=== PATIENT | male | born 1960 | race Two or more races ===

== ENCOUNTER 2022-08-29 15:26 | Emergency (ER) | payer MEDICAID, OTHER ==
[~2022-08-29] VITALS: Ht 167.6 cm; Wt 59.1 kg
[2022-08-29 18:49] VITALS: BP 157/91
[2022-08-29] MEDS ORDERED: HYDROcodone-ACET 10/325MG TAB PO ONE (19:30)
== END 2022-08-29 19:30 | disposition home or self-care (01) ==
LOC: ER 15:26
DX: S09.8XXA Other specified injuries of head, initial encounter (principal); R42 Dizziness and giddiness; E11.9 Type 2 diabetes mellitus without complications; I10 Essential (primary) hypertension; V43.52XA Car driver injured in collision with other type car in traffic accident, initial encounter; Y93.89 Activity, other specified; Y92.89 Other specified places as the place of occurrence of the external cause; Y99.8 Other external cause status
CPT/HCPCS: 70450

== ENCOUNTER 2022-11-25 13:19 | Emergency (ER) | payer MEDICAID ==
[~2022-11-25] VITALS: Ht 162.6 cm; Wt 57.0 kg
[2022-11-25 13:43] VITALS: TEMP 97.8; O2SAT 97
[2022-11-25] MEDS ORDERED: ONDANSETRON HCL 4 MG/2 ML VIAL IV ONE (13:45)
[2022-11-25] MEDS ORDERED: SODIUM CHLORIDE 0.9% 500 ML IVB ONE (13:45)
[2022-11-25] MEDS ORDERED: MORPHINE SULFATE 4 MG/ML SYR/VIAL IV ONE (13:45)
[2022-11-25 13:49] LABS: Basophils # (auto) 0 10 ^3/uL (0-0.2); Basophils % (auto) 0.5 % (0.0-2.0); Eosinophils # (auto) 0.1 10 ^3/uL (0-0.8); Hematocrit 38.9 % (41.0-53.0); Hemoglobin 13.2 g/dL (13.5-17.5); Lymphocytes # (auto) 2.3 10 ^3/uL (0.4-5.4); Lymphocytes % (auto) 34.3 % (10.0-50.0); Mean Corpuscular Hemoglobin 31.2 pg (28.0-32.0); Mean Corpuscular Hgb Conc. 33.9 g/dL (32.0-36.0); Monocytes # (auto) 0.3 10 ^3/uL (0-1.3); Neutrophils # (auto) 3.9 10 ^3/uL (1.6-8.6); Neutrophils % (auto) 59.2 % (37.0-80.0); Red Blood Cells 4.22 10^6/uL (4.5-5.90); Red Cell Distribution Width 13.9 % (11.8-14.3); White Blood Cell 6.6 10^3/uL (4.4-10.8)
[2022-11-25 13:57] LABS: Urine Bacteria NONE SEEN /hpf (None Seen); Urine Blood Negative /uL (Negative); Urine Clarity Clear (Clear); Urine Color Yellow (Yellow); Urine Hyaline Cast FEW /lpf (0 - 2); Urine Protein, UAD TRACE (Negative); Urine Specific Gravity 1.019 (1.001-1.035); Urine Urobilinogen Normal (Negative); Urine WBC <1 /hpf (0 - 3); Urine pH 5.5 (5.0-8.0)
[2022-11-25 14:08] LABS: Alanine Aminotransferase 12 U/L (7-40); Albumin 4.8 g/dL (3.2-4.8); Alkaline Phosphatase 89 U/L (46-116); Anion Gap 3 (5-15); Aspartate Aminotransferase 17 U/L (13-40); BUN/Creatinine Ratio 9.6 (10.0-20.0); Blood Urea Nitrogen 8 mg/dL (9-23); Calcium 9.6 mg/dL (8.7-10.4); Carbon Dioxide 30 mmol/L (20-30); Chloride 100 mmol/L (98-107); Glucose 157 mg/dL (74-106); Lipase 33 U/L (12-53); Potassium 4.2 mmol/L (3.5-5.1); Sodium 133 mmol/L (136-145)
[2022-11-25 14:09] LABS: Bilirubin, Total 0.3 mg/dL (0.2-1.0); Total Protein 7.2 g/dL (5.7-8.2)
[2022-11-25 14:20] VITALS: BP 102/60; PULSE 61; RESP 15
[2022-11-25] MEDS ORDERED: ZOFR4T PO (14:56)
== END 2022-11-25 14:57 | disposition home or self-care (01) ==
LOC: ER 13:19
DX: R10.84 Generalized abdominal pain (principal); E11.9 Type 2 diabetes mellitus without complications; I10 Essential (primary) hypertension; Z79.899 Other long term (current) drug therapy
CPT/HCPCS: 36415; 74176; 80053; 81001; 83690; 83735; 85025; 93005; 96361; 96374; 96375; 99285; J2270; J2405; J7040

== ENCOUNTER 2024-04-12 15:29 | Inpatient (IN) | payer MEDICAID ==
[~2024-04-12] VITALS: Ht 157.5 cm; Wt 67.2 kg
[~2024-04-12 15:29] MED LIST: ZOFR4T PO
--- NOTE | 2024-04-12 16:05 | ED.PDOC ---
GI ASSESSMENT HPI Comments HPI: Poor Historian. 63 y.o male presents to the ED for a chief complaint of epigastric pain associated with diarrhea that started 5 days ago. Patient reports pain is constant with 3 episodes of diarrhea per day, brown in coloration. Patient denies any nausea, vomiting, bleeding, fever or chills. Vitals BP: 154/80 HR: 114 Temp: 98.3 f SPO2: 90 L RR: 24 Past medical history: DM and HTN Past surgical history: Denies No allergies reported REVIEW OF SYSTEMS: CONSTITUTIONAL: Denies acute: fever, diaphoresis, chills, HEAD: Denies acute: headache, photophobia Eyes: Denies acute: Double vision, vision loss, eye pain, eye discharge. EARS: Denies acute: tinnitus, hearing loss, ear discharge, ear pain, THROAT: Denies acute: sore throat, swelling, difficulty swallowing , pain with swallowing, change in voice. NECK: Denies acute: neck pain, neck swelling, stiff neck. HEART: Denies acute : chest pain, palpitations, LUNGS: Denies acute: SOB, wheezing, cough, hemoptysis ABDOMEN: Denies acute: Nausea, Vomiting, melena , hematemesis, hematochezia SKIN: Denies acute: rash, redness, lesions, itchiness. EXTREMITIES: Denies acute: calf pain, numbness, tingling, weakness, denies pain in extremity. Denies acute: Low back pain. Neuro: Denies acute: focal neurological deficit, motor or sensory focal neurological deficit, tremors, seizure like activity, confusion, dizziness, change in mental status, loss of bowel or bladder function, cauda equina like symptoms. : Denies acute: dysuria, hematuria, flank pain, increase in urinary frequency. PSYCH: Denies acute: hallucination, suicidal ideation, homicidal ideation. PHYSICAL EXAM: General: no acute distress, awake and alert. Patient appears to have very poor hygiene. Denies being homeless. Smells like poop with noted diarrhea content in his pants and abdominal wall. Head: normocephalic, atraumatic. Neck: supple, trachea is midline, no swelling. Throat: Normal phonation. Eyes:, no erythema, no purulent discharge, no proptosis, no icterus. Heart: regular tachycardic home, no significant murmur appreciated. Lungs: no apparent respiratory distress, Able to speak in full sentences. No wheezing, no rhonchi, no crackles. No stridors Clear to auscultation bilaterally. Abdomen: Epigastric/periumbilical tender to palpation, non distended, soft, no guarding, no rebound, + bowel sounds. Neuro: Awake, Alert, oriented to name, self, situation, follows commands GCS=15. Speech is normal. Skin: no petechia, no purpura, no cyanosis, non-pale, not jaundice. Lower extremities: --no - Pitting edema no deformity, no focal swelling, no calf TTP. Makes eye contact. moves all four extremities. Face: no apparent facial droop. Ambulating in the ED independently. ED COURSE: Chief Complaint: Abdominal Pain Time Seen by MD: 15:52 Primary Care Provider: LARRY Reviewed Notes: Nurses Notes, Allergies Allergies: Coded Allergies: NO KNOWN ALLERGIES (Unverified , 08/29/22) Home Meds Active Scripts Ondansetron Odt 4MG Tab (ZOFRAN PO) 4 Mg Tb, 4 MG PO Q8HP PRN for 5 Days, #15 TAB ODT TAB-DISSOLVE IN MOUTH, THEN SWALLOW Prov:MARYCARMEN LEDBETTER MD 11/25/22 Information Source: Patient Mode of Arrival: Ambulatory Timing: Days Past Medical History PAST MEDICAL HISTORY: DM, HTN Surgical History: Denies all surgeries Family History Family History: Reviewed,noncontributory to illness Social History Smoker: Non-Smoker Alcohol: Denies ETOH Use Drugs: Denies Drug Use Lives In: Home Was a procedure done? Was a procedure done?: No GI differential Dx Differential Diagnosis: Diverticular disease, Gastroenteritis, Dehydration, Electrolyte Imbalance, Viral, Other (DDX include but not limited to diverticulitis, colitis, gastroenteritis, acute abdomen, SBO, enteritis, constipation, volvulus, appendicitis, Gallbladder disease, choledocolithiasis, ascending cholangitis, pancreatitis, intraAbdominal mass/neoplasm, hepatitis, UTI, pylonephritis, kidney stone, aneurysm, dissection, Inflammatory bowel disease, gastroparesis, ischemic bowel.) X-Ray, Labs, Meds, VS Vital Signs Date Time Temp Pulse Resp B/P (MAP) Pulse Ox O2 Delivery O2 Flow Rate FiO2 04/12/24 18:10 112 04/12/24 18:01 115 31 89 Nasal Cannula* 5 40 04/12/24 17:33 111 18 94 Room Air 04/12/24 17:33 99.1 111 18 119/74 (89) 94 99.1 04/12/24 16:03 106 04/12/24 16:00 98.3 114 24 154/80 (104) 90 Lab Test 04/12/24 18:34 04/12/24 16:11 04/12/24 15:55 04/12/24 15:54 Range/Units Lactic Acid Level Pending 4.4 *H 0.4-2.0 mmol/L Troponin I High Sensitivity Pending 8 </=54 ng/L White Blood Count 10.2 4.4-10.8 10^3/uL Red Blood Count 3.60 L 4.5-5.90 10^6/uL Hemoglobin 10.9 L 13.5-17.5 g/dL Hematocrit 32.5 L 41.0-53.0 % Mean Corpuscular Volume 90.1 80.0-100.0 fL Mean Corpuscular Hemoglobin 30.3 28.0-32.0 pg Mean Corpuscular Hemoglobin Concent 33.6 32.0-36.0 g/dL Red Cell Distribution Width 15.1 H 11.8-14.3 % Platelet Count 161 140-450 10^3/uL Mean Platelet Volume 7.8 6.9-10.8 fL Neutrophils (%) (Auto) 37.0-80.0 % Lymphocytes (%) (Auto) 10.0-50.0 % Monocytes (%) (Auto) 0.0-12.0 % Basophils (%) (Auto) 0.0-2.0 % Neutrophils # (Auto) 1.6-8.6 10 ^3/uL Lymphocytes # (Auto) 0.4-5.4 10 ^3/uL Monocytes # (Auto) 0-1.3 10 ^3/uL Differential Total Cells Counted 100.0 100 Neutrophils % (Manual) 88 H 37.0-80.0 Band Neutrophils % (Manual) 5 Lymphocytes % (Manual) 4 L 10.0-50.0 Monocytes % (Manual) 3 0-12 Eosinophils % (Manual) 0 0-7 Basophils % (Manual) 0 0.0-2.0 Metamyelocytes % (manual) 0 Myelocytes % (Manual) 0 Promyelocytes % (Manual) 0 Blast Cells % (Manual) 0 Reactive Lymphocytes 0 Platelet Estimate Adequate Sodium Level 128 L 136-145 mmol/L Potassium Level 3.0 L 3.5-5.1 mmol/L Chloride Level 94 L 98-107 mmol/L Carbon Dioxide Level 25 20-31 mmol/L Anion Gap 9 5-15 Blood Urea Nitrogen 25 H 9-23 mg/dL Creatinine 1.01 0.700-1.30 mg/dL Glomerular Filtration Rate Calc 83 >90 mL/min BUN/Creatinine Ratio 24.8 H 10.0-20.0 Serum Glucose 518 *H 74-106 mg/dL Calcium Level 9.8 8.7-10.4 mg/dL Total Bilirubin 1.0 0.2-1.0 mg/dL Aspartate Amino Transferase (AST) 33 13-40 U/L Alanine Aminotransferase (ALT) 22 7-40 U/L Alkaline Phosphatase 104 46-116 U/L Total Protein 6.4 5.7-8.2 g/dL Albumin 4.0 3.2-4.8 g/dL Lipase 23 12-53 U/L POC Glucose 487 *H 523 *H 70-106 mg/dl Current Medications Medications (Trade) Dose Ordered Sig/Darryl Route Start Time Stop Time Status Last Admin Sodium Chloride 1,000 ml @ 1,000 mls/hr Q1H ONCE IV 04/12/24 17:15 04/12/24 18:14 DC 04/12/24 17:31 Metronidazole 100 ml @ 100 mls/hr ONCE ONCE IV 04/12/24 17:15 04/12/24 18:14 DC 04/12/24 17:45 Insulin Human Regular (InsuLIN R) 5 units ONCE ONCE IV 04/12/24 17:15 04/12/24 17:22 DC 04/12/24 18:30 Potassium Chloride (Klor-Con Tablet) 40 meq ONCE ONCE PO 04/12/24 17:15 04/12/24 17:22 DC 04/12/24 17:15 Ondansetron HCl (Zofran) 8 mg ONCE ONCE IV 04/12/24 17:15 04/12/24 17:22 DC 04/12/24 17:45 [facility] [address] [facility] [address] Ph: [phone] DIAGNOSTIC IMAGING Diagnostic Imaging Report : [id number] Signed PATIENT: JAN PROCTOR ACCT: [id number] UNIT: [id number] : 1960 LOC: ER ROOM / BED: / AGE / SEX: 63 / M ADM STATUS: REG ER SERVICE [id number] ORDERING PHYSICIAN: ELIAS PONCE DO PROCEDURE(s): ABPL - CT AB PEL WO CON-NO ORAL OR IV REASON: abd pain ORDER NUMBER(s): [id number], ACCESSION NUMBER(s): [id number] EXAM: CT Abdomen and Pelvis Without Intravenous Contrast CLINICAL INDICATION: abd pain TECHNIQUE: Axial computed tomography images of the abdomen and pelvis without intravenous contrast. This CT exam was performed using one or more of the f ollowing dose reduction techniques: automated exposure control, adjustment of the mA and/or kV according to patient size, and/or use of iterative reconstruction technique. CONTRAST: COMPARISON: CT CT AB PEL WO CON-NO ORAL OR IV on DOS: 11/25/22 FINDINGS: ARTIFACTS: Motion artifact. LUNG BASES: Partially visualized partial consolidation of the lung bases, greater on the right likely multifocal pneumonia. ABDOMEN: LIVER: Hepatomegaly with fatty infiltration. GALLBLADDER AND BILE DUCTS: Unremarkable. No calcified stones. No ductal dilation. PANCREAS: Unremarkable. No ductal dilation. SPLEEN: Unremarkable. No splenomegaly. ADRENALS: Unremarkable. No mass. KIDNEYS AND URETERS: Unremarkable. No obstructing stones. No hydronephrosis. STOMACH AND BOWEL: Multiple fluid-filled small bowel with air-fluid level measuring up to 2.5 cm could represent enteritis. Clinical correlation is recommended. Distended stomach. Decompression may be beneficial. PELVIS: APPENDIX: No findings to suggest acute appendicitis. BLADDER: Unremarkable. No stones. REPRODUCTIVE: Unremarkable as visualized. ABDOMEN and PELVIS: INTRAPERITONEAL SPACE: Unremarkable. No free air. No significant fluid collection. BONES/JOINTS: No acute fracture. No dislocation. SOFT TISSUES: Unremarkable. VASCULATURE: Scattered calcified atherosclerotic disease of aorta. No abdominal aortic aneurysm. LYMPH NODES: Unremarkable. No enlarged lymph nodes. OTHER FINDINGS: . None. .. IMPRESSION: 1. Partially visualized partial consolidation of the lung bases, greater on the right likely multifocal pneumonia. 2. Multiple fluid-filled small bowel with air-fluid level measuring up to 2.5 cm could represent enteritis. Clinical correlation is recommended. 3. Hepatomegaly with fatty infiltration. 4. Distended stomach. Decompression may be beneficial. ATED BY: SIVAN CARPIO MD DICTATED DATE/TIME: 04/12/241840 SIGNED BY: SIVAN CARPIO MD SIGNED DATE/TIME: 04/12/241840 CC: Time of 1ST Reevaluation: 16:02 Reevaluation 1ST: Unchanged Patient Education/Counseling: Diagnosis, Treatment Family Education/Counseling: No Family Present Comments Patient presented with the above HPI.--gastrointestinal complaints----workup was initiated. patient was found with the above mentioned diagnosis. the following medications were ordered: please refer to order lists of meds and tests obtained by myself Dr. Ponce. Patient ED course and VS have been stabilized. Patient has been reassessed in the ED and remained in a stable condition. Pertinent incidental findings were discussed with the patient and/or family. Patient/family voices understanding and is agreeable with plan. Patient has been observed in the ED adequate length of time to insure improvement/stability. Escalation of care considered: Consideration of escalation to observation or admission Patient was ADMITTED to the medicine team for further evaluation and treatment of their presentation. All the reports of any imaging studies that were ordered by myself were reviewed by myself. Departure 1 Departure Time of Disposition: 17:16 Impression: Primary Impression: Abdominal pain of unknown etiology Additional Impressions: Nausea vomiting and diarrhea Elevated lactic acid level Hyperglycemia Hypokalemia Multifocal pneumonia Disposition: ADMITTED INPATIENT Admit to: Tele Condition: Guarded Critical Care Note Critical Care Time?: Yes (45 min-critical care time only) I personally scribed for ELIAS PONCE DO ([email or web address]) on 04/12/24 at 16:05. Electronically submitted by Nika Valle ([facility]). I personally scribed for ELIAS PONCE DO ([email or web address]) on 04/12/24 at 18:32. Electronically submitted by Nika Valle ([facility]). I personally scribed for ELIAS PONCE DO ([email or web address]) on 04/12/24 at 18:52. Electronically submitted by Nika Valle ([facility]). ELIAS PONCE DO Apr 12, 2024 16:05
--- NOTE | 2024-04-12 16:05 | ECG ---
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
[2024-04-12 16:56] LABS: Hematocrit 32.5 % (41.0-53.0); Hemoglobin 10.9 g/dL (13.5-17.5); Mean Corpuscular Hemoglobin 30.3 pg (28.0-32.0); Mean Corpuscular Hgb Conc. 33.6 g/dL (32.0-36.0); Mean Corpuscular Volume 90.1 fL (80.0-100.0); Platelet Count (auto) 161 10^3/uL (140-450); Red Cell Distribution Width 15.1 % (11.8-14.3); White Blood Cell 10.2 10^3/uL (4.4-10.8)
[2024-04-12 16:59] LABS: Basophils % (manual) 0 (0.0-2.0); Blast Cells 0; Eosinophils % (manual) 0 (0-7); Metamyelocytes % 0; Myelocytes % 0; Promyelocytes % 0; Reactive Lymphocytes 0
[2024-04-12 17:09] LABS: Alanine Aminotransferase 22 U/L (7-40); Alkaline Phosphatase 104 U/L (46-116); Anion Gap 9 (5-15); Aspartate Aminotransferase 33 U/L (13-40); BUN/Creatinine Ratio 24.8 (10.0-20.0); Calcium 9.8 mg/dL (8.7-10.4); Carbon Dioxide 25 mmol/L (20-31); Lipase 23 U/L (12-53)
[2024-04-12 17:10] LABS: Total Protein 6.4 g/dL (5.7-8.2)
[2024-04-12 17:11] LABS: Lactic Acid w/Reflex 4.4 mmol/L (0.4-2.0)
[2024-04-12 17:12] LABS: Blood Urea Nitrogen 25 mg/dL (9-23); Chloride 94 mmol/L (98-107); Sodium 128 mmol/L (136-145)
[2024-04-12 17:13] LABS: Glucose 518 mg/dL (74-106)
[2024-04-12] MEDS: POTASSIUM CHL 20 Meq TABLET PO ONE (17:15)
[2024-04-12] MEDS: SODIUM CHLORIDE 0.9% 1,000 ML IV ONE (17:31)
[2024-04-12] MEDS: ONDANSETRON HCL 4 MG/2 ML VIAL IV ONE (17:45)
[2024-04-12] MEDS: metroNIDAZOLE 500MG/100ML 100 ML IV ONE (17:45)
[2024-04-12 18:00] LABS: Band Neutrophils % (manual) 5; Lymphocytes % (manual) 4 (10.0-50.0); Monocytes % (manual) 3 (0-12); Platelet Estimate Adequate
[2024-04-12 18:01] VITALS: PULSE 115; RESP 31; O2SAT 89
[2024-04-12] MEDS: InsuLIN REG 1unit/0.01ml Soln (100units/ml) IV ONE (18:30)
--- NOTE | 2024-04-12 18:44 | DVH ---
EXAM: CT Abdomen and Pelvis Without Intravenous Contrast CLINICAL INDICATION: abd pain TECHNIQUE: Axial computed tomography images of the abdomen and pelvis without intravenous contrast. This CT exam was performed using one or more of the following dose reduction techniques: automated exposure control, adjustment of the mA and/or kV according to patient size, and/or use of iterative r econstruction technique. CONTRAST: COMPARISON: CT CT AB PEL WO CON-NO ORAL OR IV on DOS: 11/25/22 FINDINGS: ARTIFACTS: Motion artifact. LUNG BASES: Partially visualized partial consolidation of the lung bases, greater on the right like ly multifocal pneumonia. ABDOMEN: LIVER: Hepatomegaly with fatty infiltration. GALLBLADDER AND BILE DUCTS: Unremarkable. No calcified stones. No ductal dilation. PANCREAS: Unremarkable. No ductal dilation. SPLEEN: Unremarkable. No splenomegaly. ADRENALS: Unremarkable. No mass. KIDNEYS AND URETERS: Unremarkable. No obstructing stones. No hydronephrosis. STOMACH AND BOWEL: Multiple fluid-filled small bowel with air-fluid level measuring up to 2.5 cm co uld represent enteritis. Clinical correlation is recommended. Distended stomach. Decompression may be beneficial. PELVIS: APPENDIX: No findings to suggest acute appendicitis. BLADDER: Unremarkable. No stones. REPRODUCTIVE: Unremarkable as visualized. ABDOMEN and PELVIS: INTRAPERITONEAL SPACE: Unremarkable. No free air. No significant fluid collection. BONES/JOINTS: No acute fracture. No dislocation. SOFT TISSUES: Unremarkable. VASCULATURE: Scattered calcified atherosclerotic disease of aorta. No abdominal aortic aneurysm. LYMPH NODES: Unremarkable. No enlarged lymph nodes. OTHER FINDINGS: . None. .. IMPRESSION: 1. Partially visualized partial consolidation of the lung bases, greater on the right likely multifo rosina pneumonia. 2. Multiple fluid-filled small bowel with air-fluid level measuring up to 2.5 cm could represent ent eritis. Clinical correlation is recommended. 3. Hepatomegaly with fatty infiltration. 4. Distended stomach. Decompression may be beneficial.
[2024-04-12] MEDS ORDERED: ACETAMINOPHEN 325 MG TAB PO PRN (18:45)
[2024-04-12] MEDS ORDERED: DOCUSATE SOD 100 MG CAP PO PRN (18:45)
[2024-04-12] MEDS ORDERED: DEXTROSE (50%) 50ML SYRG IV PRN (18:45)
[2024-04-12] MEDS ORDERED: MORPHINE SULFATE INJ 2 MG/ml SYRG IV PRN (18:45)
[2024-04-12] MEDS ORDERED: NITROGLYCERIN 0.4 MG SL TAB SL PRN (18:45)
--- NOTE | 2024-04-12 19:01 | DVHHP2 ---
History of Present Illness Reason for Visit: Diabetes mellitus with hyperglycemia History of Present Illness The patient is a 63-year-old male with past medical history of DM and hypertension who presented to [facility] ED with complaint of acute abdominal pain for the past 5 days duration. Patient reports he has been experiencing constant episode of diarrhea, associated nausea, vomiting, rating pain 5/10 numeric scale, getting worse today that prompted this visit. Patient was seen and evaluated in the ED, laboratory data shows WBC 10.2, hemoglobin 10.9, hematocrit 32.5, platelets 161, sodium 128, potassium 3.0, BUN 25, creatinine 1.01, GFR 83, glucose 518, anion gap 9, lactic acid 4.4, troponin 8, lipase 23, blood pressure 119/74, heart rate 112, temperature 99.1 F, O2 saturation 94% on oxygen. Abdomen/pelvis CT revealing partially visualized partial consolidation of the lung base, greater on the right likely multifocal pneumonia, multiple fluid-filled small bowel with filled level measuring up to 2.5 cm could represent enteritis, hepatomegaly with fatty infiltration. Patient was started on IV antibiotic regimen Flagyl, IV doxycycline, please see medication orders section in the computer. On my assessment, patient denied chest pain, no headache, no dizziness, no diaphoresis, no blurry vision, no abdominal pain, diarrhea, nausea or vomiting at this moment, no fever, no chills. Patient was admitted for further evaluation and medical management. Past Medical History DM, HTN Past Surgical History Denies all surgeries Family History Reviewed, noncontributory to the management of this case. Past Social History The patient lives at home, denies smoking, alcohol or illicit drugs abuse. Review of Systems Constitutional: No: Fever, Chills, Sweats, Weakness, Malaise, Other Eyes: No: Pain, Vision change, Conjunctivae inflammation, Eyelid inflammation, Other, Redness ENT: No: Ear pain, Ear discharge, Nose pain, Nose discharge, Nose congestion, Mouth pain, Mouth swelling, Throat pain, Throat swelling, Other Respiratory: No: Cough, Dry, Shortness of breath, SOB with excertion, Wheezing, Hemoptysis, Pleuritic Pain, Sputum, Wheezing, Other Cardiovascular: No: Chest Pain, Palpitations, Orthopnea, Paroxysmal Noc. Dyspnea, Edema, Lt Headedness, Other Gastrointestinal: Nausea, Vomiting, Abdominal Pain, Diarrhea; No: Constipation, Melena, Hematochezia, Other Genitourinary: No Dysuria, No Frequency, No Incontinence, No Hematuria, No Retention, No Other Musculoskeletal: No: other, neck pain, shoulder pain, arm pain, back pain, hand pain, leg pain, foot pain Skin: No: Rash, Lesions, Jaundice, Bruising, Other Neurological: No: Weakness, Numbness, Incoordination, Change in speech, Confusion, Seizures, Other Allergies: Coded Allergies: NO KNOWN ALLERGIES (Unverified , 08/29/22) Medications Current Medications Medications Dose Ordered Sig/Darryl Route Start Time Stop Time Status Last Admin Dose Admin Diagnostic Test (Pha) 1 strip IQ4HR 04/12/24 20:00 Insulin Human Regular IQ4HR SC 04/12/24 20:00 Dextrose 50 ml UD PRN IV 04/12/24 18:45 Sodium Chloride 1,000 ml @ 120 mls/hr Q8H20M IV 04/12/24 18:45 Acetaminophen/ Hydrocodone Bitart 1 tab Q4HP PRN PO 04/12/24 18:45 Ondansetron HCl 4 mg Q4HP PRN IV 04/12/24 18:45 Docusate Sodium 100 mg BIDPRN PRN PO 04/12/24 18:45 Acetaminophen 650 mg Q6HP PRN PO 04/12/24 18:45 Nitroglycerin 0.4 mg Q5MINP PRN SL 04/12/24 18:45 Morphine Sulfate 2 mg Q30M PRN IV 04/12/24 18:45 Exam Vital Signs Vital Signs Date Time Temp Pulse Resp B/P (MAP) Pulse Ox O2 Delivery O2 Flow Rate FiO2 04/12/24 18:10 112 04/12/24 18:01 31 89 Nasal Cannula* 5 40 04/12/24 17:33 99.1 119/74 (89) 99.1 General Appearance: Alert, Oriented X3, Cooperative, No acute distress HEENT: Atraumatic, PERRLA, EOMI, Mucous membr. moist/pink Respiratory: Normal air movement, Other (Diminished breath sounds) Cardiovascular: Regular rate, Normal S1, Normal S2, No murmurs Abdominal: Normal bowel sounds, Soft, No hepatospenomegaly, No masses, Other (Reports tenderness) Extremities: No clubbing, No cyanosis, No edema, Normal pulses, No tender ness/swelling Skin: No rashes, No breakdown, No significant lesion Neuro: Normal gait, Normal speech, Strength at 5/5 X4 ext, Normal tone, Sensation intact, Cranial nerves 3-12 NL, Reflexes 2+ Psych/Mental Status: Mental status NL, Mood NL Labs/Xrays Labs Test 04/12/24 18:34 04/12/24 16:11 04/12/24 15:55 Range/Units White Blood Count 10.2 4.4-10.8 10^3/uL Red Blood Count 3.60 L 4.5-5.90 10^6/uL Hemoglobin 10.9 L 13.5-17.5 g/dL Hematocrit 32.5 L 41.0-53.0 % Mean Corpuscular Volume 90.1 80.0-100.0 fL Mean Corpuscular Hemoglobin 30.3 28.0-32.0 pg Mean Corpuscular Hemoglobin Concent 33.6 32.0-36.0 g/dL Red Cell Distribution Width 15.1 H 11.8-14.3 % Platelet Count 161 140-450 10^3/uL Mean Platelet Volume 7.8 6.9-10.8 fL Neutrophils (%) (Auto) 37.0-80.0 % Lymphocytes (%) (Auto) 10.0-50.0 % Monocytes (%) (Auto) 0.0-12.0 % Basophils (%) (Auto) 0.0-2.0 % Neutrophils # (Auto) 1.6-8.6 10 ^3/uL Lymphocytes # (Auto) 0.4-5.4 10 ^3/uL Monocytes # (Auto) 0-1.3 10 ^3/uL Differential Total Cells Counted 100.0 100 Neutrophils % (Manual) 88 H 37.0-80.0 Band Neutrophils % (Manual) 5 Lymphocytes % (Manual) 4 L 10.0-50.0 Monocytes % (Manual) 3 0-12 Eosinophils % (Manual) 0 0-7 Basophils % (Manual) 0 0.0-2.0 Metamyelocytes % (manual) 0 Myelocytes % (Manual) 0 Promyelocytes % (Manual) 0 Blast Cells % (Manual) 0 Reactive Lymphocytes 0 Platelet Estimate Adequate Sodium Level 128 L 136-145 mmol/L Potassium Level 3.0 L 3.5-5.1 mmol/L Chloride Level 94 L 98-107 mmol/L Carbon Dioxide Level 25 20-31 mmol/L Anion Gap 9 5-15 Blood Urea Nitrogen 25 H 9-23 mg/dL Creatinine 1.01 0.700-1.30 mg/dL Glomerular Filtration Rate Calc 83 >90 mL/min BUN/Creatinine Ratio 24.8 H 10.0-20.0 Serum Glucose 518 *H 74-106 mg/dL Calcium Level 9.8 8.7-10.4 mg/dL Total Bilirubin 1.0 0.2-1.0 mg/dL Aspartate Amino Transferase (AST) 33 13-40 U/L Alanine Aminotransferase (ALT) 22 7-40 U/L Alkaline Phosphatase 104 46-116 U/L Total Protein 6.4 5.7-8.2 g/dL Albumin 4.0 3.2-4.8 g/dL Lipase 23 12-53 U/L POC Glucose 487 *H 70-106 mg/dl PATIENT: JAN PROCTOR ACCT: [id number] UNIT: [id number] : 1960 LOC: ER ROOM / BED: / AGE / SEX: 63 / M ADM STATUS: REG ER SERVICE 1634 ORDERING PHYSICIAN: ELIAS PONCE DO PROCEDURE(s): ABPL - CT AB PEL WO CON-NO ORAL OR IV REASON: abd pain ORDER NUMBER(s): [id number], ACCESSION NUMBER(s): [id number] EXAM: CT Abdomen and Pelvis Without Intravenous Contrast CLINICAL INDICATION: abd pain TECHNIQUE: Axial computed tomography images of the abdomen and pelvis without intravenous contrast. This CT exam was performed using one or more of the following dose reduction techniques: automated exposure control, adjustment of the mA and/or kV according to patient size, and/or use of iterative reconstruction technique. CONTRAST: COMPARISON: CT CT AB PEL WO CON-NO ORAL OR IV on DOS: 11/25/22 FINDINGS: ARTIFACTS: Motion artifact. LUNG BASES: Partially visualized partial consolidation of the lung bases, greater on the right likely multifocal pneumonia. ABDOMEN: LIVER: Hepatomegaly with fatty infiltration. GALLBLADDER AND BILE DUCTS: Unremarkable. No calcified stones. No ductal dilation. PANCREAS: Unremarkable. No ductal dilation. SPLEEN: Unremarkable. No splenomegaly. ADRENALS: Unremarkable. No mass. KIDNEYS AND URETERS: Unremarkable. No obstructing stones. No hydronephrosis. STOMACH AND BOWEL: Multiple fluid-filled small bowel with air-fluid level measuring up to 2.5 cm could represent enteritis. Clinical correlation is recommended. Distended stomach. Decompression may be beneficial. PELVIS: APPENDIX: No findings to suggest acute appendicitis. BLADDER: Unremarkable. No stones. REPRODUCTIVE: Unremarkable as visualized. ABDOMEN and PELVIS: INTRAPERITONEAL SPACE: Unremarkable. No free air. No significant fluid collection. BONES/JOINTS: No acute fracture. No dislocation. SOFT TISSUES: Unremarkable. VASCULATURE: Scattered calcified atherosclerotic disease of aorta. No abdominal aortic aneurysm. LYMPH NODES: Unremarkable. No enlarged lymph nodes. OTHER FINDINGS: None. IMPRESSION: 1. Partially visualized partial consolidation of the lung bases, greater on the right likely multifocal pneumonia. 2. Multiple fluid-filled small bowel with air-fluid level measuring up to 2.5 cm could represent enteritis. Clinical correlation is recommended. 3. Hepatomegaly with fatty infiltration. 4. Distended stomach. Decompression may be beneficial. Assessment/Plan Assessment/Plan Abdominal pain of unknown etiology Electrolyte imbalance Enteritis Multifocal pneumonia Nausea vomiting and diarrhea Elevated lactic acid level Diabetes mellitus with hyperglycemia Plan 1. Admit to telemetry unit 2. Breathing treatment 3. Pain control management 4. IV antibiotic management 5. Management of fluids and electrolytes 6. Consultation for hospitalist 7. Diagnostic test abdomen/pelvis CT 8. DVT prophylaxis-on SCDs 9. Repeat labs CBC, CMP in a.m. 10. Home medication reviewed and reconciled 11. Continue with current medical management 12. Treatment plan discussed with patient and RN. Patient verbalized understanding. Plan discussed with: Patient, Other (RN) My Orders Orders - SEBASTIEN MITCHELL DNP Procedure Category Date Status Time Glucose Blood PHA 04/12/24 In Process (Accu-Chek Comfort 20:00 Insulin R (Human) PHA 04/12/24 In Process (Insulin R) 20:00 Dextrose 50% Syringe PHA 04/12/24 In Process 18:45 Admit ADMIT 04/12/24 Transmitted 18:42 Allergies TREY 04/12/24 In Process 18:42 Code Status CODE 04/12/24 Transmitted 18:42 Sodium Chloride 0.9% PHA 04/12/24 In Process 18:45 Oxygen Per Hour RT 04/12/24 Transmitted 18:42 Hydrocodone-Acet PHA 04/12/24 In Process 5/325mg Tab ([place] 18:45 Ondansetron Hcl PHA 04/12/24 In Process (Zofran) 18:45 Docusate Sodium PHA 04/12/24 In Process Capsule (Colace 18:45 Complete Blood Count LAB 04/13/24 Verified 04:00 Comprehensive LAB 04/13/24 Verified Metabolic Panel 04:00 Condition: Serious TREY 04/12/24 In Process 18:42 Acetaminophen Tablet PHA 04/12/24 In Process (Tylenol Tablet) 18:45 Bedrest With Bathroom TREY 04/12/24 In Process Privileg 18:42 Sequential TREY 04/12/24 In Process Compression Device Nitroglycerin PHA 04/12/24 In Process Sublingual (Ntrostat 18:45 Morphine Sulfate PHA 04/12/24 In Process Injection 18:45 Notify Of Changes TREY 04/12/24 In Process From Base 18:42 Radiologist Diagnostic For [facility] 04/12/24 In Process 24 Hours 18:42 Emergency Dysrhythmia [facility] 04/12/24 In Process Protocol 18:42 Rhythm Strips Once [facility] 04/12/24 In Process Every Shift 18:42 Oxygen By Nasal RT 04/12/24 Transmitted Cannula 18:42 Clear Liq Diet DIET 04/13/24 Transmitted Breakfast Hemoglobin A1c LAB 04/12/24 Verified 18:57 Lactic Acid W/ Reflex LAB 04/12/24 Verified Order 20:30 Problem List: (1) Abdominal pain of unknown etiology (2) Nausea vomiting and diarrhea (3) Elevated lactic acid level (4) Multifocal pneumonia (5) Enteritis (6) Electrolyte imbalance (7) Diabetes mellitus with hyperglycemia Date of Service: Apr 12, 2024 Billing Provider: SEBASTIEN MITCHELL DNP Common Visit Codes: [id number] INP/OBS CARE (HIGH) SEBASTIEN MITCHELL DNP Apr 12, 2024 19:01
[2024-04-12] MEDS: SODIUM CHLORIDE 0.9% 1,000 ML IV SCH (19:07)
[2024-04-12 19:50] VITALS: PULSE 102; RESP 16; O2SAT 100
[2024-04-12 20:00] LABS: Lactic Acid w/Reflex 3.9 mmol/L (0.4-2.0)
[2024-04-12] MEDS: ACCU-CHEK COMFORT CURVE STRIP VI SCH (20:05)
[2024-04-12] MEDS: InsuLIN REG 1unit/0.01ml Soln (100units/ml) SC SCH (20:11)
[2024-04-12] MEDS: PIPERACILLIN-TAZOB 3.375GM 100 ML IV ONE (20:14)
[2024-04-12] MEDS: DOXYCYCLINE 100MG/100ML 100 ML IV SCH (21:15)
[2024-04-12] MEDS: metroNIDAZOLE 500MG/100ML 100 ML IV SCH (22:42)
[2024-04-13 06:46] LABS: Hematocrit 31.4 % (41.0-53.0); Hemoglobin 10.5 g/dL (13.5-17.5); Mean Corpuscular Hemoglobin 29.8 pg (28.0-32.0); Mean Corpuscular Hgb Conc. 33.5 g/dL (32.0-36.0); Mean Corpuscular Volume 88.9 fL (80.0-100.0); Platelet Count (auto) 154 10^3/uL (140-450); Red Blood Cells 3.53 10^6/uL (4.5-5.90); Red Cell Distribution Width 15.3 % (11.8-14.3)
[2024-04-13 07:00] LABS: Band Neutrophils % (manual) 0; Basophils % (manual) 0 (0.0-2.0); Blast Cells 0; Eosinophils % (manual) 0 (0-7); Metamyelocytes % 0; Myelocytes % 0; Promyelocytes % 0; Reactive Lymphocytes 0
[2024-04-13] MEDS: ONDANSETRON HCL 4 MG/2 ML VIAL IV PRN (07:10)
[2024-04-13 07:14] LABS: Alanine Aminotransferase 20 U/L (7-40); Albumin 3.7 g/dL (3.2-4.8); Alkaline Phosphatase 88 U/L (46-116); Anion Gap 10 (5-15); Aspartate Aminotransferase 39 U/L (13-40); BUN/Creatinine Ratio 30.3 (10.0-20.0); Blood Urea Nitrogen 23 mg/dL (9-23); Calcium 9.9 mg/dL (8.7-10.4); Carbon Dioxide 25 mmol/L (20-31); Chloride 101 mmol/L (98-107)
[2024-04-13 07:15] LABS: Bilirubin, Total 0.6 mg/dL (0.2-1.0); Glucose 136 mg/dL (74-106); Potassium 2.9 mmol/L (3.5-5.1); Sodium 136 mmol/L (136-145); Total Protein 5.9 g/dL (5.7-8.2)
[2024-04-13 07:59] LABS: Lymphocytes % (manual) 8 (10.0-50.0); Monocytes % (manual) 5 (0-12); Platelet Estimate Adequate
[2024-04-13 08:00] VITALS: PULSE 86; RESP 20; O2SAT 94
[2024-04-13 10:04] LABS: Urine Bacteria FEW /hpf (None Seen); Urine Blood 1+ /uL (Negative); Urine Clarity Clear (Clear); Urine Color Yellow (Yellow); Urine Protein, UAD 2+ (Negative); Urine Specific Gravity 1.023 (1.001-1.035); Urine Squamous Epithelial Cell FEW /hpf (<5); Urine Urobilinogen Normal (Negative); Urine WBC 2 /HPF (0-3)
--- NOTE | 2024-04-13 13:05 | DVHPN2 ---
Subjective 63-year-old male with a history of type 2 diabetes and hypertension comes with a chief complaint of 1 week of nausea and vomiting and diarrhea and abdominal pain CT scan of the abdomen showed possible underlying pneumonia bilaterally at the bases Potassium is 2.9 He is still having diarrhea Changes from previous H/P or p: Changes Eyes: No Pain, No Vision change, No Conjunctivae inflammation, No Eyelid inflammation, No Other, No Redness ENT: No Ear pain, No Ear discharge, No Nose pain, No Nose discharge, No Nose congestion, No Mouth pain, No Mouth swelling, No Throat pain, No Throat swelling, No Other Cardiovascular: No Chest Pain, No Palpitations, No Orthopnea, No Paroxysmal Noc. Dyspnea, No Edema, No Lt Headedness, No Other Respiratory: No Cough, No Dry, No Shortness of breath, No SOB with excertion, No Wheezing, No Hemoptysis, No Pleuritic Pain, No Sputum, No Other Gastrointestinal: Nausea, Vomiting, Abdominal Pain, Diarrhea; No Constipation, No Melena, No Hematochezia, No Other Genitourinary: No Dysuria, No Frequency, No Incontinence, No Hematuria, No Retention, No Other Musculoskeletal: No other, No neck pain, No shoulder pain, No arm pain, No back pain, No hand pain, No leg pain, No foot pain Skin: No Rash, No Lesions, No Jaundice, No Bruising, No Other Objective Vitals Vital Signs Date Time Temp Pulse Resp B/P (MAP) Pulse Ox O2 Delivery O2 Flow Rate FiO2 04/13/24 12:00 89 20 121/77 (92) 92 04/13/24 10:11 98.4 98.4 04/13/24 08:00 Nasal Cannula* 2 28 Intake/Output Intake and Output 04/13/24 07:00 Intake Total 2450 ml Balance 2450 ml Intake Oral 0 ml IV Total 2450 ml # Voids 4 # Bowel Movements 4 General Appearance: Alert, Oriented X3, Cooperative Lungs: Clear to auscultation, Normal air movement Cardiovascular: Regular rate, Normal S1 Extremities: No edema Medications Current Medications Medications Dose Ordered Sig/Darryl Route Start Time Stop Time Status Last Admin Dose Admin Diagnostic Test (Pha) 1 strip IQ4HR 04/12/24 20:00 04/13/24 09:38 1 STRIP Insulin Human Regular IQ4HR SC 04/12/24 20:00 04/13/24 09:46 4 UNITS Dextrose 50 ml UD PRN IV 04/12/24 18:45 Sodium Chloride 1,000 ml @ 120 mls/hr Q8H20M IV 04/12/24 18:45 04/13/24 06:09 120 MLS/HR Acetaminophen/ Hydrocodone Bitart 1 tab Q4HP PRN PO 04/12/24 18:45 Ondansetron HCl 4 mg Q4HP PRN IV 04/12/24 18:45 04/13/24 11:02 4 MG Docusate Sodium 100 mg BIDPRN PRN PO 04/12/24 18:45 Acetaminophen 650 mg Q6HP PRN PO 04/12/24 18:45 Nitroglycerin 0.4 mg Q5MINP PRN SL 04/12/24 18:45 Morphine Sulfate 2 mg Q30M PRN IV 04/12/24 18:45 Metronidazole 100 ml @ 100 mls/hr Q8HR IV 04/12/24 22:00 04/13/24 06:08 100 MLS/HR Doxycycline Hyclate 100 ml @ 50 mls/hr Q12H IV 04/12/24 21:15 04/13/24 09:53 50 MLS/HR Potassium Chloride 100 ml @ 50 mls/hr Q2HR IV 04/13/24 14:00 04/13/24 17:59 UNV Laboratory Results Laboratory Tests 04/13/24 06:27 Chemistry Test 04/12/24 16:11 04/13/24 06:27 Albumin 4.0 g/dL (3.2-4.8) 3.7 g/dL (3.2-4.8) Calcium Level 9.8 mg/dL (8.7-10.4) 9.9 mg/dL (8.7-10.4) Total Protein 6.4 g/dL (5.7-8.2) 5.9 g/dL (5.7-8.2) Lipid panel Test 04/12/24 16:11 Lipase 23 U/L (12-53) LFT Test 04/12/24 16:11 04/13/24 06:27 Alanine Aminotransferase (ALT) 22 U/L (7-40) 20 U/L (7-40) Alkaline Phosphatase 104 U/L (46-116) 88 U/L (46-116) Aspartate Amino Transferase (AST) 33 U/L (13-40) 39 U/L (13-40) Total Bilirubin 1.0 mg/dL (0.2-1.0) 0.6 mg/dL (0.2-1.0) HgA1c, TSH Test 04/12/24 19:00 Hemoglobin A1c 9.3 % A1C (<5.7) H Urinalysis Test 04/13/24 09:53 Urine Color Yellow (Yellow) Urine Clarity Clear (Clear) Urine pH 6.0 (5.0-9.0) Urine Specific Bailey 1.023 (1.001-1.035) Urine Protein 2+ (Negative) H Urine Ketones 1+ (Negative) H Urine Blood 1+ /uL (Negative) H Urine Nitrite Negative (Negative) Urine Bilirubin Negative (Negative) Urine Urobilinogen Normal mg/dL (Negative) Urine Leukocyte Esterase Negative /uL (Negative) Urine RBC 1 /hpf (0 - 3) Urine Microscopic WBC 2 /HPF (0-3) Urine Squamous Epithelial Cells Few /hpf (<5) Urine Bacteria Few /hpf (None Seen) H Urine Glucose 4+ mg/dL (Normal) H Microbiology Microbiology Date/Time Source Procedure Growth Status 04/13/24 10:30 Stool Stool Culture - Preliminary Resulted 04/13/24 10:30 Stool Shiga Toxin I & II - Final Resulted 04/13/24 10:30 Stool Clostridium difficile Toxin Assay Pending Resulted Assessment/Plan Assessment/Plan Intractable nausea and vomiting and diarrhea Possible gastroenteritis Hypokalemia Acute kidney injury hemodynamically mediated Dehydration Type 2 diabetes Hypertension Plan Clear liquid diet IV fluids Broad-spectrum antibiotics for possible underlying pneumonia Oxygen as needed Telemetry Replace potassium IV Check the magnesium Full code Advance directives discussed for 19 minute Campylobacter in stools: Add PO Zithromax Plan discussed with: Patient My Orders Orders - SANDEEP LOPEZ MD Procedure Category Date Status Time Potassium Chl PHA 04/13/24 Logged 20meq/100ml 14:00 Date of Service: Apr 13, 2024 Billing Provider: SANDEEP LOPEZ MD Common Visit Codes: [id number] INP/OBS CARE(HIGH) Secondary Visit Codes: [id number] CARE PLAN 30 MINUTES SANDEEP LOPEZ MD Apr 13, 2024 13:05
[2024-04-13] MEDS ORDERED: DEXTROSE (50%) 50ML SYRG IV PRN (13:15)
[2024-04-13] MEDS: POTASSIUM CHL 20MEQ/100ML 100 ML IV SCH (13:34)
[2024-04-13] MEDS: ACCU-CHEK COMFORT CURVE STRIP VI SCH (17:26)
[2024-04-13] MEDS: AZITHROMYCIN 250 MG TAB PO ONE (17:26)
[2024-04-13] MEDS: InsuLIN REG 1unit/0.01ml Soln (100units/ml) SC SCH (19:13)
[2024-04-13 19:55] VITALS: PULSE 92; RESP 20; O2SAT 94
[2024-04-13] MEDS: FAMOTIDINE (10MG/ML) 2ML VL IV SCH (22:00)
[2024-04-13 23:52] VITALS: BP 130/63; PULSE 88; RESP 18; TEMP 97.5; O2SAT 92
[2024-04-13 23:54] VITALS: BP 130/63; PULSE 88; RESP 18; TEMP 97.5; O2SAT 92
[2024-04-14] VITALS (8 sets, daily range): BP systolic 120–163; BP diastolic 58–97; PULSE 75–99; RESP 18–20; TEMP 97.4–98.7; O2SAT 94–98
[2024-04-14] MEDS ORDERED: METF-372 (00:16)
[2024-04-14] MEDS ORDERED: SIMV40TA18 (00:16)
[2024-04-14] MEDS ORDERED: SUCR1TAB (00:16)
[2024-04-14] MEDS ORDERED: LORA-483 (00:16)
[2024-04-14 06:32] LABS: Basophils # (auto) 0 10 ^3/uL (0-0.2); Basophils % (auto) 0.1 % (0.0-2.0); Eosinophils # (auto) 0 10 ^3/uL (0-0.8); Hemoglobin 10.3 g/dL (13.5-17.5); Lymphocytes # (auto) 0.6 10 ^3/uL (0.4-5.4); Lymphocytes % (auto) 6.7 % (10.0-50.0); Mean Corpuscular Hemoglobin 30.1 pg (28.0-32.0); Mean Corpuscular Volume 91.2 fL (80.0-100.0); Monocytes # (auto) 0.2 10 ^3/uL (0-1.3); Monocytes % (auto) 2.7 % (0.0-12.0); Neutrophils # (auto) 7.8 10 ^3/uL (1.6-8.6); Neutrophils % (auto) 90.5 % (37.0-80.0); Nucleated Red Blood Cells % 0.1 %; Platelet Count (auto) 155 10^3/uL (140-450); Red Cell Distribution Width 15.5 % (11.8-14.3); White Blood Cell 8.6 10^3/uL (4.4-10.8)
[2024-04-14 06:47] LABS: Alanine Aminotransferase 18 U/L (7-40); Albumin 3.5 g/dL (3.2-4.8); Alkaline Phosphatase 87 U/L (46-116); Anion Gap 15 (5-15); Aspartate Aminotransferase 31 U/L (13-40); Calcium 9.7 mg/dL (8.7-10.4); Magnesium 1.9 mg/dL (1.6-2.6); Sodium 139 mmol/L (136-145)
[2024-04-14 06:48] LABS: Bilirubin, Total 0.5 mg/dL (0.2-1.0); Total Protein 5.8 g/dL (5.7-8.2)
[2024-04-14 06:51] LABS: Blood Urea Nitrogen 27 mg/dL (9-23); Carbon Dioxide 17 mmol/L (20-31); Chloride 107 mmol/L (98-107); Glucose 277 mg/dL (74-106); Potassium 2.7 mmol/L (3.5-5.1)
[2024-04-14] MEDS: AZITHROMYCIN 250 MG TAB PO SCH (09:11)
[2024-04-14] MEDS: POTASSIUM EFFERVESENT TAB 25 MEQ PO ONE (09:15)
[2024-04-14] MEDS: POTASSIUM CHL 20MEQ/100ML 100 ML IV SCH (10:00)
--- NOTE | 2024-04-14 10:34 | DVHINCON2 ---
Date of service: Apr 14, 2024 Referring Physician Hospitalist Reason for Consultation Unable to place Teresa catheter History of Present Illness Patient admitted for abdominal pain. CT Scan did not show distended bladder. He has not voided since last evening. creatinine normal. Bladder scan showed 550 ml. Two attempts to place Teresa met with resistence and hematuria. 63-year-old male with past medical history of DM and hypertension who presented to [facility] ED with complaint of acute abdominal pain for the past 5 days duration. Patient reports he has been experiencing constant episode of diarrhea, associated nausea, vomiting, rating pain 5/10 numeric scale, getting worse today that prompted this visit. Patient was seen and evaluated in the ED, laboratory data shows WBC 10.2, hemoglobin 10.9, hematocrit 32.5, platelets 161, sodium 128, potassium 3.0, BUN 25, creatinine 1.01, GFR 83, glucose 518, anion gap 9, lactic acid 4.4, troponin 8, lipase 23, blood pressure 119/74, heart rate 112, temperature 99.1 F, O2 saturation 94% on oxygen. Abdomen/pelvis CT revealing partially visualized partial consolidation of the lung base, greater on the right likely multifocal pneumonia, multiple fluid-filled small bowel with filled level measuring up to 2.5 cm could represent enteritis, hepatomegaly with fatty infiltration. Patient was started on IV antibiotic regimen Flagyl, IV doxycycline, please see medication orders section in the computer. On my assessment, patient denied chest pain, no headache, no dizziness, no diaphoresis, no blurry vision, no abdominal pain, diarrhea, nausea or vomiting at this moment, no fever, no chills. Patient was admitted for further evaluation and medical management. Past Medical History Past Medical History DM, HTN Family History: Patient reports no known family medical history. Allergies: Coded Allergies: NO KNOWN ALLERGIES (Unverified , 08/29/22) Home Meds Active Scripts Ondansetron Odt 4MG Tab (ZOFRAN PO) 4 Mg Tb, 4 MG PO Q8HP PRN for 5 Days, #15 TAB ODT TAB-DISSOLVE IN MOUTH, THEN SWALLOW Prov:MARYCARMEN LEDBETTER MD 11/25/22 Reported Medications Simvastatin (Simvastatin) 40 Mg Tab, 1 04/14/24 Loratadine (CLARITIN TABLET) 10 Mg Tb, 1 DAILY 04/14/24 Sucralfate (Sucralfate) 1 Gm Tab, 1 DAILY 04/14/24 Metformin Hydrochloride (Metformin Hcl) 1,000 Mg Tab, 1 04/14/24 Current Medications Current Medications Medications (Trade) Dose Ordered Sig/Darryl Route PRN Reason Start Time Stop Time Status Last Admin Potassium Chloride 100 ml @ 50 mls/hr Q2HR IV 04/13/24 14:00 04/13/24 17:59 DC 04/13/24 15:35 Diagnostic Test (Pha) (Accu-Chek Comfort Curve T) 1 strip ACHS 04/13/24 17:00 04/14/24 06:41 Insulin Human Regular (InsuLIN R) ACHS SC 04/13/24 17:00 04/14/24 06:45 Dextrose 50 ml UD PRN IV Blood Sugar LESS THAN 60 04/13/24 13:15 Famotidine (Pepcid Injection) 20 mg Q12HR IV 04/13/24 22:00 04/14/24 09:12 Azithromycin (Zithromax Tablet) 500 mg DAILY PO 04/14/24 10:00 04/14/24 09:11 Potassium Chloride 100 ml @ 50 mls/hr Q2HR IV 04/14/24 10:00 04/14/24 13:59 Review of Systems Constitutional: No: Fever, Chills, Sweats, Weakness, Malaise, Other Eyes: No: Pain, Vision change, Conjunctivae inflammation, Eyelid inflammation, Other, Redness ENT: No: Ear pain, Ear discharge, Nose pain, Nose discharge, Nose congestion, Mouth pain, Mouth swelling, Throat pain, Throat swelling, Other Respiratory: No: Cough, Dry, Shortness of breath, SOB with excertion, Wheezing, Hemoptysis, Pleuritic Pain, Sputum, Wheezing, Other Cardiovascular: No: Chest Pain, Palpitations, Orthopnea, Paroxysmal Noc. Dyspnea, Edema, Lt Headedness, Other Gastrointestinal: Nausea, Vomiting, Abdominal Pain, Diarrhea; No: Constipation, Melena, Hematochezia, Other Genitourinary: No Dysuria, No Frequency, No Incontinence, No Hematuria, No Retention, No Other Musculoskeletal: No: other, neck pain, shoulder pain, arm pain, back pain, hand pain, leg pain, foot pain Skin: No: Rash, Lesions, Jaundice, Bruising, Other Neurological: No: Weakness, Numbness, Incoordination, Change in speech, Confusion, Seizures, Other Allergies: Coded Allergies: NO KNOWN ALLERGIES (Unverified , 08/29/22) Medications Current Medications Medications Dose Ordered Sig/Darryl Route Start Time Stop Time Status Last Admin Dose Admin Diagnostic Test (Pha) 1 strip IQ4HR 04/12/24 20:00 Insulin Human Regular IQ4HR SC 04/12/24 20:00 Dextrose 50 ml UD PRN IV 04/12/24 18:45 Sodium Chloride 1,000 ml @ 120 mls/hr Q8H20M IV 04/12/24 18:45 Acetaminophen/ Hydrocodone Bitart 1 tab Q4HP PRN PO 04/12/24 18:45 Ondansetron HCl 4 mg Q4HP PRN IV 04/12/24 18:45 Docusate Sodium 100 mg BIDPRN PRN PO 04/12/24 18:45 Acetaminophen 650 mg Q6HP PRN PO 04/12/24 18:45 Nitroglycerin 0.4 mg Q5MINP PRN SL 04/12/24 18:45 Morphine Sulfate 2 mg Q30M PRN IV 04/12/24 18:45 Vital Signs Vital Signs Date Time Temp Pulse Resp B/P (MAP) Pulse Ox O2 Delivery O2 Flow Rate FiO2 04/14/24 05:00 98.7 85 18 123/58 (79) 97 98.7 04/13/24 23:54 Room Air* 0 21 Physical Exam Exam Exam Vital Signs Vital Signs Date Time Temp Pulse Resp B/P (MAP) Pulse Ox O2 Delivery O2 Flow Rate FiO2 04/12/24 18:10 112 04/12/24 18:01 31 89 Nasal Cannula* 5 40 04/12/24 17:33 99.1 119/74 (89) 99.1 General Appearance: Alert, Oriented X3, Cooperative, No acute distress HEENT: Atraumatic, PERRLA, EOMI, Mucous membr. moist/pink Respiratory: Normal air movement, Other (Diminished breath sounds) Cardiovascular: Regular rate, Normal S1, Normal S2, No murmurs Abdominal: Normal bowel sounds, Soft, No hepatospenomegaly, No masses, Other (Reports tenderness) Extremities: No clubbing, No cyanosis, No edema, Normal pulses, No tenderness/swelling Skin: No rashes, No breakdown, No significant lesion Neuro: Normal gait, Normal speech, Strength at 5/5 X4 ext, Normal tone, Sensation intact, Cranial nerves 3-12 NL, Reflexes 2+ Psych/Mental Status: Mental status NL, Mood NL Labs/Diagnostic Data Labs Test 04/14/24 05:57 04/13/24 22:08 04/13/24 10:30 04/13/24 09:53 Range/Units White Blood Count 8.6 4.4-10.8 10^3/uL Red Blood Count 3.40 L 4.5-5.90 10^6/uL Hemoglobin 10.3 L 13.5-17.5 g/dL Hematocrit 31.0 L 41.0-53.0 % Mean Corpuscular Volume 91.2 80.0-100.0 fL Mean Corpuscular Hemoglobin 30.1 28.0-32.0 pg Mean Corpuscular Hemoglobin Concent 33.0 32.0-36.0 g/dL Red Cell Distribution Width 15.5 H 11.8-14.3 % Platelet Count 155 140-450 10^3/uL Mean Platelet Volume 7.6 6.9-10.8 fL Neutrophils (%) (Auto) 90.5 H 37.0-80.0 % Lymphocytes (%) (Auto) 6.7 L 10.0-50.0 % Monocytes (%) (Auto) 2.7 0.0-12.0 % Eosinophils (%) (Auto) 0.0 0.0-7.0 % Basophils (%) (Auto) 0.1 0.0-2.0 % Neutrophils # (Auto) 7.8 1.6-8.6 10 ^3/uL Lymphocytes # (Auto) 0.6 0.4-5.4 10 ^3/uL Monocytes # (Auto) 0.2 0-1.3 10 ^3/uL Eosinophils # (Auto) 0 0-0.8 10 ^3/uL Basophils # (Auto) 0 0-0.2 10 ^3/uL Nucleated Red Blood Cells 0.1 % Sodium Level 139 136-145 mmol/L Potassium Level 2.7 L 3.5-5.1 mmol/L Chloride Level 107 98-107 mmol/L Carbon Dioxide Level 17 L 20-31 mmol/L Anion Gap 15 5-15 Blood Urea Nitrogen 27 H 9-23 mg/dL Creatinine 0.75 0.700-1.30 mg/dL Glomerular Filtration Rate Calc 101 >90 mL/min BUN/Creatinine Ratio 36.0 H 10.0-20.0 Serum Glucose 277 #H 74-106 mg/dL Calcium Level 9.7 8.7-10.4 mg/dL Magnesium Level 1.9 1.6-2.6 mg/dL Total Bilirubin 0.5 0.2-1.0 mg/dL Aspartate Amino Transferase (AST) 31 13-40 U/L Alanine Aminotransferase (ALT) 18 7-40 U/L Alkaline Phosphatase 87 46-116 U/L Total Protein 5.8 5.7-8.2 g/dL Albumin 3.5 3.2-4.8 g/dL POC Glucose 150 H 70-106 mg/dl Stool for White Cells None seen Urine Color Yellow Yellow Urine Clarity Clear Clear Urine pH 6.0 5.0-9.0 Urine Specific [place] 1.023 1.001-1.035 Urine Protein 2+ H Negative Urine Ketones 1+ H Negative Urine Blood 1+ H Negative /uL Urine Nitrite Negative Negative Urine Bilirubin Negative Negative Urine Urobilinogen Normal Negative mg/dL Urine Leukocyte Esterase Negative Negative /uL Urine RBC 1 0 - 3 /hpf Urine Microscopic WBC 2 0-3 /HPF Urine Squamous Epithelial Cells Few <5 /hpf Urine Bacteria Few H None Seen /hpf Urine Glucose 4+ H Normal mg/dL Test 04/13/24 06:27 04/12/24 21:05 04/12/24 19:00 04/12/24 16:11 Range/Units Differential Total Cells Counted 100.0 100 Neutrophils % (Manual) 87 H 37.0-80.0 Band Neutrophils % (Manual) 0 Lymphocytes % (Manual) 8 L 10.0-50.0 Monocytes % (Manual) 5 0-12 Eosinophils % (Manual) 0 0-7 Basophils % (Manual) 0 0.0-2.0 Metamyelocytes % (manual) 0 Myelocytes % (Manual) 0 Promyelocytes % (Manual) 0 Blast Cells % (Manual) 0 Reactive Lymphocytes 0 Platelet Estimate Adequate Lactic Acid Level 6.4 *H 0.4-2.0 mmol/L Hemoglobin A1c 9.3 H <5.7 % A1C Troponin I High Sensitivity 7 </=54 ng/L Lipase 23 12-53 U/L Microbiology Date/Time Source Procedure Growth Status 04/13/24 10:30 Stool Stool Culture - Preliminary Resulted 04/13/24 10:30 Stool Shiga Toxin I & II - Final Resulted 04/13/24 10:30 Stool Clostridium difficile Toxin Assay Pending Resulted Assessment Urethral trauma/false passage Gross hematuria Urinary retention Plan/Recommendation Cystoscopy with Teresa placement, possible SPT placement if unable to access with 18F [place] tip and Lidocain jel application Plan discussed with: Patient, Other GAUDENCIO MORRISON MD Apr 14, 2024 10:34
--- NOTE | 2024-04-14 11:54 | DVHPN2 ---
Subjective He has urinary retention more than 500 mL on the ultrasound Potassium is 2.7 Changes from previous H/P or p: Changes Eyes: No Pain, No Vision change, No Conjunctivae inflammation, No Eyelid inflammation, No Other, No Redness ENT: No Ear pain, No Ear discharge, No Nose pain, No Nose discharge, No Nose congestion, No Mouth pain, No Mouth swelling, No Throat pain, No Throat swelling, No Other Cardiovascular: No Chest Pain, No Palpitations, No Orthopnea, No Paroxysmal Noc. Dyspnea, No Edema, No Lt Headedness, No Other Respiratory: No Cough, No Dry, No Shortness of breath, No SOB with excertion, No Wheezing, No Hemoptysis, No Pleuritic Pain, No Sputum, No Other Gastrointestinal: Nausea, Vomiting, Abdominal Pain, Diarrhea; No Constipation, No Melena, No Hematochezia, No Other Genitourinary: No Dysuria, No Frequency, No Incontinence, No Hematuria, No Retention, No Other Musculoskeletal: No other, No neck pain, No shoulder pain, No arm pain, No back pain, No hand pain, No leg pain, No foot pain Skin: No Rash, No Lesions, No Jaundice, No Bruising, No Other Objective Vitals Vital Signs Date Time Temp Pulse Resp B/P (MAP) Pulse Ox O2 Delivery O2 Flow Rate FiO2 04/14/24 05:00 98.7 85 18 123/58 (79) 97 98.7 04/13/24 23:54 Room Air* 0 21 Intake/Output Intake and Output 04/14/24 07:00 Intake Total 2050 ml Balance 2050 ml Intake Oral 850 ml IV Total 1200 ml # Bowel Movements 1 General Appearance: Alert, Oriented X3, Cooperative Lungs: Clear to auscultation, Normal air movement Cardiovascular: Regular rate, Normal S1 Extremities: No edema Medications Current Medications Medications Dose Ordered Sig/Darryl Route Start Time Stop Time Status Last Admin Dose Admin Sodium Chloride 1,000 ml @ 120 mls/hr Q8H20M IV 04/12/24 18:45 04/13/24 19:45 120 MLS/HR Acetaminophen/ Hydrocodone Bitart 1 tab Q4HP PRN PO 04/12/24 18:45 Ondansetron HCl 4 mg Q4HP PRN IV 04/12/24 18:45 04/13/24 11:02 4 MG Docusate Sodium 100 mg BIDPRN PRN PO 04/12/24 18:45 Acetaminophen 650 mg Q6HP PRN PO 04/12/24 18:45 Nitroglycerin 0.4 mg Q5MINP PRN SL 04/12/24 18:45 Morphine Sulfate 2 mg Q30M PRN IV 04/12/24 18:45 Metronidazole 100 ml @ 100 mls/hr Q8HR IV 04/12/24 22:00 04/14/24 06:06 100 MLS/HR Doxycycline Hyclate 100 ml @ 50 mls/hr Q12H IV 04/12/24 21:15 04/14/24 09:12 50 MLS/HR Diagnostic Test (Pha) 1 strip ACHS 04/13/24 17:00 04/14/24 06:41 1 STRIP Insulin Human Regular ACHS SC 04/13/24 17:00 04/14/24 06:45 6 UNITS Dextrose 50 ml UD PRN IV 04/13/24 13:15 Famotidine 20 mg Q12HR IV 04/13/24 22:00 04/14/24 09:12 20 MG Azithromycin 500 mg DAILY PO 04/14/24 10:00 04/14/24 09:11 500 MG Potassium Chloride 100 ml @ 50 mls/hr Q2HR IV 04/14/24 10:00 04/14/24 13:59 Laboratory Results Laboratory Tests 04/14/24 05:57 Chemistry Test 04/14/24 05:57 Albumin 3.5 g/dL (3.2-4.8) Calcium Level 9.7 mg/dL (8.7-10.4) Magnesium Level 1.9 mg/dL (1.6-2.6) Total Protein 5.8 g/dL (5.7-8.2) LFT Test 04/14/24 05:57 Alanine Aminotransferase (ALT) 18 U/L (7-40) Alkaline Phosphatase 87 U/L (46-116) Aspartate Amino Transferase (AST) 31 U/L (13-40) Total Bilirubin 0.5 mg/dL (0.2-1.0) Urinalysis Test 04/13/24 09:53 Urine Color Yellow (Yellow) Urine Clarity Clear (Clear) Urine pH 6.0 (5.0-9.0) Urine Specific [place] 1.023 (1.001-1.035) Urine Protein 2+ (Negative) H Urine Ketones 1+ (Negative) H Urine Blood 1+ /uL (Negative) H Urine Nitrite Negative (Negative) Urine Bilirubin Negative (Negative) Urine Urobilinogen Normal mg/dL (Negative) Urine Leukocyte Esterase Negative /uL (Negative) Urine RBC 1 /hpf (0 - 3) Urine Microscopic WBC 2 /HPF (0-3) Urine Squamous Epithelial Cells Few /hpf (<5) Urine Bacteria Few /hpf (None Seen) H Urine Glucose 4+ mg/dL (Normal) H Microbiology Microbiology Date/Time Source Procedure Growth Status 04/13/24 10:30 Stool Stool Culture - Preliminary Resulted 04/13/24 10:30 Stool Shiga Toxin I & II - Final Resulted 04/13/24 10:30 Stool Clostridium difficile Toxin Assay Pending Resulted Assessment/Plan Assessment/Plan Intractable nausea and vomiting and diarrhea Possible gastroenteritis Hypokalemia Acute kidney injury hemodynamically mediated Dehydration Type 2 diabetes Hypertension Plan Clear liquid diet IV fluids Broad-spectrum antibiotics for possible underlying pneumonia Oxygen as needed Telemetry Replace potassium IV Check the magnesium Full code Advance directives discussed for 19 minute Campylobacter in stools: Add PO Zithromax 04/14/2024: Acute gastroenteritis with Campylobacter Urinary retention Hypokalemia Intractable nausea and vomiting Acute kidney injury Type 2 diabetes Hypertension Plan: Urology consult for Teresa catheter, continue p.o. Zithromax Continue IV fluids Continue doxycycline and Flagyl Monitor closely and the rest of the management will depend on the hospital course Plan discussed with: Patient My Orders Orders - SANDEEP LOPEZ MD Procedure Category Date Status Time Glucose Blood PHA 04/13/24 In Process (Accu-Chek Comfort 17:00 Insulin R (Human) PHA 04/13/24 In Process (Insulin R) 17:00 Dextrose 50% Syringe PHA 04/13/24 In Process 13:15 Famotidine Injection PHA 04/13/24 In Process (Pepcid Injection) 22:00 Azithromycin Tablet PHA 04/14/24 In Process (Zithromax Tablet) 10:00 Potassium Chl PHA 04/14/24 In Process 20meq/100ml 10:00 Date of Service: Apr 14, 2024 Billing Provider: SANDEEP LOPEZ MD Common Visit Codes: [id number] INP/OBS CARE(HIGH) SANDEEP LOPEZ MD Apr 14, 2024 11:54
[2024-04-14] MEDS: HYDROcodone-ACET 5/325MG TAB PO PRN (11:57)
[2024-04-14] MEDS: LIDOCAINE 2% JELLY 11ml (GLYDO) UR ONE (12:22)
[2024-04-14 16:23] LABS: Sodium 141 mmol/L (136-145)
[2024-04-14 16:24] LABS: Anion Gap 13 (5-15)
[2024-04-14 16:25] LABS: Calcium 9.3 mg/dL (8.7-10.4)
[2024-04-14 16:29] LABS: BUN/Creatinine Ratio 37.1 (10.0-20.0)
[2024-04-14 16:34] LABS: INR 1.13 (0.9-1.15); Partial Thromboplastin Time 33.8 SEC (24.5-34.5); Prothrombin Time 11.8 sec (9.3-11.8)
[2024-04-14 16:47] LABS: Blood Urea Nitrogen 26 mg/dL (9-23); Carbon Dioxide 18 mmol/L (20-31); Chloride 110 mmol/L (98-107); Glucose 241 mg/dL (74-106); Potassium 2.8 mmol/L (3.5-5.1)
[2024-04-14] MEDS ORDERED: MEPERIDINE HCL (25 MG/ML) 1ML VIAL ONE (17:20)
[2024-04-14] MEDS ORDERED: MIDAZOLAM HCL 2MG/2ML 2ml VIAL (1mg/ml) ONE (17:20)
[2024-04-14] MEDS ORDERED: ONDANSETRON HCL 4 MG/2 ML VIAL ONE (17:20)
[2024-04-14] MEDS ORDERED: fentaNYL CITRATE 100 MCG/2 ML VL ONE (17:20)
[2024-04-14] MEDS ORDERED: KETAMINE 50mg/ML 1ml syringe ONE (17:20)
[2024-04-14] MEDS ORDERED: PROPOFOL 10 MG/ML 20 ML IV ONE (17:20)
[2024-04-14] MEDS ORDERED: SODIUM CHLORIDE LOCK 10 ML ONE (17:20)
[2024-04-14] MEDS ORDERED: LIDOCAINE W/ EPINEPHRINE 2% INJ 20ML VIAL ONE (17:46)
[2024-04-14] MEDS ORDERED: LIDOCAINE 2% JELLY 11ml (GLYDO) ONE (17:46)
[2024-04-14] MEDS ORDERED: MORPHINE SULFATE 4 MG/ML SYR/VIAL IV PRN (18:00)
[2024-04-14] MEDS ORDERED: METOCLOPRAMIDE HCL 5MG/ml INJ 2ml VIAL IV ONE (18:00)
[2024-04-14] MEDS ORDERED: MORPHINE SULFATE INJ 2 MG/ml SYRG IV PRN (18:00)
[2024-04-14] MEDS: ACCU-CHEK COMFORT CURVE STRIP VI ONE (18:00)
[2024-04-14] MEDS ORDERED: HYDROmorphone HCL 2 MG/ML VL/or syr IV PRN ×2 (18:00)
--- NOTE | 2024-04-14 18:44 | DVHOP2 ---
Operative Report - 2 Report Details Date: 04/14/24 Preop Diagnosis: Urethral false passage Unable to pass Teresa catheter Urinary retention Postop Diagnosis: Same Surgeon: Gaudencio Arthur Anesthesiologist: Virgil Anesthesia: Mac Consent: The patient was informed of the risks and benefits of the procedure. These include but are not limited to complications of anesthesia, postoperative infection, incomplete relief of symptoms, recurrence of symptoms, damage to blood vessels, nerves and tendons, deep venous thrombosis, pulmonary embolism and possible need for repeat surgery in the future. Indications for Surgery: Patient admitted for abdominal pain and attempted Teresa catheter resulted false passage of the urethra with resultant gross hematuria. Name of Procedure Performed Cystoscopy with Teresa catheter placement Procedure Details Procedure Details: Patient was taken to the operating room and underwent IV sedation. He was placed in dorsal lithotomy position with the area of the genitalia prepped and draped in usual sterile manner. A 21 [place] rigid cystoscope was used to inspect the urethra. Proximal membranes urethral false passage was identified along with multiple blood clots. The cystoscope was accessed into the bladder using a guidewire for assistance. Once the bladder was accessed few blood clots were identified and evacuated. Cystoscope was removed maintain of the guidewire in position. Twenty [place] tip Teresa catheter was placed over the guidewire and properly positioned. Guidewire was then removed. Patient was awakened and taken to recovery room in stable condition. Disposition: The catheter will remain in place minimum of three weeks for proper urethral healing Specimen: None Condition Fair Disposition GAUDENCIO ARTHUR MD Apr 14, 2024 18:44
[2024-04-14] MEDS: hydrALAZINE HCL 20 MG/ML VL IV ONE (21:49)
[2024-04-15] VITALS (7 sets, daily range): BP systolic 119–156; BP diastolic 55–85; PULSE 80–85; RESP 18–20; TEMP 97.6–98.8; O2SAT 93–98
[2024-04-15] MEDS: SOD CHL 0.9%/ KCL 20MEQ 1,000 ML IV SCH (03:00)
[2024-04-15 11:09] LABS: Alanine Aminotransferase 12 U/L (7-40); Alkaline Phosphatase 98 U/L (46-116); Anion Gap 14 (5-15); Magnesium 1.7 mg/dL (1.6-2.6); Sodium 142 mmol/L (136-145)
[2024-04-15 11:10] LABS: Aspartate Aminotransferase 20 U/L (13-40); BUN/Creatinine Ratio 27.6 (10.0-20.0); Blood Urea Nitrogen 16 mg/dL (9-23)
[2024-04-15 11:11] LABS: Bilirubin, Total 0.4 mg/dL (0.2-1.0)
[2024-04-15 11:15] LABS: Calcium 8.4 mg/dL (8.7-10.4); Carbon Dioxide 18 mmol/L (20-31); Chloride 110 mmol/L (98-107); Glucose 187 mg/dL (74-106); Potassium 2.6 mmol/L (3.5-5.1); Total Protein 5.1 g/dL (5.7-8.2)
--- NOTE | 2024-04-15 12:11 | DVHPN2 ---
Subjective Doing well He reports no diarrhea He is status post Teresa placement yesterday Changes from previous H/P or p: Changes Eyes: No Pain, No Vision change, No Conjunctivae inflammation, No Eyelid inflammation, No Other, No Redness ENT: No Ear pain, No Ear discharge, No Nose pain, No Nose discharge, No Nose congestion, No Mouth pain, No Mouth swelling, No Throat pain, No Throat swelling, No Other Cardiovascular: No Chest Pain, No Palpitations, No Orthopnea, No Paroxysmal Noc. Dyspnea, No Edema, No Lt Headedness, No Other Respiratory: No Cough, No Dry, No Shortness of breath, No SOB with excertion, No Wheezing, No Hemoptysis, No Pleuritic Pain, No Sputum, No Other Gastrointestinal: Nausea, Vomiting, Abdominal Pain, Diarrhea; No Constipation, No Melena, No Hematochezia, No Other Genitourinary: No Dysuria, No Frequency, No Incontinence, No Hematuria, No Retention, No Other Musculoskeletal: No other, No neck pain, No shoulder pain, No arm pain, No back pain, No hand pain, No leg pain, No foot pain Skin: No Rash, No Lesions, No Jaundice, No Bruising, No Other Objective Vitals Vital Signs Date Time Temp Pulse Resp B/P (MAP) Pulse Ox O2 Delivery O2 Flow Rate FiO2 04/15/24 08:00 81 04/15/24 08:00 Nasal Cannula* 2 28 04/15/24 05:00 98.1 18 156/71 (99) 96 98.1 Intake/Output Intake and Output 04/15/24 07:00 Intake Total 2140 ml Output Total 700 ml Balance 1440 ml Intake Oral 1940 ml IV Total 200 ml Output Urine Total 700 ml # Voids 1 General Appearance: Alert, Oriented X3, Cooperative Lungs: Clear to auscultation, Normal air movement Cardiovascular: Regular rate, Normal S1 Extremities: No edema Medications Current Medications Medications Dose Ordered Sig/Darryl Route Start Time Stop Time Status Last Admin Dose Admin Sodium Chloride 1,000 ml @ 120 mls/hr Q8H20M IV 04/12/24 18:45 04/13/24 19:45 120 MLS/HR Acetaminophen/ Hydrocodone Bitart 1 tab Q4HP PRN PO 04/12/24 18:45 04/14/24 21:37 1 TAB Ondansetron HCl 4 mg Q4HP PRN IV 04/12/24 18:45 04/13/24 11:02 4 MG Docusate Sodium 100 mg BIDPRN PRN PO 04/12/24 18:45 Acetaminophen 650 mg Q6HP PRN PO 04/12/24 18:45 Nitroglycerin 0.4 mg Q5MINP PRN SL 04/12/24 18:45 Morphine Sulfate 2 mg Q30M PRN IV 04/12/24 18:45 Metronidazole 100 ml @ 100 mls/hr Q8HR IV 04/12/24 22:00 04/15/24 05:53 100 MLS/HR Doxycycline Hyclate 100 ml @ 50 mls/hr Q12H IV 04/12/24 21:15 04/15/24 09:55 50 MLS/HR Diagnostic Test (Pha) 1 strip ACHS 04/13/24 17:00 04/15/24 06:42 1 STRIP Insulin Human Regular ACHS SC 04/13/24 17:00 04/15/24 06:45 3 UNITS Dextrose 50 ml UD PRN IV 04/13/24 13:15 Famotidine 20 mg Q12HR IV 04/13/24 22:00 04/15/24 09:56 20 MG Azithromycin 500 mg DAILY PO 04/14/24 10:00 04/15/24 09:56 500 MG Potassium Chloride/Sodium Chloride 1,000 ml @ 100 mls/hr Q10H IV 04/14/24 17:00 04/15/24 03:00 100 MLS/HR Laboratory Results Laboratory Tests 04/14/24 05:57 04/15/24 09:31 Chemistry Test 04/14/24 15:55 04/15/24 09:31 Calcium Level 9.3 mg/dL (8.7-10.4) 8.4 mg/dL (8.7-10.4) L Albumin 3.0 g/dL (3.2-4.8) L Magnesium Level 1.7 mg/dL (1.6-2.6) Total Protein 5.1 g/dL (5.7-8.2) L Coagulation Test 04/14/24 15:55 Prothrombin Time 11.8 sec (9.3-11.8) Prothrombin Time INR 1.13 (0.9-1.15) Activated Partial Thromboplast Time 33.8 SEC (24.5-34.5) LFT Test 04/15/24 09:31 Alanine Aminotransferase (ALT) 12 U/L (7-40) Alkaline Phosphatase 98 U/L (46-116) Aspartate Amino Transferase (AST) 20 U/L (13-40) Total Bilirubin 0.4 mg/dL (0.2-1.0) Urinalysis Test 04/13/24 09:53 Urine Color Yellow (Yellow) Urine Clarity Clear (Clear) Urine pH 6.0 (5.0-9.0) Urine Specific [place] 1.023 (1.001-1.035) Urine Protein 2+ (Negative) H Urine Ketones 1+ (Negative) H Urine Blood 1+ /uL (Negative) H Urine Nitrite Negative (Negative) Urine Bilirubin Negative (Negative) Urine Urobilinogen Normal mg/dL (Negative) Urine Leukocyte Esterase Negative /uL (Negative) Urine RBC 1 /hpf (0 - 3) Urine Microscopic WBC 2 /HPF (0-3) Urine Squamous Epithelial Cells Few /hpf (<5) Urine Bacteria Few /hpf (None Seen) H Urine Glucose 4+ mg/dL (Normal) H Microbiology Microbiology Date/Time Source Procedure Growth Status 04/13/24 10:30 Stool Stool Culture - Final Complete 04/13/24 10:30 Stool Shiga Toxin I & II - Final Complete 04/13/24 10:30 Stool Clostridium difficile Toxin Assay - Final Complete Assessment/Plan Assessment/Plan Intractable nausea and vomiting and diarrhea Possible gastroenteritis Hypokalemia Acute kidney injury hemodynamically mediated Dehydration Type 2 diabetes Hypertension Plan Clear liquid diet IV fluids Broad-spectrum antibiotics for possible underlying pneumonia Oxygen as needed Telemetry Replace potassium IV Check the magnesium Full code Advance directives discussed for 19 minute Campylobacter in stools: Add PO Zithromax 04/14/2024: Acute gastroenteritis with Campylobacter Urinary retention Hypokalemia Intractable nausea and vomiting Acute kidney injury Type 2 diabetes Hypertension Plan: Urology consult for Teresa catheter, continue p.o. Zithromax Continue IV fluids Continue doxycycline and Flagyl Monitor closely and the rest of the management will depend on the hospital course 04/15/2024: Hypokalemia: Replace p.o. and check again in the afternoon and replace as needed Add magnesium Teresa catheter to stay in place and go home with a it Continue IV antibiotics and p.o. Zithromax Continue IV fluids with potassium Monitor closely and check the electrolytes again tomorrow Discharge planning for tomorrow with Teresa Plan discussed with: Patient My Orders Orders - SANDEEP LOPEZ MD Procedure Category Date Status Time Potassium Er Tablet PHA 04/15/24 Verified (Klor-Con Tablet) 12:15 Date of Service: Apr 15, 2024 Billing Provider: SANDEEP LOPEZ MD Common Visit Codes: [id number] INP/OBS CARE(HIGH) SANDEEP LOPEZ MD Apr 15, 2024 12:11
[2024-04-15] MEDS: MAGNESIUM OXIDE 400 MG TAB PO ONE (13:44)
[2024-04-15] MEDS: POTASSIUM CHL 20 Meq TABLET PO ONE (13:45)
[2024-04-15 19:24] LABS: Sodium 140 mmol/L (136-145)
[2024-04-15 19:25] LABS: Anion Gap 13 (5-15)
[2024-04-15 19:30] LABS: Blood Urea Nitrogen 16 mg/dL (9-23)
[2024-04-15 19:31] LABS: Calcium 8.1 mg/dL (8.7-10.4); Carbon Dioxide 16 mmol/L (20-31); Chloride 111 mmol/L (98-107); Glucose 251 mg/dL (74-106); Potassium 2.9 mmol/L (3.5-5.1)
[2024-04-15] MEDS: MAGNESIUM OXIDE 400 MG TAB PO SCH (21:17)
[2024-04-16] VITALS (8 sets, daily range): BP systolic 142–163; BP diastolic 63–90; PULSE 84–100; RESP 19–20; TEMP 97.5–98.9; O2SAT 93–98
[2024-04-16 06:47] LABS: Alanine Aminotransferase 10 U/L (7-40); Alkaline Phosphatase 85 U/L (46-116); Anion Gap 17 (5-15); Aspartate Aminotransferase 15 U/L (13-40); BUN/Creatinine Ratio 21.4 (10.0-20.0); Blood Urea Nitrogen 12 mg/dL (9-23); Magnesium 1.6 mg/dL (1.6-2.6); Sodium 140 mmol/L (136-145)
[2024-04-16 06:48] LABS: Bilirubin, Total 0.5 mg/dL (0.2-1.0)
[2024-04-16 06:50] LABS: Albumin 2.9 g/dL (3.2-4.8); Calcium 8.2 mg/dL (8.7-10.4); Carbon Dioxide 14 mmol/L (20-31); Chloride 109 mmol/L (98-107); Glucose 243 mg/dL (74-106); Potassium 2.9 mmol/L (3.5-5.1)
[2024-04-16] MEDS: MAGNESIUM SULFATE 1GM/100ML 100 ML IV SCH (13:11)
[2024-04-16] MEDS: metFORMIN HYDROCHLORIDE 500 MG TAB PO ONE (13:16)
[2024-04-16] MEDS: LISINOPRIL 20 MG TAB PO ONE (13:17)
[2024-04-16] MEDS: POTASSIUM CHL 20MEQ/100ML 100 ML IV ONE (16:44)
[2024-04-16] MEDS: metFORMIN HYDROCHLORIDE 500 MG TAB PO SCH (17:47)
--- NOTE | 2024-04-16 20:47 | DVHPN2 ---
Subjective Doing well Urine is clear Low K+ Changes from previous H/P or p: Changes Eyes: No Pain, No Vision change, No Conjunctivae inflammation, No Eyelid inflammation, No Other, No Redness ENT: No Ear pain, No Ear discharge, No Nose pain, No Nose discharge, No Nose congestion, No Mouth pain, No Mouth swelling, No Throat pain, No Throat swelling, No Other Cardiovascular: No Chest Pain, No Palpitations, No Orthopnea, No Paroxysmal Noc. Dyspnea, No Edema, No Lt Headedness, No Other Respiratory: No Cough, No Dry, No Shortness of breath, No SOB with excertion, No Wheezing, No Hemoptysis, No Pleuritic Pain, No Sputum, No Other Gastrointestinal: Nausea, Vomiting, Abdominal Pain, Diarrhea; No Constipation, No Melena, No Hematochezia, No Other Genitourinary: No Dysuria, No Frequency, No Incontinence, No Hematuria, No Retention, No Other Musculoskeletal: No other, No neck pain, No shoulder pain, No arm pain, No back pain, No hand pain, No leg pain, No foot pain Skin: No Rash, No Lesions, No Jaundice, No Bruising, No Other Objective Vitals Vital Signs Date Time Temp Pulse Resp B/P (MAP) Pulse Ox O2 Delivery O2 Flow Rate FiO2 04/16/24 17:00 98.1 86 20 156/71 (99) 93 98.1 04/16/24 08:00 Room Air* 0 21 Intake/Output Intake and Output 04/16/24 07:00 Intake Total 4455 ml Output Total 1825 ml Balance 2630 ml Intake Oral 2735 ml IV Total 1720 ml Output Urine Total 1825 ml General Appearance: Alert, Oriented X3, Cooperative Lungs: Clear to auscultation, Normal air movement Cardiovascular: Regular rate, Normal S1 Extremities: No edema Medications Current Medications Medications Dose Ordered Sig/Darryl Route Start Time Stop Time Status Last Admin Dose Admin Acetaminophen/ Hydrocodone Bitart 1 tab Q4HP PRN PO 04/12/24 18:45 04/16/24 17:47 1 TAB Ondansetron HCl 4 mg Q4HP PRN IV 04/12/24 18:45 04/13/24 11:02 4 MG Docusate Sodium 100 mg BIDPRN PRN PO 04/12/24 18:45 Acetaminophen 650 mg Q6HP PRN PO 04/12/24 18:45 Nitroglycerin 0.4 mg Q5MINP PRN SL 04/12/24 18:45 Morphine Sulfate 2 mg Q30M PRN IV 04/12/24 18:45 Metronidazole 100 ml @ 100 mls/hr Q8HR IV 04/12/24 22:00 04/16/24 14:56 100 MLS/HR Doxycycline Hyclate 100 ml @ 50 mls/hr Q12H IV 04/12/24 21:15 04/16/24 10:21 50 MLS/HR Diagnostic Test (Pha) 1 strip ACHS 04/13/24 17:00 04/16/24 17:00 1 STRIP Insulin Human Regular ACHS SC 04/13/24 17:00 04/16/24 17:46 6 UNITS Dextrose 50 ml UD PRN IV 04/13/24 13:15 Famotidine 20 mg Q12HR IV 04/13/24 22:00 04/16/24 10:21 20 MG Azithromycin 500 mg DAILY PO 04/14/24 10:00 04/16/24 10:21 500 MG Potassium Chloride/Sodium Chloride 1,000 ml @ 100 mls/hr Q10H IV 04/14/24 17:00 04/16/24 10:22 100 MLS/HR Magnesium Oxide 400 mg BID PO 04/15/24 22:00 04/16/24 10:21 400 MG Hydralazine HCl 10 mg Q6HP PRN IV 04/16/24 12:45 Metformin HCl 500 mg BIDWM PO 04/16/24 18:00 04/16/24 17:47 500 MG Lisinopril 20 mg DAILY PO 04/17/24 10:00 Laboratory Results Laboratory Tests 04/14/24 05:57 04/16/24 05:45 Chemistry Test 04/16/24 05:45 Albumin 2.9 g/dL (3.2-4.8) L Calcium Level 8.2 mg/dL (8.7-10.4) L Magnesium Level 1.6 mg/dL (1.6-2.6) Total Protein 5.0 g/dL (5.7-8.2) L LFT Test 04/16/24 05:45 Alanine Aminotransferase (ALT) 10 U/L (7-40) Alkaline Phosphatase 85 U/L (46-116) Aspartate Amino Transferase (AST) 15 U/L (13-40) Total Bilirubin 0.5 mg/dL (0.2-1.0) Urinalysis Test 04/13/24 09:53 Urine Color Yellow (Yellow) Urine Clarity Clear (Clear) Urine pH 6.0 (5.0-9.0) Urine Specific [place] 1.023 (1.001-1.035) Urine Protein 2+ (Negative) H Urine Ketones 1+ (Negative) H Urine Blood 1+ /uL (Negative) H Urine Nitrite Negative (Negative) Urine Bilirubin Negative (Negative) Urine Urobilinogen Normal mg/dL (Negative) Urine Leukocyte Esterase Negative /uL (Negative) Urine RBC 1 /hpf (0 - 3) Urine Microscopic WBC 2 /HPF (0-3) Urine Squamous Epithelial Cells Few /hpf (<5) Urine Bacteria Few /hpf (None Seen) H Urine Glucose 4+ mg/dL (Normal) H Microbiology Microbiology Date/Time Source Procedure Growth Status 04/13/24 10:30 Stool Stool Culture - Final Complete 04/13/24 10:30 Stool Shiga Toxin I & II - Final Complete 04/13/24 10:30 Stool Clostridium difficile Toxin Assay - Final Complete Assessment/Plan Assessment/Plan Intractable nausea and vomiting and diarrhea Possible gastroenteritis Hypokalemia Acute kidney injury hemodynamically mediated Dehydration Type 2 diabetes Hypertension Plan Clear liquid diet IV fluids Broad-spectrum antibiotics for possible underlying pneumonia Oxygen as needed Telemetry Replace potassium IV Check the magnesium Full code Advance directives discussed for 19 minute Campylobacter in stools: Add PO Zithromax 04/14/2024: Acute gastroenteritis with Campylobacter Urinary retention Hypokalemia Intractable nausea and vomiting Acute kidney injury Type 2 diabetes Hypertension Plan: Urology consult for Teresa catheter, continue p.o. Zithromax Continue IV fluids Continue doxycycline and Flagyl Monitor closely and the rest of the management will depend on the hospital course 04/15/2024: Hypokalemia: Replace p.o. and check again in the afternoon and replace as needed Add magnesium Teresa catheter to stay in place and go home with a it Continue IV antibiotics and p.o. Zithromax Continue IV fluids with potassium Monitor closely and check the electrolytes again tomorrow Discharge planning for tomorrow with Teresa 04/16/24: Replace K+ Plan to go home with Teresa Plan discussed with: Patient My Orders Orders - SANDEEP LOPEZ MD Procedure Category Date Status Time Hydralazine Injection PHA 04/16/24 In Process (Apresoline Inject 12:45 Metformin PHA 04/16/24 In Process Hydrochloride 18:00 Lisinopril Tablet PHA 04/17/24 In Process (Zestril Tablet) 10:00 Date of Service: Apr 16, 2024 Billing Provider: SANDEEP LOPEZ MD Common Visit Codes: [id number] INP/OBS CARE(HIGH) SANDEEP LOPEZ MD Apr 16, 2024 20:47
[2024-04-17] VITALS (8 sets, daily range): BP systolic 140–181; BP diastolic 78–94; PULSE 82–94; RESP 14–20; TEMP 97.8–98.9; O2SAT 90–98
[2024-04-17 07:18] LABS: Sodium 141 mmol/L (136-145)
[2024-04-17 07:19] LABS: Anion Gap 12 (5-15)
[2024-04-17 07:24] LABS: Calcium 7.9 mg/dL (8.7-10.4); Carbon Dioxide 19 mmol/L (20-31); Chloride 110 mmol/L (98-107); Potassium 3.1 mmol/L (3.5-5.1)
[2024-04-17 07:25] LABS: BUN/Creatinine Ratio 21.2 (10.0-20.0); Blood Urea Nitrogen 11 mg/dL (9-23)
[2024-04-17 07:45] LABS: Glucose 264 mg/dL (74-106)
[2024-04-17] MEDS: LISINOPRIL 20 MG TAB PO SCH (09:09)
[2024-04-17] MEDS: hydrALAZINE HCL 20 MG/ML VL IV PRN (14:13)
[2024-04-17] MEDS: POTASSIUM CHLORIDE 8 MEQ TAB PO ONE (17:07)
--- NOTE | 2024-04-17 19:47 | DVHPN2 ---
Subjective sitting in chair/wants to go home/stone is draining Changes from previous H/P or p: No Changes Eyes: No Pain, No Vision change, No Conjunctivae inflammation, No Eyelid inflammation, No Other, No Redness ENT: No Ear pain, No Ear discharge, No Nose pain, No Nose discharge, No Nose congestion, No Mouth pain, No Mouth swelling, No Throat pain, No Throat swelling, No Other Cardiovascular: No Chest Pain, No Palpitations, No Orthopnea, No Paroxysmal Noc. Dyspnea, No Edema, No Lt Headedness, No Other Respiratory: No Cough, No Dry, No Shortness of breath, No SOB with excertion, No Wheezing, No Hemoptysis, No Pleuritic Pain, No Sputum, No Other Gastrointestinal: Nausea, Vomiting, Abdominal Pain, Diarrhea; No Constipation, No Melena, No Hematochezia, No Other Genitourinary: No Dysuria, No Frequency, No Incontinence, No Hematuria, No Retention, No Other Musculoskeletal: No other, No neck pain, No shoulder pain, No arm pain, No back pain, No hand pain, No leg pain, No foot pain Skin: No Rash, No Lesions, No Jaundice, No Bruising, No Other Objective Vitals Vital Signs Date Time Temp Pulse Resp B/P (MAP) Pulse Ox O2 Delivery O2 Flow Rate FiO2 04/17/24 16:49 98.5 87 16 140/78 (98) 98 98.5 04/17/24 08:10 Room Air* 0 21 Intake/Output Intake and Output 04/17/24 07:00 Intake Total 2820 ml Output Total 2200 ml Balance 620 ml Intake Oral 1695 ml IV Total 1125 ml Output Urine Total 2200 ml # Bowel Movements 2 General Appearance: Alert, Oriented X3, Cooperative Lungs: Clear to auscultation, Normal air movement Cardiovascular: Regular rate, Normal S1 Extremities: No edema Medications Current Medications Medications Dose Ordered Sig/Darryl Route Start Time Stop Time Status Last Admin Dose Admin Acetaminophen/ Hydrocodone Bitart 1 tab Q4HP PRN PO 04/12/24 18:45 04/17/24 09:37 1 TAB Ondansetron HCl 4 mg Q4HP PRN IV 04/12/24 18:45 04/17/24 12:01 4 MG Docusate Sodium 100 mg BIDPRN PRN PO 04/12/24 18:45 Acetaminophen 650 mg Q6HP PRN PO 04/12/24 18:45 Nitroglycerin 0.4 mg Q5MINP PRN SL 04/12/24 18:45 Morphine Sulfate 2 mg Q30M PRN IV 04/12/24 18:45 Metronidazole 100 ml @ 100 mls/hr Q8HR IV 04/12/24 22:00 04/17/24 14:13 100 MLS/HR Doxycycline Hyclate 100 ml @ 50 mls/hr Q12H IV 04/12/24 21:15 04/17/24 08:59 50 MLS/HR Diagnostic Test (Pha) 1 strip ACHS 04/13/24 17:00 04/17/24 17:38 1 STRIP Insulin Human Regular ACHS SC 04/13/24 17:00 04/17/24 17:42 3 UNITS Dextrose 50 ml UD PRN IV 04/13/24 13:15 Famotidine 20 mg Q12HR IV 04/13/24 22:00 04/17/24 09:08 20 MG Azithromycin 500 mg DAILY PO 04/14/24 10:00 04/17/24 09:08 500 MG Potassium Chloride/Sodium Chloride 1,000 ml @ 100 mls/hr Q10H IV 04/14/24 17:00 04/17/24 15:47 100 MLS/HR Magnesium Oxide 400 mg BID PO 04/15/24 22:00 04/17/24 09:08 400 MG Hydralazine HCl 10 mg Q6HP PRN IV 04/16/24 12:45 04/17/24 14:13 10 MG Metformin HCl 500 mg BIDWM PO 04/16/24 18:00 04/17/24 17:38 500 MG Lisinopril 20 mg DAILY PO 04/17/24 10:00 04/17/24 09:09 20 MG Potassium Chloride 8 meq DAILY PO 04/18/24 10:00 Laboratory Results Laboratory Tests 04/14/24 05:57 04/17/24 06:47 Chemistry Test 04/17/24 06:47 Calcium Level 7.9 mg/dL (8.7-10.4) L Urinalysis Test 04/13/24 09:53 Urine Color Yellow (Yellow) Urine Clarity Clear (Clear) Urine pH 6.0 (5.0-9.0) Urine Specific [place] 1.023 (1.001-1.035) Urine Protein 2+ (Negative) H Urine Ketones 1+ (Negative) H Urine Blood 1+ /uL (Negative) H Urine Nitrite Negative (Negative) Urine Bilirubin Negative (Negative) Urine Urobilinogen Normal mg/dL (Negative) Urine Leukocyte Esterase Negative /uL (Negative) Urine RBC 1 /hpf (0 - 3) Urine Microscopic WBC 2 /HPF (0-3) Urine Squamous Epithelial Cells Few /hpf (<5) Urine Bacteria Few /hpf (None Seen) H Urine Glucose 4+ mg/dL (Normal) H Microbiology Microbiology Date/Time Source Procedure Growth Status 04/13/24 10:30 Stool Stool Culture - Final Complete 04/13/24 10:30 Stool Shiga Toxin I & II - Final Complete 04/13/24 10:30 Stool Clostridium difficile Toxin Assay - Final Complete Labs and/or images reviewed: Labs reviewed by me, Image(s) reviewed by me Assessment/Plan Assessment/Plan enteritis?diarrhea-- resolved rt lower lobe pneumonia- better hematuria//false urethral passage- seen by uro and now has stone-leg bag teaching done nurse called mom- she hung up on phone/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
[2024-04-18] MEDS ORDERED: POTASSIUM CHLORIDE 8 MEQ TAB PO SCH (10:00)
== END 2024-04-17 19:45 | disposition left against medical advice (07) | DRG 249 ==
LOC: ER 15:29 → OVERFLOW 18:42 → TELE-WESTW 04-13 23:27
PROVIDERS: ADMIT Internal Medicine Geriatric Medicine; ATTEND Internal Medicine Geriatric Medicine
PROC: 0T9B80Z Drainage of Bladder with Drainage Device, Via Natural or Artificial Opening Endoscopic (ICD-10-PCS; principal; 2024-04-14 18:00)
DX: A08.4 Viral intestinal infection, unspecified (principal); J96.00 Acute respiratory failure, unspecified whether with hypoxia or hypercapnia; N17.9 Acute kidney failure, unspecified; J15.69 Pneumonia due to other Gram-negative bacteria; J15.9 Unspecified bacterial pneumonia; N36.5 Urethral false passage; E86.0 Dehydration; S37.30XA Unspecified injury of urethra, initial encounter; E11.65 Type 2 diabetes mellitus with hyperglycemia; I10 Essential (primary) hypertension; E87.6 Hypokalemia; R31.0 Gross hematuria; N32.89 Other specified disorders of bladder; X58.XXXA Exposure to other specified factors, initial encounter; Y93.89 Activity, other specified; Y92.89 Other specified places as the place of occurrence of the external cause; Y99.8 Other external cause status
CPT/HCPCS: 36415; 74176; 80048; 80053; 81001; 82962; 83036; 83605; 83690; 83735; 84484; 85007; 85025; 85027; 85048; 85610; 85730; 87045; 87177; 87427; 87493; 93005; 99291; G0378; J1815; J2250; J2405; J2543; J2704; J3480; J3490

== ENCOUNTER 2024-04-20 17:01 | Inpatient (IN) | payer MEDICAID ==
[~2024-04-20] VITALS: Ht 162.6 cm; Wt 70.2 kg
[~2024-04-20 17:01] MED LIST changes: +LORA-483; +METF-372; +SIMV40TA18; +SUCR1TAB
[2024-04-20] MEDS: IPRATROPIUM BROM 0.5 MG/2.5ML INH SOL ONE (17:47)
[2024-04-20] MEDS: ALBUTEROL SULF 2.5 MG/0.5ML(0.5%) NEB SOLN ONE (17:47)
--- NOTE | 2024-04-20 17:55 | DVH ---
CHEST RADIOGRAPH Indication: SOB Technique: Single frontal view of the chest was obtained Comparison: None FINDINGS: Lines and Tubes: None Lungs: Bilateral perihilar infiltrates. Patchy airspace consolidations in the right chest. Pleura: No effusion. No pneumothorax. Cardiomediastinal contours: Unremarkable Bones: No acute osseous abnormality. IMPRESSION: 1. Patchy airspace consolidation areas throughout the right chest. HS:Y
--- NOTE | 2024-04-20 18:07 | ECG ---
[facility] Test Date: 2024-04-20 Test Time: 17:25:50 Pat Name: JAN PROCTOR Department: ER Room: [address] [place] [address] Gender: M Chief Of Planning: KAITLYNN : 1960 Requested By: JOHAN BANKS Order Number: [id number] Reading MD: Daniel Otoole Measurements Intervals [place] Rate: 109 P: 21 NH: 118 QRS: 78 QRSD: 90 T: -14 QT: 363 QTc: 489 Interpretive Statements Sinus tachycardia Borderline repolarization abnormality Borderline prolonged QT interval Electronically Signed On 04-24-2024 17:33:20 PST by Daniel Otoole Please click the below link to view image of tracing.
[2024-04-20 18:15] VITALS: PULSE 105; RESP 18; O2SAT 100
--- NOTE | 2024-04-20 18:38 | DVH ---
Procedure: CT CHEST WITHOUT CONTRAST Reason for study/Clinical History: SOB Comparison Study: None available at time of dictation. Exam Date: 04/20/2024 05:57 PM TECHNIQUE: Multidetector CT of the chest was performed from the lung apices to the upper abdomen with out the use of intravenous contract. Axial, coronal and sagittal multiplanar reformats were performed . Radiation Dose Information: CT Dose: CTDI volume is 6.69 mGy. Dose-length product is 233.76 mGy*cm The dose indicators for CT are the volume Computed Tomography (CT) Dose Index (CTDIvol) and the Dose Length Product (DLP), and are measured in units of mGy and mGy-cm, respectively. These indicators are not patient dose, but values generated from the CT scanner acquisition factors. The report includes radiation exposure data for exposures received during this examination. FINDINGS: Lower neck: Normal thyroid. Lungs: Severe reticular nodular infiltrate right lung with moderate focal areas of the consolidation at the level of the right mainstem bronchus. Multiple air bronchograms seen throughout the right lung . No obvious adenopathy. Ground-glass infiltrate left upper lobe peripherally. Left lower lobe patchy infiltrate. Heart/Vascular Structures: Normal heart size. No pericardial effusion. Artery calcification. Moderate vascular calcification of the thoracic aorta without aneurysm formation. Lymph Nodes: No adenopathy Pleura: Bilateral small pleural effusions. Musculoskeletal: No acute osseous abnormality. Soft tissues: Normal. Upper abdomen: Limited portions of the upper abdomen are unremarkable. IMPRESSION: 1. Moderately severe diffuse infiltrates throughout the right lung as discussed above. Patchy infiltr ates seen in the left lung without consolidation in the left lung. No malignant adenopathy. Small bilateral pleural effusions. Radiation optimization: All CT scans at this facility use at least one of these dose optimization hellen hniques: automated exposure control mA and/or kV adjustment per patient size (includes targeted exam s where dose is matched to clinical indication) or iterative reconstruction.
[2024-04-20] MEDS: ALBUTEROL SULF 2.5 MG/0.5ML(0.5%) NEB SOLN NEB ONE (18:54)
[2024-04-20] MEDS: IPRATROPIUM BROM 0.5 MG/2.5ML INH SOL NEB ONE (18:54)
[2024-04-20] MEDS: methylPREDNISolone SOD SUCC 125 MG/2 ML VL IM ONE (19:06)
--- NOTE | 2024-04-20 19:18 | ED.PDOC ---
SOB-HPI HPI Comments 63-YEAR-OLD MALE COMPLAINING OF SHORTNESS A BREATH LASTING 10 DAYS. STATES HE WAS RECENTLY ADMITTED AT THIS HOSPITAL FOR DIARRHEA AND RIGHT LOWER LOBE PNEUMONIA. STATES HE WAS FELT NO SIGNIFICANT IMPROVEMENT IN THE SHORTNESS OF BREATH. HE WAS AT AT [facility] TODAY WHEN HE WAS ADVISED TO COME INTO THE ER, HE DID NOT WANT TO COME IN SO HIS [id number] AND BROUGHT HIM IN TODAY. PATIENT IS FEELS VERY SHORT OF BREATH HAVING HARD TIME BREATHING. Chief Complaint: Shortness of Breath Time Seen by MD: 17:27 Primary Care Provider: none Reviewed notes: Nurses Notes Information Source: Patient Mode of Arrival: Wheelchair Severity: Mild Past Medical History PAST MEDICAL HISTORY: DM, HTN Surgical History: Denies all surgeries Family History Family History: Reviewed,noncontributory to illness Social History Smoker: Non-Smoker Alcohol: Denies ETOH Use Drugs: Denies Drug Use Lives In: Home Constitutional: reports: fatigue; denies: chills, diaphoresis, fever, malaise, sweats, weakness, others EENTM: denies: blurred vision, double vision, ear bleeding, ear discharge, ear drainage, ear pain, ear ringing, eye pain, eye redness, hearing loss, mouth pain, mouth swelling, nasal discharge, nose bleeding, nose congestion, nose pain, photophobia, tearing, throat pain, throat swelling, voice changes, others Respiratory: reports: cough, SOB at rest, SOB with excertion Cardiovascular: denies: chest pain, dizzy spells, diaphoresis, Dyspnea on exertion, edema, irregular heart beat, left arm pain, lightheadedness, palpitations, PND, syncope, others Gastrointestinal: denies: abdomen distended, abdominal pain, blood streaked bowels, constipated, diarrhea, dysphagia, difficulty swallowing, hematemesis, melena, nausea, poor appetite, poor fluid intake, rectal bleeding, rectal pain, vomiting, others Genitourinary: denies: burning, dysuria, flank pain, frequency, hematuria, incontinence, penile discharge, penile sore, pain, testicle pain, testicle swel ling, urgency, others Neurological: denies: dizziness, fainting, headache, left sided numbness, left sided weakness, numbness, paresthesia, pre-existing deficit, right sided numbness, right sided weakness, seizure, speech problems, tingling, tremors, weakness, others Musculoskeletal: denies: back pain, gout, joint pain, joint swelling, muscle pain, muscle stiffness, neck pain, others Integumetry: denies: bruises, change in color, change in hair/nails, dryness, laceration, lesions, lumps, rash, wounds, others Physical Exam General Appearance: No Apparent Distress, Normal HEENT: Normal ENT Inspection, Pharynx Normal, TMs Normal Neck: Full Range of Motion, Non-Tender, Normal, Normal Inspection Respiratory: Chest Non-Tender, Decreased Breath Sounds (DIMINISHED BREATH SOUNDS ON THE RIGHT SIDE), No Accessory Muscle Use Cardiovascular: No Edema, No JVD, No Murmur, No Gallop, Normal Peripheral Pulses, Regular Rate/Rhythm Breast Exam: Deferred Gastrointestinal: No Organomegaly, Non Tender, No Pulsatile Mass, Normal Bowel Sounds, Soft Genitalia: Deferred Pelvic: Deferred Rectal: Deferred Extremities: No calf tenderness, Normal capillary refill, Normal inspection, Normal range of motion, Non-tender, No pedal edema Musculoskeletal : Apperance: Normal Neurologic: Alert, basic sciences dean II-XII nml as Tested, No Motor Deficits, Normal Affect, Normal Mood, No Sensory Deficits Cerebellar Function: Normal Reflexes: Normal Skin: Dry, Normal Color, Warm Lymphatic: No Adenopathy Was a procedure done? Was a procedure done?: No Differential Dx Differential Diagnosis: Anxiety, Asthma, Bronchitis, Pneumonia, Pneumothorax, Pulmonary Embolism, Respiratory Distress X-Ray, Labs, Meds, VS Vital Signs Date Time Temp Pulse Resp B/P (MAP) Pulse Ox O2 Delivery O2 Flow Rate FiO2 04/20/24 18:15 105 18 100 Non-Rebreather 15 N/A 04/20/24 18:14 98.5 102 18 116/64 (81) 100 98.5 04/20/24 17:45 18 94 Non-Rebreather 15 N/A 04/20/24 17:30 100.7 117 22 115/58 (77) 92 04/20/24 17:25 109 04/20/24 17:16 22 92 Simple Mask* 10 99 Lab Test 04/20/24 17:55 04/20/24 17:21 Range/Units D-Dimer, Quantitative Pending Sodium Level Pending Potassium Level Pending Chloride Level Pending Carbon Dioxide Level Pending Anion Gap Pending Blood Urea Nitrogen Pending Creatinine Pending Glomerular Filtration Rate Calc Pending BUN/Creatinine Ratio Pending Serum Glucose Pending Calcium Level Pending Total Bilirubin Pending Aspartate Amino Transferase (AST) Pending Alanine Aminotransferase (ALT) Pending Alkaline Phosphatase Pending Total Protein Pending Albumin Pending POC Glucose 255 H 70-106 mg/dl Current Medications Medications (Trade) Dose Ordered Sig/Darryl Route Start Time Stop Time Status Last Admin Albuterol (Ventolin Medneb) 2.5 mg ONCE ONCE NEB 04/20/24 17:45 04/20/24 18:45 DC 04/20/24 18:54 Ipratropium [place] (Atrovent Medneb) 0.5 mg ONCE ONCE NEB 04/20/24 17:45 04/20/24 18:45 DC 04/20/24 18:54 X-Ray, Labs, Meds, VS Comment PATIENT WILL BE ADMITTED FOR RIGHT LOBE PNEUMONIA AND HYPOXIA PATIENT WAS STARTED ON AZITHROMYCIN CONSULT PLACED FOR DR. MONTE PULMONOLOGY Time of 1ST Reevaluation: 19:17 Reevaluation 1ST: Unchanged Patient Education/Counseling: Diagnosis, Treatment, Need For Follow Up (PATIENT ADVISED TO FOLLOW-UP IN THE EMERGENCY ROOM IN THE NEXT 24 TO 48 HOURS IF SYMPTOMS DO NOT IMPROVE. ADVISED FOLLOW-UP WITH PCP IN THE NEXT 3 TO 5 DAYS. PATIENT VERBALIZED UNDERSTANDING. ) Family Education/Counseling: Diagnosis Departure 1 Departure Time of Disposition: 19:17 Impression: Primary Impression: Multifocal pneumonia Additional Impressions: Hypoxia Respiratory distress Disposition: ADMITTED INPATIENT Condition: Guarded Discharged With: Self Critical Care Note Critical Care Time?: No Stability Stability form required: No Heart Score Heart Score: Heart Score Response (Comments) Value History N/A 0 EKG N/A 0 Age N/A 0 Risk Factors N/A 0 Troponin N/A 0 Total 0 JOHAN BANKSP Apr 20, 2024 19:18
[2024-04-20] MEDS ORDERED: ACETAMINOPHEN 325 MG TAB PO PRN (19:30)
[2024-04-20] MEDS ORDERED: DEXTROSE (50%) 50ML SYRG IV PRN (19:30)
[2024-04-20] MEDS ORDERED: ONDANSETRON HCL 4 MG/2 ML VIAL IV PRN (19:30)
[2024-04-20] MEDS ORDERED: MORPHINE SULFATE INJ 2 MG/ml SYRG IV PRN (19:30)
[2024-04-20] MEDS ORDERED: TEMAZEPAM 15 MG CAP PO PRN (19:30)
[2024-04-20] MEDS ORDERED: NITROGLYCERIN 0.4 MG SL TAB SL PRN (19:30)
[2024-04-20] MEDS ORDERED: ALBUTEROL SULF 2.5 MG/0.5ML(0.5%) NEB SOLN NEB PRN (19:30)
[2024-04-20] MEDS: cefTRIAXone 1GM/50ML D5W 50 ML IV SCH (19:37)
[2024-04-20 19:46] VITALS: O2SAT 99
[2024-04-20 19:46] LABS: Alanine Aminotransferase 12 U/L (7-40); Albumin 3.3 g/dL (3.2-4.8); Alkaline Phosphatase 108 U/L (46-116); Anion Gap 12 (5-15); Aspartate Aminotransferase 24 U/L (13-40); BUN/Creatinine Ratio 7.7 (10.0-20.0); Carbon Dioxide 21 mmol/L (20-31); Chloride 101 mmol/L (98-107); Potassium 3.8 mmol/L (3.5-5.1); Total Protein 5.8 g/dL (5.7-8.2)
[2024-04-20 19:48] LABS: Bilirubin, Total 0.2 mg/dL (0.2-1.0); Blood Urea Nitrogen 6 mg/dL (9-23); Calcium 8.5 mg/dL (8.7-10.4); Glucose 288 mg/dL (74-106); Sodium 134 mmol/L (136-145)
[2024-04-20 20:29] VITALS: PULSE 100; RESP 19; O2SAT 100
[2024-04-20 20:29] LABS: Basophils # (auto) 0 10 ^3/uL (0-0.2); Basophils % (auto) 0.2 % (0.0-2.0); Eosinophils # (auto) 0 10 ^3/uL (0-0.8); Eosinophils % (auto) 0.1 % (0.0-7.0); Hematocrit 25.3 % (41.0-53.0); Hemoglobin 8.5 g/dL (13.5-17.5); Lymphocytes # (auto) 0.8 10 ^3/uL (0.4-5.4); Mean Corpuscular Hemoglobin 29.9 pg (28.0-32.0); Mean Corpuscular Hgb Conc. 33.5 g/dL (32.0-36.0); Mean Corpuscular Volume 89.3 fL (80.0-100.0); Monocytes # (auto) 0.7 10 ^3/uL (0-1.3); Monocytes % (auto) 3.2 % (0.0-12.0); Neutrophils # (auto) 19.1 10 ^3/uL (1.6-8.6); Neutrophils % (auto) 92.5 % (37.0-80.0); Platelet Count (auto) 493 10^3/uL (140-450); Red Blood Cells 2.83 10^6/uL (4.5-5.90); Red Cell Distribution Width 16.8 % (11.8-14.3); White Blood Cell 20.7 10^3/uL (4.4-10.8)
[2024-04-20] MEDS: AZITHROMYCIN 500MG/ 250ML 250 ML IV SCH (20:30)
[2024-04-20 20:42] VITALS: BP 116/64; PULSE 105; RESP 18; TEMP 98.5; O2SAT 99
--- NOTE | 2024-04-20 21:46 | DVHINCON2 ---
Date of service: Apr 20, 2024 Referring Physician Salbador Reese NP Reason for Consultation Acute hypoxic respiratory failure and pneumonia History of Present Illness 63-year-old man with past medical history of diabetes mellitus and hypertension who presents to ED today with c/o shortness of breath x 10 days. Pt reports he was recently admitted to this hospital for diarrhea and RLL pneumonia. Patient states he had no significant improvement in shortness of breath. He was seen by PCP earlier today, who advised pt to be seen in the ER. Patient admits to being very short of breath and having a hard time breathing. He was thus admitted for further care and pulmonary consultation is requested for evaluation and management due to the above findings. Review of Systems: 14-point review of systems negative unless otherwise noted above. Past Medical History: Diabetes mellitus and hypertension. Past Surgical History: None Medications: Reviewed. Allergies: No known drug allergies. Family History: No family history of premature CAD. No family history of lung disorders. Social History: Nonsmoker. No alcohol or illicit drug use. Family History: Patient reports no known family medical history. Allergies: Coded Allergies: NO KNOWN ALLERGIES (Unverified , 08/29/22) Home Meds Active Scripts Ondansetron Odt 4MG Tab (ZOFRAN PO) 4 Mg Tb, 4 MG PO Q8HP PRN for 5 Days, #15 TAB ODT TAB-DISSOLVE IN MOUTH, THEN SWALLOW Prov:MARYCARMEN LEDBETTER MD 11/25/22 Reported Medications Simvastatin (Simvastatin) 40 Mg Tab, 1 04/14/24 Loratadine (CLARITIN TABLET) 10 Mg Tb, 1 DAILY 04/14/24 Sucralfate (Sucralfate) 1 Gm Tab, 1 DAILY 04/14/24 Metformin Hydrochloride (Metformin Hcl) 1,000 Mg Tab, 1 04/14/24 Current Medications Current Medications Medications (Trade) Dose Ordered Sig/Darryl Route PRN Reason Start Time Stop Time Status Last Admin Albuterol (Ventolin Medneb) 2.5 mg Q6HPRN PRN NEB SHORTNESS OF BREATH 04/20/24 19:30 Ceftriaxone Sodium 50 ml @ 100 mls/hr DAILY@09 IV 04/20/24 19:37 04/20/24 19:37 Azithromycin 250 ml @ 125 mls/hr DAILY IV 04/20/24 20:30 04/20/24 20:30 Atorvastatin Calcium (Lipitor) 40 mg HS PO 04/20/24 22:00 Lisinopril (Zestril Tablet) 20 mg DAILY PO 04/21/24 10:00 Methylprednisolone Sodium Succinate (Solu Medrol) 40 mg BID IV 04/20/24 22:00 Diagnostic Test (Pha) (Accu-Chek Comfort Curve T) 1 strip Q6HR 04/21/24 00:00 Insulin Human Regular (InsuLIN R) Q6HR SC 04/21/24 00:00 Dextrose 50 ml UD PRN IV Blood Sugar LESS THAN 60 04/20/24 19:30 Temazepam (Restoril) 15 mg QHSP PRN PO FOR INSOMNIA 04/20/24 19:30 Ondansetron HCl (Zofran) 4 mg Q4HP PRN IV NAUSEA / VOMITING 04/20/24 19:30 Enoxaparin Sodium (Lovenox) 40 mg DAILY SC 04/21/24 10:00 Acetaminophen (Tylenol Tablet) 650 mg Q6HP PRN PO PAIN SCALE 1-3 OR TEMP>100.4 04/20/24 19:30 Nitroglycerin (Ntrostat Sublingual) 0.4 mg Q5MINP PRN SL FOR CHEST PAIN 04/20/24 19:30 Morphine Sulfate 2 mg Q30M PRN IV FOR CHEST PAIN 04/20/24 19:30 Vital Signs Vital Signs Date Time Temp Pulse Resp B/P (MAP) Pulse Ox O2 Delivery O2 Flow Rate FiO2 04/20/24 20:42 98.5 105 18 116/64 99 15.0 100 98.5 04/20/24 20:29 Non-Rebreather Physical Exam Gen.: Patient lying in bed in no apparent distress. On supplemental oxygen. Head: Normocephalic, atraumatic. Eyes: EOMI/PERRLA. Ears: Normal hearing. Normal anatomy. Neck/trachea: Trachea midline, supple. Nose: Normal external anatomy. Mouth: Moist mucous membranes. Chest: Decreased air entry bilaterally. No wheezing or rhonchi. Cardiovascular: Positive S1, positive S2. Regular rate and rhythm. Abdomen: Positive bowel sounds in all 4 quadrants. Soft, non-tender, non- distended. : Deferred. Rectal: Deferred. Skin: Warm, dry. Intact. Extremities: 2+ radial pulses bilaterally. No lower extremity edema. Neuro: Awake, alert, oriented x3. No gross motor or sensory deficits. Cranial nerves II through XII intact. Gait not assessed. Labs/Diagnostic Data Labs Test 04/20/24 19:39 04/20/24 17:55 04/20/24 17:21 Range/Units White Blood Count 20.7 #H 4.4-10.8 10^3/uL Red Blood Count 2.83 L 4.5-5.90 10^6/uL Hemoglobin 8.5 #L 13.5-17.5 g/dL Hematocrit 25.3 #L 41.0-53.0 % Mean Corpuscular Volume 89.3 80.0-100.0 fL Mean Corpuscular Hemoglobin 29.9 28.0-32.0 pg Mean Corpuscular Hemoglobin Concent 33.5 32.0-36.0 g/dL Red Cell Distribution Width 16.8 H 11.8-14.3 % Platelet Count 493 #H 140-450 10^3/uL Mean Platelet Volume 7.4 6.9-10.8 fL Neutrophils (%) (Auto) 92.5 H 37.0-80.0 % Lymphocytes (%) (Auto) 4.0 L 10.0-50.0 % Monocytes (%) (Auto) 3.2 0.0-12.0 % Eosinophils (%) (Auto) 0.1 0.0-7.0 % Basophils (%) (Auto) 0.2 0.0-2.0 % Neutrophils # (Auto) 19.1 H 1.6-8.6 10 ^3/uL Lymphocytes # (Auto) 0.8 0.4-5.4 10 ^3/uL Monocytes # (Auto) 0.7 0-1.3 10 ^3/uL Eosinophils # (Auto) 0 0-0.8 10 ^3/uL Basophils # (Auto) 0 0-0.2 10 ^3/uL Nucleated Red Blood Cells 0.0 % D-Dimer, Quantitative 4.91 H 0.0-0.49 mg/L FEU Sodium Level 134 #L 136-145 mmol/L Potassium Level 3.8 3.5-5.1 mmol/L Chloride Level 101 98-107 mmol/L Carbon Dioxide Level 21 20-31 mmol/L Anion Gap 12 5-15 Blood Urea Nitrogen 6 L 9-23 mg/dL Creatinine 0.78 0.700-1.30 mg/dL Glomerular Filtration Rate Calc 100 >90 mL/min BUN/Creatinine Ratio 7.7 L 10.0-20.0 Serum Glucose 288 H 74-106 mg/dL Calcium Level 8.5 L 8.7-10.4 mg/dL Total Bilirubin 0.2 0.2-1.0 mg/dL Aspartate Amino Transferase (AST) 24 13-40 U/L Alanine Aminotransferase (ALT) 12 7-40 U/L Alkaline Phosphatase 108 46-116 U/L Total Protein 5.8 5.7-8.2 g/dL Albumin 3.3 3.2-4.8 g/dL POC Glucose 255 H 70-106 mg/dl Assessment Impression: Acute hypoxic respiratory failure Dependence on supplemental oxygen Community-acquired pneumonia, likely Gram-negative Diabetes mellitus Emphysema Pleural effusion Atelectasis Plan: Supplemental oxygen Titrate to keep O2 sats above 92%. CT chest reviewed, demonstrates moderately severe diffuse infiltrates throughout the right lung. Patchy infiltrates seen in the left lung without consolidation. No malignant adenopathy. Small bilateral pleural effusions Continue bronchodilators. Continue antibiotics IV steroids Incentive spirometry Monitor renal function. Monitor electrolytes. Supplement as necessary. Monitor ins and outs. DVT prophylaxis. Prognosis: Poor given patient's multiple co-morbidities. Rest of plan per hospitalist and other consultants. Thank you, DEANNA Reese, for allowing me to participate in this patient's care. Further recommendations will depend on the patient's clinical course. Please do not hesitate to contact me if you have any questions or concerns. This medical document was created using an electronic medical record system with [employer] dictation system. Although these documentations are being carefully reviewed, there may still be some phonetic and typographical changes. The errors are purely typographical, due to imperfection on the software program, and do not reflect any compromise in the patient's medical care. Plan discussed with: Patient, Other (RN/DEANNA Reese/) TANYA MONTE MD Apr 20, 2024 21:46
[2024-04-20] MEDS: ATORVASTATIN 20 MG TAB PO SCH (22:11)
[2024-04-20] MEDS: methylPREDNISolone SOD SUCC 40 MG/ML VL IV SCH (22:11)
--- NOTE | 2024-04-20 23:16 | DVHHP2 ---
History of Present Illness Reason for Visit: Shortness for breath History of Present Illness 63-year-old male presents for evaluation of shortness for breath. Patient reports a one-week history of worsening shortness for breath. He reports recently being discharged with similar complaints and being diagnosed with pneumonia. He reports occasional chills. States fatigue and generalized weakness. Denies chest pain or palpitations. No other acute complaints reported. Past Medical History Hypertension and diabetes mellitus Past Surgical History Denies Family History Noncontributory Smoke: No ALCOHOL: none Drugs: None Lives: with Family Review of Systems Review of Systems Review of systems are currently negative otherwise addressed in HPI. Allergies: Coded Allergies: NO KNOWN ALLERGIES (Unverified , 08/29/22) Medications Current Medications Medications Dose Ordered Sig/Darryl Route Start Time Stop Time Status Last Admin Dose Admin Albuterol 2.5 mg Q6HPRN PRN NEB 04/20/24 19:30 Ceftriaxone Sodium 50 ml @ 100 mls/hr DAILY@09 IV 04/20/24 19:37 04/20/24 19:37 100 MLS/HR Azithromycin 250 ml @ 125 mls/hr DAILY IV 04/20/24 20:30 04/20/24 20:30 125 MLS/HR Atorvastatin Calcium 40 mg HS PO 04/20/24 22:00 04/20/24 22:11 40 MG Lisinopril 20 mg DAILY PO 04/21/24 10:00 Methylprednisolone Sodium Succinate 40 mg BID IV 04/20/24 22:00 04/20/24 22:11 40 MG Diagnostic Test (Pha) 1 strip Q6HR 04/21/24 00:00 Insulin Human Regular Q6HR SC 04/21/24 00:00 Dextrose 50 ml UD PRN IV 04/20/24 19:30 Temazepam 15 mg QHSP PRN PO 04/20/24 19:30 Ondansetron HCl 4 mg Q4HP PRN IV 04/20/24 19:30 Enoxaparin Sodium 40 mg DAILY SC 04/21/24 10:00 Acetaminophen 650 mg Q6HP PRN PO 04/20/24 19:30 Nitroglycerin 0.4 mg Q5MINP PRN SL 04/20/24 19:30 Morphine Sulfate 2 mg Q30M PRN IV 04/20/24 19:30 Exam Vital Signs Vital Signs Date Time Temp Pulse Resp B/P (MAP) Pulse Ox O2 Delivery O2 Flow Rate FiO2 04/20/24 22:00 98.6 101 14 112/64 (80) 100 98.6 04/20/24 20:42 15.0 100 04/20/24 20:29 Non-Rebreather Exam Gen: 63-year-old male in mild distress Skin: Warm, dry, normal color and texture, no rash. HEENT: Normocephalic atraumatic, mucous membranes moist and pink. Neck: Cervical and supraclavicular nodes normal without enlargement, trachea is midline, thyroid gland is normal without masses. Pulmonary: Bilateral rhonchi Cardiac: Regular rate and rhythm. No murmur Abdomen: Soft, nontender, nondistended, bowel sounds present all 4 quadrants, no guarding, no rigidity, no organomegaly. Extremities: No cyanosis, clubbing, no edema Neuro: Cranial nerves II through XII grossly intact, normal affect and speech, no focal motor deficits. Labs/Xrays ORDERING PHYSICIAN: JOHAN BANKS PROCEDURE(s): CXR1 - CHEST XRAY 1 VIEW REASON: SOB ORDER NUMBER(s): [id number], ACCESSION NUMBER(s): [id number] CHEST RADIOGRAPH Indication: SOB Technique: Single frontal view of the chest was obtained Comparison: None FINDINGS: Lines and Tubes: None Lungs: Bilateral perihilar infiltrates. Patchy airspace consolidations in the right chest. Pleura: No effusion. No pneumothorax. Cardiomediastinal contours: Unremarkable Bones: No acute osseous abnormality. IMPRESSION: 1. Patchy airspace consolidation areas throughout the right chest. HS:Y ATED BY: CHANDLER PARSONS Jr., DO ORDERING PHYSICIAN: JOHAN BANKS [employer] SALES CONSULTANT PROCEDURE(s): CX2CT - CHEST WITHOUT CONTRAST REASON: SOB ORDER NUMBER(s): [id number], ACCESSION NUMBER(s): [id number] Procedure: CT CHEST WITHOUT CONTRAST Reason for study/Clinical History: SOB Comparison Study: None available at time of dictation. Exam Date: 04/20/2024 05:57 PM TECHNIQUE: Multidetector CT of the chest was performed from the lung apices to the upper abdomen without the use of intravenous contract. Axial, coronal and sagittal multiplanar reformats were performed. Radiation Dose Information: CT Dose: CTDI volume is 6.69 mGy. Dose-length product is 233.76 mGy*cm The dose indicators for CT are the volume Computed Tomography (CT) Dose Index (CTDIvol) and the Dose Length Product (DLP), and are measured in units of mGy and mGy-cm, respectively. These indicators are not patient dose, but values generated from the CT scanner acquisition factors. The report includes radiation exposure data for exposures received during this examination. FINDINGS: Lower neck: Normal thyroid. Lungs: Severe reticular nodular infiltrate right lung with moderate focal areas of the consolidation at the level of the right mainstem bronchus. Multiple air bronchograms seen throughout the right lung. No obvious adenopathy. Ground-glass infiltrate left upper lobe peripherally. Left lower lobe patchy infiltrate. Heart/Vascular Structures: Normal heart size. No pericardial effusion. Artery calcification. Moderate vascular calcification of the thoracic aorta without aneurysm formation. Lymph Nodes: No adenopathy Pleura: Bilateral small pleural effusions. Musculoskeletal: No acute osseous abnormality. Soft tissues: Normal. Upper abdomen: Limited portions of the upper abdomen are unremarkable. IMPRESSION: 1. Moderately severe diffuse infiltrates throughout the right lung as discussed above. Patchy infiltrates seen in the left lung without consolidation in the left lung. No malignant adenopathy. Small bilateral pleural effusions. Radiation optimization: All CT scans at this facility use at least one of these dose optimization techniques: automated exposure control mA and/or kV adj ustment per patient size (includes targeted exams where dose is matched to clinical indication) or iterative reconstruction. Labs Test 04/20/24 19:39 04/20/24 17:55 04/20/24 17:21 Range/Units White Blood Count 20.7 #H 4.4-10.8 10^3/uL Red Blood Count 2.83 L 4.5-5.90 10^6/uL Hemoglobin 8.5 #L 13.5-17.5 g/dL Hematocrit 25.3 #L 41.0-53.0 % Mean Corpuscular Volume 89.3 80.0-100.0 fL Mean Corpuscular Hemoglobin 29.9 28.0-32.0 pg Mean Corpuscular Hemoglobin Concent 33.5 32.0-36.0 g/dL Red Cell Distribution Width 16.8 H 11.8-14.3 % Platelet Count 493 #H 140-450 10^3/uL Mean Platelet Volume 7.4 6.9-10.8 fL Neutrophils (%) (Auto) 92.5 H 37.0-80.0 % Lymphocytes (%) (Auto) 4.0 L 10.0-50.0 % Monocytes (%) (Auto) 3.2 0.0-12.0 % Eosinophils (%) (Auto) 0.1 0.0-7.0 % Basophils (%) (Auto) 0.2 0.0-2.0 % Neutrophils # (Auto) 19.1 H 1.6-8.6 10 ^3/uL Lymphocytes # (Auto) 0.8 0.4-5.4 10 ^3/uL Monocytes # (Auto) 0.7 0-1.3 10 ^3/uL Eosinophils # (Auto) 0 0-0.8 10 ^3/uL Basophils # (Auto) 0 0-0.2 10 ^3/uL Nucleated Red Blood Cells 0.0 % D-Dimer, Quantitative 4.91 H 0.0-0.49 mg/L FEU Sodium Level 134 #L 136-145 mmol/L Potassium Level 3.8 3.5-5.1 mmol/L Chloride Level 101 98-107 mmol/L Carbon Dioxide Level 21 20-31 mmol/L Anion Gap 12 5-15 Blood Urea Nitrogen 6 L 9-23 mg/dL Creatinine 0.78 0.700-1.30 mg/dL Glomerular Filtration Rate Calc 100 >90 mL/min BUN/Creatinine Ratio 7.7 L 10.0-20.0 Serum Glucose 288 H 74-106 mg/dL Calcium Level 8.5 L 8.7-10.4 mg/dL Total Bilirubin 0.2 0.2-1.0 mg/dL Aspartate Amino Transferase (AST) 24 13-40 U/L Alanine Aminotransferase (ALT) 12 7-40 U/L Alkaline Phosphatase 108 46-116 U/L Total Protein 5.8 5.7-8.2 g/dL Albumin 3.3 3.2-4.8 g/dL POC Glucose 255 H 70-106 mg/dl Assessment/Plan Assessment/Plan Assessment Acute hypoxic respiratory distress Community-acquired pneumonia Diabetes mellitus Hypertension Plan Admit the patient to Med surge to the hospitalist Rocephin/azithromycin Resume home medications Med nebs Continue treatment per orders. Plan discussed with: Patient My Orders Orders - JENNIFFER WOODRUFF Procedure Category Date Status Time Albuterol Medneb PHA 04/20/24 In Process (Ventolin Medneb) 19:30 Atorvastatin (Lipitor) PHA 04/20/24 In Process 22:00 Lisinopril Tablet PHA 04/21/24 In Process (Zestril Tablet) 10:00 Basic Metabolic Panel LAB 04/21/24 Verified 04:00 Methylprednisolone PHA 04/20/24 In Process Sod Succ (Solu Medrol 22:00 Consistent DIET 04/21/24 Transmitted Carb(Ccho)Diabetes Breakfast Glucose Blood PHA 04/21/24 In Process (Accu-Chek Comfort 00:00 Insulin R (Human) PHA 04/21/24 In Process (Insulin R) 00:00 Dextrose 50% Syringe PHA 04/20/24 In Process 19:30 Admit ADMIT 04/20/24 Transmitted 19:28 Temazepam (Restoril) PHA 04/20/24 In Process 19:30 Ondansetron Hcl PHA 04/20/24 In Process (Zofran) 19:30 Enoxaparin Sodium PHA 04/21/24 In Process (Lovenox) 10:00 Condition: Fair TREY 04/20/24 In Process 19:28 Acetaminophen Tablet PHA 04/20/24 In Process (Tylenol Tablet) 19:30 Bedrest With Bathroom TREY 04/20/24 In Process Privileg 19:28 Nitroglycerin PHA 04/20/24 In Process Sublingual (Ntrostat 19:30 Morphine Sulfate PHA 04/20/24 In Process Injection 19:30 Stat Ekg For Chest TREY 04/20/24 In Process Pain 19:28 Notify Of Changes TREY 04/20/24 In Process From Base 19:28 Plating Technician For TREY 04/20/24 In Process 24 Hours 19:28 Emergency Dysrhythmia TREY 04/20/24 In Process Protocol 19:28 Rhythm Strips Once TREY 04/20/24 In Process Every Shift 19:28 Oxygen By Nasal RT 04/20/24 Transmitted Cannula 19:28 Ceftriaxone 1gm/50ml PHA 04/20/24 In Process D5w (Rocephin) 19:37 Azithromycin 500mg/ PHA 04/20/24 In Process 250ml (Zithromax 50 20:[address] 04/20/24 Logged Contrast 22:30 Date of Service: Apr 20, 2024 Billing Provider: JENNIFFER WOODRUFF Common Visit Codes: [id number] INP/OBS CARE (HIGH) JENNIFFER WOODRUFF Apr 20, 2024 23:16
[2024-04-21 03:11] LABS: Urine Bacteria None Seen /hpf (None Seen)
[2024-04-21 03:50] LABS: Urine Blood Negative /uL (Negative); Urine Clarity Clear (Clear); Urine Color Yellow (Yellow); Urine Hyaline Cast FEW /lpf (0 - 2); Urine Mucus FEW (None Seen); Urine Protein, UAD 1+ (Negative); Urine Specific Gravity 1.016 (1.001-1.035); Urine Squamous Epithelial Cell None Seen /hpf (<5); Urine Urobilinogen Normal (Negative); Urine WBC 4 /HPF (0-3)
[2024-04-21] MEDS: IOHEXOL 350 MG/ML 100ML IJ ONE (06:30)
--- NOTE | 2024-04-21 06:36 | DVH ---
EXAM: CT Angiography Chest With Intravenous Contrast CLINICAL INDICATION: r/o pe TECHNIQUE: Axial computed tomographic angiography images of the chest with intravenous contrast. Th is CT exam was performed using one or more of the following dose reduction techniques: automated exp osure control, adjustment of the mA and/or kV according to patient size, and/or use of iterative dorinda nstruction technique. MIP reconstructed images were created and reviewed. CONTRAST: COMPARISON: 04/20/2024 FINDINGS: LIMITATIONS: Suboptimal opacification of the pulmonary arteries. PULMONARY ARTERIES: No pulmonary embolism is identified. Some of the distal pulmonary arteries can not be evaluated due to suboptimal opacification. AORTA: No acute findings. No thoracic aortic aneurysm. LUNGS AND PLEURAL SPACES: Lung emphysema/ COPD with bilateral pleural effusions and scattered areas of partial consolidation and ground-glass attenuation, likely multifocal pneumonia. HEART: Unremarkable. No cardiomegaly. No significant pericardial effusion. No evidence of RV dys function. MEDIASTINUM: Scattered mediastinal lymph nodes some of which are upper limits of normal in size and are most likely reactive lymph nodes. BONES/JOINTS: No acute fracture. No dislocation. SOFT TISSUES: Unremarkable. LYMPH NODES: See above. OTHER FINDINGS: . IMPRESSION: 1. No pulmonary embolism is identified. Some of the distal pulmonary arteries cannot be evaluated d ue to suboptimal opacification. 2. Lung emphysema/ COPD with bilateral pleural effusions and scattered areas of partial consolidatio n and ground-glass attenuation, likely multifocal pneumonia. 3. Scattered mediastinal lymph nodes some of which are upper limits of normal in size and are most l ikely reactive lymph nodes.
[2024-04-21 07:13] LABS: Anion Gap 11 (5-15); Carbon Dioxide 25 mmol/L (20-31); Chloride 100 mmol/L (98-107)
[2024-04-21 07:19] LABS: BUN/Creatinine Ratio 9.7 (10.0-20.0)
[2024-04-21 07:26] LABS: Blood Urea Nitrogen 7 mg/dL (9-23); Calcium 8.3 mg/dL (8.7-10.4); Glucose 342 mg/dL (74-106); Sodium 136 mmol/L (136-145)
[2024-04-21] MEDS: LISINOPRIL 20 MG TAB PO SCH (10:01)
[2024-04-21] MEDS: ENOXAPARIN SOD 40 MG/0.4 ML SYRINGE SC SCH (11:05)
[2024-04-21 11:36] LABS: COVID19 ANTIGEN SOFIA FIA NEGATIVE (NEGATIVE); Rapid Influenza A Negative (Negative); Rapid Influenza B Negative (Negative)
--- NOTE | 2024-04-21 14:36 | DVHPN2 ---
Subjective 63-year-old male with a history of hypertension diabetes came with a chief complaint of shortness of breaths and cough He says he has been sick for 12 days He is on 15 L face mask now The chest x-ray shows right lung pneumonia CT scan of the chest also showed the same findings CTA of the chest showed no PE Changes from previous H/P or p: Changes Objective Vitals Vital Signs Date Time Temp Pulse Resp B/P (MAP) Pulse Ox O2 Delivery O2 Flow Rate FiO2 04/21/24 12:01 99 15 139/76 (97) 91 04/21/24 08:24 97.8 97.8 04/21/24 08:18 Nasal Cannula* 15 N/A Non-Rebreather Intake/Output Intake and Output 04/21/24 07:00 Intake Total 300 ml Balance 300 ml Intake IV Total 300 ml General Appearance: Alert, Oriented X3, moderate distress Lungs: Other (Bilateral rhonchi and crackles at the bases) Cardiovascular: Regular rate, Normal S1, Normal S2 Abdomen: Normal bowel sounds, Soft, No tenderness Extremities: Other (+edema bilaterally in the lower extremity) Medications Current Medications Medications Dose Ordered Sig/Darryl Route Start Time Stop Time Status Last Admin Dose Admin Albuterol 2.5 mg Q6HPRN PRN NEB 04/20/24 19:30 Ceftriaxone Sodium 50 ml @ 100 mls/hr DAILY@09 IV 04/20/24 19:37 04/21/24 09:39 100 MLS/HR Azithromycin 250 ml @ 125 mls/hr DAILY IV 04/20/24 20:30 04/21/24 11:05 125 MLS/HR Atorvastatin Calcium 40 mg HS PO 04/20/24 22:00 04/20/24 22:11 40 MG Lisinopril 20 mg DAILY PO 04/21/24 10:00 Methylprednisolone Sodium Succinate 40 mg BID IV 04/20/24 22:00 04/21/24 11:05 40 MG Diagnostic Test (Pha) 1 strip Q6HR 04/21/24 00:00 04/21/24 13:34 1 STRIP Insulin Human Regular Q6HR SC 04/21/24 00:00 04/21/24 13:34 8 UNITS Dextrose 50 ml UD PRN IV 04/20/24 19:30 Temazepam 15 mg QHSP PRN PO 04/20/24 19:30 Ondansetron HCl 4 mg Q4HP PRN IV 04/20/24 19:30 Enoxaparin Sodium 40 mg DAILY SC 04/21/24 10:00 04/21/24 11:05 40 MG Acetaminophen 650 mg Q6HP PRN PO 04/20/24 19:30 Nitroglycerin 0.4 mg Q5MINP PRN SL 04/20/24 19:30 Morphine Sulfate 2 mg Q30M PRN IV 04/20/24 19:30 Laboratory Results Laboratory Tests 04/20/24 19:39 04/21/24 05:09 Chemistry Test 04/20/24 17:55 04/21/24 05:09 Albumin 3.3 g/dL (3.2-4.8) Calcium Level 8.5 mg/dL (8.7-10.4) L 8.3 mg/dL (8.7-10.4) L Total Protein 5.8 g/dL (5.7-8.2) Coagulation Test 04/20/24 17:55 D-Dimer, Quantitative 4.91 mg/L FEU (0.0-0.49) H LFT Test 04/20/24 17:55 Alanine Aminotransferase (ALT) 12 U/L (7-40) Alkaline Phosphatase 108 U/L (46-116) Aspartate Amino Transferase (AST) 24 U/L (13-40) Total Bilirubin 0.2 mg/dL (0.2-1.0) Urinalysis Test 04/21/24 02:40 Urine Color Yellow (Yellow) Urine Clarity Clear (Clear) Urine pH 6.0 (5.0-9.0) Urine Specific [place] 1.016 (1.001-1.035) Urine Protein 1+ (Negative) H Urine Ketones 1+ (Negative) H Urine Blood Negative /uL (Negative) Urine Nitrite Negative (Negative) Urine Bilirubin Negative (Negative) Urine Urobilinogen Normal mg/dL (Negative) Urine Leukocyte Esterase Negative /uL (Negative) Urine RBC 4 /hpf (0 - 3) Urine Microscopic WBC 4 /HPF (0-3) H Urine Squamous Epithelial Cells None seen /hpf (<5) Urine Bacteria None seen /hpf (None Seen) Urine Hyaline Casts Few /lpf (0 - 2) Urine Mucus Few (None Seen) Urine Glucose 4+ mg/dL (Normal) H Assessment/Plan Assessment/Plan Acute hypoxic respiratory failure due to pneumonia Right lung pneumonia Hypoxemia Hypertension Type 2 diabetes Possible underlying COPD Sepsis due to pneumonia leukocytosis due to sepsis Anemia Plan Oxygen as needed Start broad-spectrum antibiotics with Unasyn and vancomycin and Zithromax IV steroids Med neb treatments as needed Telemetry Full code Advance directives discussed for 20 minute Plan discussed with: Patient Date of Service: Apr 21, 2024 Billing Provider: SANDEEP LOPEZ MD Common Visit Codes: [id number] INP/OBS CARE(HIGH) Secondary Visit Codes: [id number] CARE PLAN 30 MINUTES SANDEEP LOPEZ MD Apr 21, 2024 14:36
[2024-04-21] MEDS ORDERED: VANCOMYCIN PER PHARMACY 0 MG IV SCH (14:45)
[2024-04-21 14:48] VITALS: O2SAT 94
[2024-04-21] MEDS: VANCOMYCIN 1GM/250ML KIT 250 ML IV ONE (16:58)
[2024-04-21] MEDS: InsuLIN REG 1unit/0.01ml Soln (100units/ml) SC SCH ×2 (17:20)
[2024-04-21] MEDS: ACCU-CHEK COMFORT CURVE STRIP VI SCH ×2 (17:26)
[2024-04-21] MEDS: AMPICILLIN & SULBACTAM SODIUM 3 GM in SODIUM CHL 0.9% 100 ML IV SCH (18:10)
[2024-04-21 20:15] VITALS: TEMP 98.2
[2024-04-21] MEDS ORDERED: methylPREDNISolone SOD SUCC 125 MG/2 ML VL IV SCH (22:00)
[2024-04-21 22:32] VITALS: BP 159/86; PULSE 109; RESP 28; O2SAT 98
--- NOTE | 2024-04-21 22:44 | DVHPN2 ---
Progress Note - Dictate Date Seen: Apr 21, 2024 Medical Necessity Reason Pt with a Central, PICC or Fol: No Subjective Patient seen and examined at bedside. Remains on supplemental oxygen Overnight events reviewed. vital signs Vital Sign Date Time Temp Pulse Resp B/P (MAP) Pulse Ox O2 Delivery O2 Flow Rate FiO2 04/21/24 18:00 77 20 105/41 (62) 90 04/21/24 14:48 Oxymizer 10.0 04/21/24 14:48 100 100 04/21/24 08:24 97.8 97.8 Total Intake and Output 04/20/24 04/20/24 04/21/24 15:00 23:00 07:00 Intake Total 300 ml Balance 300 ml objective Gen.: Patient lying in bed in no apparent distress. On supplemental oxygen. Head: Normocephalic, atraumatic. Eyes: EOMI/PERRLA. Ears: Normal hearing. Normal anatomy. Neck/trachea: Trachea midline, supple. Nose: Normal external anatomy. Mouth: Moist mucous membranes. Chest: Decreased air entry bilaterally. No wheezing or rhonchi. Cardiovascular: Positive S1, positive S2. Regular rate and rhythm. Abdomen: Positive bowel sounds in all 4 quadrants. Soft, non-tender, non- distended. : Deferred. Rectal: Deferred. Skin: Warm, dry. Intact. Extremities: 2+ radial pulses bilaterally. No lower extremity edema. Neuro: Awake, alert, oriented x3. No gross motor or sensory deficits. Cranial nerves II through XII intact. Gait not assessed. laboratory and microbiology Laboratory Tests 04/21/24 05:09 04/20/24 19:39 Test 04/21/24 05:09 Range/Units Serum Glucose 342 H 74-106 mg/dL Assessment/Plan Impression: Acute hypoxic respiratory failure Dependence on supplemental oxygen Community-acquired pneumonia, likely Gram-negative Diabetes mellitus Emphysema Pleural effusion Atelectasis Events: Remains on supplemental oxygen, 13 LPM Oxymizer Taper O2 as tolerated Head of bed elevation Aspiration precautions Start stress dose steroids Solu-Medrol 125 mg q.8 hours for 3 days Continue antibiotics Incentive spirometry Accu-Cheks, ISS Labs and imaging reviewed. Rest of plan as noted below. Plan: Supplemental oxygen Titrate to keep O2 sats above 92%. CT chest reviewed, demonstrates moderately severe diffuse infiltrates throughout the right lung. Patchy infiltrates seen in the left lung without consolidation. No malignant adenopathy. Small bilateral pleural effusions Continue bronchodilators. Continue antibiotics IV steroids Incentive spirometry Monitor renal function. Monitor electrolytes. Supplement as necessary. Monitor ins and outs. DVT prophylaxis. Prognosis: Poor given patient's multiple co-morbidities. Condition: Critical Rest of plan per hospitalist and other consultants. A total of 35 minutes of critical care time was spent reviewing the patient record, examining the patient, making a diagnostic and therapeutic plan, discussing this plan with the medical personnel, following up on diagnostic studies and following the patient for clinical stability excluding any and all procedures. At least 50% of this time was spent in direct, [id number] contact. Thank you, DEANNA Reese, for allowing me to participate in this patient's care. Further recommendations will depend on the patient's clinical course. Please do not hesitate to contact me if you have any questions or concerns. This medical document was created using an electronic medical record system with [employer] computerized dictation system. Although these documentations are being carefully reviewed, there may still be some phonetic and typographical changes. The errors are purely typographical, due to imperfection on the software program, and do not reflect any compromise in the patient's medical care. Plan discussed with: Patient, Other (RN) Critical Care Time(min): 35 TANYA MONTE MD Apr 21, 2024 22:44
[2024-04-21] MEDS ORDERED: PROPOFOL 100 ML IV ONE (22:46)
[2024-04-21] MEDS ORDERED: MIDAZOLAM DRIP 50 mg/50mL 50 ML IV ONE (23:06)
[2024-04-22] MEDS ORDERED: VANCOMYCIN 750MG KIT 100 ML IV SCH (02:00)
== END 2024-04-21 21:20 | disposition left against medical advice (07) | DRG 720 ==
LOC: ER 17:01 → OVERFLOW 19:28
PROVIDERS: ADMIT Internal Medicine Geriatric Medicine; ATTEND Internal Medicine Geriatric Medicine
DX: A41.59 Other Gram-negative sepsis (principal); J96.01 Acute respiratory failure with hypoxia; J15.69 Pneumonia due to other Gram-negative bacteria; J90 Pleural effusion, not elsewhere classified; Z99.81 Dependence on supplemental oxygen; J15.9 Unspecified bacterial pneumonia; E11.9 Type 2 diabetes mellitus without complications; D64.9 Anemia, unspecified; Z53.29 Procedure and treatment not carried out because of patient's decision for other reasons; I10 Essential (primary) hypertension; J43.9 Emphysema, unspecified; Z79.899 Other long term (current) drug therapy; Z79.4 Long term (current) use of insulin
CPT/HCPCS: 36415; 71045; 71250; 71275; 80048; 80053; 81001; 82962; 85025; 85379; 87426; 87804; 93005; 94640; 96372; G0378; J1815; J2704

== ENCOUNTER 2024-04-21 22:20 | Inpatient (IN) | payer MEDICAID ==
[~2024-04-21] VITALS: Ht 162.6 cm; Wt 59.0 kg
[2024-04-21 22:20] VITALS: PULSE 110; RESP 16; O2SAT 92
[2024-04-21] MEDS: SODIUM CHLORIDE 0.9% 1,000 ML IVB ONE (22:30)
--- NOTE | 2024-04-21 22:40 | ED.PDOC ---
History of Present Illness HPI Comments 63 year old male presents to the ED with a chief complaint of cardiac arrest. Patient was seen in this ED 04/20/24, with a chief complaint of shortness of breath for about 12 days, was diagnosed with pneumonia. Patient was admitted, decided to leave AMA about 30 minutes prior to fall. Per witnesses, patient fell on the ground, was brought into ED, immediately placed on a bed, no pulse was found, code blue was called, CPR began. ROSC 22:14. PMHx HTN, DM. Chief Complaint: CPR Time Seen by MD: 22:09 Primary Care Provider: none Allergies: Coded Allergies: NO KNOWN ALLERGIES (Unverified , 08/29/22) Home Meds Active Scripts Ondansetron Odt 4MG Tab (ZOFRAN PO) 4 Mg Tb, 4 MG PO Q8HP PRN for 5 Days, #15 TAB ODT TAB-DISSOLVE IN MOUTH, THEN SWALLOW Prov:MARYCARMEN LEDBETTER MD 11/25/22 Reported Medications Simvastatin (Simvastatin) 40 Mg Tab, 1 04/14/24 Loratadine (CLARITIN TABLET) 10 Mg Tb, 1 DAILY 04/14/24 Sucralfate (Sucralfate) 1 Gm Tab, 1 DAILY 04/14/24 Metformin Hydrochloride (Metformin Hcl) 1,000 Mg Tab, 1 04/14/24 Timing: Hours Duration: Since onset Past Medical History PAST MEDICAL HISTORY: DM, HTN Surgical History: Denies all surgeries Family History Family History: Reviewed,noncontributory to illness Social History Smoker: Non-Smoker Alcohol: Denies ETOH Use Drugs: Denies Drug Use Lives In: Home Unable to Obtain due to: Intubated Physical Exam Exam Comments pale, appears ill, CPR in progress General Appearance: Moderate Distress HEENT: Pale [place] (L) Neck: Full Range of Motion, Non-Tender, Normal, Normal Inspection Respiratory: Decreased Breath Sounds, Other Cardiovascular: No Edema, No JVD, No Murmur, No Gallop, Normal Peripheral Pulses, Regular Rate/Rhythm Breast Exam: Deferred Gastrointestinal: No Organomegaly, Non Tender, No Pulsatile Mass, Normal Bowel Sounds, Soft Genitalia: Deferred Pelvic: Deferred Rectal: Deferred Extremities: No calf tenderness, Normal capillary refill, Normal inspection, Normal range of motion, Non-tender, No pedal edema Musculoskeletal : Apperance: Normal Neurologic: Other (unresponsive prior to intubation, purposeful movement after intubation) Cerebellar Function: Normal Reflexes: Normal Skin: Dry, Normal Color, Warm Lymphatic: No Adenopathy Was a procedure done? Was a procedure done?: Yes Sedation Sedation?: No Intubation Indication: Respiratory Insufficiency Prep: Preoxygenation Intubation Approach: Orotracheal Intubation size: cm (24) Informed consent obtained: No Differential Dx Considerations may include: Differential diagnosis includes but is not limited to: coronary ischemia, dehydration, sepsis, electrolyte abnormality, symptomatic anemia, hypovolemia and others X-Ray, Labs, Meds, VS Vital Signs Date Time Temp Pulse Resp B/P (MAP) Pulse Ox O2 Delivery O2 Flow Rate FiO2 04/21/24 23:53 100 34 152/75 (100) 100 04/21/24 22:29 96.7 0 0 0/0 (0) 0 04/21/24 22:20 94 Lab Test 04/22/24 00:39 04/21/24 22:58 04/21/24 22:40 04/21/24 22:25 Range/Units Lactic Acid Level Pending 13.6 *H 0.4-2.0 mmol/L Troponin I High Sensitivity Pending 5 </=54 ng/L Blood Gas Specimen Type Arterial Blood Gas Sample Site Left radial Blood Gas Patient Temperature 37.0 Arterial Blood Date Drawn [id number] Arterial Blood pH 7.304 L 7.350-7.450 Arterial Blood Partial Pressure CO2 40.9 35.0-48.0 mmHg Arterial Blood Partial Pressure O2 75.9 L 83.0-108.0 mmHg Arterial Blood HCO3 19.9 L 21.0-28.0 mmol/L Arterial Blood Oxygen Saturation 92.3 L 94.0-98.0 % Arterial Blood Base Excess -6.1 L -2.0-3.0 mmol/L Arterial Blood Oxyhemoglobin 91.8 L 94.0-98.0 % Arterial Blood Carboxyhemoglobin 0.0 L 0.5-1.5 % Arterial Blood Methemoglobin 0.5 0.0-1.5 % Ganesh Test Modified Blood Gas Total Hemoglobin 9.50 L 13.5-17.5 g/dL Blood Gas Set Respiration Rate 18.0 Blood Gas Modality Vent - ac FiO2 % 100.0 Blood Gas Tidal Volume 500.0 Blood Gas PEEP or CPAP 5.0 Urine Color Light-yellow Yellow Urine Clarity Clear Clear Urine pH 6.0 5.0-9.0 Urine Specific [place] 1.024 1.001-1.035 Urine Protein 1+ H Negative Urine Ketones Negative Negative Urine Blood 1+ H Negative /uL Urine Nitrite Negative Negative Urine Bilirubin Negative Negative Urine Urobilinogen Normal Negative mg/dL Urine Leukocyte Esterase Negative Negative /uL Urine RBC 18 0 - 3 /hpf Urine Microscopic WBC 2 0-3 /HPF Urine Squamous Epithelial Cells Few <5 /hpf Urine Bacteria None seen None Seen /hpf Urine Hyaline Casts Few 0 - 2 /lpf Urine Glucose 1+ H Normal mg/dL Urine Opiates Screen Pos NEGATIVE Urine Fentanyl Screen Neg NEGATIVE Urine Barbiturates Screen Neg NEGATIVE Urine Phencyclidine Screen Neg NEGATIVE Urine Amphetamines Screen Neg NEGATIVE Urine Benzodiazepines Screen Neg NEGATIVE Urine Cocaine Screen Neg NEGATIVE Urine Cannabinoids Screen Neg NEGATIVE White Blood Count 27.9 #H 4.4-10.8 10^3/uL Red Blood Count 2.83 L 4.5-5.90 10^6/uL Hemoglobin 8.4 L 13.5-17.5 g/dL Hematocrit 26.6 L 41.0-53.0 % Mean Corpuscular Volume 94.0 # 80.0-100.0 fL Mean Corpuscular Hemoglobin 29.8 28.0-32.0 pg Mean Corpuscular Hemoglobin Concent 31.7 L 32.0-36.0 g/dL Red Cell Distribution Width 16.6 H 11.8-14.3 % Platelet Count 540 H 140-450 10^3/uL Mean Platelet Volume 7.8 6.9-10.8 fL Neutrophils (%) (Auto) 85.7 H 37.0-80.0 % Lymphocytes (%) (Auto) 11.0 10.0-50.0 % Monocytes (%) (Auto) 2.6 0.0-12.0 % Eosinophils (%) (Auto) 0.1 0.0-7.0 % Basophils (%) (Auto) 0.6 0.0-2.0 % Neutrophils # (Auto) 23.9 H 1.6-8.6 10 ^3/uL Lymphocytes # (Auto) 3.1 0.4-5.4 10 ^3/uL Monocytes # (Auto) 0.7 0-1.3 10 ^3/uL Eosinophils # (Auto) 0 0-0.8 10 ^3/uL Basophils # (Auto) 0.2 0-0.2 10 ^3/uL Nucleated Red Blood Cells 0.0 % Prothrombin Time 13.9 H 9.3-11.8 sec Prothrombin Time INR 1.35 H 0.9-1.15 Activated Partial Thromboplast Time 32.1 24.5-34.5 SEC Sodium Level 139 136-145 mmol/L Potassium Level 3.7 3.5-5.1 mmol/L Chloride Level 100 98-107 mmol/L Carbon Dioxide Level 19 L 20-31 mmol/L Anion Gap 20 H 5-15 Blood Urea Nitrogen 15 9-23 mg/dL Creatinine 0.89 0.700-1.30 mg/dL Glomerular Filtration Rate Calc 96 >90 mL/min BUN/Creatinine Ratio 16.9 10.0-20.0 Serum Glucose 283 H 74-106 mg/dL Calcium Level 10.1 8.7-10.4 mg/dL Total Bilirubin 0.2 0.2-1.0 mg/dL Aspartate Amino Transferase (AST) 77 H 13-40 U/L Alanine Aminotransferase (ALT) 29 7-40 U/L Alkaline Phosphatase 102 46-116 U/L Total Protein 4.8 L 5.7-8.2 g/dL Albumin 2.7 L 3.2-4.8 g/dL Lipase 15 12-53 U/L Salicylates Level < 3.0 -30 mg/dL Acetaminophen Level < 2.0 L 10.0-20.0 UG/ML Plasma/Serum Blood Alcohol < 3.0 <10 mg/dL [place] [id number] Ph: [phone] DIAGNOSTIC IMAGING Diagnostic Imaging Report : [id number] Signed PATIENT: JAN PROCTOR ACCT: [id number] UNIT: [id number] : 1960 LOC: ER ROOM / BED: / AGE / SEX: 63 / M ADM STATUS: REG ER SERVICE ORDERING PHYSICIAN: DEVENDRA CHEEMA MD PROCEDURE(s): HWOCT - HEAD WITHOUT CONTRAST REASON: ALOC ORDER NUMBER(s): [id number], ACCESSION NUMBER(s): [id number] EXAM: CT HEAD WITHOUT CONTRAST INDICATION: ALOC TECHNIQUE: CT of the head without intravenous contrast. Radiation Dose : 1. Head: CT Dose: CTDI volume is 58.5 mGy. Dose-length product is 1152 mGy*cm The dose indicators for CT are the volume Computed Tomography (CT) Dose Index (CTDIvol) and the Dose Length Product (DLP), and are measured in units of mGy and mGy-cm, respectively. These indicators are not patient dose, but values generated from the CT scanner acquisition factors. The report includes radiation exposure data for exposures received during this examination. COMPARISON: CT HEAD WITHOUT CONTRAST on DOS: 08/29/22 FINDINGS: There is no evidence of acute intracranial hemorrhage, extra-axial collection, mass effect, midline shift, herniation or hydrocephalus. The ventricles, sulci and cisterns are age appropriate. The tena-white differentiation is intact. Patchy periventricular and subcortical white matter hypoattenuation is nonspecific but may be related to small vessel ischemic disease. The visualized paranasal sinuses and mastoid air cells are clear. The surrounding soft tissues and osseous structures are unremarkable. IMPRESSION: 1. No acute intracranial abnormality. Radiation optimization: All CT scans at this facility use at least one of these dose optimization techniques: automated exposure control mA and/or kV adjustment per patient size (includes targeted exams where dose is matched to clinical indication) or iterative reconstruction. ATED BY: ZURI BESS MD DICTATED DATE/TIME: 04/21/242339 SIGNED BY: ZURI BESS MD SIGNED DATE/TIME: 04/21/242339 CC: [place] [id number] Ph: [phone] DIAGNOSTIC IMAGING Diagnostic Imaging Report : [id number] Signed PATIENT: JAN PROCTOR ACCT: [id number] UNIT: [id number] : 1960 LOC: ER ROOM / BED: / AGE / SEX: 63 / M ADM STATUS: REG ER SERVICE 38 ORDERING PHYSICIAN: DEVENDRA CHEEMA MD PROCEDURE(s): CXRP - CHEST PORTABLE REASON: SOB, intubated ORDER NUMBER(s): [id number], ACCESSION NUMBER(s): [id number] CHEST RADIOGRAPH Indication: SOB, intubated Technique: Single frontal view of the chest was obtained COMPARISON: XY CHEST XRAY 1 VIEW on DOS: 04/20/24 FINDINGS: Lines and Tubes: Interval insertion of ETT in satisfactory position approximately 2.5 cm above the anny. Lungs: There are extensive infiltrates in both lungs with considerable disease progression in the left lung compared to the prior chest x-ray from a day earlier. Pleura: No effusion. No pneumothorax. Cardiomediastinal contours: Unremarkable IMPRESSION: ETT in satisfactory position. Extensive infiltrates in both lungs with considerable disease progression in the left lung compared to the prior chest x- ray from a day earlier. ATED BY: YOUSIF LATHAM MD DICTATED DATE/TIME: 04/21/242301 SIGNED BY: YOUSIF LATHAM MD SIGNED DATE/TIME: 04/21/242301 CC: Time of 1ST Reevaluation: 22:39 Reevaluation 1ST: Unchanged Patient Education/Counseling: Pt Unresponsive Family Education/Counseling: No Family Present Additional Information The following tests were ordered, and results were reviewed by me: EKG -x3, ABG W/ CO-OX, RESPIRATORY CULTURE W/ GS, TROP -x3, CBC, CMP, LIPASE, UA, PTPTT, BLOOD CULTURE, XY CHEST, LA W/ REFLEX, DRUG SCREEN, ACETAMINOPHEN, SALICYLATE, CT HEAD WO CONTRAST Additional Information was gathered from interviewing the following independent historians: witness I reviewed and agreed with the following test results read by other providers: CT HEAD WO CONTRAST, xy chest I discussed treatment and results with medical personnel and: patient Sepsis Sepsis Reasesment Focused Exam Sepsis focused exam: focus exam completed, time: (2344) Departure 1 Departure Time of Disposition: 00:56 Impression: Primary Impression: Multifocal pneumonia Additional Impressions: Respiratory failure Cardiopulmonary arrest Disposition: ADMITTED INPATIENT Condition: Critical Discharged With: Self Comments Cardiopulmonary Arrest with Pneumonia Chief Complaint: Cardiopulmonary arrest History of Present Illness: 63-year-old male who initially presented to [facility] ED earlier today with complaints of shortness of breath and was going to be admitted for pneumonia. Patient left against medical advice but subsequently returned as a code blue in cardiopulmonary arrest. Patient was successfully resuscitated following intubation and ACLS protocol including Narcan administration, after which he regained spontaneous circulation. Physical Exam: Patient is intubated and post-resuscitation Right internal jugular central line in place Lab Results: WBC: 28, 000 (Elevated) Hemoglobin: 8.4 Hematocrit: 26.6 Platelet count: 540, 000 Lactic acid: 13.6 (Critically elevated) Glucose: 283 (Elevated, improved from previous) Urine toxicology: Positive for opiates Imaging and Other Relevant Results: Imaging results pending Medical Decision Making: Summary Statement: 63-year-old male with multifocal pneumonia who left AMA earlier today, returned in cardiopulmonary arrest requiring intubation and succ essful resuscitation. Problem List: 1. Cardiopulmonary arrest, 2. Respiratory failure requiring intubation, 3. Multifocal pneumonia, 4. Severe sepsis with lactic acidosis, 5. Possible opiate overdose, 6. Anemia Differential Diagnosis: Septic shock from pneumonia, Opiate overdose with respiratory failure, Acute coronary syndrome, Pulmonary embolism ED Course: Patient arrived in cardiopulmonary arrest, underwent successful resuscitation with ACLS protocol including Narcan. Required intubation for respiratory failure. Right IJ central line placed. Started on broad-spectrum antibiotics (Zosyn) and IV fluids. Labs revealed severe sepsis with elevated lactate, leukocytosis, and anemia. Assessment and Plan: 1. Cardiopulmonary Arrest: - Successfully resuscitated - Continuous cardiac monitoring - ICU admission 2. Respiratory Failure: - Currently intubated and mechanically ventilated - Ventilator management per ICU team 3. Multifocal Pneumonia/Sepsis: - Started on IV Zosyn - IV fluid resuscitation - Central line placed for access and monitoring - Serial lactate monitoring 4. Possible Opiate Overdose: - Received Narcan during resuscitation - Monitor for withdrawal 5. Disposition: - Admit to ICU Billing Information: ICD-10: I46.9 - Cardiac arrest, cause unspecified ICD-10: J18.9 - Pneumonia, unspecified organism ICD-10: J96.00 - Acute respiratory failure ICD-10: A41.9 - Sepsis, unspecified organism ICD-10: T40.2X1A - Poisoning by other opioids, accidental, initial encounter Critical Care Note Critical Care Time?: Yes (45 min-critical care time only) Critical care comment: Total critical care time: Approximately 36 minutes Due to a high probability of clinically significant, life threatening deterioration, the patient required my highest level of preparedness to intervene emergently and I personally spent this critical care time directly and personally managing the patient. This critical care time included obtaining a history; examining the patient; pulse oximetry; ordering and review of studies; arranging urgent treatment with development of a management plan; evaluation of patient's response to treatment; frequent reassessment; and, discussions with other providers. This critical care time was performed to assess and manage the high probability of imminent, life-threatening deterioration that could result in multi-organ failure. It was exclusive of separately billable procedures and treating other patients. Stability Stability form required: No Heart Score Heart Score: Heart Score Response (Comments) Value History Slightly Suspicious 0 EKG Repolarization Disturb 1 Age 45-64 1 Risk Factors 1 or 2 risk factors 1 Troponin Normal limit 0 Total 3 I personally scribed for DEVENDRA CHEEMA MD ([email or web address]) on 04/21/24 at 22:40. Electronically submitted by Marii Stephens ([email or web address]). I personally scribed for DEVENDRA CHEEMA MD ([email or web address]) on 04/22/24 at 00:10. Electronically submitted by Marii Stephens ([email or web address]). DEVENDRA CHEEMA MD Apr 21, 2024 22:40
[2024-04-21] MEDS: PROPOFOL 100 ML IV SCH (22:45)
[2024-04-21 22:48] LABS: Basophils # (auto) 0.2 10 ^3/uL (0-0.2); Eosinophils # (auto) 0 10 ^3/uL (0-0.8); Eosinophils % (auto) 0.1 % (0.0-7.0); Hemoglobin 8.4 g/dL (13.5-17.5); Monocytes # (auto) 0.7 10 ^3/uL (0-1.3); Neutrophils # (auto) 23.9 10 ^3/uL (1.6-8.6)
[2024-04-21 22:50] LABS: Basophils % (auto) 0.6 % (0.0-2.0); Hematocrit 26.6 % (41.0-53.0); Lymphocytes # (auto) 3.1 10 ^3/uL (0.4-5.4); Mean Corpuscular Hemoglobin 29.8 pg (28.0-32.0); Mean Corpuscular Hgb Conc. 31.7 g/dL (32.0-36.0); Monocytes % (auto) 2.6 % (0.0-12.0); Neutrophils % (auto) 85.7 % (37.0-80.0); Platelet Count (auto) 540 10^3/uL (140-450); Red Blood Cells 2.83 10^6/uL (4.5-5.90); Red Cell Distribution Width 16.6 % (11.8-14.3); White Blood Cell 27.9 10^3/uL (4.4-10.8)
[2024-04-21 22:56] LABS: Urine Bacteria None Seen /hpf (None Seen)
[2024-04-21 23:03] LABS: INR 1.35 (0.9-1.15); Partial Thromboplastin Time 32.1 SEC (24.5-34.5); Prothrombin Time 13.9 sec (9.3-11.8)
[2024-04-21 23:05] LABS: Base Excess -6.1 mmol/L (-2.0-3.0)
--- NOTE | 2024-04-21 23:05 | DVH ---
CHEST RADIOGRAPH Indication: SOB, intubated Technique: Single frontal view of the chest was obtained COMPARISON: XY CHEST XRAY 1 VIEW on DOS: 04/20/24 FINDINGS: Lines and Tubes: Interval insertion of ETT in satisfactory position approximately 2.5 cm above the ca justin. Lungs: There are extensive infiltrates in both lungs with considerable disease progression in the lef t lung compared to the prior chest x-ray from a day earlier. Pleura: No effusion. No pneumothorax. Cardiomediastinal contours: Unremarkable IMPRESSION: ETT in satisfactory position. Extensive infiltrates in both lungs with considerable disease progressi on in the left lung compared to the prior chest x-ray from a day earlier.
[2024-04-21 23:07] LABS: Alanine Aminotransferase 29 U/L (7-40); Alkaline Phosphatase 102 U/L (46-116); Anion Gap 20 (5-15); BUN/Creatinine Ratio 16.9 (10.0-20.0); Blood Urea Nitrogen 15 mg/dL (9-23); Calcium 10.1 mg/dL (8.7-10.4); Chloride 100 mmol/L (98-107); Lipase 15 U/L (12-53); Potassium 3.7 mmol/L (3.5-5.1); Sodium 139 mmol/L (136-145)
[2024-04-21 23:13] LABS: Acetaminophen < 2.0 UG/ML (10.0-20.0); Albumin 2.7 g/dL (3.2-4.8); Aspartate Aminotransferase 77 U/L (13-40); Bilirubin, Total 0.2 mg/dL (0.2-1.0); Carbon Dioxide 19 mmol/L (20-31); Glucose 283 mg/dL (74-106); Salicylate < 3.0 mg/dL (-30); Total Protein 4.8 g/dL (5.7-8.2)
[2024-04-21] MEDS: MIDAZOLAM DRIP 50 mg/50mL 50 ML IV SCH (23:15)
[2024-04-21 23:24] LABS: Lactic Acid w/Reflex 13.6 mmol/L (0.4-2.0)
[2024-04-21 23:43] LABS: Urine Blood 1+ /uL (Negative); Urine Clarity Clear (Clear); Urine Color Light-Yellow (Yellow); Urine Hyaline Cast FEW /lpf (0 - 2); Urine Protein, UAD 1+ (Negative); Urine Specific Gravity 1.024 (1.001-1.035); Urine Squamous Epithelial Cell FEW /hpf (<5); Urine Urobilinogen Normal (Negative); Urine WBC 2 /HPF (0-3)
--- NOTE | 2024-04-21 23:43 | DVH ---
EXAM: CT HEAD WITHOUT CONTRAST INDICATION: ALOC TECHNIQUE: CT of the head without intravenous contrast. Radiation Dose : 1. Head: CT Dose: CTDI volume is 58.5 mGy. Dose-length product is 1152 mGy*cm The dose indicators for CT are the volume Computed Tomography (CT) Dose Index (CTDIvol) and the Dose Length Product (DLP), and are measured in units of mGy and mGy-cm, respectively. These indicators are not patient dose, but values generated from the CT scanner acquisition factors. The report includes radiation exposure data for exposures received during this examination. COMPARISON: CT HEAD WITHOUT CONTRAST on DOS: 08/29/22 FINDINGS: There is no evidence of acute intracranial hemorrhage, extra-axial collection, mass effect, midline s hift, herniation or hydrocephalus. The ventricles, sulci and cisterns are age appropriate. The tena-white differentiation is intact. Patchy periventricular and subcortical white matter hypoattenuation is nonspecific but may be related to small vessel ischemic disease. The visualized paranasal sinuses and mastoid air cells are clear. The surrounding soft tissues and osseous structures are unremarkable. IMPRESSION: 1. No acute intracranial abnormality. Radiation optimization: All CT scans at this facility use at least one of these dose optimization hellen hniques: automated exposure control mA and/or kV adjustment per patient size (includes targeted exam s where dose is matched to clinical indication) or iterative reconstruction.
--- NOTE | 2024-04-21 23:45 | DVH ---
EXAM: CT CERVICAL WITHOUT CONTRAST HISTORY: s/p cpr/ syncope COMPARISON: None CTDIvol mGy, DLP mGy*cm. TECHNIQUE: Multiple axial CT images of the spine were obtained using bone algorithm. Axial and coron al reformatting was done. Bone and soft tissue windows were reviewed. FINDINGS: Study is mildly degraded by motion artifact. Mild straightening of the normal cervical lordosis; the alignment is otherwise unremarkable with no l isthesis. No definite evidence of fracture or dislocation in the cervical spine. No significant spina l canal stenosis. IMPRESSION: No evidence of cervical spine fracture or dislocation.
[2024-04-21 23:53] VITALS: BP 152/75; PULSE 100; RESP 34
--- NOTE | 2024-04-21 23:55 | DVH ---
Exam: CT CHST AB PEL WO CON-NO IV/ORAL History: sp cpr Comparison Study: CT CT AB PEL WO CON-NO ORAL OR IV on DOS: 04/12/24, CT CT AB PEL WO CON-NO ORAL OR IV on DOS: 11/25/22 Technique: Multidetector spiral CT of the chest, abdomen was performed from lung bases to pubic symph ysis. Imaging was performed without IV contrast. Axial, coronal and sagittal multiplanar reformats were obtained from the axial data set by the technologist. Radiation Dose : 1. Abdomen/Pelvis: CTDIvol 12.7 mGy, DLP 927 mGy*cm. Findings: Evaluation of solid organs is limited due to lack of intravenous contrast use. Lungs : Severe multifocal pneumonia throughout both lungs, most prominent in the right upper lobe. CO PD. Trace bilateral pleural effusions. No pneumothorax Mild cardiomegaly. Mediastinal lymphadenopathy, likely reactive. Endotracheal tube terminates above the anny. Enteric tube terminates in the gastric lumen. Liver: The liver is normal in size. No focal lesions. Gallbladder and Biliary Tree: Unremarkable Spleen: Unremarkable Pancreas: The pancreas is grossly normal in appearance. Adrenal Glands: Unremarkable Kidneys: Kidneys are grossly normal without calculi or hydronephrosis. Bladder: Collapsed around a Teresa catheter. Bowel: The stomach is grossly normal in appearance. Concentric wall thickening throughout the colon s uspicious for infectious/inflammatory colitis. The appendix is not visualized; however, no secondary findings of acute appendicitis identified. Ascites: Absent Lymphadenopathy: No mesenteric, retroperitoneal or periportal lymphadenopathy. Abdominal Wall and Mesentery: Unremarkable. Vasculature: The visualized abdominal aorta is normal in size and caliber. Evaluation of abdominal a nd pelvic vessels is limited due to lack of intravenous contrast. Pelvic Organs: Unremarkable Musculoskeletal: No aggressive focal bony lesions, acute fractures or dislocation. IMPRESSION: 1. Severe multifocal pneumonia 2. Mediastinal lymphadenopathy, likely reactive. 3. Trace bilateral pleural effusions 4. Concentric wall thickening throughout the colon suspicious for infectious/inflammatory colitis. Radiation optimization: All CT scans at this facility use at least one of these dose optimization hellen hniques: automated exposure control mA and/or kV adjustment per patient size (includes targeted exam s where dose is matched to clinical indication) or iterative reconstruction.
[2024-04-22] VITALS (97 sets, daily range): BP systolic 78–163; BP diastolic 45–87; PULSE 58–100; RESP 9–35; TEMP 94.5–99.1; O2SAT 86–100
[2024-04-22 00:05] LABS: Amphetamine Screen, Urine Neg (NEGATIVE); Barbiturate Scree,Urine Neg (NEGATIVE); Benzodiazephine Screen, Urine Neg (NEGATIVE); Cannabinoid Screen, Urine Neg (NEGATIVE); Cocaine Screen, Urine Neg (NEGATIVE); Opiate Scree,Urine Pos (NEGATIVE); Phencyclidine Screen, Urine Neg (NEGATIVE)
[2024-04-22 00:09] LABS: Blood Alcohol < 3.0 mg/dL (<10)
--- NOTE | 2024-04-22 00:49 | DVHNC2 ---
Central Line Recorder of insertion practice: Clothing Worker Occupation of editorial assistant: Attending Physician (Dr Cheema) Indication: Volume resuscitation Room prepared for procedure: Yes Clothing Worker performed hand hygien: Yes Maximal sterile barrier precau: Mask/Eye shield, Sterile gown, Cap, Sterlie gloves Skin Preparation: Chlorhexidine gluconate Skin preparation completely dr: Yes Insertion site: Right, Internal jugular Central line catheter type: [id number] dialysis Central line exchanged over a: Yes Antiseptic ointment applied to: Yes Post Assessment: Chest X-Ray Informed consent obtained: No Risks/benefits/alt described: No Date of Service: Apr 22, 2024 Billing Provider: DEVENDRA CHEEMA MD Common Visit Codes: PROCEDURE ONLY Procedure Codes: [id number] NON-TUNNEL CV CATH BETH COBIAN RESIDENT Apr 22, 2024 00:49
[2024-04-22] MEDS ORDERED: PIPERACILLIN-TAZO 4.5GM 100 ML IV ONE (01:00)
[2024-04-22] MEDS ORDERED: VANCOMYCIN PER PHARMACY 0 MG IV SCH (01:00)
[2024-04-22] MEDS: SODIUM CHLORIDE 0.9% 1,000 ML IV ONE (01:15)
[2024-04-22] MEDS: VANCOMYCIN 1.5GM/300ML 300 ML IV ONE (01:21)
[2024-04-22] MEDS ORDERED: DEXTROSE (50%) 50ML SYRG IV PRN ×2 (01:30→12:00)
--- NOTE | 2024-04-22 01:45 | DVH ---
CHEST RADIOGRAPH Indication: CENTRAL LINE INSERTION Technique: Single frontal view of the chest was obtained COMPARISON: XY CHEST PORTABLE on DOS: 04/21/24, XY CHEST XRAY 1 VIEW on DOS: 04/20/24 FINDINGS / IMPRESSION: Lines and Tubes: Interval insertion of right IJ central venous catheter with its tip projecting over cavoatrial junction and enteric tube which extends below the diaphragm with his tip likely in the ga stric fundus. ETT remains in place in satisfactory position. Lungs: Again noted are extensive infiltrates in both lungs, greater on the right side, not significan tly changed compared to the most recent chest x-ray from approximately 3 hours earlier Pleura : No effusion. No pneumothorax. Cardiomediastinal contours: Unremarkable. Considerable gaseous distention of the stomach noted.
--- NOTE | 2024-04-22 02:03 | DVHHPRES ---
History of Present Illness Resident Creating Document: OSVALDO BULL RESIDENT History of Present Illness This is a 63-year-old male with past medical history of hypertension, type 2 diabetes mellitus. The patient presented one week ago toward facility for multifocal pneumonia which was treated and was discharged. The patient came back two days ago with similar symptoms complaining of shortness of breath, fatigue and generalized weakness. The patient denied at that time any chest pain, palpitations or any associated symptoms. At that time WBC was 20.7 and D- dimer was 4.[address] angio of the chest was performed me showing no evidence of pulmonary embolism but there were bilateral pleural effusions and scattered areas of partial consolidations and ground-glass opacities likely consistent with multifocal pneumonia. The patient felt better at that time and went AMA. The patient presented to our ED, today after a possible syncopal episode in which he ended up in the ground and found without pulse. Per witness, the patient was found in the ground and was brought immediately to the ED, CPR was started at seen and total time between found on ground and ROSC was 22:14 (ROSC was got aprox 7 min after been on ED bed. This visit initial labs showed a WBC of 27.9, hemoglobin of 8.4, BNP was grossly unremarkable and lactic acid was 13.6. The patient was started on IV meropenem and vancomycin, the patient received 2 L of fluids bolus and was placed on maintainance fluids at 125cc/hr. Central line was placed at bedside without complications, patient was started on propofol drip and midazolam. Patient is currently on mechanical ventilation on the following parameters: VT 500, RR 18, FiO2 100%, PEEP 8, sat 93%. Patient is ICU status and we will be admitted for further assessment and management. Cardiovascular: HTN Endocrine: Diabetes Past Surgical History: None Family History: None Smoke: No ALCOHOL: occassional Drugs: None Lives: with Family Domestic Violence: Neg Review of Systems Review of Systems Unable to obtain due to current patient's status, intubated and sedated. Allergies: Coded Allergies: NO KNOWN ALLERGIES (Unverified , 08/29/22) Medications Current Medications Medications Dose Ordered Sig/Darryl Route Start Time Stop Time Status Last Admin Dose Admin Propofol 100 ml @ 2.106 mls/ hr Q24H IV 04/21/24 22:45 Midazolam HCl 50 ml @ 1 mls/hr Q24H IV 04/21/24 23:15 Vancomycin HCl 0 ml @ 0 mls/hr UD IV 04/22/24 01:00 UNV Meropenem 50 ml @ 17 mls/hr Q8HR IV 04/22/24 06:00 Enoxaparin Sodium 40 mg DAILY SC 04/22/24 10:00 Exam Vital Signs Vital Signs Date Time Temp Pulse Resp B/P (MAP) Pulse Ox O2 Delivery O2 Flow Rate FiO2 04/21/24 23:53 100 34 152/75 (100) 100 04/21/24 22:29 96.7 0 General Appearance: Other (Patient is currently sedated, intubated on mechanical ventilator, RASS -3) HEENT: Other (PATIENT HAS EYEBROW LACERATION IN THE RIGHT SIDE AND RIGHT FRONTAL LOBE) Respiratory: Other (THERE ARE CRACKLES ON BILATERAL LUNG WAGNER) Cardiovascular: Regular rate, Normal S1, Normal S2, No murmurs, Other (PATIENT WAS INITIALLY ON ATRIAL FIBRILLATION) Abdominal: Normal bowel sounds, Soft, No tenderness, No hepatospenomegaly, No masses Extremities: No clubbing, No cyanosis, No edema, Normal pulses, No tenderness/swelling Skin: No rashes, No breakdown, No significant lesion Neuro: Other (CURRENTLY SEDATED ON PROPOFOL AND MIDAZOLAM RASS-3) Labs/Xrays Labs Test 04/22/24 00:39 04/21/24 22:58 04/21/24 22:40 04/21/24 22:25 Range/Units Lactic Acid Level 4.4 *H 0.4-2.0 mmol/L Troponin I High Sensitivity 36 </=54 ng/L Blood Gas Specimen Type Arterial Blood Gas Sample Site Left radial Blood Gas Patient Temperature 37.0 Arterial Blood Date Drawn [id number] Arterial Blood pH 7.304 L 7.350-7.450 Arterial Blood Partial Pressure CO2 40.9 35.0-48.0 mmHg Arterial Blood Partial Pressure O2 75.9 L 83.0-108.0 mmHg Arterial Blood HCO3 19.9 L 21.0-28.0 mmol/L Arterial Blood Oxygen Saturation 92.3 L 94.0-98.0 % Arterial Blood Base Excess -6.1 L -2.0-3.0 mmol/L Arterial Blood Oxyhemoglobin 91.8 L 94.0-98.0 % Arterial Blood Carboxyhemoglobin 0.0 L 0.5-1.5 % Arterial Blood Methemoglobin 0.5 0.0-1.5 % Ganesh Test Modified Blood Gas Total Hemoglobin 9.50 L 13.5-17.5 g/dL Blood Gas Set Respiration Rate 18.0 Blood Gas Modality Vent - ac FiO2 % 100.0 Blood Gas Tidal Volume 500.0 Blood Gas PEEP or CPAP 5.0 Urine Color Light-yellow Yellow Urine Clarity Clear Clear Urine pH 6.0 5.0-9.0 Urine Specific [place] 1.024 1.001-1.035 Urine Protein 1+ H Negative Urine Ketones Negative Negative Urine Blood 1+ H Negative /uL Urine Nitrite Negative Negative Urine Bilirubin Negative Negative Urine Urobilinogen Normal Negative mg/dL Urine Leukocyte Esterase Negative Negative /uL Urine RBC 18 0 - 3 /hpf Urine Microscopic WBC 2 0-3 /HPF Urine Squamous Epithelial Cells Few <5 /hpf Urine Bacteria None seen None Seen /hpf Urine Hyaline Casts Few 0 - 2 /lpf Urine Glucose 1+ H Normal mg/dL Urine Opiates Screen Pos NEGATIVE Urine Fentanyl Screen Neg NEGATIVE Urine Barbiturates Screen Neg NEGATIVE Urine Phencyclidine Screen Neg NEGATIVE Urine Amphetamines Screen Neg NEGATIVE Urine Benzodiazepines Screen Neg NEGATIVE Urine Cocaine Screen Neg NEGATIVE Urine Cannabinoids Screen Neg NEGATIVE White Blood Count 27.9 #H 4.4-10.8 10^3/uL Red Blood Count 2.83 L 4.5-5.90 10^6/uL Hemoglobin 8.4 L 13.5-17.5 g/dL Hematocrit 26.6 L 41.0-53.0 % Mean Corpuscular Volume 94.0 # 80.0-100.0 fL Mean Corpuscular Hemoglobin 29.8 28.0-32.0 pg Mean Corpuscular Hemoglobin Concent 31.7 L 32.0-36.0 g/dL Red Cell Distribution Width 16.6 H 11.8-14.3 % Platelet Count 540 H 140-450 10^3/uL Mean Platelet Volume 7.8 6.9-10.8 fL Neutrophils (%) (Auto) 85.7 H 37.0-80.0 % Lymphocytes (%) (Auto) 11.0 10.0-50.0 % Monocytes (%) (Auto) 2.6 0.0-12.0 % Eosinophils (%) (Auto) 0.1 0.0-7.0 % Basophils (%) (Auto) 0.6 0.0-2.0 % Neutrophils # (Auto) 23.9 H 1.6-8.6 10 ^3/uL Lymphocytes # (Auto) 3.1 0.4-5.4 10 ^3/uL Monocytes # (Auto) 0.7 0-1.3 10 ^3/uL Eosinophils # (Auto) 0 0-0.8 10 ^3/uL Basophils # (Auto) 0.2 0-0.2 10 ^3/uL Nucleated Red Blood Cells 0.0 % Prothrombin Time 13.9 H 9.3-11.8 sec Prothrombin Time INR 1.35 H 0.9-1.15 Activated Partial Thromboplast Time 32.1 24.5-34.5 SEC Sodium Level 139 136-145 mmol/L Potassium Level 3.7 3.5-5.1 mmol/L Chloride Level 100 98-107 mmol/L Carbon Dioxide Level 19 L 20-31 mmol/L Anion Gap 20 H 5-15 Blood Urea Nitrogen 15 9-23 mg/dL Creatinine 0.89 0.700-1.30 mg/dL Glomerular Filtration Rate Calc 96 >90 mL/min BUN/Creatinine Ratio 16.9 10.0-20.0 Serum Glucose 283 H 74-106 mg/dL Calcium Level 10.1 8.7-10.4 mg/dL Total Bilirubin 0.2 0.2-1.0 mg/dL Aspartate Amino Transferase (AST) 77 H 13-40 U/L Alanine Aminotransferase (ALT) 29 7-40 U/L Alkaline Phosphatase 102 46-116 U/L Total Protein 4.8 L 5.7-8.2 g/dL Albumin 2.7 L 3.2-4.8 g/dL Lipase 15 12-53 U/L Salicylates Level < 3.0 -30 mg/dL Acetaminophen Level < 2.0 L 10.0-20.0 UG/ML Plasma/Serum Blood Alcohol < 3.0 <10 mg/dL Assessment/Plan Assessment/Plan Assessment/plan Acute metabolic/toxic encephalopathy like due to sepsis -Order ammonia -Currently sedated and intubated, on IV antibiotics Acute hypoxic respiratory failure likely due to multifocal pneumonia possible gram +/- bacterial pneumonia Septic shock likely due to above -currently on mechanical ventilator on the following parameters: VT 500, RR 18, FiO2 100%, PEEP 8, sat 93% -Initial ABG showed pH of 7.30, pCO2 of 40.9, HC03 of 19.9, pao2:75.9, consistent with metabolic acidosis with respiratory compensation -IV fluids bolus 2L in total -Maintenance fluids at 125cc/hr -Start IV vancomycin -start IV meropenem -Stop IV zosyn -Will consider start levophed if BP remains in the lower side to maintain a MAP of >65mmhg -ordered pancultures (blood culture, sputum culture and urine cultures) -ordered COVID 19 test and influenza a and B. Ruled out pulmonary embolism -D-dimer was elevated 2 days ago (4.0) before AMA -[address] angio of the chest was performed showing no evidence of pulmonary embolism at that time Status post CPR, S/P ROSC 22min in total since found on ground -currently intubated, under sedation, on mechanical ventilation -Will consider Levophed if BP persist in the lower side to maintain a MAP of >65 Lactic acidosis in the setting of septic shock -continue IV fluids and IV antibiotic Type 2 diabetes mellitus -hemoglobin A1c is 9.3% -start mild sliding scale insulin GI prophylaxis -pantoprazole IV 40 mg daily DVT prophylaxis -enoxaparin 40 mg sc daily Central line placed in right internal jugular vein on 04/22/[address] Moeller Plan discussed with: Other My Orders Orders - OSVALDO BULL RESIDENT Procedure Category Date Status Time Chest Portable XY 04/22/24 Logged 00:30 Vancomycin Per PHA 04/22/24 Pending Pharmacy 01:00 Meropenem 1gm Ivpb PHA 04/22/24 In Process (Merrem 1gm/ Ns) 06:00 Admit ADMIT 04/22/24 Transmitted 00:48 Code Status CODE 04/22/24 Transmitted 00:48 Vital Signs TREY 04/22/24 In Process 00:48 Review Orders With TREY 04/22/24 In Process Adm. 00:48 Pulse Ox Cont Per Day RT 04/22/24 Logged 00:48 Notify Of Changes TREY 04/22/24 In Process From Base 00:48 Advance Directive TREY 04/22/24 In Process 00:48 Urinalysis LAB 04/22/24 Logged 00:48 Lipid Panel LAB 04/22/24 In Process 00:48 Blood Culture SORAIDA 04/22/24 Logged 00:48 Urine Bacterial SORAIDA 04/22/24 Logged Culture 00:48 Patient Condition ORDERS 04/22/24 Transmitted 00:48 Allergies TREY 04/22/24 In Process 00:48 Drug Screen LAB 04/22/24 Logged 00:48 Enoxaparin Sodium PHA 04/22/24 In Process (Lovenox) 10:00 Vancomycin 1.5gm/300ml PHA 04/22/24 In Process 01:00 B-Type Natriuretic LAB 04/22/24 In Process Peptide 01:04 Echo 2d Mode Cardiac US 04/22/24 Logged DOP 01:04 Sodium Chloride 0.9% PHA 04/22/24 In Process 01:15 Sodium Chloride 0.9% PHA 04/22/24 In Process 03:00 Covid19 Antigen Neelam LAB 04/22/24 Logged Rapid Influenza A&B LAB 04/22/24 Logged 01:10 Magnesium LAB 04/22/24 In Process 00:39 Date of Service: Apr 22, 2024 Billing Provider: ADAN MOELLER MD Common Visit Codes: [id number] INP/OBS CARE (HIGH) Secondary Visit Codes: [id number] CARE PLAN 30 MINUTES OSVALDO BULL RESIDENT Apr 22, 2024 02:03 ADAN MOELLER MD Apr 23, 2024 08:45
[2024-04-22 02:07] LABS: Urine Bacteria None Seen /hpf (None Seen)
[2024-04-22 02:10] LABS: Magnesium 1.9 mg/dL (1.6-2.6)
[2024-04-22 02:21] LABS: Urine Blood 1+ /uL (Negative); Urine Clarity Clear (Clear); Urine Color Light-Yellow (Yellow); Urine Protein, UAD 1+ (Negative); Urine Specific Gravity 1.027 (1.001-1.035); Urine Squamous Epithelial Cell FEW /hpf (<5); Urine Urobilinogen Normal (Negative); Urine WBC 4 /HPF (0-3); Urine pH 5.5 (5.0-9.0)
[2024-04-22 02:26] LABS: Amphetamine Screen, Urine Neg (NEGATIVE); Barbiturate Scree,Urine Neg (NEGATIVE); Benzodiazephine Screen, Urine Pos (NEGATIVE); Cannabinoid Screen, Urine Neg (NEGATIVE); Cocaine Screen, Urine Neg (NEGATIVE); Opiate Scree,Urine Pos (NEGATIVE); Phencyclidine Screen, Urine Neg (NEGATIVE)
[2024-04-22] MEDS: SODIUM CHLORIDE 0.9% 1,000 ML IV SCH (02:45)
[2024-04-22 03:20] LABS: COVID19 ANTIGEN SOFIA FIA NEGATIVE (NEGATIVE)
[2024-04-22 03:21] LABS: Rapid Influenza A Negative (Negative); Rapid Influenza B Negative (Negative)
--- NOTE | 2024-04-22 04:35 | RESUS ---
CODE BLUE ASSESSSMENT History of Events History of Events: 63 year old male presents to the ED with a chief complaint of cardiac arrest. Patient was seen in this ED 04/20/24, with a chief complaint of shortness of breath for about 12 days, was diagnosed with pneumonia. Patient was admitted, decided to leave AMA about 30 minutes prior to fall. Per witnesses, patient fell on the ground, was brought into ED, immediately placed on a bed, no pulse was found, code blue was called, CPR began. ROSC 22:14. PMHx HTN, DM. Initial Information Date: Apr 21, 2024 Time: 22:08 Location of Arrest: ER Arrest Witnessed: Yes CPR started initial time: 22:08 CPR started by whom: Hospital Staff Pre-Hospital Care: ACLS Type of arrest: Cardiac, Respiratory, Adult, Witnessed Spontaneous Respirations: No Pulse Present: No Monitoring: ECG, Pulse Oximetry, Apnea, Telemetry Crash Cart Opened and Supplies: Yes Airway Ventilation Breathing at Onset: Apneic O2 Sat by Pulse Oximetry: 0 Oxygen Delivery Method: Ambu-Bag Oxygen 100% Time of first Assisted Ventila: 22:09 Artificial Ventilation: Bag/Endo tube Intubation Size: 8.0 cuffed Intubated by: DR CHEEMA Intubation Attempts: 1 Intubated orally: Yes Intubated Nasaly: Yes Tube secured at: 24 Cricoid pressure done: No CO2 indicator used: Yes Confirmation: Auscultation, Exhaled CO2, Chest X-ray Suctioning (Oral/Tracheal): No Circulation Circulation : Time: 22:08 Pulse Rate (adult): 0 Blood Pressure Systolic: 0 Blood Pressure Diastolic: 0 Temperature (Fahrenheit): 96.7 Procedure - IV Procedure - IV : IV start time: 22:13 IV Side: Right IV Location: Forearm Anterior IV Catheter Type: Saline Lock IV Gauge: 20 IV Line Care: Saline Flush Procedure - Intraosseous Time of intraosseous: 22:12 Site of Intraosseous: Tibia car-medial Intraosseous inserted by: CHIDI FAN Number of attempts for Intraos: 1 Medications & Response Medications and Responses : Medication Time: 22:12 ADULT Medications Given ADULT: Epinephrine 1 mg, Sodium Bacarbinate 50 meq, Calcium Chloride 10 mL Route of Administration: IO Heart Rate: 0 EKG Rhythm: PEA Blood Pressure Systolic: 0 Blood Pressure Diastolic: 0 Respiratory Rate: 0 O2 Sat by Pulse Oximetry: 0 Defib. Joules: 0 IV Line Rate: 1000 Comment 2010 NO PULSE, 2013 ROSC VS BP 187/134 HR 110 FIO2 92 % Pacing Pacer Pads Applied and Pacing: Yes Pulse Present with Pacing: No Nurses Notes Clarissa Coma Scale Eye Opening: None (1) [place] Coma Scale Verbal: None (1) Clarissa Coma Scale Motor: None (1) Pupil Reaction: Non Reactive EKG Rhythm: Sinus Tachycardia Time Code Ended Time Code Ended: 22:14 Post Arrest Status: Ventilated Outcome of code: Successful Family notified: No Attending called: No Post Resuscitation Neurologica Pupil Size: 4 Comment: FIXED ROSC Pt Meets Criteria for Therapeu: No Therapeutic Hyperthermia Start: No COLTON WOOD Apr 22, 2024 04:35
[2024-04-22] MEDS: MEROPENEM 1GM IVPB 50 ML IV SCH (06:18)
[2024-04-22] MEDS: ACCU-CHEK COMFORT CURVE STRIP VI SCH ×2 (06:31→12:00)
[2024-04-22] MEDS: InsuLIN REG 1unit/0.01ml Soln (100units/ml) SC SCH ×2 (06:31→12:00)
--- NOTE | 2024-04-22 06:59 | ECG ---
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
[2024-04-22 07:02] LABS: Base Excess 4.2 mmol/L (-2.0-3.0)
[2024-04-22 08:15] LABS: Eosinophils # (auto) 0 10 ^3/uL (0-0.8); Lymphocytes # (auto) 0.6 10 ^3/uL (0.4-5.4); Lymphocytes % (auto) 3.6 % (10.0-50.0); Monocytes # (auto) 0.5 10 ^3/uL (0-1.3); Nucleated Red Blood Cells % 0.1 %
[2024-04-22 08:20] LABS: Basophils # (auto) 0 10 ^3/uL (0-0.2); Basophils % (auto) 0.1 % (0.0-2.0); Hematocrit 20.8 % (41.0-53.0); Mean Corpuscular Hemoglobin 28.7 pg (28.0-32.0); Mean Corpuscular Hgb Conc. 31.9 g/dL (32.0-36.0); Mean Corpuscular Volume 90.1 fL (80.0-100.0); Monocytes % (auto) 2.7 % (0.0-12.0); Neutrophils # (auto) 15.9 10 ^3/uL (1.6-8.6); Neutrophils % (auto) 93.6 % (37.0-80.0); Platelet Count (auto) 465 10^3/uL (140-450); Red Blood Cells 2.31 10^6/uL (4.5-5.90)
[2024-04-22 08:33] LABS: Hemoglobin 6.6 g/dL (13.5-17.5)
--- NOTE | 2024-04-22 08:39 | ECG ---
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
[2024-04-22 08:42] LABS: Alanine Aminotransferase 26 U/L (7-40); Alkaline Phosphatase 94 U/L (46-116); Anion Gap 7 (5-15); BUN/Creatinine Ratio 19.7 (10.0-20.0); Blood Urea Nitrogen 12 mg/dL (9-23); Carbon Dioxide 28 mmol/L (20-31); Chloride 105 mmol/L (98-107); Sodium 140 mmol/L (136-145)
[2024-04-22 08:54] LABS: Albumin 2.3 g/dL (3.2-4.8); Aspartate Aminotransferase 60 U/L (13-40); Bilirubin, Total 0.2 mg/dL (0.2-1.0); Calcium 7.8 mg/dL (8.7-10.4); Glucose 294 mg/dL (74-106); Potassium 3.4 mmol/L (3.5-5.1); Total Protein 4.2 g/dL (5.7-8.2)
[2024-04-22] MEDS: POTASSIUM CHL 20MEQ/100ML 100 ML IV ONE (09:00)
[2024-04-22] MEDS: PANTOPRAZOLE 40 MG/10 ML VIAL INJ IV SCH (09:36)
[2024-04-22] MEDS: ENOXAPARIN SOD 40 MG/0.4 ML SYRINGE SC SCH (09:37)
[2024-04-22] MEDS: fentaNYL Drip 2500mCg/250mlNS 250 ML IV SCH (09:43)
[2024-04-22] MEDS: VANCOMYCIN 1GM/250ML KIT 250 ML IV SCH (10:00)
[2024-04-22] MEDS: NOREPINEPHRINE 8 MG/250ML KIT 250 ML IV SCH ×2 (10:39→19:40)
--- NOTE | 2024-04-22 10:41 | ECG ---
[facility] Test Date: 2024-04-22 Test Time: 02:58:37 Pat Name: JAN PROCTOR Department: er Room: 0265 A Gender: M Bi Specialist: : 1960 Requested By: DEVENDRA CHEEMA Order Number: [id number] Reading MD: Daniel Otoole Measurements Intervals [place] Rate: 64 P: 23 OR: 146 QRS: 64 QRSD: 112 T: 15 QT: 453 QTc: 468 Interpretive Statements Sinus rhythm Borderline intraventricular conduction delay Electronically Signed On 04-24-2024 17:45:03 PST by Daniel Otoole Please click the below link to view image of tracing.
[2024-04-22 10:43] LABS: Hematocrit 21.2 % (41.0-53.0)
[2024-04-22 10:53] LABS: Hemoglobin 6.9 g/dL (13.5-17.5)
[2024-04-22 11:20] LABS: Platelet Estimate Increased
--- NOTE | 2024-04-22 15:44 | DVHINCON2 ---
Date of service: Apr 22, 2024 Referring Physician Lucio History of Present Illness Patient is a 63-year-old male with a history of hypertension and diabetes who was recently admitted and discharged with pneumonia, returned for symptoms of pneumonia and left AMA, was found down pulseless CPR was initiated and patient w as successfully resuscitated. Patient admitted intubated with multifocal pneumonia. Patient found to have anemia suspect GI bleed and GI consultation was obtained. Patient noted to have 300 cc of coffee-ground emesis in NG tube canister. Patient not noted her prior GI bleed history. The patient is on Protonix daily, as well as Lovenox. Patient noted to have melena or hematoch ezia. CT scan findings show possible inflammatory colitis Past Medical History As above Past Surgical History Denied on previous admission Family History: Patient reports no known family medical history. Family History Not able to be obtained Social History No known tobacco alcohol or recreational drug use Allergies: Coded Allergies: NO KNOWN ALLERGIES (Unverified , 08/29/22) Home Meds Active Scripts Ondansetron Odt 4MG Tab (ZOFRAN PO) 4 Mg Tb, 4 MG PO Q8HP PRN for 5 Days, #15 TAB ODT TAB-DISSOLVE IN MOUTH, THEN SWALLOW Prov:MARYCARMEN LEDBETTER MD 11/25/22 Reported Medications Simvastatin (Simvastatin) 40 Mg Tab, 1 04/14/24 Loratadine (CLARITIN TABLET) 10 Mg Tb, 1 DAILY 04/14/24 Sucralfate (Sucralfate) 1 Gm Tab, 1 DAILY 04/14/24 Metformin Hydrochloride (Metformin Hcl) 1,000 Mg Tab, 1 04/14/24 Current Medications Current Medications Medications (Trade) Dose Ordered Sig/Darryl Route PRN Reason Start Time Stop Time Status Last Admin Propofol 100 ml @ 2.106 mls/ hr Q24H IV 04/21/24 22:45 04/22/24 11:59 Midazolam HCl 50 ml @ 1 mls/hr Q24H IV 04/21/24 23:15 04/22/24 02:07 Vancomycin HCl 0 ml @ 0 mls/hr UD IV 04/22/24 01:00 Meropenem 50 ml @ 17 mls/hr Q8HR IV 04/22/24 06:00 04/22/24 14:27 Enoxaparin Sodium (Lovenox) 40 mg DAILY SC 04/22/24 10:00 04/22/24 11:33 DC 04/22/24 09:37 Sodium Chloride 1,000 ml @ 125 mls/hr Q8H IV 04/22/24 03:00 04/22/24 12:02 DC 04/22/24 02:45 Diagnostic Test (Pha) (Accu-Chek Comfort Curve T) 1 strip ACHS 04/22/24 07:00 04/22/24 12:02 DC 04/22/24 11:56 Insulin Human Regular (InsuLIN R) ACHS SC 04/22/24 07:00 04/22/24 12:02 DC 04/22/24 11:02 Dextrose 50 ml UD PRN IV Blood Sugar LESS THAN 60 04/22/24 01:30 Pantoprazole Sodium (Protonix) 40 mg DAILY IV 04/22/24 10:00 04/22/24 11:33 DC 04/22/24 09:36 Norepinephrine Bitartrate 250 ml @ 3.75 mls/hr Q24H IV 04/22/24 02:00 04/22/24 10:39 Fentanyl Citrate 250 ml @ 2.5 mls/hr Q24H IV 04/22/24 07:00 04/22/24 09:43 Vancomycin HCl 250 ml @ 250 mls/hr Q12H IV 04/22/24 10:00 04/22/24 10:00 Pantoprazole Sodium (Protonix) 40 mg BID IV 04/22/24 22:00 Diagnostic Test (Pha) (Accu-Chek Comfort Curve T) 1 strip Q6HR 04/22/24 12:00 Insulin Human Regular (InsuLIN R) Q6HR SC 04/22/24 12:00 Dextrose 50 ml UD PRN IV Blood Sugar LESS THAN 60 04/22/24 12:00 Review of Systems Unable to be obtained Vital Signs Vital Signs Date Time Temp Pulse Resp B/P (MAP) Pulse Ox O2 Delivery O2 Flow Rate FiO2 04/22/24 14:00 99.1 68 17 121/70 99.1 04/22/24 12:00 86 Mechanical Ventilator+ 100 100 Physical Exam General: HEENT: Heart: Lungs: Abdomen: Skin: Extremity: Neuro: Labs/Diagnostic Data CT scan findings 1. Severe multifocal pneumonia 2. Mediastinal lymphadenopathy, likely reactive. 3. Trace bilateral pleural effusions 4. Concentric wall thickening throughout the colon suspicious for infectious/inflammatory colitis. Radiation optimization: All CT scans at this facility use at least one of these dose optimization techniques: automated exposure control mA and/or kV adjustment per patient size (includes targeted exams where dose is matched to clinical indication) or iterative reconstruction. Labs Test 04/22/24 14:35 04/22/24 10:58 04/22/24 10:20 04/22/24 08:00 Range/Units Lactic Acid Level 1.6 0.4-2.0 mmol/L POC Glucose 219 H 70-106 mg/dl Hemoglobin 6.9 *L 13.5-17.5 g/dL Hematocrit 21.2 L 41.0-53.0 % Ammonia 38 H 11-32 umol/L White Blood Count 17.0 #H 4.4-10.8 10^3/uL Red Blood Count 2.31 L 4.5-5.90 10^6/uL Mean Corpuscular Volume 90.1 # 80.0-100.0 fL Mean Corpuscular Hemoglobin 28.7 28.0-32.0 pg Mean Corpuscular Hemoglobin Concent 31.9 L 32.0-36.0 g/dL Red Cell Distribution Width 17.0 H 11.8-14.3 % Platelet Count 465 H 140-450 10^3/uL Mean Platelet Volume 7.3 6.9-10.8 fL Neutrophils (%) (Auto) 93.6 H 37.0-80.0 % Lymphocytes (%) (Auto) 3.6 L 10.0-50.0 % Monocytes (%) (Auto) 2.7 0.0-12.0 % Eosinophils (%) (Auto) 0.0 0.0-7.0 % Basophils (%) (Auto) 0.1 0.0-2.0 % Neutrophils # (Auto) 15.9 H 1.6-8.6 10 ^3/uL Lymphocytes # (Auto) 0.6 0.4-5.4 10 ^3/uL Monocytes # (Auto) 0.5 0-1.3 10 ^3/uL Eosinophils # (Auto) 0 0-0.8 10 ^3/uL Basophils # (Auto) 0 0-0.2 10 ^3/uL Nucleated Red Blood Cells 0.1 % Platelet Estimate Increased Sodium Level 140 136-145 mmol/L Potassium Level 3.4 L 3.5-5.1 mmol/L Chloride Level 105 98-107 mmol/L Carbon Dioxide Level 28 20-31 mmol/L Anion Gap 7 5-15 Blood Urea Nitrogen 12 9-23 mg/dL Creatinine 0.61 L 0.700-1.30 mg/dL Glomerular Filtration Rate Calc 107 >90 mL/min BUN/Creatinine Ratio 19.7 10.0-20.0 Serum Glucose 294 H 74-106 mg/dL Calcium Level 7.8 L 8.7-10.4 mg/dL Total Bilirubin 0.2 0.2-1.0 mg/dL Aspartate Amino Transferase (AST) 60 H 13-40 U/L Alanine Aminotransferase (ALT) 26 7-40 U/L Alkaline Phosphatase 94 46-116 U/L Troponin I High Sensitivity 84 *H </=54 ng/L Total Protein 4.2 L 5.7-8.2 g/dL Albumin 2.3 L 3.2-4.8 g/dL Thyroid Stimulating Hormone (TSH) 0.69 0.55-4.78 uIU/mL Test 04/22/24 06:51 04/22/24 01:40 04/22/24 00:39 04/21/24 22:40 Range/Units Blood Gas Specimen Type Arterial Blood Gas Sample Site Left radial Blood Gas Patient Temperature 37.0 Arterial Blood Date Drawn [id number] Arterial Blood pH 7.475 H 7.350-7.450 Arterial Blood Partial Pressure CO2 39.0 35.0-48.0 mmHg Arterial Blood Partial Pressure O2 70.4 L 83.0-108.0 mmHg Arterial Blood HCO3 28.1 H 21.0-28.0 mmol/L Arterial Blood Oxygen Saturation 93.5 L 94.0-98.0 % Arterial Blood Base Excess 4.2 H -2.0-3.0 mmol/L Arterial Blood Oxyhemoglobin 92.7 L 94.0-98.0 % Arterial Blood Carboxyhemoglobin 0.4 L 0.5-1.5 % Arterial Blood Methemoglobin 0.5 0.0-1.5 % Ganesh Test Modified Blood Gas Total Hemoglobin 7.50 L 13.5-17.5 g/dL Blood Gas Set Respiration Rate 18.0 Blood Gas Modality Vent - ac FiO2 % 100.0 Blood Gas Tidal Volume 500.0 Blood Gas PEEP or CPAP 5.0 Urine Color Light-yellow Yellow Urine Clarity Clear Clear Urine pH 5.5 5.0-9.0 Urine Specific Hedrick 1.027 1.001-1.035 Urine Protein 1+ H Negative Urine Ketones Trace Negative Urine Blood 1+ H Negative /uL Urine Nitrite Negative Negative Urine Bilirubin Negative Negative Urine Urobilinogen Normal Negative mg/dL Urine Leukocyte Esterase Negative Negative /uL Urine RBC 12 0 - 3 /hpf Urine Microscopic WBC 4 H 0-3 /HPF Urine Squamous Epithelial Cells Few <5 /hpf Urine Bacteria None seen None Seen /hpf Urine Glucose 2+ H Normal mg/dL Urine Opiates Screen Pos NEGATIVE Urine Fentanyl Screen Neg NEGATIVE Urine Barbiturates Screen Neg NEGATIVE Urine Phencyclidine Screen Neg NEGATIVE Urine Amphetamines Screen Neg NEGATIVE Urine Benzodiazepines Screen Pos NEGATIVE Urine Cocaine Screen Neg NEGATIVE Urine Cannabinoids Screen Neg NEGATIVE Influenza Type A Antigen Negative Negative Influenza Type B Antigen Negative Negative SARS-CoV-2 Antigen (Rapid) Negative NEGATIVE Magnesium Level 1.9 1.6-2.6 mg/dL Triglycerides Level 109 < 150 mg/dL Cholesterol Level 88 < 200 mg/dL LDL Cholesterol 48 < 100 mg/dL HDL Cholesterol 24 L 40-59 mg/dL Urine Hyaline Casts Few 0 - 2 /lpf Test 04/21/24 22:25 Range/Units Prothrombin Time 13.9 H 9.3-11.8 sec Prothrombin Time INR 1.35 H 0.9-1.15 Activated Partial Thromboplast Time 32.1 24.5-34.5 SEC B-Type Natriuretic Peptide 359.89 0-100 pg/mL Lipase 15 12-53 U/L Salicylates Level < 3.0 -30 mg/dL Acetaminophen Level < 2.0 L 10.0-20.0 UG/ML Plasma/Serum Blood Alcohol < 3.0 <10 mg/dL Microbiology Date/Time Source Procedure Growth Status 04/22/24 03:32 Nose MRSA Screen - Final Complete Assessment 1. Cardiac arrest status post resuscitation 2. Multifocal anemia 3. Respiratory failure 4. Anemia suspect GI bleed 5. Reoperative lymphadenopathy in the abdomen 6. Abnormal imaging of: Suggestive possible colitis Problems(with codes): (1) Multifocal pneumonia (2) Cardiopulmonary arrest (3) Hypoxia (4) Respiratory failure (5) Respiratory distress (6) Electrolyte imbalance Plan/Recommendation 1. Follow H&H and transfuse as needed 2. Caution with anticoagulation 3. Switch Protonix daily or b.i.d. to Protonix drip 4. Dr. Brandon will follow 5. Consider EGD if the patient has significant hematemesis melena or when the patient becomes more stable 6. Hold off on colonoscopy this time as well as the patient has no gross bleeding 7. Consider stool cultures or C difficile studies Plan discussed with: SAMANTHA Beyer MD Apr 22, 2024 15:44
--- NOTE | 2024-04-22 17:55 | DVHPNRES ---
Progress Note Date Seen: Apr 22, 2024 Resident Creating Document: SAUL BARRON RESIDENT Has the PT tested + for MRSA If YES, has PT been informed?: No Medical Necessity Reason Pt with a Central, PICC or Fol: Yes The following are medically ne: Central Line, Stone Catheter Reason for stone catheter: Bladder Retention/Obstruc, Strict I&O, Total Immobilization Subjective Review of Systems 63-year-old male , with past medical history of hypertension, type 2 diabetes mellitus, drug abuse (per son , unknown which drugs). The patient presented one week ago toward facility for multifocal pneumonia which was treated and discharged. The patient came back two days ago with similar symptoms complaining of shortness of breath, fatigue and generalized weakness. The patient denied at that time any chest pain, palpitations or any associated symptoms. On previous admission bilateral pleural effusions and scattered areas of partial consolidations and ground-glass opacities likely consistent with multifocal pneumonia were found on CT chest. on 04/20 at night he left AMA. The patient was brought to our ED today after a possible syncopal episode in which he ended up in the ground and found without pulse. Per witness, the patient was found in the ground and was brought immediately to the ED, CPR was started at at 22:08 and ROSC at 22:14. Patient was intubated and started on antibiotics ( Meropenem and vancomycin), normal saline, sedation ( fentanyl, propofol and versed) RASS -3, levophed titrated down until 1mcg , with 2 mcg bp raise until 140's. lines and cath: CVC both 04/21 Stone 04/21 Peripheral 04/21 Drips: Fent propofol versed levophed Prophylaxis: SCD , ( ng showed black secretion) Protonix drip Abdominal distention: Orogastric tube connected to low intermittent succion EKG: QT prolongation, sinus rythm CPR until ROSC : 6 minutes I&O: +664 ml consults: Dietary: skin risk score =/<12 Neurology: to evaluate hypoxic brain injury GI: upper Gi bleeding ---> s/p transfusion after hb:6.6 On 04/22 patient Patient examined at bedside , he was examined at bedside , currently his vitals are within normal limits , he is RASS -3, VENT: AC, FIO2: TV: PEEP: Patient lactate level now is within normal limits, patient was transfused with 1 rbc package, and other lab values are improving, is still pending neuro eval and possible EGD by GI team. Changes from previous H/P or p: Changes Objective vital signs Vital Sign Date Time Temp Pulse Resp B/P (MAP) Pulse Ox O2 Delivery O2 Flow Rate FiO2 04/22/24 16:30 98.8 66 17 88/54 (65) 93 209.8 04/22/24 16:15 90 04/22/24 16:00 Mechanical Ventilator+ Total Intake and Output 04/21/24 04/21/24 04/22/24 15:00 23:00 07:00 Intake Total 6.318 ml 808.572 ml Output Total 400 ml Balance 6.318 ml 408.572 ml medications Current Medications Medications Dose Ordered Sig/Darryl Route Start Time Stop Time Status Last Admin Dose Admin Propofol 100 ml @ 2.106 mls/ hr Q24H IV 04/21/24 22:45 04/22/24 11:59 12.636 MLS/HR Midazolam HCl 50 ml @ 1 mls/hr Q24H IV 04/21/24 23:15 04/22/24 02:07 6 MLS/HR Vancomycin HCl 0 ml @ 0 mls/hr UD IV 04/22/24 01:00 Meropenem 50 ml @ 17 mls/hr Q8HR IV 04/22/24 06:00 04/22/24 14:27 17 MLS/HR Dextrose 50 ml UD PRN IV 04/22/24 01:30 Norepinephrine Bitartrate 250 ml @ 3.75 mls/hr Q24H IV 04/22/24 02:00 04/22/24 10:39 3.75 MLS/HR Fentanyl Citrate 250 ml @ 2.5 mls/hr Q24H IV 04/22/24 07:00 04/22/24 09:43 2.5 MLS/HR Vancomycin HCl 250 ml @ 250 mls/hr Q12H IV 04/22/24 10:00 04/22/24 10:00 250 MLS/HR Pantoprazole Sodium 40 mg BID IV 04/22/24 22:00 Diagnostic Test (Pha) 1 strip Q6HR 04/22/24 12:00 Insulin Human Regular Q6HR SC 04/22/24 12:00 Dextrose 50 ml UD PRN IV 04/22/24 12:00 Examination General Appearance: sedated, intubated on mechanical ventilator, RASS -3) HEENT: Other (PATIENT HAS EYEBROW LACERATION IN THE RIGHT SIDE AND RIGHT FRONTAL LOBE), pupils sluggish,reactive Respiratory: coarse crackles bilaterally Cardiovascular: Regular rate, Normal S1, Normal S2, No murmurs Abdominal: Normal bowel sounds, Soft, No tenderness, No hepatospenomegaly, No masses Extremities: No clubbing, No cyanosis, No edema, Normal pulses, No tenderness/swelling Neuro: Other (CURRENTLY SEDATED ON FENT, PROPOFOL AND MIDAZOLAM RASS-3) laboratory and microbiology Laboratory Tests 04/22/24 10:20 04/22/24 08:00 Test 04/22/24 08:00 Range/Units Serum Glucose 294 H 74-106 mg/dL Microbiology Date/Time Source Procedure Growth Status 04/22/24 03:32 Nose MRSA Screen - Final Complete Problem List/Assessment/Plan Problem List/Assessment/Plan Neurology: #Acute metabolic/toxic encephalopathy like due to septick shock due to gram+/gram- Multifocal pneumonia #Acute hypoxic encefalopathy likely due to hypoxic brain injury due to cardiad arrest ,PEA #ROSC after 6 minutes #sedated under mechanical ventilation -ICU status -Continue antibiotic -sedation ( fent,versed,propofol) - levophed -Neuro consult, pending - head CT negative Cardiovascular: #On mechanical ventilation s/p cardiac arrest #Septic shock likely due to gram+/gram- Multifocal pneumonia # PEA #Hypertension # Drug abuse #NSTEMI type 2 likely due to ischemic demand due to septic shock?,cardiac arrest? - Same as above Respiratory: #Acute hypoxic respiratory failure likely due to multifocal pneumonia gram +/ - /anaerobes bacterial pneumonia #Septic shock likely due to above #Mediastinal lymphadenopathy, likely reactive. #Trace bilateral pleural effusions -On mechanical ventilation -IV vancomycin -IV meropenem -ordered pancultures (blood culture, sputum culture, urine cultures and stool culture) Renal: #Hypoalbuminemia #Hyperammonemia #Glucosuria - treat undelyin condition Infecious disease: #Septic shock likely due to g+/=/anaerobes multifocal pneumonia #Lactic acidosis in the setting of septic shock - IV antibiotics - Levophed - pancultures Endocrine: Uncontrolled type 2 diabetes a1c>9 - Insulin protocol Skin: - skin risk score<12 Hematology: #Severe anemia due to upper GI hemorrhage s/p transfusion #gi consult #protonix drip #h&h DVT prophylaxis -SCD case discussed with Critical care, time spent , not including procedures:81 minutes code status: full code Plan discussed with: Other (brother) My Orders My Orders Orders - SAUL BARRON Procedure Category Date Status Time Communication Order ORDERS 04/22/24 Transmitted 10:07 Stool Occult Blood LAB 04/22/24 Logged 10:11 * [facility] [employer] [facility] CONS 04/22/24 Transmitted 11:03 Pantoprazole PHA 04/22/24 In Process (Protonix) 22:00 Sequential TREY 04/22/24 In Process Compression Device 11:29 * Neurology Consult CONS 04/22/24 Transmitted 12:08 Date of Service: Apr 22, 2024 Billing Provider: JENNIFFER BARAHONA MD Common Visit Codes: 41275-[id number] CARE 30-74 MIN, [id number] CARE-EACH +30MIN SAUL BARRON RESIDENT Apr 22, 2024 17:55 JENNIFFER BARAHONA MD Apr 25, 2024 16:47
[2024-04-22] MEDS: PANTOPRAZOLE 40mg/50ML NS AE 50 ML IV SCH (18:49)
[2024-04-22 19:52] LABS: Hemoglobin 8.5 g/dL (13.5-17.5)
[2024-04-22 19:54] LABS: Hematocrit 25.6 % (41.0-53.0)
[2024-04-22] MEDS: MAGNESIUM SULFATE 1GM/100ML 100 ML IV ONE (20:04)
--- NOTE | 2024-04-22 20:25 | DVHSR ---
APPROVED REPORT EXAM: Two-dimensional and M-mode echocardiogram with Doppler and color Doppler. Blood Pressure: 96/57 mmHg INDICATION s/p CPR RISK FACTORS Height: 5'4", Weight: 161 DIMENSIONS LVDd5.4 (3.8-5.7cm)LA (2D)4.2 (1.9-4.0cm)Aortic Root3.7 (2.0-3.7cm) LVDs3.4 (2.5-4.0cm)LA (MM) (1.9-4.0cm)Aortic Cusp Exc2.1 (1.5-2.0cm) EF (%) 65.0 (55-70%)Rt. Atrium3.8 (1.9-4.0cm)Asc. Aorta3.4 cm IVSd1.0 (0.7-1.1cm)RV (D) (1.8-2.4cm) PWd0.8 (0.7-1.1cm) Mitral Valve MitralMitral Stenosis E wave0.62m/sMV Mean GR.mmHg A wave0.58m/sMV Peak GR.mmHg E/A ratio1.12D MVAcm2 DECEL [id number] 1/2 Timems Aortic Valve Aortic ValveAortic Stenosis V10.94m/Lovely Mean GR.2mmHg V20.97m/Lovely Peak GR.4mmHg LVOT Diameter2.2 (1.8-2.4cm)Doppler AVA3.68cm2 Pulmonic Valve V20.84m/s Tricuspid Valve TR Velocity2.82m/s [id number] Conclusion Technically good study. Sinus rhythm. Concentric LVH with left atrial enlargement and mild aortic root enlargement. Valves appear to be structurally normal. EF of 60% with normal RV function. Doppler is unremarkable. Mild TR. No pericardial effusion masses or vegetations.
[2024-04-22] MEDS: FUROSEMIDE 20 MG/2 ML VIAL IV ONE (21:11)
--- NOTE | 2024-04-22 21:19 | DVHINCON2 ---
Date of service: Apr 22, 2024 Referring Physician Reason for Consultation Hypoxic brain injury History of Present Illness Mr. Kwon is a 63 years old gentleman with a history of hypertension, diabetes, the patient was seen in the emergency room on 04/20/2024 with a chief complaint of shortness breath, soon after the patient was decided to leave the hospital AMA, he collapsed to the ground and was immediately brought back to the emergency room, patient was found to be pulseless. He was resuscitated in 6 minutes (Code blue called out 04/21/24: 2209, ROSC: 2214) At tist time, the patient was sedated, on pressor drip UDS, 04/21/2024: Opiates Urinalysis, 04/21/2024: WBC: 2, urine leukocyte esterase: Negative ABG, 04/21/2024: Metabolic acidosis WBC/HB/PLT/MCV, 04/21/2024: 27.9/8.4/548/8.4. : 17/6.6/465/90.1 CMP, 04/22/2024: Unremarkable NH3, 04/22/2024: 38 PT/INR/PTT, 04/21/2024: 13.9/1.35/22.1 Troponin one high sensitivity, 04/22/2024: 84 TG/HDL/LDL/HDL, 04/22/2024: 109/88/48/24 CT head, 04/21/2024: No acute intracranial abnormality. Past Medical History Hypertension, diabetes Past Surgical History Denies all surgeries Family History: Patient reports no known family medical history. Family History Reviewed,noncontributory to illness Social History Smoker: Non-Smoker Alcohol: Denies ETOH Use Drugs: Denies Drug Use Lives In: Home Allergies: Coded Allergies: NO KNOWN ALLERGIES (Unverified , 08/29/22) Home Meds Active Scripts Ondansetron Odt 4MG Tab (ZOFRAN PO) 4 Mg Tb, 4 MG PO Q8HP PRN for 5 Days, #15 TAB ODT TAB-DISSOLVE IN MOUTH, THEN SWALLOW Prov:MARYCARMEN LEDBETTER MD 11/25/22 Reported Medications Simvastatin (Simvastatin) 40 Mg Tab, 1 04/14/24 Loratadine (CLARITIN TABLET) 10 Mg Tb, 1 DAILY 04/14/24 Sucralfate (Sucralfate) 1 Gm Tab, 1 DAILY 04/14/24 Metformin Hydrochloride (Metformin Hcl) 1,000 Mg Tab, 1 04/14/24 Current Medications Current Medications Medications (Trade) Dose Ordered Sig/Darryl Route PRN Reason Start Time Stop Time Status Last Admin Propofol 100 ml @ 2.106 mls/ hr Q24H IV 04/21/24 22:45 04/22/24 11:59 Midazolam HCl 50 ml @ 1 mls/hr Q24H IV 04/21/24 23:15 04/22/24 02:07 Vancomycin HCl 0 ml @ 0 mls/hr UD IV 04/22/24 01:00 Meropenem 50 ml @ 17 mls/hr Q8HR IV 04/22/24 06:00 04/22/24 14:27 Enoxaparin Sodium (Lovenox) 40 mg DAILY SC 04/22/24 10:00 04/22/24 11:33 DC 04/22/24 09:37 Sodium Chloride 1,000 ml @ 125 mls/hr Q8H IV 04/22/24 03:00 04/22/24 12:02 DC 04/22/24 02:45 Diagnostic Test (Pha) (Accu-Chek Comfort Curve T) 1 strip ACHS 04/22/24 07:00 04/22/24 12:02 DC 04/22/24 11:56 Insulin Human Regular (InsuLIN R) ACHS SC 04/22/24 07:00 04/22/24 12:02 DC 04/22/24 11:02 Dextrose 50 ml UD PRN IV Blood Sugar LESS THAN 60 04/22/24 01:30 04/22/24 19:51 DC Pantoprazole Sodium (Protonix) 40 mg DAILY IV 04/22/24 10:00 04/22/24 11:33 DC 04/22/24 09:36 Norepinephrine Bitartrate 250 ml @ 3.75 mls/hr Q24H IV 04/22/24 02:00 04/22/24 19:20 DC 04/22/24 10:39 Fentanyl Citrate 250 ml @ 2.5 mls/hr Q24H IV 04/22/24 07:00 04/22/24 19:40 Vancomycin HCl 250 ml @ 250 mls/hr Q12H IV 04/22/24 10:00 04/22/24 10:00 Pantoprazole Sodium (Protonix) 40 mg BID IV 04/22/24 22:00 04/22/24 17:54 DC Diagnostic Test (Pha) (Accu-Chek Comfort Curve T) 1 strip Q6HR 04/22/24 12:00 04/22/24 18:00 Insulin Human Regular (InsuLIN R) Q6HR SC 04/22/24 12:00 Dextrose 50 ml UD PRN IV Blood Sugar LESS THAN 60 04/22/24 12:00 Pantoprazole Sodium 50 ml @ 10 mls/hr Q5H IV 04/22/24 18:00 04/22/24 18:49 Norepinephrine Bitartrate 250 ml @ 3.75 mls/hr Q24H IV 04/22/24 19:30 04/22/24 19:40 Enoxaparin Sodium (Lovenox) 40 mg DAILY SC 04/23/24 10:00 UNV Review of Systems Unobtainable Vital Signs Vital Signs Date Time Temp Pulse Resp B/P (MAP) Pulse Ox O2 Delivery O2 Flow Rate FiO2 04/22/24 20:00 68 04/22/24 20:00 100 04/22/24 20:00 18 96 Mechanical Ventilator+ 04/22/24 19:40 87/53 04/22/24 18:30 98.2 208.8 Physical Exam The patient is well-nourished and well-developed with no distress. The patient is intubated HEENT: Normocephalic, neck supple, no carotid bruits Lungs: Clear to auscultation Cardiovascular: Regular rate and region, S1, S2, no murmurs Abdomen: Soft, nontender, normal bowel sounds MENTAL STATUS: Responsive to stroke painful stimuli CRANIAL NERVES: Pupils are equal, round and nonreactive, 1-2mm. There are weak corneal reflexes and doll's eyes phenomenon. No signs of facial weakness. There are no gagging or coughing reflexes SENSATION: Responses to strong pain stimuli. MOTOR: Normal tone in the upper and lower extremity. Normal muscle bulk. No fasciculations. No spontaneous movement. REFLEXES: Deep tendon reflexes are symmetrical. No pathological reflexes. CEREBELLAR/COORDINATION: Deferred GAIT/STATION: deferred Labs/Diagnostic Data Labs Test 04/22/24 19:18 04/22/24 18:42 04/22/24 14:35 04/22/24 10:20 Range/Units Hemoglobin 8.5 #L 13.5-17.5 g/dL Hematocrit 25.6 #L 41.0-53.0 % POC Glucose 136 H 70-106 mg/dl Lactic Acid Level 1.6 0.4-2.0 mmol/L Ammonia 38 H 11-32 umol/L Test 04/22/24 08:00 04/22/24 06:51 04/22/24 01:40 04/22/24 00:39 Range/Units White Blood Count 17.0 #H 4.4-10.8 10^3/uL Red Blood Count 2.31 L 4.5-5.90 10^6/uL Mean Corpuscular Volume 90.1 # 80.0-100.0 fL Mean Corpuscular Hemoglobin 28.7 28.0-32.0 pg Mean Corpuscular Hemoglobin Concent 31.9 L 32.0-36.0 g/dL Red Cell Distribution Width 17.0 H 11.8-14.3 % Platelet Count 465 H 140-450 10^3/uL Mean Platelet Volume 7.3 6.9-10.8 fL Neutrophils (%) (Auto) 93.6 H 37.0-80.0 % Lymphocytes (%) (Auto) 3.6 L 10.0-50.0 % Monocytes (%) (Auto) 2.7 0.0-12.0 % Eosinophils (%) (Auto) 0.0 0.0-7.0 % Basophils (%) (Auto) 0.1 0.0-2.0 % Neutrophils # (Auto) 15.9 H 1.6-8.6 10 ^3/uL Lymphocytes # (Auto) 0.6 0.4-5.4 10 ^3/uL Monocytes # (Auto) 0.5 0-1.3 10 ^3/uL Eosinophils # (Auto) 0 0-0.8 10 ^3/uL Basophils # (Auto) 0 0-0.2 10 ^3/uL Nucleated Red Blood Cells 0.1 % Platelet Estimate Increased Sodium Level 140 136-145 mmol/L Potassium Level 3.4 L 3.5-5.1 mmol/L Chloride Level 105 98-107 mmol/L Carbon Dioxide Level 28 20-31 mmol/L Anion Gap 7 5-15 Blood Urea Nitrogen 12 9-23 mg/dL Creatinine 0.61 L 0.700-1.30 mg/dL Glomerular Filtration Rate Calc 107 >90 mL/min BUN/Creatinine Ratio 19.7 10.0-20.0 Serum Glucose 294 H 74-106 mg/dL Calcium Level 7.8 L 8.7-10.4 mg/dL Total Bilirubin 0.2 0.2-1.0 mg/dL Aspartate Amino Transferase (AST) 60 H 13-40 U/L Alanine Aminotransferase (ALT) 26 7-40 U/L Alkaline Phosphatase 94 46-116 U/L Troponin I High Sensitivity 84 *H </=54 ng/L Total Protein 4.2 L 5.7-8.2 g/dL Albumin 2.3 L 3.2-4.8 g/dL Thyroid Stimulating Hormone (TSH) 0.69 0.55-4.78 uIU/mL Blood Gas Specimen Type Arterial Blood Gas Sample Site Left radial Blood Gas Patient Temperature 37.0 Arterial Blood Date Drawn [id number] Arterial Blood pH 7.475 H 7.350-7.450 Arterial Blood Partial Pressure CO2 39.0 35.0-48.0 mmHg Arterial Blood Partial Pressure O2 70.4 L 83.0-108.0 mmHg Arterial Blood HCO3 28.1 H 21.0-28.0 mmol/L Arterial Blood Oxygen Saturation 93.5 L 94.0-98.0 % Arterial Blood Base Excess 4.2 H -2.0-3.0 mmol/L Arterial Blood Oxyhemoglobin 92.7 L 94.0-98.0 % Arterial Blood Carboxyhemoglobin 0.4 L 0.5-1.5 % Arterial Blood Methemoglobin 0.5 0.0-1.5 % Ganesh Test Modified Blood Gas Total Hemoglobin 7.50 L 13.5-17.5 g/dL Blood Gas Set Respiration Rate 18.0 Blood Gas Modality Vent - ac FiO2 % 100.0 Blood Gas Tidal Volume 500.0 Blood Gas PEEP or CPAP 5.0 Urine Color Light-yellow Yellow Urine Clarity Clear Clear Urine pH 5.5 5.0-9.0 Urine Specific [place] 1.027 1.001-1.035 Urine Protein 1+ H Negative Urine Ketones Trace Negative Urine Blood 1+ H Negative /uL Urine Nitrite Negative Negative Urine Bilirubin Negative Negative Urine Urobilinogen Normal Negative mg/dL Urine Leukocyte Esterase Negative Negative /uL Urine RBC 12 0 - 3 /hpf Urine Microscopic WBC 4 H 0-3 /HPF Urine Squamous Epithelial Cells Few <5 /hpf Urine Bacteria None seen None Seen /hpf Urine Glucose 2+ H Normal mg/dL Urine Opiates Screen Pos NEGATIVE Urine Fentanyl Screen Neg NEGATIVE Urine Barbiturates Screen Neg NEGATIVE Urine Phencyclidine Screen Neg NEGATIVE Urine Amphetamines Screen Neg NEGATIVE Urine Benzodiazepines Screen Pos NEGATIVE Urine Cocaine Screen Neg NEGATIVE Urine Cannabinoids Screen Neg NEGATIVE Influenza Type A Antigen Negative Negative Influenza Type B Antigen Negative Negative SARS-CoV-2 Antigen (Rapid) Negative NEGATIVE Magnesium Level 1.9 1.6-2.6 mg/dL Triglycerides Level 109 < 150 mg/dL Cholesterol Level 88 < 200 mg/dL LDL Cholesterol 48 < 100 mg/dL HDL Cholesterol 24 L 40-59 mg/dL Test 04/21/24 22:40 04/21/24 22:25 Range/Units Urine Hyaline Casts Few 0 - 2 /lpf Prothrombin Time 13.9 H 9.3-11.8 sec Prothrombin Time INR 1.35 H 0.9-1.15 Activated Partial Thromboplast Time 32.1 24.5-34.5 SEC B-Type Natriuretic Peptide 359.89 0-100 pg/mL Lipase 15 12-53 U/L Salicylates Level < 3.0 -30 mg/dL Acetaminophen Level < 2.0 L 10.0-20.0 UG/ML Plasma/Serum Blood Alcohol < 3.0 <10 mg/dL Microbiology Date/Time Source Procedure Growth Status 04/22/24 03:32 Nose MRSA Screen - Final Complete Assessment Coma Hypoxic encephalopathy Metabolic encephalopathy Toxic encephalopathy Cardiopulmonary arrest Respiratory failure Plan/Recommendation Monitoring Supportive treatment EEG Follow-up [facility] ICU care Respiratory support/vent management Stabilize vitals/pressor drip Oxygen GI prophylaxis/pantoprazole More recommendation per clinical course Prognosis: Guarded Critical care time spent is 45 minutes This medical document was created using an electronic medical record system with [employer] dictation system. Although this document has been carefully reviewed, there may still be some phonetic and typographical errors. These areas are purely typographical due to imperfections of the software programs, and do not reflect any compromise in the patient's medical care. Plan discussed with: Other KELY FARMER MD Apr 22, 2024 21:19
[2024-04-22] MEDS ORDERED: PANTOPRAZOLE 40 MG/10 ML VIAL INJ IV SCH (22:00)
[2024-04-23] VITALS (103 sets, daily range): BP systolic 86–187; BP diastolic 48–81; PULSE 58–98; RESP 15–20; TEMP 96.6–100.6; O2SAT 79–100
[2024-04-23 05:17] LABS: Eosinophils # (auto) 0.1 10 ^3/uL (0-0.8); Mean Corpuscular Volume 90.7 fL (80.0-100.0); Monocytes # (auto) 0.5 10 ^3/uL (0-1.3); Neutrophils # (auto) 10.4 10 ^3/uL (1.6-8.6); White Blood Cell 12.2 10^3/uL (4.4-10.8)
[2024-04-23 05:19] LABS: Basophils # (auto) 0.1 10 ^3/uL (0-0.2); Basophils % (auto) 0.7 % (0.0-2.0); Eosinophils % (auto) 0.6 % (0.0-7.0); Hematocrit 27.5 % (41.0-53.0); Hemoglobin 8.9 g/dL (13.5-17.5); Lymphocytes # (auto) 1.1 10 ^3/uL (0.4-5.4); Lymphocytes % (auto) 9.4 % (10.0-50.0); Mean Corpuscular Hemoglobin 29.4 pg (28.0-32.0); Mean Corpuscular Hgb Conc. 32.4 g/dL (32.0-36.0); Monocytes % (auto) 4.1 % (0.0-12.0); Neutrophils % (auto) 85.2 % (37.0-80.0); Platelet Count (auto) 531 10^3/uL (140-450); Red Blood Cells 3.04 10^6/uL (4.5-5.90); Red Cell Distribution Width 16.5 % (11.8-14.3)
[2024-04-23 05:28] LABS: Alanine Aminotransferase 23 U/L (7-40); Alkaline Phosphatase 100 U/L (46-116); Anion Gap 9 (5-15); Aspartate Aminotransferase 27 U/L (13-40); BUN/Creatinine Ratio 16.4 (10.0-20.0); Blood Urea Nitrogen 10 mg/dL (9-23); Carbon Dioxide 28 mmol/L (20-31); Chloride 106 mmol/L (98-107); Sodium 143 mmol/L (136-145)
[2024-04-23 05:42] LABS: Albumin 2.7 g/dL (3.2-4.8); Bilirubin, Total 0.2 mg/dL (0.2-1.0); Calcium 8.4 mg/dL (8.7-10.4); Glucose 131 mg/dL (74-106); Potassium 3.4 mmol/L (3.5-5.1); Total Protein 4.8 g/dL (5.7-8.2)
--- NOTE | 2024-04-23 05:48 | DVH ---
EXAM: XR Chest, 1 View CLINICAL INDICATION: intubated TECHNIQUE: Frontal view of the chest. COMPARISON: XY CHEST PORTABLE on DOS: 04/22/24, XY CHEST PORTABLE on DOS: 04/21/24, XY CHEST XRAY 1 V IEW on DOS: 04/20/24 FINDINGS: LUNGS AND PLEURAL SPACES: Pulmonary congestion and edema, greater on the right. Pneumonia can not b e excluded. No pneumothorax. HEART: Unremarkable. No cardiomegaly. MEDIASTINUM: Unremarkable. Normal mediastinal contour. BONES/JOINTS: Unremarkable. No acute fracture. TUBES, LINES AND DEVICES: Right internal jugular central venous catheter tip in the superior vena c may. The endotracheal tube (ETT) is in satisfactory position. Enteric tube tip in the stomach. OTHER FINDINGS: . IMPRESSION: Pulmonary congestion and edema, greater on the right. Pneumonia can not be excluded.
[2024-04-23 07:13] LABS: Base Excess 2.4 mmol/L (-2.0-3.0)
[2024-04-23] MEDS ORDERED: ENOXAPARIN SOD 40 MG/0.4 ML SYRINGE SC SCH (10:00)
[2024-04-23] MEDS: POTASSIUM CHL 20MEQ/100ML 100 ML IV ONE (11:04)
[2024-04-23] MEDS: FUROSEMIDE 20 MG/2 ML VIAL IV SCH (11:04)
--- NOTE | 2024-04-23 12:32 | DVH ---
EXAM: CT HEAD WITHOUT CONTRAST HISTORY: ALOC COMPARISON: CT HEAD WITHOUT CONTRAST on DOS: 04/21/24, CT HEAD WITHOUT CONTRAST on DOS: 08/29/22 TECHNIQUE: Axial images of the head were obtained and reformatted in coronal and sagittal planes. All CT scans at this medical facility are performed using dose modulation techniques as appropriate t o a performed exam including the following: Automated exposure control was utilized; adjustment of th e MA and/or KV according to patient size; and use of iterative reconstruction technique. CT Dose: CTDI volume is 57.04 mGy. Dose-length product is 1010.0 mGy*cm FINDINGS: There is no evidence of acute intracranial hemorrhage, mass, mass effect midline shift. There is no h ydrocephalus or extra-axial fluid collection. Zuniga-white matter differentiation is maintained. There is opacification of the bilateral mastoid air cells. Paranasal sinuses are clear. The calvari um is intact. IMPRESSION: 1. No acute intracranial process. HS:Y
--- NOTE | 2024-04-23 14:00 | DVHPN2 ---
Progress Note Date Seen: Apr 23, 2024 Resident Creating Document: REY SMITH RESIDENT Has the PT tested + for MRSA If YES, has PT been informed?: No Medical Necessity Reason Pt with a Central, PICC or Fol: Yes The following are medically ne: Central Line, Stone Catheter Reason for stone catheter: Bladder Retention/Obstruc, Strict I&O, Total Immobilization Subjective Review of Systems Patient seen and examined at bedside. Intubated and sedated With continuous intermittent suction Presence of coffee-ground suction via NG tube No bowel movement in last 2 days Lower GI bleed On pressor Family present at bedside. No any other new night events. Objective vital signs Vital Sign Date Time Temp Pulse Resp B/P (MAP) Pulse Ox O2 Delivery O2 Flow Rate FiO2 04/23/24 12:52 124/68 04/23/24 12:18 80 18 95 100 04/23/24 08:00 Mechanical Ventilator+ 04/23/24 06:15 99.0 210.2 Total Intake and Output 04/22/24 04/22/24 04/23/24 15:00 23:00 07:00 Intake Total 786.414 ml 1191.166 ml 434.444 ml Output Total 550 ml 700 ml Balance 786.414 ml 641.166 ml -265.556 ml medications Current Medications Medications Dose Ordered Sig/Darryl Route Start Time Stop Time Status Last Admin Dose Admin Propofol 100 ml @ 2.106 mls/ hr Q24H IV 04/21/24 22:45 04/23/24 09:54 14.742 MLS/HR Midazolam HCl 50 ml @ 1 mls/hr Q24H IV 04/21/24 23:15 04/23/24 07:47 5 MLS/HR Vancomycin HCl 0 ml @ 0 mls/hr UD IV 04/22/24 01:00 Meropenem 50 ml @ 17 mls/hr Q8HR IV 04/22/24 06:00 04/23/24 06:11 17 MLS/HR Fentanyl Citrate 250 ml @ 2.5 mls/hr Q24H IV 04/22/24 07:00 04/23/24 12:52 27.5 MLS/HR Vancomycin HCl 250 ml @ 250 mls/hr Q12H IV 04/22/24 10:00 04/23/24 10:00 250 MLS/HR Diagnostic Test (Pha) 1 strip Q6HR 04/22/24 12:00 04/23/24 12:53 1 STRIP Insulin Human Regular Q6HR SC 04/22/24 12:00 04/23/24 12:00 6 UNITS Dextrose 50 ml UD PRN IV 04/22/24 12:00 Pantoprazole Sodium 50 ml @ 10 mls/hr Q5H IV 04/22/24 18:00 04/23/24 07:48 10 MLS/HR Norepinephrine Bitartrate 250 ml @ 3.75 mls/hr Q24H IV 04/22/24 19:30 04/22/24 19:40 1.875 MLS/HR Enoxaparin Sodium 40 mg DAILY SC 04/23/24 10:00 UNV Furosemide 20 mg DAILY IV 04/23/24 10:00 04/23/24 11:04 20 MG Examination General Appearance: Intubated and sedated Head Exam: Normal inspection Neck Exam: Normal inspection. Non-tender. Normal alignment Pulmonary/Respiratory: Chest non-tender. Crackles right lung zones. No wheezing. Cardiovascular/Chest: Regular rate and rhythm. No murmurs. No JVD. Peripheral Pulses: 2+ Radial (R). 2+ Radial (L). 2+ Pedal (R). 2+ Pedal (L) Abdominal Exam: Normal bowel sounds. Soft. normal abdomen, no visible veins, Nontender. No hepatospenomegaly. No masses Ankle Exam: Negative ankle edema Lower extremities: Negative lower extremity edema Neuro/Mental Status: Intubated and sedated laboratory and microbiology Laboratory Tests 04/23/24 04:37 Test 04/23/24 04:37 Range/Units Serum Glucose 131 #H 74-106 mg/dL Microbiology Date/Time Source Procedure Growth Status 04/22/24 03:32 Nose MRSA Screen - Final Complete 04/22/24 01:40 Voided Urine Urine Culture - Preliminary Resulted 04/21/24 22:25 Blood Blood Culture - Preliminary NO GROWTH AFTER 24 HOURS OF INCUBATION. Resulted Problem List/Assessment/Plan Problem List/Assessment/Plan GI bleed ? Upper GI Multifocal pneumonia Cardiac arrest status post ROSC Questionable colitis Severe hypochromic anemia requiring blood transfusion Hyperammonemia: Improved Metabolic encephalopathy Acute respiratory failure Plan/recommendation Dr Brandon -continue Protonix drip, continue intermittent suction via NG tube -continue follow H&H and transfuse as needed, target hemoglobin greater than 8 mg/dL -we will consider EGD if patient has significant hematemesis or melena. When patient is hemodynamically stable. -caution with anticoagulation -hold off on colonoscopy at this time as patient has no gross lower GI bleed -pending stool culture including C diff. -liver enzymes normalized -ammonia level trending down. -we will continue following this patient. Plan discussed with: Patient, Other (RN) Dietary Evaluation Review Comments: 1. TF Vital High Protein@45ml/hr providing 94 gPro, 1080 kcal in 24 hrs, adj goal rate as tolerated. If on Porpofol, add additional 110 fat kcal in 24 hrs. this two combined feeding will offer pt's needs for pro at 110%, and kcal at 83.8 %. May switch to Glucern@ 45ml/hr after pt is off vent without pressors, 2. TPN per pharmacy if pt has no GI access or no EN feeding option.. 3. If off vent, advance to Diet: 2 gNa CCHO-60, Cardiac, texture as tolerate after passing a speech eval. Expected Outcomes/Goals: improved nutrition status after Drug rehab. REY SMITH RESIDENT Apr 23, 2024 14:00
--- NOTE | 2024-04-23 14:10 | DVHNC2 ---
Procedure - bronchoscopy and bronchial washings indication: pneumonia procedure in detail consent obtained time out per protocol pt placed on Fi02 100% mech ventilation Flexible scope passed through ETT, tracheo=bronchial tree examined. There were no endo-bronchial lesions but mucosa appeared inflamed and edematous. Copious semi-purulent secretions visualized in proximal airways. 20 cc ns used to loosen up these secretions and they were suctioned from the right lung. In the middle of the procedure, however, the Bronch tower Unit ran out of power and visual screen image was lost. procedure was therefore not completed and was terminated. Scope was removed there were no complications, pt maintained sats above 95% through out. sample obtained for gram stain and cx ASHLEY CHILDRESS MD Apr 23, 2024 14:10
[2024-04-23 17:19] LABS: Body Fluid Polymorphonuclear 95 % (0-25); Body Fluid Red Blood Cells 0 CUMM (0-2000); Body Fluid White Blood Cells 460 CUMM (0-200)
--- NOTE | 2024-04-23 19:52 | DVHPN2 ---
Progress Note - Dictate Date Seen: Apr 23, 2024 Has the PT tested + for MRSA If YES, has PT been informed?: No Medical Necessity Reason Pt with a Central, PICC or Fol: Yes The following are medically ne: Central Line, Stone Catheter Reason for stone catheter: Bladder Retention/Obstruc, Strict I&O, Total Immobilization Subjective Mr. Kwon is a 63 years old gentleman with a history of hypertension, diabetes, the patient was seen in the emergency room on 04/20/2024 with a chief complaint of shortness breath, soon after the patient was decided to leave the hospital AMA, he collapsed to the ground and was immediately brought back to the emergency room, patient was found to be pulseless. He was resuscitated in 6 minutes (Code blue called out 04/21/24: 2208, ROSC: 2214) I have seen and examined the patient, discussed with his nurse, he was sedated, on pressor drip, nonresponsive to strong painful stimuli Fentanyl 275 mcg/hour, propofol 35 mcg/minute, Versed 5 mg/hour, levo 1 mcg/minute UDS, 04/21/2024: Opiates Urinalysis, 04/21/2024: WBC: 2, urine leukocyte esterase: Negative ABG, 04/21/2024: Metabolic acidosis ABG, 04/23/2024: Respiratory acidosis WBC/HB/PLT/MCV, 04/21/2024: 27.9/8.4/548/8.4. : 17/6.6/465/90.1 04/23/2024: 12.2/8.9/531/90.7 CMP, 04/22/2024: Unremarkable NH3, 04/22/2024: 38 PT/INR/PTT, 04/21/2024: 13.9/1.35/22.1 Troponin one high sensitivity, 04/22/2024: 84 TG/HDL/LDL/HDL, 04/22/2024: 109/88/48/24 CT head, 04/21/2024: No acute intracranial abnormality CT head, : No acute intracranial process. vital signs Vital Sign Date Time Temp Pulse Resp B/P (MAP) Pulse Ox O2 Delivery O2 Flow Rate FiO2 04/23/24 19:15 99.3 67 18 129/72 (35) 96 210.7 04/23/24 18:18 60 04/23/24 18:00 Mechanical Ventilator+ Total Intake and Output 04/22/24 04/22/24 04/23/24 15:00 23:00 07:00 Intake Total 786.414 ml 1191.166 ml 482.569 ml Output Total 550 ml 700 ml Balance 786.414 ml 641.166 ml -217.431 ml medications Current Medications Medications Dose Ordered Sig/Darryl Route Start Time Stop Time Status Last Admin Dose Admin Propofol 100 ml @ 2.106 mls/ hr Q24H IV 04/21/24 22:45 04/23/24 16:11 14.742 MLS/HR Midazolam HCl 50 ml @ 1 mls/hr Q24H IV 04/21/24 23:15 04/23/24 18:22 5 MLS/HR Vancomycin HCl 0 ml @ 0 mls/hr UD IV 04/22/24 01:00 Meropenem 50 ml @ 17 mls/hr Q8HR IV 04/22/24 06:00 04/23/24 14:48 17 MLS/HR Fentanyl Citrate 250 ml @ 2.5 mls/hr Q24H IV 04/22/24 07:00 04/23/24 12:52 27.5 MLS/HR Vancomycin HCl 250 ml @ 250 mls/hr Q12H IV 04/22/24 10:00 04/23/24 10:00 250 MLS/HR Diagnostic Test (Pha) 1 strip Q6HR 04/22/24 12:00 04/23/24 18:10 1 STRIP Insulin Human Regular Q6HR SC 04/22/24 12:00 04/23/24 18:11 2 UNITS Dextrose 50 ml UD PRN IV 04/22/24 12:00 Pantoprazole Sodium 50 ml @ 10 mls/hr Q5H IV 04/22/24 18:00 04/23/24 14:48 10 MLS/HR Norepinephrine Bitartrate 250 ml @ 3.75 mls/hr Q24H IV 04/22/24 19:30 04/22/24 19:40 1.875 MLS/HR Enoxaparin Sodium 40 mg DAILY SC 04/23/24 10:00 UNV Furosemide 20 mg DAILY IV 04/23/24 10:00 04/23/24 11:04 20 MG objective The patient is well-nourished and well-developed with no distress. The patient is intubated MENTAL STATUS: Subjective CRANIAL NERVES: Pupils are equal, round and nonreactive, 1-2mm. There are weak corneal reflexes and doll's eyes phenomenon. No signs of facial weakness. There are no gagging or coughing reflexes SENSATION: Nonresponsive to strong pain stimuli. MOTOR: Normal tone in the upper and lower extremity. Normal muscle bulk. No fasciculations. No spontaneous movement. REFLEXES: Deep tendon reflexes are symmetrical. No pathological reflexes. CEREBELLAR/COORDINATION: Deferred GAIT/STATION: deferred laboratory and microbiology Laboratory Tests 04/23/24 04:37 Test 04/23/24 04:37 Range/Units Serum Glucose 131 #H 74-106 mg/dL Problem List Coma Hypoxic encephalopathy Metabolic encephalopathy Toxic encephalopathy Cardiopulmonary arrest Respiratory failure Assessment/Plan Monitoring Supportive treatment EEG ICU care Respiratory support/vent management Stabilize vitals/pressor drip Oxygen GI prophylaxis/pantoprazole More recommendation per clinical course This medical document was created using an electronic medical record system with [employer] dictation system. Although this document has been carefully reviewed, there may still be some phonetic and typographical errors. These areas are purely typographical due to imperfections of the software programs, and do not reflect any compromise in the patient's medical care Prognosis guarded Dietary Evaluation Review Comments: 1. TF Vital High Protein@45ml/hr providing 94 gPro, 1080 kcal in 24 hrs, adj goal rate as tolerated. If on Porpofol, add additional 110 fat kcal in 24 hrs. this two combined feeding will offer pt's needs for pro at 110%, and kcal at 83.8 %. May switch to Glucern@ 45ml/hr after pt is off vent without pressors, 2. TPN per pharmacy if pt has no GI access or no EN feeding option.. 3. If off vent, advance to Diet: 2 gNa CCHO-60, Cardiac, texture as tolerate after passing a speech eval. Expected Outcomes/Goals: improved nutrition status after Drug rehab. Plan discussed with: Other Critical Care Time(min): 35 KELY FARMER MD Apr 23, 2024 19:52
--- NOTE | 2024-04-23 20:14 | DVHPNRES ---
Progress Note Date Seen: Apr 23, 2024 Resident Creating Document: SAUL BARRON RESIDENT Has the PT tested + for MRSA If YES, has PT been informed?: No Medical Necessity Reason Pt with a Central, PICC or Fol: Yes The following are medically ne: Central Line, Stone Catheter Reason for stone catheter: Bladder Retention/Obstruc, Strict I&O, Total Immobilization Subjective Review of Systems 63-year-old male , with past medical history of hypertension, type 2 diabetes mellitus, drug abuse (per son , unknown which drugs). The patient presented one week ago toward facility for multifocal pneumonia which was treated and discharged. The patient came back two days ago with similar symptoms complaining of shortness of breath, fatigue and generalized weakness. The patient denied at that time any chest pain, palpitations or any associated symptoms. On previous admission bilateral pleural effusions and scattered areas of partial consolidations and ground-glass opacities likely consistent with multifocal pneumonia were found on CT chest. on 04/20 at night he left AMA. The patient was brought to our ED today after a possible syncopal episode in which he ended up in the ground and found without pulse. Per witness, the patient was found in the ground and was brought immediately to the ED, CPR was started at at 22:08 and ROSC at 22:14. ABG showed PH and 7.34 with a pCO2 54.5 Patient will need to continue under mechanical ventilation , ventilatory settings were adjusted, increasing to a PEEP of 10, respiratory rate: 18, tidal volume: 500, maintain SpO2 greater than 92%. levophed was held due to high blood pressure :180 SBP lines and cath: CVC both 04/21 Stone 04/21: Patient is currently on 20 mEq IV Lasix, today's urine output is - 1L Peripheral 04/21 Drips: Fent propofol versed levophed (held) Prophylaxis: SCD , ( ng showed black secretion) Protonix drip Abdominal distention: Orogastric tube connected to low intermittent succion GI was consulted , EGD When patient is hemodynamically stable. EKG: QT prolongation, sinus rythm CPR until ROSC : 6 minutes I&O: -1L consults: Dietary: skin risk score =/<12 Neurology: to evaluate hypoxic brain injury GI: Lower Gi bleeding ---> s/p transfusion after hb:6.6 Objective vital signs Vital Sign Date Time Temp Pulse Resp B/P (MAP) Pulse Ox O2 Delivery O2 Flow Rate FiO2 04/23/24 20:01 130/70 04/23/24 19:15 99.3 67 18 96 210.7 04/23/24 18:18 60 04/23/24 18:00 Mechanical Ventilator+ Total Intake and Output 04/22/24 04/22/24 04/23/24 15:00 23:00 07:00 Intake Total 786.414 ml 1191.166 ml 482.569 ml Output Total 550 ml 700 ml Balance 786.414 ml 641.166 ml -217.431 ml medications Current Medications Medications Dose Ordered Sig/Darryl Route Start Time Stop Time Status Last Admin Dose Admin Propofol 100 ml @ 2.106 mls/ hr Q24H IV 04/21/24 22:45 04/23/24 20:01 14.742 MLS/HR Midazolam HCl 50 ml @ 1 mls/hr Q24H IV 04/21/24 23:15 04/23/24 18:22 5 MLS/HR Vancomycin HCl 0 ml @ 0 mls/hr UD IV 04/22/24 01:00 Meropenem 50 ml @ 17 mls/hr Q8HR IV 04/22/24 06:00 04/23/24 14:48 17 MLS/HR Fentanyl Citrate 250 ml @ 2.5 mls/hr Q24H IV 04/22/24 07:00 04/23/24 12:52 27.5 MLS/HR Vancomycin HCl 250 ml @ 250 mls/hr Q12H IV 04/22/24 10:00 04/23/24 10:00 250 MLS/HR Diagnostic Test (Pha) 1 strip Q6HR 04/22/24 12:00 04/23/24 18:10 1 STRIP Insulin Human Regular Q6HR SC 04/22/24 12:00 04/23/24 18:11 2 UNITS Dextrose 50 ml UD PRN IV 04/22/24 12:00 Pantoprazole Sodium 50 ml @ 10 mls/hr Q5H IV 04/22/24 18:00 04/23/24 19:00 10 MLS/HR Norepinephrine Bitartrate 250 ml @ 3.75 mls/hr Q24H IV 04/22/24 19:30 04/22/24 19:40 1.875 MLS/HR Enoxaparin Sodium 40 mg DAILY SC 04/23/24 10:00 UNV Furosemide 20 mg DAILY IV 04/23/24 10:00 04/23/24 11:04 20 MG laboratory and microbiology Laboratory Tests 04/23/24 04:37 Test 04/23/24 04:37 Range/Units Serum Glucose 131 #H 74-106 mg/dL Microbiology Date/Time Source Procedure Growth Status 04/22/24 03:32 Nose MRSA Screen - Final Complete 04/22/24 01:40 Voided Urine Urine Culture - Preliminary Resulted 04/21/24 22:25 Blood Blood Culture - Preliminary NO GROWTH AFTER 24 HOURS OF INCUBATION. Resulted Problem List/Assessment/Plan Problem List/Assessment/Plan Neurology: #Acute metabolic/toxic encephalopathy like due to septick shock due to gram+/gram- Multifocal pneumonia #Acute hypoxic encefalopathy likely due to hypoxic brain injury due to cardiad arrest ,PEA #ROSC after 6 minutes #sedated under mechanical ventilation -ICU status -Continue antibiotic -sedation ( fent,versed,propofol) - levophed,held - head CT negative Cardiovascular: #On mechanical ventilation s/p cardiac arrest #Septic shock likely due to gram+/gram- Multifocal pneumonia # PEA #Hypertension # Drug abuse, marijuana, cocaine, methamphetamines #NSTEMI type 2 likely due to ischemic demand due to septic shock?,cardiac arrest? - Bronchoscopy was done today - samples were sent to lab Respiratory: #Acute hypoxic respiratory failure likely due to multifocal pneumonia gram +/ - /anaerobes bacterial pneumonia #Septic shock likely due to above #Mediastinal lymphadenopathy, likely reactive. #Trace bilateral pleural effusions -On mechanical ventilation -IV vancomycin -IV meropenem -ordered pancultures (blood culture, sputum culture, urine cultures and stool culture) Renal: #Hypoalbuminemia #Hyperammonemia #Glucosuria - treat underlying condition Infectious disease: #Septic shock likely due to g+/=/anaerobes multifocal pneumonia #Lactic acidosis in the setting of septic shock - IV antibiotics - Levophed - pancultures Endocrine: Uncontrolled type 2 diabetes a1c>9 - Insulin protocol Skin: - skin risk score<12 Hematology: #Severe anemia due to lower GI hemorrhage s/p transfusion #gi consult #protonix drip #h&h - per GI: no EGD at this time per patient hemodynamic status DVT prophylaxis -SCD case discussed with Critical care, time spent , not including procedures:82 minutes code status: full code Plan discussed with: Other (brother) My Orders My Orders Orders - SAUL BARRON RESIDENT Procedure Category Date Status Time Chest Portable XY 04/23/24 Resulted 04:00 Abg W/ Co-Ox RT 04/23/24 Logged 05:22 Furosemide Injection PHA 04/23/24 In Process (Lasix Injection) 10:00 Body Fluid Culture W/ SORAIDA 04/23/24 In Process GS 13:55 Dietary Evaluation Review Comments: 1. TF Vital High Protein@45ml/hr providing 94 gPro, 1080 kcal in 24 hrs, adj goal rate as tolerated. If on Porpofol, add additional 110 fat kcal in 24 hrs. this two combined feeding will offer pt's needs for pro at 110%, and kcal at 83.8 %. May switch to Glucern@ 45ml/hr after pt is off vent without pressors, 2. TPN per pharmacy if pt has no GI access or no EN feeding option.. 3. If off vent, advance to Diet: 2 gNa CCHO-60, Cardiac, texture as tolerate after passing a speech eval. Expected Outcomes/Goals: improved nutrition status after Drug rehab. Date of Service: Apr 23, 2024 Billing Provider: ASHLEY CHILDRESS MD Common Visit Codes: NOT BILLABLE SAUL BARRON RESIDENT Apr 23, 2024 20:13 ASHLEY CHILDRESS MD Apr 26, 2024 10:57
[2024-04-24] VITALS (102 sets, daily range): BP systolic 88–170; BP diastolic 45–76; PULSE 58–69; RESP 15–20; TEMP 96.6–99.5; O2SAT 88–99
[2024-04-24 05:42] LABS: Basophils # (auto) 0.1 10 ^3/uL (0-0.2); Eosinophils # (auto) 0.1 10 ^3/uL (0-0.8); Eosinophils % (auto) 1.4 % (0.0-7.0); Hemoglobin 8.3 g/dL (13.5-17.5); Lymphocytes # (auto) 1.3 10 ^3/uL (0.4-5.4); Mean Corpuscular Hemoglobin 29.9 pg (28.0-32.0); Mean Corpuscular Hgb Conc. 33.3 g/dL (32.0-36.0); Mean Corpuscular Volume 89.8 fL (80.0-100.0); Monocytes # (auto) 0.3 10 ^3/uL (0-1.3); Monocytes % (auto) 3.4 % (0.0-12.0); Neutrophils # (auto) 5.9 10 ^3/uL (1.6-8.6); Neutrophils % (auto) 77.2 % (37.0-80.0); Platelet Count (auto) 439 10^3/uL (140-450); Red Blood Cells 2.78 10^6/uL (4.5-5.90); White Blood Cell 7.6 10^3/uL (4.4-10.8)
--- NOTE | 2024-04-24 05:45 | DVH ---
CHEST RADIOGRAPH Indication: intubated Technique: Single frontal view of the chest was obtained COMPARISON: XY CHEST PORTABLE on DOS: 04/23/24, XY CHEST PORTABLE on DOS: 04/22/24, XY CHEST PORTABLE o n DOS: 04/21/24, XY CHEST XRAY 1 VIEW on DOS: 04/20/24 FINDINGS: Lines and Tubes: Endotracheal tube, enteric catheter and right central venous catheter in satisfactor y position. Lungs: Multifocal airspace disease. Pleura: No effusion. No pneumothorax. Cardiomediastinal contours: Unremarkable Bones: Unremarkable IMPRESSION: Lines and tubes in satisfactory position. No significant interval change.
[2024-04-24 05:55] LABS: Alanine Aminotransferase 12 U/L (7-40); Alkaline Phosphatase 91 U/L (46-116); Anion Gap 8 (5-15); Aspartate Aminotransferase 16 U/L (13-40); BUN/Creatinine Ratio 11.3 (10.0-20.0); Carbon Dioxide 30 mmol/L (20-31); Chloride 106 mmol/L (98-107); Sodium 144 mmol/L (136-145)
[2024-04-24 05:56] LABS: Bilirubin, Total 0.3 mg/dL (0.2-1.0)
[2024-04-24 06:06] LABS: Albumin 2.3 g/dL (3.2-4.8); Blood Urea Nitrogen 7 mg/dL (9-23); Calcium 7.9 mg/dL (8.7-10.4); Glucose 130 mg/dL (74-106); Total Protein 4.6 g/dL (5.7-8.2)
[2024-04-24 07:39] LABS: Base Excess 3.2 mmol/L (-2.0-3.0)
[2024-04-24] MEDS: POTASSIUM CHLORIDE 60 MEQ, LIDOCAINE 1% (LOCAL ANESTH.) 6 ML in SODIUM CHL 0.9% 500 ML IV ONE (09:45)
[2024-04-24] MEDS ORDERED: CALCIUM CHLOR(10%) 100MG/ML 10ML SYRINGE IV ONE (13:18)
[2024-04-24] MEDS: POTASSIUM CHL 20MEQ/100ML 100 ML IV SCH (13:30)
--- NOTE | 2024-04-24 15:03 | DVHPN2 ---
Subjective discussed with son re code status. pt in sync with vent, on sedation, unable to assess neuro status. titrating down levo. fluid challenge Changes from previous H/P or p: No Changes Objective Vitals Vital Signs Date Time Temp Pulse Resp B/P (MAP) Pulse Ox O2 Delivery O2 Flow Rate FiO2 04/24/24 14:45 99.3 61 19 95/50 (65) 88 210.7 04/24/24 14:07 40 04/24/24 14:00 Mechanical Ventilator+ Intake/Output Intake and Output 04/24/24 07:00 Intake Total 1789.191 ml Output Total 3000 ml Balance -1210.809 ml Intake Oral 0 ml IV Total 1789.191 ml Output Urine Total 3000 ml Medications Current Medications Medications Dose Ordered Sig/Darryl Route Start Time Stop Time Status Last Admin Dose Admin Propofol 100 ml @ 2.106 mls/ hr Q24H IV 04/21/24 22:45 04/24/24 09:13 14.742 MLS/HR Midazolam HCl 50 ml @ 1 mls/hr Q24H IV 04/21/24 23:15 04/24/24 13:29 5 MLS/HR Vancomycin HCl 0 ml @ 0 mls/hr UD IV 04/22/24 01:00 Meropenem 50 ml @ 17 mls/hr Q8HR IV 04/22/24 06:00 04/24/24 14:29 17 MLS/HR Fentanyl Citrate 250 ml @ 2.5 mls/hr Q24H IV 04/22/24 07:00 04/24/24 06:35 25 MLS/HR Vancomycin HCl 250 ml @ 250 mls/hr Q12H IV 04/22/24 10:00 04/24/24 09:14 250 MLS/HR Diagnostic Test (Pha) 1 strip Q6HR 04/22/24 12:00 04/24/24 11:34 1 STRIP Insulin Human Regular Q6HR SC 04/22/24 12:00 04/24/24 11:37 3 UNITS Dextrose 50 ml UD PRN IV 04/22/24 12:00 Pantoprazole Sodium 50 ml @ 10 mls/hr Q5H IV 04/22/24 18:00 04/24/24 12:00 10 MLS/HR Norepinephrine Bitartrate 250 ml @ 3.75 mls/hr Q24H IV 04/22/24 19:30 04/22/24 19:40 1.875 MLS/HR Enoxaparin Sodium 40 mg DAILY SC 04/23/24 10:00 UNV Furosemide 20 mg DAILY IV 04/23/24 10:00 04/23/24 11:04 20 MG Potassium Chloride 100 ml @ 50 mls/hr Q2H IV 04/24/24 13:30 04/24/24 19:29 Laboratory Results Laboratory Tests 04/24/24 04:40 Chemistry Test 04/24/24 04:40 Albumin 2.3 g/dL (3.2-4.8) L Calcium Level 7.9 mg/dL (8.7-10.4) L Total Protein 4.6 g/dL (5.7-8.2) L LFT Test 04/24/24 04:40 Alanine Aminotransferase (ALT) 12 U/L (7-40) Alkaline Phosphatase 91 U/L (46-116) Aspartate Amino Transferase (AST) 16 U/L (13-40) Total Bilirubin 0.3 mg/dL (0.2-1.0) Urinalysis Test 04/21/24 22:40 04/22/24 01:40 Urine Hyaline Casts Few /lpf (0 - 2) Urine Color Light-yellow (Yellow) Urine Clarity Clear (Clear) Urine pH 5.5 (5.0-9.0) Urine Specific [place] 1.027 (1.001-1.035) Urine Protein 1+ (Negative) H Urine Ketones Trace (Negative) Urine Blood 1+ /uL (Negative) H Urine Nitrite Negative (Negative) Urine Bilirubin Negative (Negative) Urine Urobilinogen Normal mg/dL (Negative) Urine Leukocyte Esterase Negative /uL (Negative) Urine RBC 12 /hpf (0 - 3) Urine Microscopic WBC 4 /HPF (0-3) H Urine Squamous Epithelial Cells Few /hpf (<5) Urine Bacteria None seen /hpf (None Seen) Urine Glucose 2+ mg/dL (Normal) H Blood Gas Results Test 04/24/24 07:25 Arterial Blood pH 7.547 (7.350-7.450) FiO2 % 45.0 Microbiology Microbiology Date/Time Source Procedure Growth Status 04/23/24 13:55 Bronchial Washings Gram Stain Pending Resulted 04/23/24 13:55 Bronchial Washings Body Fluid Culture - Preliminary Resulted 04/22/24 03:32 Nose MRSA Screen - Final Complete 04/22/24 01:40 Voided Urine Urine Culture - Final Complete 04/21/24 22:25 Blood Blood Culture - Preliminary NO GROWTH AFTER 48 HOURS OF INCUBATION. Resulted Assessment/Plan Assessment/Plan Neurology: #Acute metabolic/toxic encephalopathy like due to septick shock due to gram+/gram- Multifocal pneumonia #Acute hypoxic encefalopathy likely due to hypoxic brain injury due to cardiad arrest ,PEA #ROSC after 6 minutes #sedated under mechanical ventilation -ICU status -Continue antibiotic -sedation ( fent,versed,propofol) - levophed,held - head CT negative Cardiovascular: #On mechanical ventilation s/p cardiac arrest #Septic shock likely due to gram+/gram- Multifocal pneumonia # PEA #Hypertension # Drug abuse, marijuana, cocaine, methamphetamines #NSTEMI type 2 likely due to ischemic demand due to septic shock?,cardiac arrest? - Bronchoscopy was done today - samples were sent to lab Respiratory: #Acute hypoxic respiratory failure likely due to multifocal pneumonia gram +/ - /anaerobes bacterial pneumonia #Septic shock likely due to above #Mediastinal lymphadenopathy, likely reactive. #Trace bilateral pleural effusions -On mechanical ventilation -IV vancomycin -IV meropenem -ordered pancultures (blood culture, sputum culture, urine cultures and stool culture) Renal: #Hypoalbuminemia #Hyperammonemia #Glucosuria - treat underlying condition Infectious disease: #Septic shock likely due to g+/=/anaerobes multifocal pneumonia #Lactic acidosis in the setting of septic shock - IV antibiotics - Levophed - pancultures Endocrine: Uncontrolled type 2 diabetes a1c>9 - Insulin protocol Skin: - skin risk score<12 Hematology: #Severe anemia due to lower GI hemorrhage s/p transfusion #gi consult #protonix drip #h&h - per GI: no EGD at this time per patient hemodynamic status DVT prophylaxis -SCD critical care time 70 minutes advanced care plan >30 mins full code family pending for DNR after discussion with mother Plan discussed with: Patient My Orders Orders - ARIELLE WOODSON MD Procedure Category Date Status Time Potassium Chl PHA 04/24/24 In Process 20meq/100ml 13:30 Date of Service: Apr 24, 2024 Billing Provider: ARIELLE WOODSON MD Common Visit Codes: 73416-QPPIQLIH CARE 30-74 MIN Secondary Visit Codes: 01664-[id number] CARE PLAN 30 MINUTES ARIELLE WOODSON MD Apr 24, 2024 15:03
--- NOTE | 2024-04-24 18:08 | DVHPN2 ---
Progress Note - Dictate Date Seen: Apr 24, 2024 Has the PT tested + for MRSA If YES, has PT been informed?: No Medical Necessity Reason Pt with a Central, PICC or Fol: Yes The following are medically ne: Central Line, Stone Catheter Reason for stone catheter: Bladder Retention/Obstruc, Strict I&O, Total Immobilization Subjective No new complaints Patient is still intubated sedated NG tube output is minimal coffee-ground ; hemoglobin stable at 8.3 FiO2 40% peep of five Hemodynamically stable vital signs Vital Sign Date Time Temp Pulse Resp B/P (MAP) Pulse Ox O2 Delivery O2 Flow Rate FiO2 04/24/24 17:48 62 18 95/52 (66) 96 40 04/24/24 17:30 99.1 210.4 04/24/24 16:00 Mechanical Ventilator+ Total Intake and Output 04/23/24 04/23/24 04/24/24 15:00 23:00 07:00 Intake Total 602.936 ml 1131.319 ml 654.936 ml Output Total 2100 ml 900 ml Balance 602.936 ml -968.681 ml -245.064 ml medications Current Medications Medications Dose Ordered Sig/Darryl Route Start Time Stop Time Status Last Admin Dose Admin Propofol 100 ml @ 2.106 mls/ hr Q24H IV 04/21/24 22:45 04/24/24 15:59 14.742 MLS/HR Midazolam HCl 50 ml @ 1 mls/hr Q24H IV 04/21/24 23:15 04/24/24 13:29 5 MLS/HR Vancomycin HCl 0 ml @ 0 mls/hr UD IV 04/22/24 01:00 Meropenem 50 ml @ 17 mls/hr Q8HR IV 04/22/24 06:00 04/24/24 14:29 17 MLS/HR Fentanyl Citrate 250 ml @ 2.5 mls/hr Q24H IV 04/22/24 07:00 04/24/24 15:58 25 MLS/HR Vancomycin HCl 250 ml @ 250 mls/hr Q12H IV 04/22/24 10:00 04/24/24 09:14 250 MLS/HR Diagnostic Test (Pha) 1 strip Q6HR 04/22/24 12:00 04/24/24 17:37 1 STRIP Insulin Human Regular Q6HR SC 04/22/24 12:00 04/24/24 11:37 3 UNITS Dextrose 50 ml UD PRN IV 04/22/24 12:00 Pantoprazole Sodium 50 ml @ 10 mls/hr Q5H IV 04/22/24 18:00 04/24/24 16:16 10 MLS/HR Norepinephrine Bitartrate 250 ml @ 3.75 mls/hr Q24H IV 04/22/24 19:30 04/22/24 19:40 1.875 MLS/HR Enoxaparin Sodium 40 mg DAILY SC 04/23/24 10:00 UNV Furosemide 20 mg DAILY IV 04/23/24 10:00 04/23/24 11:04 20 MG Potassium Chloride 100 ml @ 50 mls/hr Q2H IV 04/24/24 13:30 04/24/24 19:29 objective General Appearance: Intubated and sedated Head Exam: Normal inspection Pulmonary/Respiratory: Chest non-tender. Crackles right lung zones. No wheezing. Cardiovascular/Chest: Regular rate and rhythm. No murmurs. No JVD. Abdominal Exam: Normal bowel sounds. Soft. normal abdomen, no visible veins, Nontender. No hepatospenomegaly. No masses Lower extremities: Negative lower extremity edema laboratory and microbiology Laboratory Tests 04/24/24 04:40 Test 04/24/24 04:40 Range/Units Serum Glucose 130 H 74-106 mg/dL Problems(with codes): (1) Upper GI bleed (2) Multifocal pneumonia (3) Respiratory distress (4) Hypoxia (5) Respiratory failure (6) Cardiopulmonary arrest (7) Diabetes mellitus with hyperglycemia Prognosis Plan Patient is currently on an IV Protonix drip If the H&H is stable tomorrow we will DC the drip and change him to Protonix 40 IV q.12 hours There is a plan for possible CPAP trial in the next 24-48 hours Continue supportive care for now Monitor labs I will follow up patient with you He is on broad-spectrum antibiotics Dietary Evaluation Review Comments: 1. TF Vital High Protein@45ml/hr providing 94 gPro, 1080 kcal in 24 hrs, adj goal rate as tolerated. If on Porpofol, add additional 110 fat kcal in 24 hrs. this two combined feeding will offer pt's needs for pro at 110%, and kcal at 83.8 %. May switch to Glucern@ 45ml/hr after pt is off vent without pressors, 2. TPN per pharmacy if pt has no GI access or no EN feeding option.. 3. If off vent, advance to Diet: 2 gNa CCHO-60, Cardiac, texture as tolerate after passing a speech eval. Expected Outcomes/Goals: improved nutrition status after Drug rehab. Plan discussed with: Other (STEPHANIE Nurse) DURGA VALLE MD Apr 24, 2024 18:07
--- NOTE | 2024-04-24 21:52 | DVHPN2 ---
Progress Note - Dictate Date Seen: Apr 24, 2024 Has the PT tested + for MRSA If YES, has PT been informed?: No Medical Necessity Reason Pt with a Central, PICC or Fol: Yes The following are medically ne: Central Line, Stone Catheter Reason for stone catheter: Bladder Retention/Obstruc, Strict I&O, Total Immobilization Subjective Mr. Kwon is a 63 years old gentleman with a history of hypertension, diabetes, the patient was seen in the emergency room on 04/20/2024 with a chief complaint of shortness breath, soon after the patient was decided to leave the hospital AMA, he collapsed to the ground and was immediately brought back to the emergency room, patient was found to be pulseless. He was resuscitated in 6 minutes (Code blue called out 04/21/24: 2208, ROSC: 2214) I have seen and examined the patient, discussed with his nurse, he is sedated, responsive to strong painful stimuli Fentanyl 275 mcg/hour, propofol 35 mcg/minute, Versed 5 mg/hour, UDS, 04/21/2024: Opiates Urinalysis, 04/21/2024: WBC: 2, urine leukocyte esterase: Negative ABG, 04/21/2024: Metabolic acidosis ABG, 04/23/2024: Respiratory acidosis WBC/HB/PLT/MCV, 04/21/2024: 27.9/8.4/548/8.4. : 17/6.6/465/90.1 04/23/2024: 12.2/8.9/531/90.7 CMP, 04/22/2024: Unremarkable NH3, 04/22/2024: 38 PT/INR/PTT, 04/21/2024: 13.9/1.35/22.1 Troponin one high sensitivity, 04/22/2024: 84 TG/HDL/LDL/HDL, 04/22/2024: 109/88/48/24 CT head, 04/21/2024: No acute intracranial abnormality CT head, : No acute intracranial process. vital signs Vital Sign Date Time Temp Pulse Resp B/P (MAP) Pulse Ox O2 Delivery O2 Flow Rate FiO2 04/24/24 20:48 66 18 100/54 (69) 96 40 04/24/24 20:00 Mechanical Ventilator+ 3/1/25 18:00 99.3 210.7 Total Intake and Output 04/23/24 04/23/24 04/24/24 15:00 23:00 07:00 Intake Total 602.936 ml 1131.319 ml 654.936 ml Output Total 2100 ml 900 ml Balance 602.936 ml -968.681 ml -245.064 ml medications Current Medications Medications Dose Ordered Sig/Darryl Route Start Time Stop Time Status Last Admin Dose Admin Propofol 100 ml @ 2.106 mls/ hr Q24H IV 04/21/24 22:45 04/24/24 15:59 14.742 MLS/HR Midazolam HCl 50 ml @ 1 mls/hr Q24H IV 04/21/24 23:15 04/24/24 13:29 5 MLS/HR Vancomycin HCl 0 ml @ 0 mls/hr UD IV 04/22/24 01:00 Meropenem 50 ml @ 17 mls/hr Q8HR IV 04/22/24 06:00 04/24/24 14:29 17 MLS/HR Fentanyl Citrate 250 ml @ 2.5 mls/hr Q24H IV 04/22/24 07:00 04/24/24 15:58 25 MLS/HR Vancomycin HCl 250 ml @ 250 mls/hr Q12H IV 04/22/24 10:00 04/24/24 09:14 250 MLS/HR Diagnostic Test (Pha) 1 strip Q6HR 04/22/24 12:00 04/24/24 17:37 1 STRIP Insulin Human Regular Q6HR SC 04/22/24 12:00 04/24/24 11:37 3 UNITS Dextrose 50 ml UD PRN IV 04/22/24 12:00 Pantoprazole Sodium 50 ml @ 10 mls/hr Q5H IV 04/22/24 18:00 04/24/24 16:16 10 MLS/HR Norepinephrine Bitartrate 250 ml @ 3.75 mls/hr Q24H IV 04/22/24 19:30 04/22/24 19:40 1.875 MLS/HR Enoxaparin Sodium 40 mg DAILY SC 04/23/24 10:00 UNV Furosemide 20 mg DAILY IV 04/23/24 10:00 04/23/24 11:04 20 MG objective The patient is well-nourished and well-developed with no distress. The patient is intubated MENTAL STATUS: Subjective CRANIAL NERVES: Pupils are equal, round and nonreactive, 1-2mm. There are weak corneal reflexes and doll's eyes phenomenon. No signs of facial weakness. There are no gagging or coughing reflexes SENSATION: Nonresponsive to strong pain stimuli. MOTOR: Normal tone in the upper and lower extremity. Normal muscle bulk. No fasciculations. No spontaneous movement. REFLEXES: Deep tendon reflexes are symmetrical. No pathological reflexes. CEREBELLAR/COORDINATION: Deferred GAIT/STATION: deferred laboratory and microbiology Laboratory Tests 04/24/24 04:40 Test 04/24/24 04:40 Range/Units Serum Glucose 130 H 74-106 mg/dL Problem List Coma Hypoxic encephalopathy Metabolic encephalopathy Toxic encephalopathy Cardiopulmonary arrest Respiratory failure Assessment/Plan Monitoring Supportive treatment EEG ICU care Respiratory support/vent management Stabilize vitals/pressor drip Oxygen GI prophylaxis/pantoprazole More recommendation per clinical course This medical document was created using an electronic medical record system with [employer] dictation system. Although this document has been carefully reviewed, there may still be some phonetic and typographical errors. These areas are purely typographical due to imperfections of the software programs, and do not reflect any compromise in the patient's medical care Prognosis guarded Dietary Evaluation Review Comments: 1. TF Vital High Protein@45ml/hr providing 94 gPro, 1080 kcal in 24 hrs, adj goal rate as tolerated. If on Porpofol, add additional 110 fat kcal in 24 hrs. this two combined feeding will offer pt's needs for pro at 110%, and kcal at 83.8 %. May switch to Glucern@ 45ml/hr after pt is off vent without pressors, 2. TPN per pharmacy if pt has no GI access or no EN feeding option.. 3. If off vent, advance to Diet: 2 gNa CCHO-60, Cardiac, texture as tolerate after passing a speech eval. Expected Outcomes/Goals: improved nutrition status after Drug rehab. Plan discussed with: Other KELY FARMER MD Apr 24, 2024 21:52
--- NOTE | 2024-04-24 23:12 | DVHINCON2 ---
Date of service: Apr 24, 2024 Referring Physician Cyrus Roblero MD Reason for Consultation AHRF requiring mechanical vent, multifocal pneumonia, pleural effusions. History of Present Illness A 63-year-old man with past medical history of hypertension and type 2 diabetes mellitus who presented to ED on 04/22/24 after a possible syncopal episode - found on the ground without a pulse. Per witness, the patient was found on the ground and was brought immediately to the ED, CPR was started at scene and ROSC was achieved approximately 7 minutes after being on ED bed. Initial labs showed a WBC of 27.9, hemoglobin of 8.4, BNP was grossly unremarkable and lactic acid was 13.6. The patient was started on IV meropenem and vancomycin, received 2 L of fluids bolus and was placed on maintenance fluids at 125cc/hr. Central line was placed at bedside without complications, pt started on propofol drip and midazolam. Patient is admitted for further care, currently on mechanical ventilation. Pulmonary consultation is requested for evaluation and management due to the above findings. Of note, patient was recently admitted to this facility for multifocal pneumonia and discharged, returned for symptoms of pneumonia and left AMA, when he was brought in after syncope and PEA arrest. Review of Systems: 14-point review of systems negative unless otherwise noted above. Past Medical History: Diabetes mellitus and hypertension. Past Surgical History: None Medications: Reviewed. Allergies: No known drug allergies. Family History: No family history of premature CAD. No family history of lung disorders. Social History: Nonsmoker. No alcohol or illicit drug use. Family History: Patient reports no known family medical history. Allergies: Coded Allergies: NO KNOWN ALLERGIES (Unverified , 08/29/22) Home Meds Active Scripts Ondansetron Odt 4MG Tab (ZOFRAN PO) 4 Mg Tb, 4 MG PO Q8HP PRN for 5 Days, #15 TAB ODT TAB-DISSOLVE IN MOUTH, THEN SWALLOW Prov:MARYCARMEN LEDBETTER MD 11/25/22 Reported Medications Simvastatin (Simvastatin) 40 Mg Tab, 1 04/14/24 Loratadine (CLARITIN TABLET) 10 Mg Tb, 1 DAILY 04/14/24 Sucralfate (Sucralfate) 1 Gm Tab, 1 DAILY 04/14/24 Metformin Hydrochloride (Metformin Hcl) 1,000 Mg Tab, 1 04/14/24 Current Medications Current Medications Medications (Trade) Dose Ordered Sig/Darryl Route PRN Reason Start Time Stop Time Status Last Admin Potassium Chloride 100 ml @ 50 mls/hr Q2H IV 04/24/24 13:30 04/24/24 19:29 DC Vital Signs Vital Signs Date Time Temp Pulse Resp B/P (MAP) Pulse Ox O2 Delivery O2 Flow Rate FiO2 04/24/24 23:00 106/50 04/24/24 21:30 99.5 66 18 96 211.1 04/24/24 20:48 40 04/24/24 20:00 Mechanical Ventilator+ Physical Exam Gen.: Patient lying in bed in medical ICU. Sedated, intubated on mechanical ventilator. Head: Normocephalic, atraumatic. Eyes: PERRLA. Ears: Normal external anatomy. Throat: Endotracheal tube and orogastric tube in place. Neck: Supple, trachea midline. Chest: Transmitted breath sounds bilaterally. Decreased air entry bilaterally. No wheezing. Bibasilar crackles. Cardiovascular: Positive S1, positive S2. Regular rate and rhythm. Abdomen: Positive bowel sounds in all 4 quadrants. Soft, nontender, nondistended. : Teresa in place. Normal external genitalia. Rectal: Deferred. Skin: Warm, dry. Intact. Extremities: 2+ radial pulses bilaterally. No lower extremity edema. Neuro: Sedated. Labs/Diagnostic Data Labs Test 04/24/24 16:22 04/24/24 07:25 04/24/24 04:40 04/23/24 21:10 Range/Units POC Glucose 77 70-106 mg/dl Blood Gas Specimen Type Arterial Blood Gas Sample Site Left radial Blood Gas Patient Temperature 37.0 Arterial Blood Date Drawn [id number] Arterial Blood pH 7.547 H 7.350-7.450 Arterial Blood Partial Pressure CO2 30.0 L 35.0-48.0 mmHg Arterial Blood Partial Pressure O2 73.5 L 83.0-108.0 mmHg Arterial Blood HCO3 25.5 21.0-28.0 mmol/L Arterial Blood Oxygen Saturation 94.9 94.0-98.0 % Arterial Blood Base Excess 3.2 H -2.0-3.0 mmol/L Arterial Blood Oxyhemoglobin 94.0 94.0-98.0 % Arterial Blood Carboxyhemoglobin 0.5 0.5-1.5 % Arterial Blood Methemoglobin 0.4 0.0-1.5 % Ganesh Test Modified Blood Gas Total Hemoglobin 8.90 L 13.5-17.5 g/dL Blood Gas Set Respiration Rate 18.0 Blood Gas Modality Vent - ac FiO2 % 45.0 Blood Gas Tidal Volume 500.0 Blood Gas PEEP or CPAP 10.0 White Blood Count 7.6 # 4.4-10.8 10^3/uL Red Blood Count 2.78 L 4.5-5.90 10^6/uL Hemoglobin 8.3 L 13.5-17.5 g/dL Hematocrit 25.0 L 41.0-53.0 % Mean Corpuscular Volume 89.8 80.0-100.0 fL Mean Corpuscular Hemoglobin 29.9 28.0-32.0 pg Mean Corpuscular Hemoglobin Concent 33.3 32.0-36.0 g/dL Red Cell Distribution Width 16.0 H 11.8-14.3 % Platelet Count 439 140-450 10^3/uL Mean Platelet Volume 7.1 6.9-10.8 fL Neutrophils (%) (Auto) 77.2 37.0-80.0 % Lymphocytes (%) (Auto) 17.0 10.0-50.0 % Monocytes (%) (Auto) 3.4 0.0-12.0 % Eosinophils (%) (Auto) 1.4 0.0-7.0 % Basophils (%) (Auto) 1.0 0.0-2.0 % Neutrophils # (Auto) 5.9 1.6-8.6 10 ^3/uL Lymphocytes # (Auto) 1.3 0.4-5.4 10 ^3/uL Monocytes # (Auto) 0.3 0-1.3 10 ^3/uL Eosinophils # (Auto) 0.1 0-0.8 10 ^3/uL Basophils # (Auto) 0.1 0-0.2 10 ^3/uL Nucleated Red Blood Cells 0.0 % Sodium Level 144 136-145 mmol/L Potassium Level 3.0 L 3.5-5.1 mmol/L Chloride Level 106 98-107 mmol/L Carbon Dioxide Level 30 20-31 mmol/L Anion Gap 8 5-15 Blood Urea Nitrogen 7 L 9-23 mg/dL Creatinine 0.62 L 0.700-1.30 mg/dL Glomerular Filtration Rate Calc 107 >90 mL/min BUN/Creatinine Ratio 11.3 10.0-20.0 Serum Glucose 130 H 74-106 mg/dL Calcium Level 7.9 L 8.7-10.4 mg/dL Total Bilirubin 0.3 0.2-1.0 mg/dL Aspartate Amino Transferase (AST) 16 13-40 U/L Alanine Aminotransferase (ALT) 12 7-40 U/L Alkaline Phosphatase 91 46-116 U/L Total Protein 4.6 L 5.7-8.2 g/dL Albumin 2.3 L 3.2-4.8 g/dL Vancomycin Level Trough 13.8 H 5-10 ug/mL Test 04/23/24 14:35 04/23/24 13:55 04/22/24 14:35 04/22/24 08:00 Range/Units Ammonia 14 11-32 umol/L Body Fluid Source Bronchial aspirate Body Fluid WBC (Manual) 460 H 0-200 CUMM Body Fluid RBC (Manual) 0 0-2000 CUMM Body Fluid Mononuclear Cells 5 % Body Fluid Polymorphonuclear Cells 95 H 0-25 % Lactic Acid Level 1.6 0.4-2.0 mmol/L Platelet Estimate Increased Troponin I High Sensitivity 84 *H </=54 ng/L Thyroid Stimulating Hormone (TSH) 0.69 0.55-4.78 uIU/mL Test 04/22/24 01:40 04/22/24 00:39 04/21/24 22:40 04/21/24 22:25 Range/Units Urine Color Light-yellow Yellow Urine Clarity Clear Clear Urine pH 5.5 5.0-9.0 Urine Specific [place] 1.027 1.001-1.035 Urine Protein 1+ H Negative Urine Ketones Trace Negative Urine Blood 1+ H Negative /uL Urine Nitrite Negative Negative Urine Bilirubin Negative Negative Urine Urobilinogen Normal Negative mg/dL Urine Leukocyte Esterase Negative Negative /uL Urine RBC 12 0 - 3 /hpf Urine Microscopic WBC 4 H 0-3 /HPF Urine Squamous Epithelial Cells Few <5 /hpf Urine Bacteria None seen None Seen /hpf Urine Glucose 2+ H Normal mg/dL Urine Opiates Screen Pos NEGATIVE Urine Fentanyl Screen Neg NEGATIVE Urine Barbiturates Screen Neg NEGATIVE Urine Phencyclidine Screen Neg NEGATIVE Urine Amphetamines Screen Neg NEGATIVE Urine Benzodiazepines Screen Pos NEGATIVE Urine Cocaine Screen Neg NEGATIVE Urine Cannabinoids Screen Neg NEGATIVE Influenza Type A Antigen Negative Negative Influenza Type B Antigen Negative Negative SARS-CoV-2 Antigen (Rapid) Negative NEGATIVE Magnesium Level 1.9 1.6-2.6 mg/dL Triglycerides Level 109 < 150 mg/dL Cholesterol Level 88 < 200 mg/dL LDL Cholesterol 48 < 100 mg/dL HDL Cholesterol 24 L 40-59 mg/dL Urine Hyaline Casts Few 0 - 2 /lpf Prothrombin Time 13.9 H 9.3-11.8 sec Prothrombin Time INR 1.35 H 0.9-1.15 Activated Partial Thromboplast Time 32.1 24.5-34.5 SEC B-Type Natriuretic Peptide 359.89 0-100 pg/mL Lipase 15 12-53 U/L Salicylates Level < 3.0 -30 mg/dL Acetaminophen Level < 2.0 L 10.0-20.0 UG/ML Plasma/Serum Blood Alcohol < 3.0 <10 mg/dL Microbiology Date/Time Source Procedure Growth Status 04/23/24 13:55 Bronchial Washings Gram Stain Pending Resulted 04/23/24 13:55 Bronchial Washings Body Fluid Culture - Preliminary Resulted 04/22/24 03:32 Nose MRSA Screen - Final Complete 04/22/24 01:40 Voided Urine Urine Culture - Final Complete 04/21/24 22:25 Blood Blood Culture - Preliminary NO GROWTH AFTER 72 HOURS OF INCUBATION. Resulted Assessment Impression: Acute hypoxic respiratory failure likely due to multifocal pneumonia On mechanical ventilator Acute metabolic/toxic encephalopathy Multifocal pneumonia Cardiac arrest, s/p ROSC Septic shock Hypertension Polysubstance abuse NSTEMI type 2 Mediastinal lymphadenopathy, likely reactive. Trace bilateral pleural effusions Atelectasis Lactic acidosis Severe anemia due to lower GI hemorrhage s/p transfusion Diabetes mellitus type 2 Plan: s/p intubation on mechanical ventilator. CXR image and report reviewed. Devices in place. Multifocal airspace disease. ABG reviewed, notable for alkalemia. On AC mode; RR 18, VT 500, PEEP 8, FiO2 40% Decrease PEEP to 5 cm H2O Titrate FIO2 to keep O2 saturation above 90%. VAP bundle. Daily ABG and CXR while intubated Sedate for ventilator synchrony -Versed, Propofol, Fentanyl On pressors for hemodynamic support Levophed 0.5 mcg/min Titrate to keep mean arterial pressure greater than 65 mmHg. Continue antibiotics Protonix drip Monitor renal function. Monitor electrolytes. Supplement as necessary. Monitor ins and outs. GI prophylaxis DVT prophylaxis. Prognosis: Poor given patient's multiple co-morbidities. Condition: Critical Rest of plan per hospitalist and other consultants. A total of 35 minutes of critical care time was spent reviewing the patient record, examining the patient, making a diagnostic and therapeutic plan, discussing this plan with the medical personnel, following up on diagnostic studies and following the patient for clinical stability excluding any and all procedures. At least 50% of this time was spent in direct, [id number] contact. Thank you, Dr. Roblero, for allowing me to participate in this patient's care. Further recommendations will depend on the patient's clinical course. Please do not hesitate to contact me if you have any questions or concerns. This medical document was created using an electronic medical record system with [employer] computerized dictation system. Although these documentations are being carefully reviewed, there may still be some phonetic and typographical changes. The errors are purely typographical, due to imperfection on the software program, and do not reflect any compromise in the patient's medical care. Plan discussed with: Other (MITA Villa/Dr. Roblero) TANYA MONTE MD Apr 24, 2024 23:12
[2024-04-25] VITALS (109 sets, daily range): BP systolic 82–150; BP diastolic 45–70; PULSE 55–71; RESP 10–22; TEMP 97.5–99.1; O2SAT 88–100
[2024-04-25 05:54] LABS: Basophils # (auto) 0.1 10 ^3/uL (0-0.2); Basophils % (auto) 0.9 % (0.0-2.0); Eosinophils # (auto) 0.1 10 ^3/uL (0-0.8); Eosinophils % (auto) 1.8 % (0.0-7.0); Hematocrit 25.7 % (41.0-53.0); Hemoglobin 8.6 g/dL (13.5-17.5); Lymphocytes # (auto) 0.9 10 ^3/uL (0.4-5.4); Lymphocytes % (auto) 15.7 % (10.0-50.0); Mean Corpuscular Hemoglobin 30.1 pg (28.0-32.0); Mean Corpuscular Hgb Conc. 33.6 g/dL (32.0-36.0); Mean Corpuscular Volume 89.7 fL (80.0-100.0); Monocytes # (auto) 0.4 10 ^3/uL (0-1.3); Monocytes % (auto) 6.5 % (0.0-12.0); Neutrophils # (auto) 4.5 10 ^3/uL (1.6-8.6); Neutrophils % (auto) 75.1 % (37.0-80.0); Nucleated Red Blood Cells % 0.1 %; Platelet Count (auto) 386 10^3/uL (140-450); Red Blood Cells 2.86 10^6/uL (4.5-5.90); Red Cell Distribution Width 15.9 % (11.8-14.3)
[2024-04-25 06:20] LABS: Alkaline Phosphatase 97 U/L (46-116); Anion Gap 10 (5-15); Aspartate Aminotransferase 20 U/L (13-40); BUN/Creatinine Ratio 11.9 (10.0-20.0); Bilirubin, Total 0.3 mg/dL (0.2-1.0); Carbon Dioxide 25 mmol/L (20-31); Potassium 3.6 mmol/L (3.5-5.1); Sodium 143 mmol/L (136-145)
[2024-04-25 06:21] LABS: Alanine Aminotransferase < 9 U/L (7-40); Blood Urea Nitrogen 7 mg/dL (9-23); Calcium 7.3 mg/dL (8.7-10.4); Chloride 108 mmol/L (98-107); Glucose 123 mg/dL (74-106)
[2024-04-25 06:22] LABS: Total Protein 4.1 g/dL (5.7-8.2)
--- NOTE | 2024-04-25 11:21 | DVHPN2 ---
Subjective improved iwth fluid, off pressors, however hypotensive again overnight, now back to no pressors. titrating down sedation. will do SAT SBT tomorrow to assess neuro status Changes from previous H/P or p: No Changes Objective Vitals Vital Signs Date Time Temp Pulse Resp B/P (MAP) Pulse Ox O2 Delivery O2 Flow Rate FiO2 04/25/24 10:50 135/71 04/25/24 10:15 97.5 56 18 100 207.5 04/25/24 10:00 60 04/25/24 10:00 Mechanical Ventilator+ Intake/Output Intake and Output 04/25/24 07:00 Intake Total 2915.808 ml Output Total 1200 ml Balance 1715.808 ml Intake Oral 0 ml IV Total 2915.808 ml Output Urine Total 850 ml Gastric Drainage Total 350 ml Medications Current Medications Medications Dose Ordered Sig/Darryl Route Start Time Stop Time Status Last Admin Dose Admin Propofol 100 ml @ 2.106 mls/ hr Q24H IV 04/21/24 22:45 04/25/24 11:19 14.742 MLS/HR Midazolam HCl 50 ml @ 1 mls/hr Q24H IV 04/21/24 23:15 04/25/24 08:01 5 MLS/HR Vancomycin HCl 0 ml @ 0 mls/hr UD IV 04/22/24 01:00 Meropenem 50 ml @ 17 mls/hr Q8HR IV 04/22/24 06:00 04/25/24 06:34 17 MLS/HR Fentanyl Citrate 250 ml @ 2.5 mls/hr Q24H IV 04/22/24 07:00 04/25/24 02:14 22.5 MLS/HR Vancomycin HCl 250 ml @ 250 mls/hr Q12H IV 04/22/24 10:00 04/25/24 09:41 250 MLS/HR Diagnostic Test (Pha) 1 strip Q6HR 04/22/24 12:00 04/25/24 06:36 1 STRIP Insulin Human Regular Q6HR SC 04/22/24 12:00 04/25/24 06:36 2 UNITS Dextrose 50 ml UD PRN IV 04/22/24 12:00 Pantoprazole Sodium 50 ml @ 10 mls/hr Q5H IV 04/22/24 18:00 04/25/24 08:38 10 MLS/HR Norepinephrine Bitartrate 250 ml @ 3.75 mls/hr Q24H IV 04/22/24 19:30 04/22/24 19:40 1.875 MLS/HR Enoxaparin Sodium 40 mg DAILY SC 04/23/24 10:00 UNV Furosemide 20 mg DAILY IV 04/23/24 10:00 04/25/24 09:39 20 MG Laboratory Results Laboratory Tests 04/25/24 05:20 Chemistry Test 04/25/24 05:20 Albumin 2.0 g/dL (3.2-4.8) L Calcium Level 7.3 mg/dL (8.7-10.4) L Total Protein 4.1 g/dL (5.7-8.2) L LFT Test 04/25/24 05:20 Alanine Aminotransferase (ALT) < 9 U/L (7-40) Alkaline Phosphatase 97 U/L (46-116) Aspartate Amino Transferase (AST) 20 U/L (13-40) Total Bilirubin 0.3 mg/dL (0.2-1.0) Urinalysis Test 04/21/24 22:40 04/22/24 01:40 Urine Hyaline Casts Few /lpf (0 - 2) Urine Color Light-yellow (Yellow) Urine Clarity Clear (Clear) Urine pH 5.5 (5.0-9.0) Urine Specific [place] 1.027 (1.001-1.035) Urine Protein 1+ (Negative) H Urine Ketones Trace (Negative) Urine Blood 1+ /uL (Negative) H Urine Nitrite Negative (Negative) Urine Bilirubin Negative (Negative) Urine Urobilinogen Normal mg/dL (Negative) Urine Leukocyte Esterase Negative /uL (Negative) Urine RBC 12 /hpf (0 - 3) Urine Microscopic WBC 4 /HPF (0-3) H Urine Squamous Epithelial Cells Few /hpf (<5) Urine Bacteria None seen /hpf (None Seen) Urine Glucose 2+ mg/dL (Normal) H Blood Gas Results Test 04/25/24 07:47 Arterial Blood pH 7.508 (7.350-7.450) FiO2 % 50.0 Microbiology Microbiology Date/Time Source Procedure Growth Status 04/23/24 13:55 Bronchial Washings Gram Stain Pending Resulted 04/23/24 13:55 Bronchial Washings Body Fluid Culture - Preliminary Resulted 04/22/24 03:32 Nose MRSA Screen - Final Complete 04/22/24 01:40 Voided Urine Urine Culture - Final Complete 04/21/24 22:25 Blood Blood Culture - Preliminary NO GROWTH AFTER 72 HOURS OF INCUBATION. Resulted Assessment/Plan Assessment/Plan Neurology: #Acute metabolic/toxic encephalopathy like due to septick shock due to gram+/gram- Multifocal pneumonia #Acute hypoxic encefalopathy likely due to hypoxic brain injury due to cardiad arrest ,PEA #ROSC after 6 minutes #sedated under mechanical ventilation -ICU status -Continue antibiotic -sedation ( fent,versed,propofol) - levophed,held - head CT negative Cardiovascular: #On mechanical ventilation s/p cardiac arrest #Septic shock likely due to gram+/gram- Multifocal pneumonia # PEA #Hypertension # Drug abuse, marijuana, cocaine, methamphetamines #NSTEMI type 2 likely due to ischemic demand due to septic shock?,cardiac arrest? - Bronchoscopy was done today - samples were sent to lab Respiratory: #Acute hypoxic respiratory failure likely due to multifocal pneumonia gram +/ - /anaerobes bacterial pneumonia #Septic shock likely due to above #Mediastinal lymphadenopathy, likely reactive. #Trace bilateral pleural effusions -On mechanical ventilation -IV vancomycin -IV meropenem -ordered pancultures (blood culture, sputum culture, urine cultures and stool culture) Renal: #Hypoalbuminemia #Hyperammonemia #Glucosuria - treat underlying condition Infectious disease: #Septic shock likely due to g+/=/anaerobes multifocal pneumonia #Lactic acidosis in the setting of septic shock - IV antibiotics - Levophed - pancultures Endocrine: Uncontrolled type 2 diabetes a1c>9 - Insulin protocol Skin: - skin risk score<12 Hematology: #Severe anemia due to lower GI hemorrhage s/p transfusion #gi consult #protonix drip #h&h - per GI: no EGD at this time per patient hemodynamic status DVT prophylaxis -SCD critical care time 47 minutes advanced care plan >30 mins full code family pending for DNR after discussion with mother Plan discussed with: Patient Date of Service: Apr 25, 2024 Billing Provider: ARIELLE WOODSON MD Common Visit Codes: [id number] CARE 30-74 MIN ARIELLE WOODSON MD Apr 25, 2024 11:21
[2024-04-25] MEDS ORDERED: Jevity 1.2 Cal/Fiber 1 Liter GT SCH (11:45)
[2024-04-25] MEDS: NOREPINEPHRINE 8 MG/250ML KIT 250 ML IV SCH (12:30)
--- NOTE | 2024-04-25 14:58 | DVHPN2 ---
Progress Note - Dictate Date Seen: Apr 25, 2024 Has the PT tested + for MRSA If YES, has PT been informed?: No Medical Necessity Reason Pt with a Central, PICC or Fol: Yes The following are medically ne: Central Line, Stone Catheter Reason for stone catheter: Bladder Retention/Obstruc, Strict I&O, Total Immobilization Subjective No new complaints Patient is still intubated sedated No GI bleeding reported, hemoglobin stable at 8.6 FiO2 45% peep of five Hemodynamically stable Sputum culture growing some yeast and rare Gram-positive cocci vital signs Vital Sign Date Time Temp Pulse Resp B/P (MAP) Pulse Ox O2 Delivery O2 Flow Rate FiO2 04/25/24 14:30 98.4 62 16 99/54 (69) 98 209.1 04/25/24 14:00 Mechanical Ventilator+ 45 45 Total Intake and Output 04/24/24 04/24/24 04/25/24 15:00 23:00 07:00 Intake Total 1315.178 ml 716.194 ml 884.436 ml Output Total 425 ml 775 ml Balance 1315.178 ml 291.194 ml 109.436 ml medications Current Medications Medications Dose Ordered Sig/Darryl Route Start Time Stop Time Status Last Admin Dose Admin Propofol 100 ml @ 2.106 mls/ hr Q24H IV 04/21/24 22:45 04/25/24 11:19 14.742 MLS/HR Midazolam HCl 50 ml @ 1 mls/hr Q24H IV 04/21/24 23:15 04/25/24 08:01 5 MLS/HR Vancomycin HCl 0 ml @ 0 mls/hr UD IV 04/22/24 01:00 Meropenem 50 ml @ 17 mls/hr Q8HR IV 04/22/24 06:00 04/25/24 14:19 17 MLS/HR Fentanyl Citrate 250 ml @ 2.5 mls/hr Q24H IV 04/22/24 07:00 04/25/24 12:55 2.5 MLS/HR Vancomycin HCl 250 ml @ 250 mls/hr Q12H IV 04/22/24 10:00 04/25/24 09:41 250 MLS/HR Diagnostic Test (Pha) 1 strip Q6HR 04/22/24 12:00 04/25/24 11:29 1 STRIP Insulin Human Regular Q6HR SC 04/22/24 12:00 04/25/24 06:36 2 UNITS Dextrose 50 ml UD PRN IV 04/22/24 12:00 Enoxaparin Sodium 40 mg DAILY SC 04/23/24 10:00 UNV Furosemide 20 mg DAILY IV 04/23/24 10:00 04/25/24 09:39 20 MG Pantoprazole Sodium 40 mg BID IV 04/25/24 22:00 Enteral Nutritional Formula 1,000 ml 30ML/HR GT 04/25/24 11:45 Norepinephrine Bitartrate 250 ml @ 3.75 mls/hr Q24H IV 04/25/24 12:30 objective General Appearance: Intubated and sedated Head Exam: Normal inspection Pulmonary/Respiratory: Chest non-tender. Crackles right lung zones. No wheezing. Cardiovascular/Chest: Regular rate and rhythm. No murmurs. No JVD. Abdominal Exam: Normal bowel sounds. Soft. normal abdomen, no visible veins, Nontender. No hepatospenomegaly. No masses Lower extremities: Negative lower extremity edema laboratory and microbiology Laboratory Tests 04/25/24 05:20 Test 04/25/24 05:20 Range/Units Serum Glucose 123 H 74-106 mg/dL Problems(with codes): (1) Diabetes mellitus with hyperglycemia (2) Upper GI bleed (3) Hypoxia (4) Electrolyte imbalance (5) Respiratory distress (6) Multifocal pneumonia (7) Respiratory failure (8) Cardiopulmonary arrest Prognosis Plan Supportive care from GI point of view Taper off the IV Protonix drip Change Protonix to 40 mg IV q.12 hours Start enteral tube feedings and advance as tolerated Dietary Evaluation Review Comments: 1. TF Vital High Protein@45ml/hr providing 94 gPro, 1080 kcal in 24 hrs, adj goal rate as tolerated. If on Porpofol, add additional 110 fat kcal in 24 hrs. this two combined feeding will offer pt's needs for pro at 110%, and kcal at 83.8 %. May switch to Glucern@ 45ml/hr after pt is off vent without pressors, 2. TPN per pharmacy if pt has no GI access or no EN feeding option.. 3. If off vent, advance to Diet: 2 gNa CCHO-60, Cardiac, texture as tolerate after passing a speech eval. Expected Outcomes/Goals: improved nutrition status after Drug rehab. Plan discussed with: Other (STEPHANIE Nurse) DURGA VALLE MD Apr 25, 2024 14:57
--- NOTE | 2024-04-25 21:07 | DVHPN2 ---
Progress Note - Dictate Date Seen: Apr 25, 2024 Has the PT tested + for MRSA If YES, has PT been informed?: No Medical Necessity Reason Pt with a Central, PICC or Fol: Yes The following are medically ne: Central Line, Stone Catheter Reason for stone catheter: Bladder Retention/Obstruc, Strict I&O, Total Immobilization Subjective Patient seen and examined at bedside. Sedated, intubated on mechanical ventilator. Overnight events reviewed. vital signs Vital Sign Date Time Temp Pulse Resp B/P (MAP) Pulse Ox O2 Delivery O2 Flow Rate FiO2 04/25/24 19:41 61 18 97/55 (69) 100 50 04/25/24 18:45 99.0 210.2 04/25/24 18:00 Mechanical Ventilator+ Total Intake and Output 04/24/24 04/24/24 04/25/24 15:00 23:00 07:00 Intake Total 1315.178 ml 716.194 ml 884.436 ml Output Total 425 ml 775 ml Balance 1315.178 ml 291.194 ml 109.436 ml medications Current Medications Medications Dose Ordered Sig/Darryl Route Start Time Stop Time Status Last Admin Dose Admin Propofol 100 ml @ 2.106 mls/ hr Q24H IV 04/21/24 22:45 04/25/24 18:00 8.424 MLS/HR Midazolam HCl 50 ml @ 1 mls/hr Q24H IV 04/21/24 23:15 04/25/24 18:00 4 MLS/HR Vancomycin HCl 0 ml @ 0 mls/hr UD IV 04/22/24 01:00 Meropenem 50 ml @ 17 mls/hr Q8HR IV 04/22/24 06:00 04/25/24 14:19 17 MLS/HR Fentanyl Citrate 250 ml @ 2.5 mls/hr Q24H IV 04/22/24 07:00 04/25/24 12:55 2.5 MLS/HR Vancomycin HCl 250 ml @ 250 mls/hr Q12H IV 04/22/24 10:00 04/25/24 09:41 250 MLS/HR Diagnostic Test (Pha) 1 strip Q6HR 04/22/24 12:00 04/25/24 17:25 1 STRIP Insulin Human Regular Q6HR SC 04/22/24 12:00 04/25/24 06:36 2 UNITS Dextrose 50 ml UD PRN IV 04/22/24 12:00 Enoxaparin Sodium 40 mg DAILY SC 04/23/24 10:00 UNV Furosemide 20 mg DAILY IV 04/23/24 10:00 04/25/24 09:39 20 MG Pantoprazole Sodium 40 mg BID IV 04/25/24 22:00 Enteral Nutritional Formula 1,000 ml 30ML/HR GT 04/25/24 11:45 Norepinephrine Bitartrate 250 ml @ 3.75 mls/hr Q24H IV 04/25/24 12:30 objective Gen.: Patient lying in bed in medical ICU. Sedated, intubated on mechanical ventilator. Head: Normocephalic, atraumatic. Eyes: PERRLA. Ears: Normal external anatomy. Throat: Endotracheal tube and orogastric tube in place. Neck: Supple, trachea midline. Chest: Transmitted breath sounds bilaterally. Decreased air entry bilaterally. No wheezing. Bibasilar crackles. Cardiovascular: Positive S1, positive S2. Regular rate and rhythm. Abdomen: Positive bowel sounds in all 4 quadrants. Soft, nontender, nondistended. : Stone in place. Normal external genitalia. Rectal: Deferred. Skin: Warm, dry. Intact. Extremities: 2+ radial pulses bilaterally. No lower extremity edema. Neuro: Sedated. laboratory and microbiology Laboratory Tests 04/25/24 05:20 Test 04/25/24 05:20 Range/Units Serum Glucose 123 H 74-106 mg/dL Assessment/Plan Impression: Acute hypoxic respiratory failure likely due to multifocal pneumonia On mechanical ventilator Acute metabolic/toxic encephalopathy Multifocal pneumonia Cardiac arrest, s/p ROSC Septic shock Hypertension Polysubstance abuse NSTEMI type 2 Mediastinal lymphadenopathy, likely reactive. Trace bilateral pleural effusions Atelectasis Lactic acidosis Severe anemia due to lower GI hemorrhage s/p transfusion Diabetes mellitus type 2 Events: Remains on vent support On AC mode; RR 18, VT 450, PEEP 8, FiO2 50% Increased PEEP, FiO2 requirements Sedated on Propofol, Versed, Fentanyl Tube feeds for nutritional support Off Levophed, hemodynamically stable. Protonix drip Monitor hemoglobin Continue antibiotics ABG reviewed, notable for alkalemia Labs and imaging reviewed. Rest of plan as noted below. Plan: s/p intubation on mechanical ventilator. CXR image and report reviewed. Devices in place. Multifocal airspace disease. On AC mode; RR 18, VT 450, PEEP 8, FiO2 50% Will taper FiO2 down to 45% Titrate FIO2 to keep O2 saturation above 90%. VAP bundle. Daily ABG and CXR while intubated Sedate for ventilator synchrony Pressors if necessary for hemodynamic support Titrate to keep mean arterial pressure greater than 65 mmHg. Continue antibiotics Protonix drip Monitor renal function. Monitor electrolytes. Supplement as necessary. Monitor ins and outs. GI prophylaxis DVT prophylaxis. Prognosis: Poor given patient's multiple co-morbidities. Condition: Critical Rest of plan per hospitalist and other consultants. A total of 35 minutes of critical care time was spent reviewing the patient record, examining the patient, making a diagnostic and therapeutic plan, discussing this plan with the medical personnel, following up on diagnostic studies and following the patient for clinical stability excluding any and all procedures. At least 50% of this time was spent in direct, [id number] contact. Thank you, Dr. Roblero, for allowing me to participate in this patient's care. Further recommendations will depend on the patient's clinical course. Please do not hesitate to contact me if you have any questions or concerns. This medical document was created using an electronic medical record system with [employer] dictation system. Although these documentations are being carefully reviewed, there may still be some phonetic and typographical changes. The errors are purely typographical, due to imperfection on the software program, and do not reflect any compromise in the patient's medical care. Dietary Evaluation Review Comments: 1. TF Vital High Protein@45ml/hr providing 94 gPro, 1080 kcal in 24 hrs, adj goal rate as tolerated. If on Porpofol, add additional 110 fat kcal in 24 hrs. this two combined feeding will offer pt's needs for pro at 110%, and kcal at 83.8 %. May switch to Glucern@ 45ml/hr after pt is off vent without pressors, 2. TPN per pharmacy if pt has no GI access or no EN feeding option.. 3. If off vent, advance to Diet: 2 gNa CCHO-60, Cardiac, texture as tolerate after passing a speech eval. Expected Outcomes/Goals: improved nutrition status after Drug rehab. Plan discussed with: Other (MITA Kay) Critical Care Time(min): 35 TANYA MONTE MD Apr 25, 2024 21:07
[2024-04-25] MEDS: PANTOPRAZOLE 40 MG/10 ML VIAL INJ IV SCH (22:01)
[2024-04-26] VITALS (105 sets, daily range): BP systolic 99–175; BP diastolic 48–89; PULSE 60–114; RESP 11–25; TEMP 97.9–100; O2SAT 96–100
[2024-04-26] MEDS: FLUCONAZOLE 200MG/100ML 100 ML IV SCH (06:08)
--- NOTE | 2024-04-26 07:26 | DVH ---
CLINICAL INFORMATION: Endotracheal Tube Placement Confirmation. TECHNIQUE: Single AP portable chest radiograph was obtained. COMPARISON: XY CHEST PORTABLE on DOS: 04/24/24, XY CHEST PORTABLE on DOS: 04/23/24, XY CHEST PORTABLE on DOS: 04/22/24 FINDINGS: Distal tip of the endotracheal tube is approximately 4.9 cm above the level of the anny, minimally changed. Enteric tube is poorly visualized at its distal aspect due to overlying soft tissue density. Appears to reach the stomach and descend below the [id number] of the exam. Stable satisfactory po sitioning of the right internal jugular central venous catheter. Bilateral airspace opacities, right greater than left, minimally changed no pneumothorax. No other significant interval change IMPRESSION: 1. No significant interval change as detailed above. 2. Stable satisfactory positioning of the endotracheal tube, enteric tube, and right internal jugular central venous catheter.
[2024-04-26 07:55] LABS: Chloride 107 mmol/L (98-107); Sodium 141 mmol/L (136-145)
[2024-04-26 07:56] LABS: Anion Gap 6 (5-15); Carbon Dioxide 28 mmol/L (20-31)
[2024-04-26 08:02] LABS: BUN/Creatinine Ratio 13.3 (10.0-20.0); Blood Urea Nitrogen 8 mg/dL (9-23); Calcium 7.7 mg/dL (8.7-10.4); Glucose 127 mg/dL (74-106); Magnesium 1.7 mg/dL (1.6-2.6); Potassium 3.3 mmol/L (3.5-5.1)
[2024-04-26 08:35] LABS: Base Excess 2.8 mmol/L (-2.0-3.0)
[2024-04-26 09:50] LABS: Basophils # (auto) 0 10 ^3/uL (0-0.2); Basophils % (auto) 0.7 % (0.0-2.0); Eosinophils # (auto) 0.1 10 ^3/uL (0-0.8); Eosinophils % (auto) 1.8 % (0.0-7.0); Hematocrit 27.5 % (41.0-53.0); Lymphocytes % (auto) 21.7 % (10.0-50.0); Mean Corpuscular Hemoglobin 29.4 pg (28.0-32.0); Mean Corpuscular Hgb Conc. 32.6 g/dL (32.0-36.0); Mean Corpuscular Volume 90.4 fL (80.0-100.0); Monocytes # (auto) 0.4 10 ^3/uL (0-1.3); Monocytes % (auto) 8.2 % (0.0-12.0); Neutrophils # (auto) 3.3 10 ^3/uL (1.6-8.6); Neutrophils % (auto) 67.6 % (37.0-80.0); Nucleated Red Blood Cells % 0.1 %; Platelet Count (auto) 386 10^3/uL (140-450); Red Blood Cells 3.04 10^6/uL (4.5-5.90); Red Cell Distribution Width 15.5 % (11.8-14.3); White Blood Cell 4.8 10^3/uL (4.4-10.8)
[2024-04-26] MEDS: POTASSIUM CHL 20MEQ/100ML 100 ML IV ONE (10:21)
--- NOTE | 2024-04-26 12:06 | DVHPNRES ---
Progress Note Date Seen: Apr 26, 2024 Resident Creating Document: SAUL BARRON RESIDENT Has the PT tested + for MRSA If YES, has PT been informed?: No Medical Necessity Reason Pt with a Central, PICC or Fol: Yes The following are medically ne: Central Line, Stone Catheter Reason for stone catheter: Bladder Retention/Obstruc, Strict I&O, Total Immobilization Subjective Review of Systems 63-year-old male patient with past medical hypertension, type 2 diabetes, drug abuse who was brought to the emergency department in april 20 after the patient left the hospital AMA, the patient was found in the parking lot without pulse for which he was started on CPR recovering ROSC 6 minutes after Patient was Admitted to the ICU and placed under mechanical ventilation.CT chest showed Severe multifocal pneumonia , Mediastinal lymphadenopathy likely reactive ,Trace bilateral pleural effusion ,Concentric wall thickening throughout the colon suspicious for infectious/inflammatory colitis . Chest x- ray: Pulmonary congestion/edema. GI was consulted due to Upper GI bleeding status post blood transfusion due to severe anemia 6.6 hemoglobin. Neurology : hypoxemic brain injury, head ct negative. GI: Protonix to 40 mg IV q.12 hours Start enteral tube feedings and advance as tolerated Patient was examined at bedside ABG showed respiratory alkalosis, ventilatory settings were adjusted from 50 to 35 FiO2 , chest x-ray still showing mild congestion for which the Lasix was increased until 40 mg IV, hypokalemia was replaced Patient was started on fluconazole based on recent tracheal respiratory cultures. Regarding the drips patient's propofol drip was held, blood pressure went up for which the patient was started on hydralazine 10 mg p.r.n., regarding sedation the patient will continue fentanyl. CPAP trial tomorrow am CVC Right internal jugular April 21 Stone catheter April 21 Peripheral April 21 I&Os: -2600 Bowel movements: 04/21 Prophylaxis: SCD Protonix drip Objective vital signs Vital Sign Date Time Temp Pulse Resp B/P (MAP) Pulse Ox O2 Delivery O2 Flow Rate FiO2 04/26/24 11:37 82 23 131/74 (93) 98 35 04/26/24 10:00 Mechanical Ventilator+ 04/26/24 09:00 99.3 210.7 Total Intake and Output 04/25/24 04/25/24 04/26/24 15:00 23:00 07:00 Intake Total 628.2294 ml 643.392 ml 465.892 ml Output Total 1300 ml 200 ml Balance 628.2294 ml -656.608 ml 265.892 ml medications Current Medications Medications Dose Ordered Sig/Darryl Route Start Time Stop Time Status Last Admin Dose Admin Propofol 100 ml @ 2.106 mls/ hr Q24H IV 04/21/24 22:45 04/26/24 06:29 8.424 MLS/HR Midazolam HCl 50 ml @ 1 mls/hr Q24H IV 04/21/24 23:15 04/25/24 18:00 4 MLS/HR Vancomycin HCl 0 ml @ 0 mls/hr UD IV 04/22/24 01:00 Meropenem 50 ml @ 17 mls/hr Q8HR IV 04/22/24 06:00 04/26/24 06:09 17 MLS/HR Fentanyl Citrate 250 ml @ 2.5 mls/hr Q24H IV 04/22/24 07:00 04/26/24 03:18 15 MLS/HR Vancomycin HCl 250 ml @ 250 mls/hr Q12H IV 04/22/24 10:00 Hold 04/25/24 22:02 250 MLS/HR Diagnostic Test (Pha) 1 strip Q6HR 04/22/24 12:00 04/26/24 06:08 1 STRIP Insulin Human Regular Q6HR SC 04/22/24 12:00 04/26/24 01:17 2 UNITS Dextrose 50 ml UD PRN IV 04/22/24 12:00 Enoxaparin Sodium 40 mg DAILY SC 04/23/24 10:00 UNV Furosemide 20 mg DAILY IV 04/23/24 10:00 04/26/24 10:20 20 MG Pantoprazole Sodium 40 mg BID IV 04/25/24 22:00 04/26/24 10:20 40 MG Enteral Nutritional Formula 1,000 ml 30ML/HR GT 04/25/24 11:45 Norepinephrine Bitartrate 250 ml @ 3.75 mls/hr Q24H IV 04/25/24 12:30 Fluconazole 100 ml @ 100 mls/hr DAILY IV 04/26/24 06:00 04/26/24 06:08 100 MLS/HR Examination General Appearance: patient on mechanical ventilation, sedation Respiratory: Clear to auscultation, Normal air movement Cardiovascular: Regular rate, Normal S1, Normal S2 Abdominal: hypoactive, distended Extremities: bilateral lower extremity edema, some lacerations in the right knee normal pulses. Skin: Right eyebrow laceration, blisters in the inner tights Neuro: sluggish pupils, reactive laboratory and microbiology Laboratory Tests 04/26/24 06:51 Test 04/26/24 06:51 Range/Units Serum Glucose 127 H 74-106 mg/dL Microbiology Date/Time Source Procedure Growth Status 04/23/24 13:55 Bronchial Washings Gram Stain - Final Resulted 04/23/24 13:55 Bronchial Washings Body Fluid Culture - Preliminary Resulted 04/22/24 03:32 Nose MRSA Screen - Final Complete 04/22/24 01:40 Voided Urine Urine Culture - Final Complete 04/21/24 22:25 Blood Blood Culture - Preliminary NO GROWTH AFTER 72 HOURS OF INCUBATION. Resulted Problem List/Assessment/Plan Problem List/Assessment/Plan Neurology: #Acute metabolic/toxic encephalopathy like due to septick shock due to gram+/gram- Multifocal pneumonia #Acute hypoxic encefalopathy likely due to hypoxic brain injury due to cardiad arrest ,PEA #ROSC after 6 minutes #sedated under mechanical ventilation -ICU status -Continue antibiotic -sedation ( fent,versed,propofol) - levophed,held - head CT negative Cardiovascular: #On mechanical ventilation s/p cardiac arrest #Septic shock likely due to gram+/gram- Multifocal pneumonia # PEA #Hypertension # Drug abuse, marijuana, cocaine, methamphetamines #NSTEMI type 2 likely due to ischemic demand due to septic shock?,cardiac arrest Respiratory: #Acute hypoxic respiratory failure likely due to multifocal pneumonia gram +/ - /anaerobes bacterial pneumonia #Septic shock likely due to above #Mediastinal lymphadenopathy, likely reactive. #Trace bilateral pleural effusions -On mechanical ventilation -IV vancomycin -IV meropenem -ordered pancultures (blood culture, sputum culture, urine cultures and stool culture) Renal: #Hypoalbuminemia #Hyperammonemia #Glucosuria - treat underlying condition Infectious disease: #Septic shock likely due to g+/=/anaerobes multifocal pneumonia #Lactic acidosis in the setting of septic shock - IV antibiotics - Levophed - pancultures Endocrine: Uncontrolled type 2 diabetes a1c>9 - Insulin protocol Skin: - skin risk score<12 Hematology: #Severe anemia due to lower GI hemorrhage s/p transfusion #gi consult #protonix 40 BID #h&h - per GI: no EGD at this time per patient hemodynamic status DVT prophylaxis -SCD case discussed with Critical care, time spent , not including procedures:82 minutes code status: full code Plan discussed with: Other (brother) My Orders My Orders Orders - SAUL BARRON RESIDENT Procedure Category Date Status Time Abg W/ Co-Ox RT 04/26/24 Logged 04:37 Fluconazole PHA 04/26/24 In Process 200mg/100ml (Diflucan 06:00 Dietary Evaluation Review Comments: 1. TF Vital High Protein@45ml/hr providing 94 gPro, 1080 kcal in 24 hrs, adj goal rate as tolerated. If on Porpofol, add additional 110 fat kcal in 24 hrs. this two combined feeding will offer pt's needs for pro at 110%, and kcal at 83.8 %. May switch to Glucern@ 45ml/hr after pt is off vent without pressors, 2. TPN per pharmacy if pt has no GI access or no EN feeding option.. 3. If off vent, advance to Diet: 2 gNa CCHO-60, Cardiac, texture as tolerate after passing a speech eval. Expected Outcomes/Goals: improved nutrition status after Drug rehab. Date of Service: Apr 26, 2024 Billing Provider: JENNIFFER BARAHONA MD Common Visit Codes: [id number] CARE 30-74 MIN, [id number] CARE-EACH +30MIN SAUL BARRON RESIDENT Apr 26, 2024 12:06 JENNIFFER BARAHONA MD Apr 27, 2024 14:41
--- NOTE | 2024-04-26 14:53 | DVHPN2 ---
Progress Note Date Seen: Apr 26, 2024 Resident Creating Document: REY SMITH RESIDENT Has the PT tested + for MRSA If YES, has PT been informed?: No Medical Necessity Reason Pt with a Central, PICC or Fol: Yes The following are medically ne: Central Line, Stone Catheter Reason for stone catheter: Bladder Retention/Obstruc, Strict I&O, Total Immobilization Subjective Review of Systems No new complaints, Still intubated, No GI bleed, hemoglobin stable No diarrhea Objective vital signs Vital Sign Date Time Temp Pulse Resp B/P (MAP) Pulse Ox O2 Delivery O2 Flow Rate FiO2 04/26/24 14:39 83 20 150/76 (100) 98 35 04/26/24 12:30 99.3 210.7 04/26/24 12:00 Mechanical Ventilator+ Total Intake and Output 04/25/24 04/25/24 04/26/24 15:00 23:00 07:00 Intake Total 628.2294 ml 643.392 ml 465.892 ml Output Total 1300 ml 200 ml Balance 628.2294 ml -656.608 ml 265.892 ml medications Current Medications Medications Dose Ordered Sig/Darryl Route Start Time Stop Time Status Last Admin Dose Admin Propofol 100 ml @ 2.106 mls/ hr Q24H IV 04/21/24 22:45 04/26/24 06:29 8.424 MLS/HR Midazolam HCl 50 ml @ 1 mls/hr Q24H IV 04/21/24 23:15 04/25/24 18:00 4 MLS/HR Vancomycin HCl 0 ml @ 0 mls/hr UD IV 04/22/24 01:00 Meropenem 50 ml @ 17 mls/hr Q8HR IV 04/22/24 06:00 04/26/24 14:10 17 MLS/HR Fentanyl Citrate 250 ml @ 2.5 mls/hr Q24H IV 04/22/24 07:00 04/26/24 03:18 15 MLS/HR Vancomycin HCl 250 ml @ 250 mls/hr Q12H IV 04/22/24 10:00 Hold 04/25/24 22:02 250 MLS/HR Diagnostic Test (Pha) 1 strip Q6HR 04/22/24 12:00 04/26/24 12:03 1 STRIP Insulin Human Regular Q6HR SC 04/22/24 12:00 04/26/24 12:08 2 UNITS Dextrose 50 ml UD PRN IV 04/22/24 12:00 Enoxaparin Sodium 40 mg DAILY SC 04/23/24 10:00 UNV Furosemide 20 mg DAILY IV 04/23/24 10:00 04/26/24 10:20 20 MG Pantoprazole Sodium 40 mg BID IV 04/25/24 22:00 04/26/24 10:20 40 MG Enteral Nutritional Formula 1,000 ml 30ML/HR GT 04/25/24 11:45 Norepinephrine Bitartrate 250 ml @ 3.75 mls/hr Q24H IV 04/25/24 12:30 Fluconazole 100 ml @ 100 mls/hr DAILY IV 04/26/24 06:00 04/26/24 06:08 100 MLS/HR Hydralazine HCl 10 mg Q6HP PRN IV 04/26/24 13:30 Examination General Appearance: Intubated and sedated Head Exam: Normal inspection Neck Exam: Normal inspection. Non-tender. Normal alignment Pulmonary/Respiratory: Chest non-tender. Clear bilateral breath sounds Cardiovascular/Chest: Regular rate and rhythm. No murmurs. No JVD. Peripheral Pulses: 2+ Radial (R). 2+ Radial (L). 2+ Pedal (R). 2+ Pedal (L) Abdominal Exam: Normal bowel sounds. Soft. Nontender. No hepatospenomegaly. No masses Ankle Exam: Negative ankle edema Lower extremities: Negative lower extremity edema Neuro/Mental Status: Sedated. laboratory and microbiology Laboratory Tests 04/26/24 06:51 Test 04/26/24 06:51 Range/Units Serum Glucose 127 H 74-106 mg/dL Microbiology Date/Time Source Procedure Growth Status 04/23/24 13:55 Bronchial Washings Gram Stain - Final Resulted 04/23/24 13:55 Bronchial Washings Body Fluid Culture - Preliminary Resulted 04/22/24 03:32 Nose MRSA Screen - Final Complete 04/22/24 01:40 Voided Urine Urine Culture - Final Complete 04/21/24 22:25 Blood Blood Culture - Preliminary NO GROWTH AFTER 72 HOURS OF INCUBATION. Resulted Problem List/Assessment/Plan Problem List/Assessment/Plan GI bleed ? Upper GI Multifocal pneumonia Cardiac arrest status post ROSC Questionable colitis Severe hypochromic anemia requiring blood transfusion Hyperammonemia: Improved Metabolic encephalopathy Acute respiratory failure Plan/recommendation Dr Brandon -continue Protonix 40 mg IV b.i.d., supportive care from GI point of view. -continue follow H&H and transfuse as needed, target hemoglobin greater than 8 mg/dL -we will consider EGD if patient has significant hematemesis or melena. When patient is hemodynamically stable. -caution with anticoagulation -hold off on colonoscopy at this time as patient has no gross lower GI bleed -pending stool culture including C diff. -liver enzymes normalized -ammonia level 14 on 04/23/2024. Repeat level in a.m.. -we will continue following this patient. Plan discussed with: Other (RN) Dietary Evaluation Review Comments: 1. TF Vital High Protein@45ml/hr providing 94 gPro, 1080 kcal in 24 hrs, adj goal rate as tolerated. If on Porpofol, add additional 110 fat kcal in 24 hrs. this two combined feeding will offer pt's needs for pro at 110%, and kcal at 83.8 %. May switch to Glucern@ 45ml/hr after pt is off vent without pressors, 2. TPN per pharmacy if pt has no GI access or no EN feeding option.. 3. If off vent, advance to Diet: 2 gNa CCHO-60, Cardiac, texture as tolerate after passing a speech eval. Expected Outcomes/Goals: improved nutrition status after Drug rehab. REY SMITH RESIDENT Apr 26, 2024 14:53
[2024-04-26] MEDS: VANCOMYCIN 1GM/250ML KIT 250 ML IV SCH (17:13)
[2024-04-26] MEDS: POTASSIUM EFFERVESENT TAB 25 MEQ GT ONE (17:46)
[2024-04-26] MEDS: FUROSEMIDE 40 MG/4 ML VIAL IV ONE (17:47)
--- NOTE | 2024-04-26 22:11 | DVHPN2 ---
Progress Note - Dictate Date Seen: Apr 26, 2024 Has the PT tested + for MRSA If YES, has PT been informed?: No Medical Necessity Reason Pt with a Central, PICC or Fol: Yes The following are medically ne: Central Line, Stone Catheter Reason for stone catheter: Bladder Retention/Obstruc, Strict I&O, Total Immobilization Subjective Mr. Kwon is a 63 years old gentleman with a history of hypertension, diabetes, the patient was seen in the emergency room on 04/20/2024 with a chief complaint of shortness breath, soon after the patient was decided to leave the hospital AMA, he collapsed to the ground and was immediately brought back to the emergency room, patient was found to be pulseless. He was resuscitated in 6 minutes (Code blue called out 04/21/24: 2208, ROSC: 2214) I have seen and examined the patient, discussed with his nurse, he is sedated, but is awake, he follows verbal commands, he was able to move the arms and legs Fentanyl 100 mcg/hour, UDS, 04/21/2024: Opiates Urinalysis, 04/21/2024: WBC: 2, urine leukocyte esterase: Negative ABG, 04/21/2024: Metabolic acidosis ABG, 04/23/2024: Respiratory acidosis WBC/HB/PLT/MCV, 04/21/2024: 27.9/8.4/548/8.4. : 17/6.6/465/90.1 04/23/2024: 12.2/8.9/531/90.7 CMP, 04/22/2024: Unremarkable NH3, 04/22/2024: 38 PT/INR/PTT, 04/21/2024: 13.9/1.35/22.1 Troponin one high sensitivity, 04/22/2024: 84 TG/HDL/LDL/HDL, 04/22/2024: 109/88/48/24 CT head, 04/21/2024: No acute intracranial abnormality CT head, : No acute intracranial process. vital signs Vital Sign Date Time Temp Pulse Resp B/P (MAP) Pulse Ox O2 Delivery O2 Flow Rate FiO2 04/26/24 20:20 87 18 150/82 (104) 99 35 04/26/24 20:00 99.7 211.5 04/26/24 18:00 Mechanical Ventilator+ Total Intake and Output 04/25/24 04/25/24 04/26/24 15:00 23:00 07:00 Intake Total 628.2294 ml 643.392 ml 465.892 ml Output Total 1300 ml 200 ml Balance 628.2294 ml -656.608 ml 265.892 ml medications Current Medications Medications Dose Ordered Sig/Darryl Route Start Time Stop Time Status Last Admin Dose Admin Propofol 100 ml @ 2.106 mls/ hr Q24H IV 04/21/24 22:45 04/26/24 06:29 8.424 MLS/HR Midazolam HCl 50 ml @ 1 mls/hr Q24H IV 04/21/24 23:15 04/25/24 18:00 4 MLS/HR Vancomycin HCl 0 ml @ 0 mls/hr UD IV 04/22/24 01:00 Meropenem 50 ml @ 17 mls/hr Q8HR IV 04/22/24 06:00 04/26/24 21:42 17 MLS/HR Fentanyl Citrate 250 ml @ 2.5 mls/hr Q24H IV 04/22/24 07:00 04/26/24 03:18 15 MLS/HR Diagnostic Test (Pha) 1 strip Q6HR 04/22/24 12:00 04/26/24 17:23 1 STRIP Insulin Human Regular Q6HR SC 04/22/24 12:00 04/26/24 17:42 2 UNITS Dextrose 50 ml UD PRN IV 04/22/24 12:00 Enoxaparin Sodium 40 mg DAILY SC 04/23/24 10:00 UNV Pantoprazole Sodium 40 mg BID IV 04/25/24 22:00 04/26/24 21:42 40 MG Enteral Nutritional Formula 1,000 ml 30ML/HR GT 04/25/24 11:45 Norepinephrine Bitartrate 250 ml @ 3.75 mls/hr Q24H IV 04/25/24 12:30 Fluconazole 100 ml @ 100 mls/hr DAILY IV 04/26/24 06:00 04/26/24 06:08 100 MLS/HR Hydralazine HCl 10 mg Q6HP PRN IV 04/26/24 13:30 Vancomycin HCl 250 ml @ 250 mls/hr Q14H IV 04/26/24 17:00 04/26/24 17:13 250 MLS/HR Furosemide 40 mg DAILY IV 04/27/24 10:00 objective The patient is well-nourished and well-developed with no distress. The patient is intubated MENTAL STATUS: Subjective CRANIAL NERVES: Pupils are equal, round and reactive. There is conjugated eye movement. No signs of facial weakness. There are no gagging or coughing reflexes on Aura care SENSATION: Okay to pinprick and light touch MOTOR: Normal tone in the upper and lower extremity. Normal muscle bulk. No fasciculations. Can move the arms and toes REFLEXES: Deep tendon reflexes are symmetrical. No pathological reflexes. CEREBELLAR/COORDINATION: Deferred GAIT/STATION: deferred laboratory and microbiology Laboratory Tests 04/26/24 06:51 Test 04/26/24 06:51 Range/Units Serum Glucose 127 H 74-106 mg/dL Problem List Coma, resolved Hypoxic encephalopathy Metabolic encephalopathy Toxic encephalopathy Cardiopulmonary arrest Respiratory failure Assessment/Plan Monitoring Supportive treatment EEG ICU care Respiratory support/vent management Stabilize vitals/pressor drip Oxygen GI prophylaxis/pantoprazole Consider CPAP if he is further better More recommendation per clinical course This medical document was created using an electronic medical record system with [employer] computerized dictation system. Although this document has been carefully reviewed, there may still be some phonetic and typographical errors. These areas are purely typographical due to imperfections of the software programs, and do not reflect any compromise in the patient's medical care Prognosis guarded Dietary Evaluation Review Comments: 1. TF Vital High Protein@45ml/hr providing 94 gPro, 1080 kcal in 24 hrs, adj goal rate as tolerated. If on Porpofol, add additional 110 fat kcal in 24 hrs. this two combined feeding will offer pt's needs for pro at 110%, and kcal at 83.8 %. May switch to Glucern@ 45ml/hr after pt is off vent without pressors, 2. TPN per pharmacy if pt has no GI access or no EN feeding option.. 3. If off vent, advance to Diet: 2 gNa CCHO-60, Cardiac, texture as tolerate after passing a speech eval. Expected Outcomes/Goals: improved nutrition status after Drug rehab. Plan discussed with: Other KELY FARMER MD Apr 26, 2024 22:11
[2024-04-26] MEDS: hydrALAZINE HCL 20 MG/ML VL IV PRN (23:16)
[2024-04-27] VITALS (102 sets, daily range): BP systolic 94–183; BP diastolic 53–94; PULSE 72–114; RESP 12–30; TEMP 99.1–100.2; O2SAT 92–100
[2024-04-27 05:13] LABS: Basophils # (auto) 0.1 10 ^3/uL (0-0.2); Eosinophils # (auto) 0 10 ^3/uL (0-0.8); Eosinophils % (auto) 0.6 % (0.0-7.0); Hematocrit 28.7 % (41.0-53.0); Hemoglobin 9.6 g/dL (13.5-17.5); Lymphocytes # (auto) 1.3 10 ^3/uL (0.4-5.4); Mean Corpuscular Hemoglobin 29.5 pg (28.0-32.0); Mean Corpuscular Hgb Conc. 33.3 g/dL (32.0-36.0); Mean Corpuscular Volume 88.7 fL (80.0-100.0); Monocytes # (auto) 0.7 10 ^3/uL (0-1.3); Neutrophils # (auto) 5.3 10 ^3/uL (1.6-8.6); Neutrophils % (auto) 72.4 % (37.0-80.0); Platelet Count (auto) 383 10^3/uL (140-450); Red Blood Cells 3.24 10^6/uL (4.5-5.90); Red Cell Distribution Width 15.8 % (11.8-14.3); White Blood Cell 7.4 10^3/uL (4.4-10.8)
--- NOTE | 2024-04-27 05:13 | DVH ---
EXAM: XR Chest, 1 View CLINICAL INDICATION: intubated TECHNIQUE: Frontal view of the chest. COMPARISON: XY CHEST XRAY 1 VIEW on DOS: 04/26/24, XY CHEST PORTABLE on DOS: 04/24/24, XY CHEST PORTABL E on DOS: 04/23/24, XY CHEST PORTABLE on DOS: 04/22/24, XY CHEST PORTABLE on DOS: 04/21/24 FINDINGS: LUNGS AND PLEURAL SPACES: Patchy airspace disease of the right lung field, likely pneumonia. No pn eumothorax. HEART: Unremarkable. No cardiomegaly. MEDIASTINUM: Unremarkable. Normal mediastinal contour. BONES/JOINTS: Unremarkable. No acute fracture. TUBES, LINES AND DEVICES: Right internal jugular central venous catheter tip in the superior vena c may. The endotracheal tube (ETT) is in satisfactory position. OTHER FINDINGS: . IMPRESSION: Patchy airspace disease of the right lung field, likely pneumonia.
[2024-04-27 05:42] LABS: Alanine Aminotransferase 13 U/L (7-40); Anion Gap 10 (5-15); Aspartate Aminotransferase 30 U/L (13-40); BUN/Creatinine Ratio 16.1 (10.0-20.0); Carbon Dioxide 30 mmol/L (20-31); Chloride 102 mmol/L (98-107); Potassium 3.6 mmol/L (3.5-5.1); Sodium 142 mmol/L (136-145)
[2024-04-27 05:49] LABS: Albumin 2.4 g/dL (3.2-4.8); Alkaline Phosphatase 134 U/L (46-116); Bilirubin, Total 0.3 mg/dL (0.2-1.0); Blood Urea Nitrogen 9 mg/dL (9-23); Calcium 7.8 mg/dL (8.7-10.4); Glucose 165 mg/dL (74-106); Total Protein 4.9 g/dL (5.7-8.2)
[2024-04-27 08:23] LABS: Base Excess 6.7 mmol/L (-2.0-3.0)
[2024-04-27] MEDS: FUROSEMIDE 40 MG/4 ML VIAL IV SCH (09:36)
--- NOTE | 2024-04-27 10:49 | DVHPN2 ---
Progress Note - Dictate Date Seen: Apr 27, 2024 Has the PT tested + for MRSA If YES, has PT been informed?: No Medical Necessity Reason Pt with a Central, PICC or Fol: Yes The following are medically ne: Central Line, Stone Catheter Reason for stone catheter: Bladder Retention/Obstruc, Strict I&O, Total Immobilization Subjective Mr. Kwon is a 63 years old gentleman with a history of hypertension, diabetes, the patient was seen in the emergency room on 04/20/2024 with a chief complaint of shortness breath, soon after the patient was decided to leave the hospital AMA, he collapsed to the ground and was immediately brought back to the emergency room, patient was found to be pulseless. He was resuscitated in 6 minutes (Code blue called out 04/21/24: 2208, ROSC: 2214) I have seen and examined the patient, discussed with his nurse, he is improving, stronger, intubated, but is able to answer questions with head movement, he can move the arms and legs on verbal commands UDS, 04/21/2024: Opiates Urinalysis, 04/21/2024: WBC: 2, urine leukocyte esterase: Negative ABG, 04/21/2024: Metabolic acidosis ABG, 04/23/2024: Respiratory acidosis WBC/HB/PLT/MCV, 04/21/2024: 27.9/8.4/548/8.4. : 17/6.6/465/90.1 04/23/2024: 12.2/8.9/531/90.7 CMP, 04/22/2024: Unremarkable NH3, 04/22/2024: 38 PT/INR/PTT, 04/21/2024: 13.9/1.35/22.1 Troponin one high sensitivity, 04/22/2024: 84 TG/HDL/LDL/HDL, 04/22/2024: 109/88/48/24 Chest x-ray, 04/27/2024: Patchy airspace disease of the right lung field, likely pneumonia CT head, 04/21/2024: No acute intracranial abnormality CT head, : No acute intracranial process. vital signs Vital Sign Date Time Temp Pulse Resp B/P (MAP) Pulse Ox O2 Delivery O2 Flow Rate FiO2 04/27/24 09:42 112 30 140/71 (94) 94 40 04/27/24 08:00 Mechanical Ventilator+ 04/27/24 06:30 99.7 211.5 Total Intake and Output 04/26/24 04/26/24 04/27/24 14:59 22:59 06:59 Intake Total 358.354 ml 381 ml 713 ml Output Total 1800 ml 2300 ml Balance 358.354 ml -1419 ml -1587 ml medications Current Medications Medications Dose Ordered Sig/Darryl Route Start Time Stop Time Status Last Admin Dose Admin Propofol 100 ml @ 2.106 mls/ hr Q24H IV 04/21/24 22:45 04/27/24 09:37 2.106 MLS/HR Midazolam HCl 50 ml @ 1 mls/hr Q24H IV 04/21/24 23:15 04/25/24 18:00 4 MLS/HR Vancomycin HCl 0 ml @ 0 mls/hr UD IV 04/22/24 01:00 Meropenem 50 ml @ 17 mls/hr Q8HR IV 04/22/24 06:00 04/27/24 05:16 17 MLS/HR Fentanyl Citrate 250 ml @ 2.5 mls/hr Q24H IV 04/22/24 07:00 04/26/24 22:46 10 MLS/HR Diagnostic Test (Pha) 1 strip Q6HR 04/22/24 12:00 04/27/24 05:49 1 STRIP Insulin Human Regular Q6HR SC 04/22/24 12:00 04/27/24 05:41 2 UNITS Dextrose 50 ml UD PRN IV 04/22/24 12:00 Enoxaparin Sodium 40 mg DAILY SC 04/23/24 10:00 UNV Pantoprazole Sodium 40 mg BID IV 04/25/24 22:00 04/27/24 09:36 40 MG Enteral Nutritional Formula 1,000 ml 30ML/HR GT 04/25/24 11:45 Norepinephrine Bitartrate 250 ml @ 3.75 mls/hr Q24H IV 04/25/24 12:30 Fluconazole 100 ml @ 100 mls/hr DAILY IV 04/26/24 06:00 04/27/24 09:36 100 MLS/HR Hydralazine HCl 10 mg Q6HP PRN IV 04/26/24 13:30 04/27/24 08:50 10 MG Vancomycin HCl 250 ml @ 250 mls/hr Q14H IV 04/26/24 17:00 04/27/24 06:35 250 MLS/HR Furosemide 40 mg DAILY IV 04/27/24 10:00 04/27/24 09:36 40 MG objective The patient is well-nourished and well-developed with no distress. The patient is intubated MENTAL STATUS: Subjective CRANIAL NERVES: Pupils are equal, round and reactive. There is conjugated eye movement. No signs of facial weakness. There are no gagging or coughing reflexes on Aura care SENSATION: Okay to pinprick and light touch MOTOR: Normal tone in the upper and lower extremity. Normal muscle bulk. No fasciculations. Can move the arms and toes REFLEXES: Deep tendon reflexes are symmetrical. No pathological reflexes. CEREBELLAR/COORDINATION: Deferred GAIT/STATION: deferred laboratory and microbiology Laboratory Tests 04/27/24 04:52 Test 04/27/24 04:52 Range/Units Serum Glucose 165 H 74-106 mg/dL Problem List Coma, resolved Hypoxic encephalopathy Metabolic encephalopathy Toxic encephalopathy Cardiopulmonary arrest Respiratory failure Assessment/Plan Monitoring Supportive treatment EEG ICU care Respiratory support/vent management Stabilize vitals/pressor drip Oxygen GI prophylaxis/pantoprazole Consider CPAP More recommendation per clinical course This medical document was created using an electronic medical record system with [employer] dictation system. Although this document has been carefully reviewed, there may still be some phonetic and typographical errors. These areas are purely typographical due to imperfections of the software programs, and do not reflect any compromise in the patient's medical care Prognosis guarded Dietary Evaluation Review Comments: 1. TF Vital High Protein@45ml/hr providing 94 gPro, 1080 kcal in 24 hrs, adj goal rate as tolerated. If on Porpofol, add additional 110 fat kcal in 24 hrs. this two combined feeding will offer pt's needs for pro at 110%, and kcal at 83.8 %. May switch to Glucern@ 45ml/hr after pt is off vent without pressors, 2. TPN per pharmacy if pt has no GI access or no EN feeding option.. 3. If off vent, advance to Diet: 2 gNa CCHO-60, Cardiac, texture as tolerate after passing a speech eval. Expected Outcomes/Goals: improved nutrition status after Drug rehab. Plan discussed with: Other KELY FARMER MD Apr 27, 2024 10:49
--- NOTE | 2024-04-27 11:10 | MEDREC ---
[facility] ASP Intervention Section I [facility] ASP Intervention: Deescalate AB based on CS (PLEASE CONSIDER DE-ESCALATION BASED ON CULTURE RESULTS) DAMEON MCCABE PHARMACIST Apr 27, 2024 11:10
[2024-04-27 11:22] LABS: % Iron Saturation 12.3 % (20-55)
[2024-04-27] MEDS: POTASSIUM EFFERVESENT TAB 25 MEQ GT ONE (12:17)
[2024-04-27] MEDS: MAGNESIUM SULFATE 1GM/100ML 100 ML IV ONE (12:17)
[2024-04-27] MEDS ORDERED: ACETAMINOPHEN 650 mg PER 20.3 mL UD GT PRN (13:30)
[2024-04-27] MEDS: LIDOCAINE 1% (LOCAL ANESTH.) PF 5ml SDV ID ONE (14:35)
--- NOTE | 2024-04-27 15:00 | DVHPN2 ---
Progress Note - Dictate Date Seen: Apr 27, 2024 Has the PT tested + for MRSA If YES, has PT been informed?: No Medical Necessity Reason Pt with a Central, PICC or Fol: Yes The following are medically ne: Central Line, Stone Catheter Reason for stone catheter: Bladder Retention/Obstruc, Strict I&O, Total Immobilization Subjective No new complaints Patient is still intubated sedated No GI bleeding reported, hemoglobin stable at 8.6 FiO2 40% PEEP 8 Hemodynamically stable Sputum culture growing some yeast and rare Gram-positive cocci No bowel movements for several days vital signs Vital Sign Date Time Temp Pulse Resp B/P (MAP) Pulse Ox O2 Delivery O2 Flow Rate FiO2 04/27/24 14:32 107 20 142/75 (97) 100 40 04/27/24 13:45 99.9 211.8 04/27/24 12:00 Mechanical Ventilator+ Total Intake and Output 04/26/24 04/26/24 04/27/24 15:00 23:00 07:00 Intake Total 249.93 ml 381 ml 691 ml Output Total 1800 ml 2300 ml Balance 249.93 ml -1419 ml -1609 ml medications Current Medications Medications Dose Ordered Sig/Darryl Route Start Time Stop Time Status Last Admin Dose Admin Propofol 100 ml @ 2.106 mls/ hr Q24H IV 04/21/24 22:45 04/27/24 09:37 2.106 MLS/HR Midazolam HCl 50 ml @ 1 mls/hr Q24H IV 04/21/24 23:15 04/25/24 18:00 4 MLS/HR Vancomycin HCl 0 ml @ 0 mls/hr UD IV 04/22/24 01:00 Meropenem 50 ml @ 17 mls/hr Q8HR IV 04/22/24 06:00 04/27/24 14:23 17 MLS/HR Fentanyl Citrate 250 ml @ 2.5 mls/hr Q24H IV 04/22/24 07:00 04/26/24 22:46 10 MLS/HR Diagnostic Test (Pha) 1 strip Q6HR 04/22/24 12:00 04/27/24 12:09 1 STRIP Insulin Human Regular Q6HR SC 04/22/24 12:00 04/27/24 12:31 3 UNITS Dextrose 50 ml UD PRN IV 04/22/24 12:00 Enoxaparin Sodium 40 mg DAILY SC 04/23/24 10:00 UNV Pantoprazole Sodium 40 mg BID IV 04/25/24 22:00 04/27/24 09:36 40 MG Enteral Nutritional Formula 1,000 ml 30ML/HR GT 04/25/24 11:45 Norepinephrine Bitartrate 250 ml @ 3.75 mls/hr Q24H IV 04/25/24 12:30 Fluconazole 100 ml @ 100 mls/hr DAILY IV 04/26/24 06:00 04/27/24 09:36 100 MLS/HR Hydralazine HCl 10 mg Q6HP PRN IV 04/26/24 13:30 04/27/24 08:50 10 MG Vancomycin HCl 250 ml @ 250 mls/hr Q14H IV 04/26/24 17:00 04/27/24 06:35 250 MLS/HR Furosemide 40 mg DAILY IV 04/27/24 10:00 04/27/24 09:36 40 MG Polyethylene Glycol 17 gm DAILY PO 04/28/24 10:00 Acetaminophen 650 mg Q8HPRN PRN GT 04/27/24 13:30 UNV objective General Appearance: Intubated and sedated Head Exam: Normal inspection Pulmonary/Respiratory: Chest non-tender. Crackles right lung zones. No wheezing. Cardiovascular/Chest: Regular rate and rhythm. No murmurs. No JVD. Abdominal Exam: Normal bowel sounds. Soft. normal abdomen, no visible veins, Nontender. No hepatospenomegaly. No masses Lower extremities: Negative lower extremity edema laboratory and microbiology Laboratory Tests 04/27/24 04:52 Test 04/27/24 04:52 Range/Units Serum Glucose 165 H 74-106 mg/dL Problems(with codes): (1) Diabetes mellitus with hyperglycemia (2) Upper GI bleed (3) Hypoxia (4) Electrolyte imbalance (5) Respiratory distress (6) Multifocal pneumonia (7) Cardiopulmonary arrest Prognosis Plan MiraLax 17 g via NG tube daily Fleets enema x1 Increase tube feedings to 40 mL / hr Discussed with STEPHANIE nurse Dietary Evaluation Review Comments: 1. TF Vital High Protein@45ml/hr providing 94 gPro, 1080 kcal in 24 hrs, adj goal rate as tolerated. If on Porpofol, add additional 110 fat kcal in 24 hrs. this two combined feeding will offer pt's needs for pro at 110%, and kcal at 83.8 %. May switch to Glucern@ 45ml/hr after pt is off vent without pressors, 2. TPN per pharmacy if pt has no GI access or no EN feeding option.. 3. If off vent, advance to Diet: 2 gNa CCHO-60, Cardiac, texture as tolerate after passing a speech eval. Expected Outcomes/Goals: improved nutrition status after Drug rehab. Plan discussed with: Other (STEPHANIE Nurse) DURGA VALLE MD Apr 27, 2024 15:00
--- NOTE | 2024-04-27 15:55 | DVHPNRES ---
Progress Note Date Seen: Apr 27, 2024 Resident Creating Document: SAUL BARRON RESIDENT Has the PT tested + for MRSA If YES, has PT been informed?: No Medical Necessity Reason Pt with a Central, PICC or Fol: Yes The following are medically ne: Central Line, Stone Catheter Reason for stone catheter: Bladder Retention/Obstruc, Strict I&O, Total Immobilization Subjective Review of Systems 63-year-old male patient with past medical history of hypertension, type 2 diabetes, drug abuse who was brought to the emergency department in april 20 from the parking lot where the patient had a cardiac arrest 30 minutes after the patient left the hospital AMA. He received CPR recovering ROSC 6 minutes after. Patient in the STEPHANIE, under mechanical ventilation. CT chest showed Severe multifocal pneumonia , Mediastinal lymphadenopathy likely reactive ,trace bilateral pleural effusion ,concentric wall thickening throughout the colon suspicious for infectious/inflammatory colitis . Chest x-ray: Pulmonary congestion/edema. Patient was examined at bedside ,sedated (fentanyl , propofol), magnesium and potassium replaced. PICC line inserted via left basilic vein Nutrition support: Jevity 1.2 W fiber, 30ml/hr CPAP trial tomorrow am Objective vital signs Vital Sign Date Time Temp Pulse Resp B/P (MAP) Pulse Ox O2 Delivery O2 Flow Rate FiO2 04/27/24 15:30 89 18 124/68 (86) 100 40 04/27/24 13:45 99.9 211.8 04/27/24 12:00 Mechanical Ventilator+ Total Intake and Output 04/26/24 04/26/24 04/27/24 15:00 23:00 07:00 Intake Total 249.93 ml 381 ml 691 ml Output Total 1800 ml 2300 ml Balance 249.93 ml -1419 ml -1609 ml medications Current Medications Medications Dose Ordered Sig/Darryl Route Start Time Stop Time Status Last Admin Dose Admin Propofol 100 ml @ 2.106 mls/ hr Q24H IV 04/21/24 22:45 04/27/24 09:37 2.106 MLS/HR Midazolam HCl 50 ml @ 1 mls/hr Q24H IV 04/21/24 23:15 04/25/24 18:00 4 MLS/HR Vancomycin HCl 0 ml @ 0 mls/hr UD IV 04/22/24 01:00 Meropenem 50 ml @ 17 mls/hr Q8HR IV 04/22/24 06:00 04/27/24 14:23 17 MLS/HR Fentanyl Citrate 250 ml @ 2.5 mls/hr Q24H IV 04/22/24 07:00 04/26/24 22:46 10 MLS/HR Diagnostic Test (Pha) 1 strip Q6HR 04/22/24 12:00 04/27/24 12:09 1 STRIP Insulin Human Regular Q6HR SC 04/22/24 12:00 04/27/24 12:31 3 UNITS Dextrose 50 ml UD PRN IV 04/22/24 12:00 Enoxaparin Sodium 40 mg DAILY SC 04/23/24 10:00 UNV Pantoprazole Sodium 40 mg BID IV 04/25/24 22:00 04/27/24 09:36 40 MG Enteral Nutritional Formula 1,000 ml 30ML/HR GT 04/25/24 11:45 Norepinephrine Bitartrate 250 ml @ 3.75 mls/hr Q24H IV 04/25/24 12:30 Fluconazole 100 ml @ 100 mls/hr DAILY IV 04/26/24 06:00 04/27/24 09:36 100 MLS/HR Hydralazine HCl 10 mg Q6HP PRN IV 04/26/24 13:30 04/27/24 08:50 10 MG Vancomycin HCl 250 ml @ 250 mls/hr Q14H IV 04/26/24 17:00 04/27/24 06:35 250 MLS/HR Furosemide 40 mg DAILY IV 04/27/24 10:00 04/27/24 09:36 40 MG Polyethylene Glycol 17 gm DAILY PO 04/28/24 10:00 Acetaminophen 650 mg Q8HPRN PRN GT 04/27/24 13:30 UNV Sodium Chloride 10 ml QSHIFT@10,22 IV 04/27/24 22:00 UNV Examination General Appearance: patient on mechanical ventilation, sedation with propofil and diprivan. Respiratory: Clear to auscultation, Normal air movement Cardiovascular: Regular rate, Normal S1, Normal S2 Abdominal: hypoactive, distended, no bowel movements Extremities: bilateral lower extremity edema, some lacerations in the right knee normal pulses. Skin: Right eyebrow laceration, blisters in the inner tights Neuro: sluggish pupils, reactive laboratory and microbiology Laboratory Tests 04/27/24 04:52 Test 04/27/24 04:52 Range/Units Serum Glucose 165 H 74-106 mg/dL Microbiology Date/Time Source Procedure Growth Status 04/23/24 13:55 Bronchial Washings Gram Stain - Final Complete 04/23/24 13:55 Body Fluid Culture - Final Presumptive Mabel albicans Complete 04/22/24 03:32 Nose MRSA Screen - Final Complete 04/22/24 01:40 Voided Urine Urine Culture - Final Complete 04/21/24 22:25 Blood Blood Culture - Final NO GROWTH AFTER 5 DAYS OF INCUBATION. Complete Labs and/or images reviewed: Labs reviewed by me, Image(s) reviewed by me Problem List/Assessment/Plan Problem List/Assessment/Plan Neurology: #Acute metabolic/toxic encephalopathy like due to septic shock #Acute hypoxic encefalopathy likely due to hypoxic brain injury due to cardiad arrest ,PEA #ROSC after 6 minutes #sedated under mechanical ventilation - sedation ( fent,propofol) - head CT negative - cpap trial am Cardiovascular: #Septic shock likely due to gram+/gram- Multifocal pneumonia # PEA #Hypertension #NSTEMI type 2 - dc antibiotics acute diastolic heart failure: lasix iv Respiratory: #Acute hypoxic respiratory failure likely due to multifocal pneumonia gram +/ - /anaerobes bacterial pneumonia #Septic shock likely due to above #Mediastinal lymphadenopathy, likely reactive. #Trace bilateral pleural effusions - On mechanical ventilation - Cpap trial tomorrow am GI infectious/inflammatory colitis. - IV antibiotic treatment has been completed. - Stone catheter - strict I%O Hematology: #Severe anemia due to lower GI hemorrhage s/p transfusion - Protonix 40 BID - No EGD at this time per patient hemodynamic status Renal: #Hypoalbuminemia #Hyperammonemia,resolved - treat underlying condition Infectious disease: #Septic shock likely due to g+/=/anaerobes multifocal pneumonia #Lactic acidosis in the setting of septic shock - IV antibiotics Endocrine: Uncontrolled type 2 diabetes a1c>9 - Insulin protocol PUD prophylaxis - Protonix 40 BID DVT prophylaxis - SCD Drips: fentanyl propofol line: picc line left arm since 04/28 case discussed with Critical care, time spent , not including procedures:82 minutes code status: full code Plan discussed with: Patient, Other My Orders My Orders Orders - SAUL BARRON RESIDENT Procedure Category Date Status Time Chest Portable XY 04/27/24 Resulted 04:00 Abg W/ Co-Ox RT 04/27/24 Logged 04:00 Dietary Evaluation Review Comments: 1. TF Vital High Protein@45ml/hr providing 94 gPro, 1080 kcal in 24 hrs, adj goal rate as tolerated. If on Porpofol, add additional 110 fat kcal in 24 hrs. this two combined feeding will offer pt's needs for pro at 110%, and kcal at 83.8 %. May switch to Glucern@ 45ml/hr after pt is off vent without pressors, 2. TPN per pharmacy if pt has no GI access or no EN feeding option.. 3. If off vent, advance to Diet: 2 gNa CCHO-60, Cardiac, texture as tolerate after passing a speech eval. Expected Outcomes/Goals: improved nutrition status after Drug rehab. Date of Service: Apr 27, 2024 Billing Provider: JENNIFFER BARAHONA MD Common Visit Codes: 33094-[id number] CARE 30-74 MIN, 01808-[id number] CARE-EACH +30MIN SAUL BARRON RESIDENT Apr 27, 2024 15:55 JENNIFFER BARAHONA MD Apr 28, 2024 15:59
[2024-04-27] MEDS: FLEET ENEMA(ADULT) 135 ML PR ONE (16:43)
[2024-04-27] MEDS: SODIUM CHLOR 0.9% PF (SALINE LOCK) 10ML VIAL/SYR IV SCH (21:30)
[2024-04-28] VITALS (104 sets, daily range): BP systolic 85–188; BP diastolic 51–98; PULSE 56–90; RESP 10–22; TEMP 96.5–99.7; O2SAT 95–100
--- NOTE | 2024-04-28 05:14 | DVH ---
EXAM: XR Chest, 1 View CLINICAL INDICATION: intubated TECHNIQUE: Frontal view of the chest. COMPARISON: XY CHEST PORTABLE on DOS: 04/27/24, XY CHEST XRAY 1 VIEW on DOS: 04/26/24, XY CHEST PORTABL E on DOS: 04/24/24, XY CHEST PORTABLE on DOS: 04/23/24, XY CHEST PORTABLE on DOS: 04/22/24 FINDINGS: LUNGS AND PLEURAL SPACES: Patchy airspace disease in the right lung field, likely pneumonia. No pn eumothorax. HEART: Unremarkable. No cardiomegaly. MEDIASTINUM: Unremarkable. Normal mediastinal contour. BONES/JOINTS: Unremarkable. No acute fracture. TUBES, LINES AND DEVICES: Left peripherally inserted central catheter (PICC) tip in the superior ve na cava. ETT is in proper position. UPPER ABDOMEN: Enteric stomach. OTHER FINDINGS: . IMPRESSION: Patchy airspace disease in the right lung field, likely pneumonia.
--- NOTE | 2024-04-28 05:33 | DVH ---
Exam: US US GUIDED VASCULAR ACCESS Clinical History: For PICC Line Insertion Comparison: None Findings: Targeted sonographic evaluation of the upper extremity vein was obtained utilizing grayscale and colo r Doppler imaging. IMPRESSION: Sonographic assistance for central line placement. Please refer to procedural report for detailed fin dings.
[2024-04-28 05:56] LABS: Basophils # (auto) 0.1 10 ^3/uL (0-0.2); Eosinophils # (auto) 0.1 10 ^3/uL (0-0.8); Eosinophils % (auto) 1.5 % (0.0-7.0); Hematocrit 27.2 % (41.0-53.0); Hemoglobin 9.1 g/dL (13.5-17.5); Lymphocytes # (auto) 1.8 10 ^3/uL (0.4-5.4); Lymphocytes % (auto) 30.1 % (10.0-50.0); Mean Corpuscular Hgb Conc. 33.5 g/dL (32.0-36.0); Mean Corpuscular Volume 89.4 fL (80.0-100.0); Monocytes # (auto) 0.7 10 ^3/uL (0-1.3); Monocytes % (auto) 11.5 % (0.0-12.0); Neutrophils # (auto) 3.3 10 ^3/uL (1.6-8.6); Neutrophils % (auto) 55.9 % (37.0-80.0); Nucleated Red Blood Cells % 0.1 %; Platelet Count (auto) 331 10^3/uL (140-450); Red Blood Cells 3.05 10^6/uL (4.5-5.90); Red Cell Distribution Width 15.5 % (11.8-14.3); White Blood Cell 5.9 10^3/uL (4.4-10.8)
[2024-04-28 06:03] LABS: Alanine Aminotransferase 11 U/L (7-40); Anion Gap 8 (5-15); Aspartate Aminotransferase 29 U/L (13-40); Bilirubin, Total 0.3 mg/dL (0.2-1.0); Chloride 101 mmol/L (98-107); Magnesium 2.2 mg/dL (1.6-2.6); Sodium 142 mmol/L (136-145)
[2024-04-28 06:11] LABS: Albumin 2.5 g/dL (3.2-4.8); Alkaline Phosphatase 116 U/L (46-116); Blood Urea Nitrogen 7 mg/dL (9-23); Calcium 8.2 mg/dL (8.7-10.4); Carbon Dioxide 33 mmol/L (20-31); Glucose 129 mg/dL (74-106); Potassium 3.5 mmol/L (3.5-5.1); Total Protein 5.3 g/dL (5.7-8.2)
--- NOTE | 2024-04-28 09:08 | MEDREC ---
[facility] ASP Intervention Section I [facility] ASP Intervention: Dose optimization(PK/PD) (FOR THE TREATMENT OF PNEUMONIA CAUSED BY DIPTI SPECIES PLEASE CONSIDER THE RECOMMENDED DOSE OF FLUCONAZOLE 400 MG IV ONCE DAILY) DAMEON MCCABE PHARMACIST Apr 28, 2024 09:08
[2024-04-28] MEDS: POLYETHYLENE GLYCOL 17 GM PWDR PO SCH (10:06)
--- NOTE | 2024-04-28 10:46 | DVHPN2 ---
Progress Note - Dictate Date Seen: Apr 28, 2024 Has the PT tested + for MRSA If YES, has PT been informed?: No Medical Necessity Reason Pt with a Central, PICC or Fol: Yes The following are medically ne: Central Line, Stone Catheter Reason for stone catheter: Bladder Retention/Obstruc, Strict I&O, Total Immobilization Subjective Mr. Kwon is a 63 years old gentleman with a history of hypertension, diabetes, the patient was seen in the emergency room on 04/20/2024 with a chief complaint of shortness breath, soon after the patient was decided to leave the hospital AMA, he collapsed to the ground and was immediately brought back to the emergency room, patient was found to be pulseless. He was resuscitated in 6 minutes (Code blue called out 04/21/24: 2208, ROSC: 2214) I have seen and examined the patient, discussed with his nurse, he is intubated, awake, he follows verbal commands, physically looks strong, he can move arms and legs UDS, 04/21/2024: Opiates Urinalysis, 04/21/2024: WBC: 2, urine leukocyte esterase: Negative ABG, 04/21/2024: Metabolic acidosis ABG, 04/23/2024: Respiratory acidosis WBC/HB/PLT/MCV, 04/21/2024: 27.9/8.4/548/8.4. : 17/6.6/465/90.1 04/23/2024: 12.2/8.9/531/90.7 CMP, 04/22/2024: Unremarkable NH3, 04/22/2024: 38 PT/INR/PTT, 04/21/2024: 13.9/1.35/22.1 Troponin one high sensitivity, 04/22/2024: 84 TG/HDL/LDL/HDL, 04/22/2024: 109/88/48/24 Chest x-ray, 04/27/2024: Patchy airspace disease of the right lung field, likely pneumonia CT head, 04/21/2024: No acute intracranial abnormality CT head, : No acute intracranial process. vital signs Vital Sign Date Time Temp Pulse Resp B/P (MAP) Pulse Ox O2 Delivery O2 Flow Rate FiO2 04/28/24 10:07 141/69 3/5/25 10:05 84 19 100 50 04/28/24 08:15 98.6 98.6 04/28/24 06:00 Mechanical Ventilator+ Total Intake and Output 04/27/24 04/27/24 04/28/24 15:00 23:00 07:00 Intake Total 360.18 ml 233.24 ml 269.848 ml Output Total 1375 ml 220 ml 250 ml Balance -1014.82 ml 13.24 ml 19.848 ml medications Current Medications Medications Dose Ordered Sig/Darryl Route Start Time Stop Time Status Last Admin Dose Admin Propofol 100 ml @ 2.106 mls/ hr Q24H IV 04/21/24 22:45 04/28/24 00:01 10.53 MLS/HR Midazolam HCl 50 ml @ 1 mls/hr Q24H IV 04/21/24 23:15 04/25/24 18:00 4 MLS/HR Fentanyl Citrate 250 ml @ 2.5 mls/hr Q24H IV 04/22/24 07:00 04/27/24 21:30 15 MLS/HR Diagnostic Test (Pha) 1 strip Q6HR 04/22/24 12:00 04/27/24 23:53 1 STRIP Insulin Human Regular Q6HR SC 04/22/24 12:00 04/28/24 06:14 2 UNITS Dextrose 50 ml UD PRN IV 04/22/24 12:00 Enoxaparin Sodium 40 mg DAILY SC 04/23/24 10:00 UNV Pantoprazole Sodium 40 mg BID IV 04/25/24 22:00 04/28/24 10:06 40 MG Norepinephrine Bitartrate 250 ml @ 3.75 mls/hr Q24H IV 04/25/24 12:30 Hydralazine HCl 10 mg Q6HP PRN IV 04/26/24 13:30 04/27/24 08:50 10 MG Furosemide 40 mg DAILY IV 04/27/24 10:00 04/28/24 10:07 40 MG Polyethylene Glycol 17 gm DAILY PO 04/28/24 10:00 04/28/24 10:06 17 GM Acetaminophen 650 mg Q8HPRN PRN GT 04/27/24 13:30 Sodium Chloride 10 ml QSHIFT@10,22 IV 04/27/24 22:00 04/28/24 10:06 10 ML Enteral Nutritional Formula 1,000 ml 40ML/HR GT 04/27/24 16:30 Fluconazole 100 ml @ 100 mls/hr DAILY IV 04/28/24 10:00 objective The patient is well-nourished and well-developed with no distress. The patient is intubated MENTAL STATUS: Subjective CRANIAL NERVES: Pupils are equal, round and reactive. There is conjugated eye movement. No signs of facial weakness. There are no gagging or coughing reflexes on Aura care SENSATION: Okay to pinprick and light touch MOTOR: Normal tone in the upper and lower extremity. Normal muscle bulk. No fasciculations. Can move the arms and toes REFLEXES: Deep tendon reflexes are symmetrical. No pathological reflexes. CEREBELLAR/COORDINATION: Deferred GAIT/STATION: deferred laboratory and microbiology Laboratory Tests 04/28/24 05:00 Test 04/28/24 05:00 Range/Units Serum Glucose 129 H 74-106 mg/dL Problem List Coma, resolved Hypoxic encephalopathy Metabolic encephalopathy Toxic encephalopathy Cardiopulmonary arrest Respiratory failure Assessment/Plan Monitoring Supportive treatment EEG [facility] care Respiratory support/vent management Stabilize vitals/pressor drip Oxygen GI prophylaxis/pantoprazole Consider CPAP More recommendation per clinical course This medical document was created using an electronic medical record system with [employer] computerized dictation system. Although this document has been carefully reviewed, there may still be some phonetic and typographical errors. These areas are purely typographical due to imperfections of the software programs, and do not reflect any compromise in the patient's medical care Prognosis poor Dietary Evaluation Review Comments: 1. TF Vital High Protein@45ml/hr providing 94 gPro, 1080 kcal in 24 hrs, adj goal rate as tolerated. If on Porpofol, add additional 110 fat kcal in 24 hrs. this two combined feeding will offer pt's needs for pro at 110%, and kcal at 83.8 %. May switch to Glucern@ 45ml/hr after pt is off vent without pressors, 2. TPN per pharmacy if pt has no GI access or no EN feeding option.. 3. If off vent, advance to Diet: 2 gNa CCHO-60, Cardiac, texture as tolerate after passing a speech eval. Expected Outcomes/Goals: improved nutrition status after Drug rehab. Plan discussed with: Other KELY FARMER MD Apr 28, 2024 10:46
[2024-04-28] MEDS: FLUCONAZOLE 200MG/100ML 100 ML IV SCH (11:00)
[2024-04-28] MEDS ORDERED: VANCOMYCIN PER PHARMACY 0 MG IV SCH (15:45)
[2024-04-28] MEDS: Jevity 1.2 Cal/Fiber 1 Liter GT SCH (16:20)
--- NOTE | 2024-04-28 16:46 | DVHPNRES ---
Progress Note Date Seen: Apr 28, 2024 Resident Creating Document: SAUL BARRON RESIDENT Has the PT tested + for MRSA If YES, has PT been informed?: No Medical Necessity Reason Pt with a Central, PICC or Fol: Yes The following are medically ne: PICC Line, Stone Catheter Reason for stone catheter: Bladder Retention/Obstruc, Strict I&O, Total Immobilization Subjective Review of Systems 63-year-old male patient with past medical history of hypertension, type 2 diabetes, drug abuse who was brought to the emergency department in april 20 from the parking lot where the patient had a cardiac arrest 30 minutes after the patient left the hospital AMA. He received CPR recovering ROSC 6 minutes after. Patient in the [facility], under mechanical ventilation. Chest x-ray without changes since yesterday. CPAP trial tomorrow am continue IV antibiotics and fluconazol . Objective vital signs Vital Sign Date Time Temp Pulse Resp B/P (MAP) Pulse Ox O2 Delivery O2 Flow Rate FiO2 04/28/24 16:32 188/80 04/28/24 16:08 78 20 100 40 04/28/24 16:00 99.7 99.7 04/28/24 14:00 Mechanical Ventilator+ Total Intake and Output 04/27/24 04/27/24 04/28/24 15:00 23:00 07:00 Intake Total 360.18 ml 233.24 ml 276.560 ml Output Total 1375 ml 220 ml 250 ml Balance -1014.82 ml 13.24 ml 26.560 ml medications Current Medications Medications Dose Ordered Sig/Darryl Route Start Time Stop Time Status Last Admin Dose Admin Propofol 100 ml @ 2.106 mls/ hr Q24H IV 04/21/24 22:45 04/28/24 16:28 8.424 MLS/HR Midazolam HCl 50 ml @ 1 mls/hr Q24H IV 04/21/24 23:15 04/25/24 18:00 4 MLS/HR Fentanyl Citrate 250 ml @ 2.5 mls/hr Q24H IV 04/22/24 07:00 04/27/24 21:30 15 MLS/HR Diagnostic Test (Pha) 1 strip Q6HR 04/22/24 12:00 04/28/24 11:08 1 STRIP Insulin Human Regular Q6HR SC 04/22/24 12:00 04/28/24 11:12 2 UNITS Dextrose 50 ml UD PRN IV 04/22/24 12:00 Enoxaparin Sodium 40 mg DAILY SC 04/23/24 10:00 UNV Pantoprazole Sodium 40 mg BID IV 04/25/24 22:00 04/28/24 10:06 40 MG Norepinephrine Bitartrate 250 ml @ 3.75 mls/hr Q24H IV 04/25/24 12:30 Hydralazine HCl 10 mg Q6HP PRN IV 04/26/24 13:30 04/28/24 16:32 10 MG Furosemide 40 mg DAILY IV 04/27/24 10:00 04/28/24 10:07 40 MG Polyethylene Glycol 17 gm DAILY PO 04/28/24 10:00 04/28/24 10:06 17 GM Acetaminophen 650 mg Q8HPRN PRN GT 04/27/24 13:30 Sodium Chloride 10 ml QSHIFT@10,22 IV 04/27/24 22:00 04/28/24 10:06 10 ML Enteral Nutritional Formula 1,000 ml 40ML/HR GT 04/27/24 16:30 04/28/24 16:20 1,000 ML Fluconazole 100 ml @ 100 mls/hr DAILY IV 04/28/24 10:00 04/28/24 13:33 100 MLS/HR Vancomycin HCl 0 ml @ 0 mls/hr UD IV 04/28/24 15:45 UNV Meropenem 50 ml @ 17 mls/hr Q8HR IV 04/28/24 22:00 Examination General Appearance: patient on mechanical ventilation, sedation with propofol and diprivan. Respiratory: Clear to auscultation, Normal air movement Cardiovascular: Regular rate, Normal S1, Normal S2 Abdominal: hypoactive, distended, no bowel movements Extremities: bilateral lower extremity edema, some lacerations in the right knee normal pulses. Skin: Right eyebrow laceration, blisters in the inner tights Neuro: sluggish pupils, reactive laboratory and microbiology Laboratory Tests 04/28/24 05:00 Test 04/28/24 05:00 Range/Units Serum Glucose 129 H 74-106 mg/dL Microbiology Date/Time Source Procedure Growth Status 04/23/24 13:55 Bronchial Washings Gram Stain - Final Complete 04/23/24 13:55 Body Fluid Culture - Final Presumptive Mabel albicans Complete 04/22/24 03:32 Nose MRSA Screen - Final Complete 04/22/24 01:40 Voided Urine Urine Culture - Final Complete 04/21/24 22:25 Blood Blood Culture - Final NO GROWTH AFTER 5 DAYS OF INCUBATION. Complete Labs and/or images reviewed: Labs reviewed by me, Image(s) reviewed by me Problem List/Assessment/Plan Problem List/Assessment/Plan Neurology: #Acute metabolic/toxic encephalopathy like due to septic shock #Acute hypoxic encephalopathy possible hypoxic brain injury due to cardiad arrest ,PEA #ROSC after 6 minutes #sedated under mechanical ventilation - admitted to [facility] - on sedation and mechanical intubation - cpap trial am Cardiovascular: #Septic shock likely due to gram+/gram- Multifocal pneumonia # PEA #Hypertension #NSTEMI type 2 #acute diastolic heart failure - lasix 40 mg IV daily Respiratory: #Acute hypoxic respiratory failure likely due to multifocal pneumonia gram +/ - /anaerobes bacterial pneumonia ?aspiration #Septic shock likely due to above #Mediastinal lymphadenopathy, likely reactive. #Trace bilateral pleural effusions - On mechanical ventilation - Cpap trial tomorrow am GI infectious/inflammatory colitis. - continue IV antibiotics - Stone catheter - strict I%O Hematology: #Severe anemia due to lower GI hemorrhage s/p transfusion - Protonix 40 BID - No EGD at this time per patient hemodynamic status Renal: #Hypoalbuminemia #Hyperammonemia,resolved - treat underlying condition Infectious disease: #Septic shock likely due to g+/=/anaerobes multifocal pneumonia #Lactic acidosis in the setting of septic shock - vancomycin IV - meropenem IV Endocrine: Uncontrolled type 2 diabetes a1c>9 - Insulin protocol PUD prophylaxis - Protonix 40 BID DVT prophylaxis - SCD Drips: fentanyl diprivan line: picc line left arm since 04/28 case discussed with Critical care, time spent , not including procedures:82 minutes including dw family code status: full code Plan discussed with: Other (brother) My Orders My Orders Orders - SAUL BARRON RESIDENT Procedure Category Date Status Time Abg W/ Co-Ox RT 04/28/24 Logged 04:00 Fluconazole PHA 04/28/24 In Process 200mg/100ml (Diflucan 10:00 Comprehensive LAB 04/29/24 Verified Metabolic Panel 04:00 Complete Blood Count LAB 04/29/24 Verified 04:00 Chest Portable XY 04/29/24 Logged 04:00 Abg W/ Co-Ox RT 04/29/24 Logged 04:00 Dietary Evaluation Review Comments: 1. TF Vital High Protein@45ml/hr providing 94 gPro, 1080 kcal in 24 hrs, adj goal rate as tolerated. If on Porpofol, add additional 110 fat kcal in 24 hrs. this two combined feeding will offer pt's needs for pro at 110%, and kcal at 83.8 %. May switch to Glucern@ 45ml/hr after pt is off vent without pressors, 2. TPN per pharmacy if pt has no GI access or no EN feeding option.. 3. If off vent, advance to Diet: 2 gNa CCHO-60, Cardiac, texture as tolerate after passing a speech eval. Expected Outcomes/Goals: improved nutrition status after Drug rehab. Date of Service: Apr 28, 2024 Billing Provider: JENNIFFER BARAHONA MD Common Visit Codes: [id number] CARE 30-74 MIN, [id number] CARE-EACH +30MIN SAUL BARRON RESIDENT Apr 28, 2024 16:46 JENNIFFER BARAHONA MD Apr 29, 2024 11:52
[2024-04-28] MEDS: MEROPENEM 1GM IVPB 50 ML IV ONE (16:55)
[2024-04-28] MEDS: acetaZOLAMIDE SODIUM 500 MG VL IV ONE (16:57)
[2024-04-28] MEDS: VANCOMYCIN 1GM/250ML KIT 250 ML IV SCH (20:19)
[2024-04-28] MEDS: MEROPENEM 1GM IVPB 50 ML IV SCH (21:51)
[2024-04-29] VITALS (101 sets, daily range): BP systolic 82–164; BP diastolic 50–110; PULSE 56–103; RESP 9–33; TEMP 97.7–99.4; O2SAT 93–100
--- NOTE | 2024-04-29 05:47 | DVH ---
EXAM: XR Chest, 1 View CLINICAL INDICATION: intubated TECHNIQUE: Frontal view of the chest. COMPARISON: XY CHEST PORTABLE on DOS: 04/28/24, XY CHEST PORTABLE on DOS: 04/27/24, XY CHEST XRAY 1 VIE W on DOS: 04/26/24, XY CHEST PORTABLE on DOS: 04/24/24, XY CHEST PORTABLE on DOS: 04/23/24 FINDINGS: LUNGS AND PLEURAL SPACES: Patchy airspace disease of the right lung field could be pneumonia. No p neumothorax. HEART: Unremarkable. No cardiomegaly. MEDIASTINUM: Unremarkable. Normal mediastinal contour. BONES/JOINTS: Unremarkable. No acute fracture. TUBES, LINES AND DEVICES: Left peripherally inserted central catheter (PICC) tip in the superior ve na cava. The endotracheal tube (ETT) is in satisfactory position. Enteric tube tip in the stomach. OTHER FINDINGS: . IMPRESSION: Patchy airspace disease of the right lung field could be pneumonia.
[2024-04-29 06:51] LABS: Basophils # (auto) 0.1 10 ^3/uL (0-0.2); Eosinophils # (auto) 0.1 10 ^3/uL (0-0.8); Hemoglobin 8.2 g/dL (13.5-17.5); Mean Corpuscular Hemoglobin 30.7 pg (28.0-32.0); Mean Corpuscular Hgb Conc. 34.3 g/dL (32.0-36.0); Monocytes # (auto) 0.6 10 ^3/uL (0-1.3); Neutrophils % (auto) 47.9 % (37.0-80.0); Platelet Count (auto) 277 10^3/uL (140-450); White Blood Cell 5.3 10^3/uL (4.4-10.8)
[2024-04-29 06:53] LABS: Basophils % (auto) 1.1 % (0.0-2.0); Lymphocytes % (auto) 37.3 % (10.0-50.0); Mean Corpuscular Volume 89.5 fL (80.0-100.0); Monocytes % (auto) 11.7 % (0.0-12.0); Neutrophils # (auto) 2.5 10 ^3/uL (1.6-8.6); Nucleated Red Blood Cells % 0.2 %; Red Blood Cells 2.68 10^6/uL (4.5-5.90); Red Cell Distribution Width 15.7 % (11.8-14.3)
[2024-04-29 06:55] LABS: Alanine Aminotransferase 12 U/L (7-40); Alkaline Phosphatase 111 U/L (46-116); Anion Gap 7 (5-15); BUN/Creatinine Ratio 12.3 (10.0-20.0); Carbon Dioxide 30 mmol/L (20-31); Chloride 104 mmol/L (98-107); Sodium 141 mmol/L (136-145)
[2024-04-29 06:56] LABS: Albumin 2.4 g/dL (3.2-4.8); Aspartate Aminotransferase 23 U/L (13-40); Bilirubin, Total 0.2 mg/dL (0.2-1.0); Blood Urea Nitrogen 8 mg/dL (9-23); Calcium 7.9 mg/dL (8.7-10.4); Glucose 146 mg/dL (74-106); Potassium 2.8 mmol/L (3.5-5.1); Total Protein 5.1 g/dL (5.7-8.2)
[2024-04-29 07:46] LABS: Base Excess 4.8 mmol/L (-2.0-3.0)
[2024-04-29] MEDS: POTASSIUM CHL 20MEQ/100ML 100 ML IV SCH (09:24)
[2024-04-29 09:33] LABS: Base Excess 3.8 mmol/L (-2.0-3.0)
[2024-04-29] MEDS: InsuLIN REG 1unit/0.01ml Soln (100units/ml) SC SCH (12:00)
[2024-04-29] MEDS: ACCU-CHEK COMFORT CURVE STRIP VI SCH (12:00)
[2024-04-29] MEDS ORDERED: DEXTROSE (50%) 50ML SYRG IV PRN (12:00)
--- NOTE | 2024-04-29 13:24 | DVH ---
US BiLat Lower DVT HISTORY: ro dvt COMPARISON: None TECHNIQUE: Duplex Doppler evaluation of the deep venous system of the lower extremity from the common femoral veins, superficial femoral vein, great saphenous vein, deep femoral vein, popliteal vein, an d calf veins, including color Doppler and spectral/pulsed waveform analysis, was performed. FINDINGS: Right: - Common femoral vein: Compressible - Deep femoral vein: Compressible - Femoral vein: Compressible - Popliteal vein: Compressible - Posterior tibial vein: Waveforms present - Other: Nothing Left: - Common femoral vein: Compressible - Deep femoral vein: Compressible - Femoral vein: Compressible - Popliteal vein: Compressible - Posterior tibial vein: Waveforms present - Other: Nothing IMPRESSION: No right or left lower extremity deep venous thrombosis.
--- NOTE | 2024-04-29 14:08 | DVH ---
LEFT Upper Extremity Venous Duplex Clinical History: pain Comparison: None Findings: Duplex Doppler evaluation of the venous system of the LEFT lower neck and upper extremity including c olor Doppler and spectral/pulsed waveform analysis was performed. The internal jugular vein demonstrates appropriate compressibility and waveform variability. The subclavian vein is patent on color Doppler evaluation without intraluminal thrombus and demonstra lalo waveform variability. The visualized portion of the brachiocephalic vein is patent on color Doppler evaluation without intr aluminal thrombus and demonstrates waveform variability. The axillary vein demonstrates appropriate compressibility and waveform variability. The brachial veins demonstrate appropriate compressibility and patency on Doppler evaluation. The basilic vein demonstrates appropriate compressibility and patency on Doppler evaluation. The cephalic vein demonstrates appropriate compressibility and patency on Doppler evaluation. Impression: No venous thrombus identified in the LEFT upper extremity vessels evaluated above. If clinical concern/symptoms persist or worsen, short-interval follow-up study is suggested.
[2024-04-29] MEDS: HYDROcodone-ACET 5/325MG TAB PO PRN (18:09)
--- NOTE | 2024-04-29 18:10 | DVHPNRES ---
Progress Note Date Seen: Apr 29, 2024 Resident Creating Document: SAUL BARRON RESIDENT Has the PT tested + for MRSA If YES, has PT been informed?: No Medical Necessity Reason Pt with a Central, PICC or Fol: Yes The following are medically ne: PICC Line, Stone Catheter Reason for stone catheter: Bladder Retention/Obstruc, Strict I&O, Total Immobilization Subjective Review of Systems 63-year-old male patient with past medical history of hypertension, type 2 diabetes, drug abuse who was brought to the emergency department in april 20 from the parking lot where the patient had a cardiac arrest 30 minutes after the patient left the hospital AMA. He received CPR recovering ROSC 6 minutes after. Patient currently in the [facility], he was succesfully extubated this morning and passed the swallow evaluation. He will be started on pureed diet, and he will need to be assessed by physical therapy. continue IV antibiotics and fluconazol. Bilateral lower extremities ultrasound and left arm us were taken today to rule out DVT, as these showed moderate acute swelling, results were negative for dvt. Family was updated. Objective vital signs Vital Sign Date Time Temp Pulse Resp B/P (MAP) Pulse Ox O2 Delivery O2 Flow Rate FiO2 04/29/24 16:00 97.7 94 19 159/81 (107) 98 97.7 04/29/24 14:00 Oxymizer 2 40 40 Total Intake and Output 04/28/24 04/28/24 04/29/24 15:00 23:00 07:00 Intake Total 256.196 ml 647.344 ml 416.028 ml Output Total 1800 ml 950 ml Balance 256.196 ml -1152.656 ml -533.972 ml medications Current Medications Medications Dose Ordered Sig/Darryl Route Start Time Stop Time Status Last Admin Dose Admin Enoxaparin Sodium 40 mg DAILY SC 04/23/24 10:00 UNV Pantoprazole Sodium 40 mg BID IV 04/25/24 22:00 04/29/24 09:25 40 MG Hydralazine HCl 10 mg Q6HP PRN IV 04/26/24 13:30 04/29/24 11:21 10 MG Furosemide 40 mg DAILY IV 04/27/24 10:00 04/29/24 09:25 40 MG Polyethylene Glycol 17 gm DAILY PO 04/28/24 10:00 04/28/24 10:06 17 GM Acetaminophen 650 mg Q8HPRN PRN GT 04/27/24 13:30 Sodium Chloride 10 ml QSHIFT@10,22 IV 04/27/24 22:00 04/29/24 09:25 10 ML Fluconazole 100 ml @ 100 mls/hr DAILY IV 04/28/24 10:00 04/28/24 13:33 100 MLS/HR Vancomycin HCl 0 ml @ 0 mls/hr UD IV 04/28/24 15:45 Meropenem 50 ml @ 17 mls/hr Q8HR IV 04/28/24 22:00 04/29/24 14:00 17 MLS/HR Vancomycin HCl 250 ml @ 250 mls/hr Q14H IV 04/28/24 20:00 04/29/24 09:25 250 MLS/HR Diagnostic Test (Pha) 1 strip Q6HR 04/29/24 12:00 04/29/24 12:00 1 STRIP Insulin Human Regular Q6HR SC 04/29/24 12:00 Dextrose 50 ml UD PRN IV 04/29/24 12:00 Acetaminophen/ Hydrocodone Bitart 1 tab Q6HPRN PRN PO 04/29/24 17:45 Examination General Appearance: Patient extubated, AO X3, able to follow commands. Respiratory: Clear to auscultation, Normal air movement Cardiovascular: Regular rate, Normal S1, Normal S2 Abdominal: hypoactive, distended, non tenderness,guarding or rebound on palpation Extremities: bilateral lower extremity edema, some lacerations in the right knee normal pulses. Skin: Right eyebrow laceration, small ( 3) blisters in the inner tights Neuro: pupils, reactive to light, able to move all extremities, strength +1 lower extremities, +2 upper extremities laboratory and microbiology Laboratory Tests 04/29/24 04:51 Test 04/29/24 04:51 Range/Units Serum Glucose 146 H 74-106 mg/dL Microbiology Date/Time Source Procedure Growth Status 04/23/24 13:55 Bronchial Washings Gram Stain - Final Complete 04/23/24 13:55 Body Fluid Culture - Final Presumptive Mabel albicans Complete 04/22/24 03:32 Nose MRSA Screen - Final Complete 04/22/24 01:40 Voided Urine Urine Culture - Final Complete 04/21/24 22:25 Blood Blood Culture - Final NO GROWTH AFTER 5 DAYS OF INCUBATION. Complete Labs and/or images reviewed: Labs reviewed by me, Image(s) reviewed by me Problem List/Assessment/Plan Problem List/Assessment/Plan Neurology: #Acute metabolic/toxic encephalopathy like due to septic shock #Acute hypoxic encefalopathy likely due to hypoxic brain injury due to cardiad arrest ,PEA #ROSC after 6 minutes #Extubated - admitted to [facility] - physical therapy evaluation Cardiovascular: #Septic shock likely due to gram+/gram- Multifocal pneumonia # PEA #Hypertension #NSTEMI type 2 #acute diastolic heart failure - lasix 40 mg IV daily Respiratory: #Acute hypoxic respiratory failure likely due to multifocal pneumonia gram +/ - /anaerobes bacterial pneumonia #Septic shock likely due to above #Mediastinal lymphadenopathy, likely reactive. #Trace bilateral pleural effusions - on oxymizer 2 L - Lasix 20 mEq daily - CXR tomorrow morning GI infectious/inflammatory colitis. - continue IV antibiotics /renal #Hypoalbuminemia #Hypokalemia #Stone catheter #Hyperammonemia, resolved - strict I%O - electrolytes were replaced Hematology: #Severe anemia due to lower GI hemorrhage s/p transfusion - Protonix 40 BID - No EGD at this time per patient hemodynamic status Infectious disease: #Septic shock likely due to g+/=/anaerobes multifocal pneumonia #Lactic acidosis in the setting of septic shock - vancomycin IV - meropenem IV Endocrine: Uncontrolled type 2 diabetes a1c>9 - Insulin protocol PUD prophylaxis - Protonix 40 BID DVT prophylaxis - SCD line: picc line left arm since 04/28 case discussed with Critical care, time spent including cpap trial and not including procedures:82 minutes code status: full code Plan discussed with: Other My Orders My Orders Orders - SAUL BARRON RESIDENT Procedure Category Date Status Time Pt Request For Service PT 04/29/24 Logged 11:49 Bilat Lower Dvt US 04/29/24 Resulted 11:49 * Swallow Request ST 04/29/24 Transmitted 11:49 Lt Upper Dvt US 04/29/24 Resulted 11:49 Pureed DIET 04/29/24 Transmitted Dinner Dietary Evaluation Review Comments: 1. TF Vital High Protein@45ml/hr providing 94 gPro, 1080 kcal in 24 hrs, adj goal rate as tolerated. If on Porpofol, add additional 110 fat kcal in 24 hrs. this two combined feeding will offer pt's needs for pro at 110%, and kcal at 83.8 %. May switch to Glucern@ 45ml/hr after pt is off vent without pressors, 2. TPN per pharmacy if pt has no GI access or no EN feeding option.. 3. If off vent, advance to Diet: 2 gNa CCHO-60, Cardiac, texture as tolerate after passing a speech eval. Expected Outcomes/Goals: improved nutrition status after Drug rehab. Date of Service: Apr 29, 2024 Billing Provider: JENNIFFER BARAHONA MD Common Visit Codes: [id number] CARE 30-74 MIN, [id number] CARE-EACH +30MIN SAUL BARRON RESIDENT Apr 29, 2024 18:10 JENNIFFER BARAHONA MD May 01, 2024 19:37
--- NOTE | 2024-04-29 21:42 | DVHPN2 ---
Progress Note - Dictate Date Seen: Apr 29, 2024 Has the PT tested + for MRSA If YES, has PT been informed?: No Medical Necessity Reason Pt with a Central, PICC or Fol: Yes The following are medically ne: PICC Line, Stone Catheter Reason for stone catheter: Bladder Retention/Obstruc, Strict I&O, Total Immobilization Subjective Mr. Kwon is a 63 years old gentleman with a history of hypertension, diabetes, the patient was seen in the emergency room on 04/20/2024 with a chief complaint of shortness breath, soon after the patient was decided to leave the hospital AMA, he collapsed to the ground and was immediately brought back to the emergency room, patient was found to be pulseless. He was resuscitated in 6 minutes (Code blue called out 04/21/24: 2208, ROSC: 2214) I have seen and examined the patient, discussed with his nurse, he is extubated, awake, he is oriented to person, place, he knows the year, socially appropriate, follows verbal commands, he moves the arms and legs He says he appreciates us for saving his life UDS, 04/21/2024: Opiates Urinalysis, 04/21/2024: WBC: 2, urine leukocyte esterase: Negative ABG, 04/21/2024: Metabolic acidosis ABG, 04/23/2024: Respiratory acidosis WBC/HB/PLT/MCV, 04/21/2024: 27.9/8.4/548/8.4. : 17/6.6/465/90.1 04/23/2024: 12.2/8.9/531/90.7 CMP, 04/22/2024: Unremarkable NH3, 04/22/2024: 38 PT/INR/PTT, 04/21/2024: 13.9/1.35/22.1 Troponin one high sensitivity, 04/22/2024: 84 TG/HDL/LDL/HDL, 04/22/2024: 109/88/48/24 Chest x-ray, 04/27/2024: Patchy airspace disease of the right lung field, likely pneumonia CT head, 04/21/2024: No acute intracranial abnormality CT head, : No acute intracranial process. vital signs Vital Sign Date Time Temp Pulse Resp B/P (MAP) Pulse Ox O2 Delivery O2 Flow Rate FiO2 04/29/24 19:00 101 33 128/68 (88) 99 04/29/24 18:00 Oxymizer 2 40 40 04/29/24 16:00 97.7 97.7 Total Intake and Output 04/28/24 04/28/24 04/29/24 15:00 23:00 07:00 Intake Total 256.196 ml 647.344 ml 416.028 ml Output Total 1800 ml 950 ml Balance 256.196 ml -1152.656 ml -533.972 ml medications Current Medications Medications Dose Ordered Sig/Darryl Route Start Time Stop Time Status Last Admin Dose Admin Enoxaparin Sodium 40 mg DAILY SC 04/23/24 10:00 UNV Pantoprazole Sodium 40 mg BID IV 04/25/24 22:00 04/29/24 09:25 40 MG Hydralazine HCl 10 mg Q6HP PRN IV 04/26/24 13:30 04/29/24 17:13 10 MG Furosemide 40 mg DAILY IV 04/27/24 10:00 04/29/24 09:25 40 MG Polyethylene Glycol 17 gm DAILY PO 04/28/24 10:00 04/28/24 10:06 17 GM Acetaminophen 650 mg Q8HPRN PRN GT 04/27/24 13:30 Sodium Chloride 10 ml QSHIFT@10,22 IV 04/27/24 22:00 04/29/24 09:25 10 ML Fluconazole 100 ml @ 100 mls/hr DAILY IV 04/28/24 10:00 04/28/24 13:33 100 MLS/HR Vancomycin HCl 0 ml @ 0 mls/hr UD IV 04/28/24 15:45 Meropenem 50 ml @ 17 mls/hr Q8HR IV 04/28/24 22:00 04/29/24 14:00 17 MLS/HR Vancomycin HCl 250 ml @ 250 mls/hr Q14H IV 04/28/24 20:00 04/29/24 09:25 250 MLS/HR Diagnostic Test (Pha) 1 strip Q6HR 04/29/24 12:00 04/29/24 18:11 1 STRIP Insulin Human Regular Q6HR SC 04/29/24 12:00 04/29/24 18:11 3 UNITS Dextrose 50 ml UD PRN IV 04/29/24 12:00 Acetaminophen/ Hydrocodone Bitart 1 tab Q6HPRN PRN PO 04/29/24 17:45 04/29/24 18:09 1 TAB objective The patient is well-nourished and well-developed with no distress. MENTAL STATUS: Subjective CRANIAL NERVES: Pupils are equal, round and reactive. There is conjugated eye movement. No signs of facial weakness. Motor sensory examination in bilateral trigeminal distribution is normal SENSATION: Okay to pinprick and light touch MOTOR: Normal tone in the upper and lower extremity. Normal muscle bulk. No fasciculations. Moves the arms and legs REFLEXES: Deep tendon reflexes are symmetrical. No pathological reflexes. CEREBELLAR/COORDINATION: Deferred GAIT/STATION: deferred laboratory and microbiology Laboratory Tests 04/29/24 04:51 Test 04/29/24 04:51 Range/Units Serum Glucose 146 H 74-106 mg/dL Problem List Coma, resolved Hypoxic encephalopathy Metabolic encephalopathy Toxic encephalopathy Cardiopulmonary arrest Respiratory failure, improving Sepsis/septic shock, improving Assessment/Plan Monitoring Supportive treatment EEG STEPHANIE care Respiratory support Stabilize vitals Oxygen IV antibiotics GI prophylaxis/pantoprazole More recommendation per clinical course This medical document was created using an electronic medical record system with [employer] computerized dictation system. Although this document has been carefully reviewed, there may still be some phonetic and typographical errors. These areas are purely typographical due to imperfections of the software programs, and do not reflect any compromise in the patient's medical care Prognosis poor Dietary Evaluation Review Comments: 1. TF Vital High Protein@45ml/hr providing 94 gPro, 1080 kcal in 24 hrs, adj goal rate as tolerated. If on Porpofol, add additional 110 fat kcal in 24 hrs. this two combined feeding will offer pt's needs for pro at 110%, and kcal at 83.8 %. May switch to Glucern@ 45ml/hr after pt is off vent without pressors, 2. TPN per pharmacy if pt has no GI access or no EN feeding option.. 3. If off vent, advance to Diet: 2 gNa CCHO-60, Cardiac, texture as tolerate after passing a speech eval. Expected Outcomes/Goals: improved nutrition status after Drug rehab. Plan discussed with: Other KELY FARMER MD Apr 29, 2024 21:42
[2024-04-30] VITALS (49 sets, daily range): BP systolic 132–157; BP diastolic 61–78; PULSE 70–94; RESP 10–33; TEMP 98.2–98.4; O2SAT 92–99
[2024-04-30 05:31] LABS: Basophils # (auto) 0.1 10 ^3/uL (0-0.2); Basophils % (auto) 0.9 % (0.0-2.0); Eosinophils # (auto) 0.1 10 ^3/uL (0-0.8); Eosinophils % (auto) 1.2 % (0.0-7.0); Hematocrit 25.9 % (41.0-53.0); Hemoglobin 8.8 g/dL (13.5-17.5); Lymphocytes # (auto) 1.5 10 ^3/uL (0.4-5.4); Lymphocytes % (auto) 25.5 % (10.0-50.0); Monocytes # (auto) 0.6 10 ^3/uL (0-1.3); Neutrophils # (auto) 3.6 10 ^3/uL (1.6-8.6); Neutrophils % (auto) 62.4 % (37.0-80.0); Nucleated Red Blood Cells % 0.1 %; Platelet Count (auto) 286 10^3/uL (140-450); Red Blood Cells 2.94 10^6/uL (4.5-5.90); Red Cell Distribution Width 15.7 % (11.8-14.3); White Blood Cell 5.8 10^3/uL (4.4-10.8)
--- NOTE | 2024-04-30 05:38 | DVH ---
EXAM: XR Chest, 1 View CLINICAL INDICATION: pneumonia TECHNIQUE: Frontal view of the chest. COMPARISON: XY CHEST PORTABLE on DOS: 04/29/24, XY CHEST PORTABLE on DOS: 04/28/24, XY CHEST PORTABLE o n DOS: 04/27/24, XY CHEST XRAY 1 VIEW on DOS: 04/26/24, XY CHEST PORTABLE on DOS: 04/24/24 FINDINGS: LUNGS AND PLEURAL SPACES: Patchy airspace disease at the right lung field, likely pneumonia. No pn eumothorax. HEART: Unremarkable. No cardiomegaly. MEDIASTINUM: Unremarkable. Normal mediastinal contour. BONES/JOINTS: Unremarkable. No acute fracture. OTHER FINDINGS: No significant change from the prior exam. . IMPRESSION: No significant change from the prior exam.
[2024-04-30 05:57] LABS: Alanine Aminotransferase 16 U/L (7-40); Alkaline Phosphatase 116 U/L (46-116); Anion Gap 7 (5-15); Aspartate Aminotransferase 23 U/L (13-40); Carbon Dioxide 26 mmol/L (20-31); Chloride 106 mmol/L (98-107); Sodium 139 mmol/L (136-145)
[2024-04-30 06:20] LABS: Albumin 2.6 g/dL (3.2-4.8); BUN/Creatinine Ratio 8.5 (10.0-20.0); Bilirubin, Total 0.3 mg/dL (0.2-1.0); Blood Urea Nitrogen < 5 mg/dL (9-23); Calcium 7.9 mg/dL (8.7-10.4); Glucose 164 mg/dL (74-106); Potassium 3.1 mmol/L (3.5-5.1); Total Protein 5.3 g/dL (5.7-8.2)
[2024-04-30] MEDS: POTASSIUM CHL 20MEQ/100ML 100 ML IV SCH (06:58)
[2024-04-30 07:14] LABS: Base Excess 3.2 mmol/L (-2.0-3.0)
--- NOTE | 2024-04-30 17:59 | DVHPNRES ---
Progress Note Date Seen: Apr 30, 2024 Resident Creating Document: SAUL BARRON RESIDENT Has the PT tested + for MRSA If YES, has PT been informed?: No Medical Necessity Reason Pt with a Central, PICC or Fol: Yes The following are medically ne: PICC Line, Stone Catheter Reason for stone catheter: Bladder Retention/Obstruc, Strict I&O, Total Immobilization Subjective Review of Systems Patient was examined at bedside, patient was able to eat without issues, family at bedside they were updated on patient's clinical status, patient will need physical therapy evaluation which is still pending. Patient today was transferred to the floor to bed 288 from the the STEPHANIE. Patient is currently on IV antibiotics, furosemide 40 mg IV daily, and fluconazole. He will need to continue on this regimen. Electrolytes will be monitored closely. Patient reports: Feels better Review of Systems: HEENT:Normal, CVS:Normal, RESPIRATORY:Normal, GI:Normal, :Normal, MSK:Abnormal, NEURO:Normal Objective vital signs Vital Sign Date Time Temp Pulse Resp B/P (MAP) Pulse Ox O2 Delivery O2 Flow Rate FiO2 04/30/24 12:00 20 99 Nasal Cannula* 5 40 04/30/24 12:00 88 04/30/24 10:45 147/74 (98) 04/30/24 08:00 98.2 98.2 Total Intake and Output 04/29/24 04/29/24 04/30/24 15:00 23:00 07:00 Intake Total 0 ml 397 ml Output Total 1350 ml 1900 ml Balance -1350 ml -1503 ml medications Current Medications Medications Dose Ordered Sig/Darryl Route Start Time Stop Time Status Last Admin Dose Admin Enoxaparin Sodium 40 mg DAILY SC 04/23/24 10:00 UNV Pantoprazole Sodium 40 mg BID IV 04/25/24 22:00 04/30/24 09:44 40 MG Hydralazine HCl 10 mg Q6HP PRN IV 04/26/24 13:30 04/30/24 01:21 10 MG Furosemide 40 mg DAILY IV 04/27/24 10:00 04/30/24 09:44 40 MG Polyethylene Glycol 17 gm DAILY PO 04/28/24 10:00 04/30/24 09:43 17 GM Acetaminophen 650 mg Q8HPRN PRN GT 04/27/24 13:30 Sodium Chloride 10 ml QSHIFT@10,22 IV 04/27/24 22:00 04/30/24 09:44 10 ML Fluconazole 100 ml @ 100 mls/hr DAILY IV 04/28/24 10:00 04/30/24 09:43 100 MLS/HR Vancomycin HCl 0 ml @ 0 mls/hr UD IV 04/28/24 15:45 Meropenem 50 ml @ 17 mls/hr Q8HR IV 04/28/24 22:00 04/30/24 16:10 17 MLS/HR Vancomycin HCl 250 ml @ 250 mls/hr Q14H IV 04/28/24 20:00 04/30/24 14:07 250 MLS/HR Diagnostic Test (Pha) 1 strip Q6HR 04/29/24 12:00 04/30/24 12:00 1 STRIP Insulin Human Regular Q6HR SC 04/29/24 12:00 04/30/24 12:00 2 UNITS Dextrose 50 ml UD PRN IV 04/29/24 12:00 Acetaminophen/ Hydrocodone Bitart 1 tab Q6HPRN PRN PO 04/29/24 17:45 04/30/24 01:27 1 TAB Examination General Appearance: Patient extubated, AO X3, able to follow commands. Respiratory: Clear to auscultation, Normal air movement Cardiovascular: Regular rate, Normal S1, Normal S2 Abdominal: hypoactive, distended, non tenderness,guarding or rebound on palpation Extremities: bilateral lower extremity edema, some lacerations in the right knee normal pulses. Skin: Right eyebrow laceration, small ( 3) blisters in the inner tights Neuro: pupils, reactive to light, able to move all extremities, strength +1 lower extremities, +2 upper extremities laboratory and microbiology Laboratory Tests 04/30/24 04:45 Test 04/30/24 04:45 Range/Units Serum Glucose 164 H 74-106 mg/dL Microbiology Date/Time Source Procedure Growth Status 04/23/24 13:55 Bronchial Washings Gram Stain - Final Complete 04/23/24 13:55 Body Fluid Culture - Final Presumptive Mabel albicans Complete 04/22/24 03:32 Nose MRSA Screen - Final Complete 04/22/24 01:40 Voided Urine Urine Culture - Final Complete 04/21/24 22:25 Blood Blood Culture - Final NO GROWTH AFTER 5 DAYS OF INCUBATION. Complete Problem List/Assessment/Plan Problem List/Assessment/Plan Neurology: #Acute metabolic/toxic encephalopathy like due to septic shock #Acute hypoxic encefalopathy likely due to hypoxic brain injury due to cardiad arrest ,PEA #ROSC after 6 minutes #Extubated - transfer to the floor - physical therapy evaluation, pending Cardiovascular: #Septic shock likely due to gram+/gram- Multifocal pneumonia # PEA #Hypertension #NSTEMI type 2 #acute diastolic heart failure - lasix 40 mg IV daily Respiratory: #Acute hypoxic respiratory failure likely due to multifocal pneumonia gram +/ - /anaerobes bacterial pneumonia #Septic shock likely due to above #Mediastinal lymphadenopathy, likely reactive. #Trace bilateral pleural effusions - on oxymizer 2 L - Lasix 20 mEq daily - IV ABX (vancomycin acetaminophen) - fluconazole. GI infectious/inflammatory colitis. - continue IV antibiotics /renal #Hypoalbuminemia #Hypokalemia #Stone catheter #Hyperammonemia, resolved - strict I%O - electrolytes were replaced Hematology: #Severe anemia due to lower GI hemorrhage s/p transfusion - Protonix 40 BID - No EGD at this time per patient hemodynamic status Infectious disease: #Septic shock likely due to g+/=/anaerobes multifocal pneumonia #Lactic acidosis in the setting of septic shock - vancomycin IV - meropenem IV Endocrine: Uncontrolled type 2 diabetes a1c>9 - Insulin protocol PUD prophylaxis - Protonix 40 BID DVT prophylaxis - SCD line: picc line left arm since 04/28 case discussed with Critical care, time spent: 62 minutes code status: full code Plan discussed with: Other (mother) My Orders My Orders Orders - SAUL BARRON RESIDENT Procedure Category Date Status Time Chest Portable XY 04/30/24 Resulted 04:00 Abg W/ Co-Ox RT 04/30/24 Logged 04:00 Transfer Orders XFER 04/30/24 Transmitted 10:13 * Personal Trainer CONS 04/30/24 Transmitted Consult Dietary Evaluation Review Comments: 1. TF Vital High Protein@45ml/hr providing 94 gPro, 1080 kcal in 24 hrs, adj goal rate as tolerated. If on Porpofol, add additional 110 fat kcal in 24 hrs. this two combined feeding will offer pt's needs for pro at 110%, and kcal at 83.8 %. May switch to Glucern@ 45ml/hr after pt is off vent without pressors, 2. TPN per pharmacy if pt has no GI access or no EN feeding option.. 3. If off vent, advance to Diet: 2 gNa CCHO-60, Cardiac, texture as tolerate after passing a speech eval. Expected Outcomes/Goals: improved nutrition status after Drug rehab. SAUL BARRON RESIDENT Apr 30, 2024 17:59
--- NOTE | 2024-04-30 23:26 | DVHPN2 ---
Progress Note - Dictate Date Seen: Apr 30, 2024 Has the PT tested + for MRSA If YES, has PT been informed?: No Medical Necessity Reason Pt with a Central, PICC or Fol: Yes The following are medically ne: PICC Line, Stone Catheter Reason for stone catheter: Bladder Retention/Obstruc, Strict I&O, Total Immobilization Subjective Mr. Kwon is a 63 years old gentleman with a history of hypertension, diabetes, the patient was seen in the emergency room on 04/20/2024 with a chief complaint of shortness breath, soon after the patient was decided to leave the hospital AMA, he collapsed to the ground and was immediately brought back to the emergency room, patient was found to be pulseless. He was resuscitated in 6 minutes (Code blue called out 04/21/24: 2208, ROSC: 2214) I have seen and examined the patient, discussed with his nurse, he is awake, he is oriented to person, place, he knows the year, month and date, socially appropriate,he moves the arms and legs UDS, 04/21/2024: Opiates Urinalysis, 04/21/2024: WBC: 2, urine leukocyte esterase: Negative ABG, 04/21/2024: Metabolic acidosis ABG, 04/23/2024: Respiratory acidosis WBC/HB/PLT/MCV, 04/21/2024: 27.9/8.4/548/8.4. : 17/6.6/465/90.1 04/23/2024: 12.2/8.9/531/90.7 CMP, 04/22/2024: Unremarkable NH3, 04/22/2024: 38 PT/INR/PTT, 04/21/2024: 13.9/1.35/22.1 Troponin one high sensitivity, 04/22/2024: 84 TG/HDL/LDL/HDL, 04/22/2024: 109/88/48/24 Chest x-ray, 04/27/2024: Patchy airspace disease of the right lung field, likely pneumonia CT head, 04/21/2024: No acute intracranial abnormality CT head, : No acute intracranial process. vital signs Vital Sign Date Time Temp Pulse Resp B/P (MAP) Pulse Ox O2 Delivery O2 Flow Rate FiO2 3/7/25 21:00 98.2 77 17 155/76 (102) 97 98.2 04/30/24 12:06 Nasal Cannula* 5 40 Total Intake and Output 04/29/24 04/29/24 04/30/24 15:00 23:00 07:00 Intake Total 0 ml 397 ml Output Total 1350 ml 1900 ml Balance -1350 ml -1503 ml medications Current Medications Medications Dose Ordered Sig/Darryl Route Start Time Stop Time Status Last Admin Dose Admin Enoxaparin Sodium 40 mg DAILY SC 04/23/24 10:00 UNV Pantoprazole Sodium 40 mg BID IV 04/25/24 22:00 04/30/24 09:44 40 MG Hydralazine HCl 10 mg Q6HP PRN IV 04/26/24 13:30 04/30/24 01:21 10 MG Furosemide 40 mg DAILY IV 04/27/24 10:00 04/30/24 09:44 40 MG Polyethylene Glycol 17 gm DAILY PO 04/28/24 10:00 04/30/24 09:43 17 GM Acetaminophen 650 mg Q8HPRN PRN GT 04/27/24 13:30 Sodium Chloride 10 ml QSHIFT@10,22 IV 04/27/24 22:00 04/30/24 09:44 10 ML Fluconazole 100 ml @ 100 mls/hr DAILY IV 04/28/24 10:00 04/30/24 09:43 100 MLS/HR Vancomycin HCl 0 ml @ 0 mls/hr UD IV 04/28/24 15:45 Meropenem 50 ml @ 17 mls/hr Q8HR IV 04/28/24 22:00 04/30/24 16:10 17 MLS/HR Vancomycin HCl 250 ml @ 250 mls/hr Q14H IV 04/28/24 20:00 04/30/24 14:07 250 MLS/HR Diagnostic Test (Pha) 1 strip Q6HR 04/29/24 12:00 04/30/24 18:00 1 STRIP Insulin Human Regular Q6HR SC 04/29/24 12:00 04/30/24 18:00 2 UNITS Dextrose 50 ml UD PRN IV 04/29/24 12:00 Acetaminophen/ Hydrocodone Bitart 1 tab Q6HPRN PRN PO 04/29/24 17:45 04/30/24 18:43 1 TAB objective The patient is well-nourished and well-developed with no distress. MENTAL STATUS: Subjective CRANIAL NERVES: Pupils are equal, round and reactive. There is conjugated eye movement. No signs of facial weakness. Motor sensory examination in bilateral trigeminal distribution is normal SENSATION: Okay to pinprick and light touch MOTOR: Normal tone in the upper and lower extremity. Normal muscle bulk. No fasciculations. Moves the arms and legs REFLEXES: Deep tendon reflexes are symmetrical. No pathological reflexes. CEREBELLAR/COORDINATION: No ataxia GAIT/STATION: deferred laboratory and microbiology Laboratory Tests 04/30/24 21:10 04/30/24 04:45 Test 04/30/24 04:45 Range/Units Serum Glucose 164 H 74-106 mg/dL Problem List Coma, resolved Hypoxic encephalopathy Metabolic encephalopathy Toxic encephalopathy Cardiopulmonary arrest Respiratory failure, improving Sepsis/septic shock, improving Assessment/Plan Monitoring Supportive treatment Telemetry IV antibiotics GI prophylaxis/pantoprazole Up to chair Physical therapy More recommendation per clinical course This medical document was created using an electronic medical record system with [employer] dictation system. Although this document has been carefully reviewed, there may still be some phonetic and typographical errors. These areas are purely typographical due to imperfections of the software programs, and do not reflect any compromise in the patient's medical care Prognosis poor Dietary Evaluation Review Comments: 1. TF Vital High Protein@45ml/hr providing 94 gPro, 1080 kcal in 24 hrs, adj goal rate as tolerated. If on Porpofol, add additional 110 fat kcal in 24 hrs. this two combined feeding will offer pt's needs for pro at 110%, and kcal at 83.8 %. May switch to Glucern@ 45ml/hr after pt is off vent without pressors, 2. TPN per pharmacy if pt has no GI access or no EN feeding option.. 3. If off vent, advance to Diet: 2 gNa CCHO-60, Cardiac, texture as tolerate after passing a speech eval. Expected Outcomes/Goals: improved nutrition status after Drug rehab. Plan discussed with: Patient, Other KELY FARMER MD Apr 30, 2024 23:26
[2024-05-01] VITALS (8 sets, daily range): BP systolic 145–165; BP diastolic 73–85; PULSE 70–81; RESP 15–19; TEMP 97.9–98.6; O2SAT 91–100
--- NOTE | 2024-05-01 05:52 | DVH ---
CHEST RADIOGRAPH Indication: PNA Technique: Single frontal view of the chest was obtained COMPARISON: XY CHEST PORTABLE on DOS: 04/30/24, XY CHEST PORTABLE on DOS: 04/29/24, XY CHEST PORTABLE on DOS: 04/28/24, XY CHEST PORTABLE on DOS: 04/27/24, XY CHEST XRAY 1 VIEW on DOS: 04/26/24 FINDINGS: Lines and Tubes: Left PICC in satisfactory position. Lungs: Multifocal airspace disease, [id number]. Pleura: No effusion. No pneumothorax. Cardiomediastinal contours: Unremarkable Bones: Unremarkable IMPRESSION: No significant interval change.
[2024-05-01 06:45] LABS: Basophils # (auto) 0.1 10 ^3/uL (0-0.2); Basophils % (auto) 0.7 % (0.0-2.0); Eosinophils # (auto) 0.1 10 ^3/uL (0-0.8); Eosinophils % (auto) 1.6 % (0.0-7.0); Hematocrit 27.6 % (41.0-53.0); Hemoglobin 9.4 g/dL (13.5-17.5); Lymphocytes % (auto) 27.3 % (10.0-50.0); Mean Corpuscular Hemoglobin 30.3 pg (28.0-32.0); Mean Corpuscular Hgb Conc. 34.2 g/dL (32.0-36.0); Mean Corpuscular Volume 88.5 fL (80.0-100.0); Monocytes # (auto) 0.7 10 ^3/uL (0-1.3); Monocytes % (auto) 9.2 % (0.0-12.0); Neutrophils # (auto) 4.5 10 ^3/uL (1.6-8.6); Neutrophils % (auto) 61.2 % (37.0-80.0); Nucleated Red Blood Cells % 0.1 %; Platelet Count (auto) 300 10^3/uL (140-450); Red Blood Cells 3.12 10^6/uL (4.5-5.90); Red Cell Distribution Width 15.3 % (11.8-14.3); White Blood Cell 7.3 10^3/uL (4.4-10.8)
[2024-05-01 07:00] LABS: Alanine Aminotransferase 11 U/L (7-40); Anion Gap 7 (5-15); Aspartate Aminotransferase 32 U/L (13-40); Carbon Dioxide 26 mmol/L (20-31); Chloride 105 mmol/L (98-107); Sodium 138 mmol/L (136-145); Total Protein 5.8 g/dL (5.7-8.2)
[2024-05-01 07:11] LABS: Albumin 2.8 g/dL (3.2-4.8); Alkaline Phosphatase 123 U/L (46-116); BUN/Creatinine Ratio 7.8 (10.0-20.0); Bilirubin, Total 0.3 mg/dL (0.2-1.0); Blood Urea Nitrogen < 5 mg/dL (9-23); Glucose 166 mg/dL (74-106); Potassium 3.4 mmol/L (3.5-5.1)
--- NOTE | 2024-05-01 13:22 | DVHPN2 ---
Subjective The patient is seen and examined at bedside. No complaint today. Reviewed: Care Plan, H&P, Labs, Medications, Previous Orders, Radiology Changes from previous H/P or p: No Changes Objective Vitals Vital Signs Date Time Temp Pulse Resp B/P (MAP) Pulse Ox O2 Delivery O2 Flow Rate FiO2 05/01/24 09:36 145/83 05/01/24 09:00 98.2 80 15 93 98.2 05/01/24 08:00 Oxymizer 2 40 40 Intake/Output Intake and Output 05/01/24 07:00 Intake Total 1784 ml Output Total 2575 ml Balance -791 ml Intake Oral 1300 ml IV Total 484 ml Output Urine Total 2575 ml # Voids 1 # Bowel Movements 1 General Appearance: Alert, No acute distress HEENT: Atraumatic, PERRLA, EOMI, Mucous membr. moist/pink Neck: Supple Lungs: Clear to auscultation, Normal air movement Cardiovascular: Regular rate, Normal S1, Normal S2, No murmurs, Gallops, Rubs Abdomen: Normal bowel sounds, Soft, No tenderness Neuro: Cranial nerves 3-12 NL Psych/Mental Status: Mental status NL Medications Current Medications Medications Dose Ordered Sig/Darryl Route Start Time Stop Time Status Last Admin Dose Admin Enoxaparin Sodium 40 mg DAILY SC 04/23/24 10:00 UNV Pantoprazole Sodium 40 mg BID IV 04/25/24 22:00 05/01/24 09:36 40 MG Hydralazine HCl 10 mg Q6HP PRN IV 04/26/24 13:30 04/30/24 01:21 10 MG Furosemide 40 mg DAILY IV 04/27/24 10:00 05/01/24 09:36 40 MG Polyethylene Glycol 17 gm DAILY PO 04/28/24 10:00 05/01/24 09:34 17 GM Acetaminophen 650 mg Q8HPRN PRN GT 04/27/24 13:30 Sodium Chloride 10 ml QSHIFT@10,22 IV 04/27/24 22:00 05/01/24 09:37 10 ML Fluconazole 100 ml @ 100 mls/hr DAILY IV 04/28/24 10:00 05/01/24 09:37 100 MLS/HR Vancomycin HCl 0 ml @ 0 mls/hr UD IV 04/28/24 15:45 Meropenem 50 ml @ 17 mls/hr Q8HR IV 04/28/24 22:00 05/01/24 05:58 17 MLS/HR Vancomycin HCl 250 ml @ 250 mls/hr Q14H IV 04/28/24 20:00 05/01/24 03:49 250 MLS/HR Diagnostic Test (Pha) 1 strip Q6HR 04/29/24 12:00 05/01/24 12:56 1 STRIP Insulin Human Regular Q6HR SC 04/29/24 12:00 05/01/24 05:57 2 UNITS Dextrose 50 ml UD PRN IV 04/29/24 12:00 Acetaminophen/ Hydrocodone Bitart 1 tab Q6HPRN PRN PO 04/29/24 17:45 05/01/24 09:43 1 TAB Laboratory Results Laboratory Tests 05/01/24 05:53 Chemistry Test 05/01/24 05:53 Albumin 2.8 g/dL (3.2-4.8) L Calcium Level 8.0 mg/dL (8.7-10.4) L Total Protein 5.8 g/dL (5.7-8.2) LFT Test 05/01/24 05:53 Alanine Aminotransferase (ALT) 11 U/L (7-40) Alkaline Phosphatase 123 U/L (46-116) H Aspartate Amino Transferase (AST) 32 U/L (13-40) Total Bilirubin 0.3 mg/dL (0.2-1.0) Urinalysis Test 04/21/24 22:40 04/22/24 01:40 Urine Hyaline Casts Few /lpf (0 - 2) Urine Color Light-yellow (Yellow) Urine Clarity Clear (Clear) Urine pH 5.5 (5.0-9.0) Urine Specific [place] 1.027 (1.001-1.035) Urine Protein 1+ (Negative) H Urine Ketones Trace (Negative) Urine Blood 1+ /uL (Negative) H Urine Nitrite Negative (Negative) Urine Bilirubin Negative (Negative) Urine Urobilinogen Normal mg/dL (Negative) Urine Leukocyte Esterase Negative /uL (Negative) Urine RBC 12 /hpf (0 - 3) Urine Microscopic WBC 4 /HPF (0-3) H Urine Squamous Epithelial Cells Few /hpf (<5) Urine Bacteria None seen /hpf (None Seen) Urine Glucose 2+ mg/dL (Normal) H Microbiology Microbiology Date/Time Source Procedure Growth Status 04/23/24 13:55 Bronchial Washings Gram Stain - Final Complete 04/23/24 13:55 Body Fluid Culture - Final Presumptive Mabel albicans Complete 04/22/24 03:32 Nose MRSA Screen - Final Complete 04/22/24 01:40 Voided Urine Urine Culture - Final Complete 04/21/24 22:25 Blood Blood Culture - Final NO GROWTH AFTER 5 DAYS OF INCUBATION. Complete Labs and/or images reviewed: Labs reviewed by me Assessment/Plan Assessment/Plan Neurology: #Acute metabolic/toxic encephalopathy like due to septic shock #Acute hypoxic encefalopathy likely due to hypoxic brain injury due to cardiad arrest ,PEA #ROSC after 6 minutes #Extubated - transfer to the floor - physical therapy evaluation, pending Cardiovascular: #Septic shock likely due to gram+/gram- Multifocal pneumonia # PEA #Hypertension #NSTEMI type 2 #acute diastolic heart failure - lasix 40 mg IV daily Respiratory: #Acute hypoxic respiratory failure likely due to multifocal pneumonia gram +/ - /anaerobes bacterial pneumonia #Septic shock likely due to above #Mediastinal lymphadenopathy, likely reactive. #Trace bilateral pleural effusions - on oxymizer 2 L - Lasix 20 mEq daily - IV ABX (vancomycin acetaminophen) - fluconazole. GI infectious/inflammatory colitis. - continue IV antibiotics /renal #Hypoalbuminemia #Hypokalemia #Teresa catheter #Hyperammonemia, resolved - strict I%O - electrolytes were replaced Hematology: #Severe anemia due to lower GI hemorrhage s/p transfusion - Protonix 40 BID - No EGD at this time per patient hemodynamic status Infectious disease: #Septic shock likely due to g+/=/anaerobes multifocal pneumonia #Lactic acidosis in the setting of septic shock - vancomycin IV - meropenem IV Endocrine: Uncontrolled type 2 diabetes a1c>9 -continuing sliding scale insulin PUD prophylaxis - Protonix 40 BID DVT prophylaxis - SCD line: picc line left arm since 04/28 Continuing current management This medical document was created using an electronic medical record system with [employer] computerized dictation system. Although this document has been carefully reviewed, there may still be some phonetic and typographical errors. These areas are purely typographical due to imperfections of the software programs, and do not reflect any compromise in the patient's medical care. Plan discussed with: Other (Rn) Date of Service: May 01, 2024 Billing Provider: SHALINI LOPEZ MD Common Visit Codes: [id number] INP/OBS CARE(HIGH) SHALINI LOPEZ MD May 01, 2024 13:22
--- NOTE | 2024-05-01 15:12 | DVHPN2 ---
Progress Note - Dictate Date Seen: May 01, 2024 Has the PT tested + for MRSA If YES, has PT been informed?: No Medical Necessity Reason Pt with a Central, PICC or Fol: Yes The following are medically ne: PICC Line, Stone Catheter Reason for stone catheter: Bladder Retention/Obstruc, Strict I&O, Total Immobilization Subjective No new complaints Patient was extubated on the six He is currently on nasal cannula 5 L supplementation He is downgraded to tele Patient had two bowel movements Patient has passed swallow eval and is on a pureed diet with thickened fluids No active GI bleeding is reported and H&H is stable at 9.4 vital signs Vital Sign Date Time Temp Pulse Resp B/P (MAP) Pulse Ox O2 Delivery O2 Flow Rate FiO2 05/01/24 13:00 98.6 79 18 149/80 (103) 91 98.6 05/01/24 08:00 Oxymizer 2 40 40 Total Intake and Output 04/30/24 04/30/24 05/01/24 15:00 23:00 07:00 Intake Total 384 ml 1200 ml 200 ml Output Total 1375 ml 1200 ml Balance -991 ml 1200 ml -1000 ml medications Current Medications Medications Dose Ordered Sig/Darryl Route Start Time Stop Time Status Last Admin Dose Admin Enoxaparin Sodium 40 mg DAILY SC 04/23/24 10:00 UNV Pantoprazole Sodium 40 mg BID IV 04/25/24 22:00 05/01/24 09:36 40 MG Hydralazine HCl 10 mg Q6HP PRN IV 04/26/24 13:30 04/30/24 01:21 10 MG Furosemide 40 mg DAILY IV 04/27/24 10:00 05/01/24 09:36 40 MG Polyethylene Glycol 17 gm DAILY PO 04/28/24 10:00 05/01/24 09:34 17 GM Acetaminophen 650 mg Q8HPRN PRN GT 04/27/24 13:30 Sodium Chloride 10 ml QSHIFT@10,22 IV 04/27/24 22:00 05/01/24 09:37 10 ML Fluconazole 100 ml @ 100 mls/hr DAILY IV 04/28/24 10:00 05/01/24 09:37 100 MLS/HR Vancomycin HCl 0 ml @ 0 mls/hr UD IV 04/28/24 15:45 Meropenem 50 ml @ 17 mls/hr Q8HR IV 04/28/24 22:00 05/01/24 14:22 17 MLS/HR Vancomycin HCl 250 ml @ 250 mls/hr Q14H IV 04/28/24 20:00 05/01/24 03:49 250 MLS/HR Diagnostic Test (Pha) 1 strip Q6HR 04/29/24 12:00 05/01/24 12:56 1 STRIP Insulin Human Regular Q6HR SC 04/29/24 12:00 05/01/24 05:57 2 UNITS Dextrose 50 ml UD PRN IV 04/29/24 12:00 Acetaminophen/ Hydrocodone Bitart 1 tab Q6HPRN PRN PO 04/29/24 17:45 05/01/24 09:43 1 TAB objective General Appearance: Intubated and sedated Head Exam: Normal inspection Pulmonary/Respiratory: Chest non-tender. Crackles right lung zones. No wheezing. Cardiovascular/Chest: Regular rate and rhythm. No murmurs. No JVD. Abdominal Exam: Normal bowel sounds. Soft. normal abdomen, no visible veins, Nontender. No hepatospenomegaly. No masses Lower extremities: Negative lower extremity edema laboratory and microbiology Laboratory Tests 05/01/24 05:53 Test 05/01/24 05:53 Range/Units Serum Glucose 166 H 74-106 mg/dL Problems(with codes): (1) Diabetes mellitus with hyperglycemia (2) Hypoxia (3) Upper GI bleed (4) Respiratory distress (5) Multifocal pneumonia (6) Cardiopulmonary arrest Prognosis Plan Continue supportive care Oxygen support, IV antibiotics Physical therapy and ambulate patient Advance diet as tolerated Protonix 40 mg IV daily Monitor labs I will follow up Dietary Evaluation Review Comments: 1. TF Vital High Protein@45ml/hr providing 94 gPro, 1080 kcal in 24 hrs, adj goal rate as tolerated. If on Porpofol, add additional 110 fat kcal in 24 hrs. this two combined feeding will offer pt's needs for pro at 110%, and kcal at 83.8 %. May switch to Glucern@ 45ml/hr after pt is off vent without pressors, 2. TPN per pharmacy if pt has no GI access or no EN feeding option.. 3. If off vent, advance to Diet: 2 gNa CCHO-60, Cardiac, texture as tolerate after passing a speech eval. Expected Outcomes/Goals: improved nutrition status after Drug rehab. Plan discussed with: DURGA Vela MD May 01, 2024 15:12
[2024-05-02] VITALS (7 sets, daily range): BP systolic 112–149; BP diastolic 68–78; PULSE 68–76; RESP 16–18; TEMP 97.5–98.3; O2SAT 96–100
[2024-05-02 06:47] LABS: Basophils # (auto) 0.1 10 ^3/uL (0-0.2); Basophils % (auto) 1.1 % (0.0-2.0); Eosinophils # (auto) 0.1 10 ^3/uL (0-0.8); Eosinophils % (auto) 2.3 % (0.0-7.0); Hematocrit 29.7 % (41.0-53.0); Hemoglobin 9.9 g/dL (13.5-17.5); Lymphocytes % (auto) 32.2 % (10.0-50.0); Mean Corpuscular Hemoglobin 29.6 pg (28.0-32.0); Mean Corpuscular Hgb Conc. 33.4 g/dL (32.0-36.0); Mean Corpuscular Volume 88.8 fL (80.0-100.0); Monocytes # (auto) 0.6 10 ^3/uL (0-1.3); Monocytes % (auto) 10.2 % (0.0-12.0); Neutrophils # (auto) 3.4 10 ^3/uL (1.6-8.6); Neutrophils % (auto) 54.2 % (37.0-80.0); Nucleated Red Blood Cells % 0.1 %; Platelet Count (auto) 328 10^3/uL (140-450); Red Blood Cells 3.35 10^6/uL (4.5-5.90); Red Cell Distribution Width 15.9 % (11.8-14.3); White Blood Cell 6.2 10^3/uL (4.4-10.8)
--- NOTE | 2024-05-02 13:08 | DVHPN2 ---
Subjective The patient is seen and examined at bedside. No change overnight. Reviewed: Care Plan, H&P, Labs, Medications, Previous Orders, Radiology Changes from previous H/P or p: No Changes Objective Vitals Vital Signs Date Time Temp Pulse Resp B/P (MAP) Pulse Ox O2 Delivery O2 Flow Rate FiO2 05/02/24 10:50 112/70 05/02/24 09:00 98.3 76 16 100 98.3 05/02/24 08:00 Nasal Cannula* 5 40 Intake/Output Intake and Output 05/02/24 07:00 Intake Total 4545 ml Balance 4545 ml Intake Oral 4095 ml IV Total 450 ml # Voids 5 # Bowel Movements 1 General Appearance: Alert, No acute distress HEENT: Atraumatic, PERRLA, EOMI, Mucous membr. moist/pink Neck: Supple Lungs: Clear to auscultation, Normal air movement Cardiovascular: Regular rate, Normal S1, Normal S2, No murmurs, Gallops, Rubs Abdomen: Normal bowel sounds, Soft, No tenderness Neuro: Cranial nerves 3-12 NL Psych/Mental Status: Mental status NL Medications Current Medications Medications Dose Ordered Sig/Darryl Route Start Time Stop Time Status Last Admin Dose Admin Enoxaparin Sodium 40 mg DAILY SC 04/23/24 10:00 UNV Pantoprazole Sodium 40 mg BID IV 04/25/24 22:00 05/02/24 10:50 40 MG Hydralazine HCl 10 mg Q6HP PRN IV 04/26/24 13:30 04/30/24 01:21 10 MG Furosemide 40 mg DAILY IV 04/27/24 10:00 05/02/24 10:50 40 MG Polyethylene Glycol 17 gm DAILY PO 04/28/24 10:00 05/02/24 10:49 17 GM Acetaminophen 650 mg Q8HPRN PRN GT 04/27/24 13:30 Sodium Chloride 10 ml QSHIFT@10,22 IV 04/27/24 22:00 05/02/24 10:51 10 ML Fluconazole 100 ml @ 100 mls/hr DAILY IV 04/28/24 10:00 05/02/24 10:51 100 MLS/HR Vancomycin HCl 0 ml @ 0 mls/hr UD IV 04/28/24 15:45 Meropenem 50 ml @ 17 mls/hr Q8HR IV 04/28/24 22:00 05/02/24 06:08 17 MLS/HR Vancomycin HCl 250 ml @ 250 mls/hr Q14H IV 04/28/24 20:00 05/02/24 07:57 250 MLS/HR Diagnostic Test (Pha) 1 strip Q6HR 04/29/24 12:00 05/02/24 11:21 1 STRIP Insulin Human Regular Q6HR SC 04/29/24 12:00 05/02/24 11:44 4 UNITS Dextrose 50 ml UD PRN IV 04/29/24 12:00 Acetaminophen/ Hydrocodone Bitart 1 tab Q6HPRN PRN PO 04/29/24 17:45 05/02/24 08:34 1 TAB Laboratory Results Laboratory Tests 05/01/24 05:53 05/02/24 05:55 Urinalysis Test 04/21/24 22:40 04/22/24 01:40 Urine Hyaline Casts Few /lpf (0 - 2) Urine Color Light-yellow (Yellow) Urine Clarity Clear (Clear) Urine pH 5.5 (5.0-9.0) Urine Specific [place] 1.027 (1.001-1.035) Urine Protein 1+ (Negative) H Urine Ketones Trace (Negative) Urine Blood 1+ /uL (Negative) H Urine Nitrite Negative (Negative) Urine Bilirubin Negative (Negative) Urine Urobilinogen Normal mg/dL (Negative) Urine Leukocyte Esterase Negative /uL (Negative) Urine RBC 12 /hpf (0 - 3) Urine Microscopic WBC 4 /HPF (0-3) H Urine Squamous Epithelial Cells Few /hpf (<5) Urine Bacteria None seen /hpf (None Seen) Urine Glucose 2+ mg/dL (Normal) H Microbiology Microbiology Date/Time Source Procedure Growth Status 04/23/24 13:55 Bronchial Washings Gram Stain - Final Complete 04/23/24 13:55 Body Fluid Culture - Final Presumptive Mabel albicans Complete 04/22/24 03:32 Nose MRSA Screen - Final Complete 04/22/24 01:40 Voided Urine Urine Culture - Final Complete 04/21/24 22:25 Blood Blood Culture - Final NO GROWTH AFTER 5 DAYS OF INCUBATION. Complete Labs and/or images reviewed: Labs reviewed by me Assessment/Plan Assessment/Plan Neurology: #Acute metabolic/toxic encephalopathy like due to septic shock #Acute hypoxic encefalopathy likely due to hypoxic brain injury due to cardiad arrest ,PEA #ROSC after 6 minutes #Extubated - transfer to the floor - physical therapy evaluation, pending Cardiovascular: #Septic shock likely due to gram+/gram- Multifocal pneumonia # PEA #Hypertension #NSTEMI type 2 #acute diastolic heart failure - lasix 40 mg IV daily Respiratory: #Acute hypoxic respiratory failure likely due to multifocal pneumonia gram +/ - /anaerobes bacterial pneumonia #Septic shock likely due to above #Mediastinal lymphadenopathy, likely reactive. #Trace bilateral pleural effusions - on oxymizer 2 L - Lasix 20 mEq daily - IV ABX (vancomycin acetaminophen) - fluconazole. GI infectious/inflammatory colitis. - continue IV antibiotics /renal #Hypoalbuminemia #Hypokalemia #Teresa catheter #Hyperammonemia, resolved - strict I%O - electrolytes were replaced Hematology: #Severe anemia due to lower GI hemorrhage s/p transfusion - Protonix 40 BID - No EGD at this time per patient hemodynamic status Infectious disease: #Septic shock likely due to g+/=/anaerobes multifocal pneumonia #Lactic acidosis in the setting of septic shock - vancomycin IV - meropenem IV Endocrine: Uncontrolled type 2 diabetes a1c>9 - Insulin protocol PUD prophylaxis - Protonix 40 BID DVT prophylaxis - SCD line: picc line left arm since 04/28 This medical document was created using an electronic medical record system with [employer] direct computerized dictation system. Although this document has been carefully reviewed, there may still be some phonetic and typographical errors. These areas are purely typographical due to imperfections of the software programs, and do not reflect any compromise in the patient's medical care. Plan discussed with: Other (Rn) Date of Service: May 02, 2024 Billing Provider: SHALINI LOPEZ MD Common Visit Codes: [id number] INP/OBS CARE(HIGH) SHALINI LOPEZ MD May 02, 2024 13:08
--- NOTE | 2024-05-02 22:25 | DVHPN2 ---
Progress Note - Dictate Date Seen: May 02, 2024 Has the PT tested + for MRSA If YES, has PT been informed?: No Medical Necessity Reason Pt with a Central, PICC or Fol: Yes The following are medically ne: PICC Line, Stone Catheter Reason for stone catheter: Bladder Retention/Obstruc, Strict I&O, Total Immobilization Subjective No new complaints Patient underwent physical therapy and is able to ambulate Patient is tolerating a diet There was no further GI bleeding; hemoglobin stable at 9.9 vital signs Vital Sign Date Time Temp Pulse Resp B/P (MAP) Pulse Ox O2 Delivery O2 Flow Rate FiO2 05/02/24 17:00 97.5 71 16 137/75 (95) 99 97.5 05/02/24 08:00 Nasal Cannula* 5 40 Total Intake and Output 05/01/24 05/01/24 05/02/24 15:00 23:00 07:00 Intake Total 210 ml 4285 ml 50 ml Balance 210 ml 4285 ml 50 ml medications Current Medications Medications Dose Ordered Sig/Darryl Route Start Time Stop Time Status Last Admin Dose Admin Enoxaparin Sodium 40 mg DAILY SC 04/23/24 10:00 UNV Pantoprazole Sodium 40 mg BID IV 04/25/24 22:00 05/02/24 21:15 40 MG Hydralazine HCl 10 mg Q6HP PRN IV 04/26/24 13:30 04/30/24 01:21 10 MG Furosemide 40 mg DAILY IV 04/27/24 10:00 05/02/24 10:50 40 MG Polyethylene Glycol 17 gm DAILY PO 04/28/24 10:00 05/02/24 10:49 17 GM Acetaminophen 650 mg Q8HPRN PRN GT 04/27/24 13:30 Sodium Chloride 10 ml QSHIFT@10,22 IV 04/27/24 22:00 05/02/24 21:14 10 ML Fluconazole 100 ml @ 100 mls/hr DAILY IV 04/28/24 10:00 05/02/24 10:51 100 MLS/HR Vancomycin HCl 0 ml @ 0 mls/hr UD IV 04/28/24 15:45 Meropenem 50 ml @ 17 mls/hr Q8HR IV 04/28/24 22:00 05/02/24 14:28 17 MLS/HR Vancomycin HCl 250 ml @ 250 mls/hr Q14H IV 04/28/24 20:00 05/02/24 21:14 250 MLS/HR Diagnostic Test (Pha) 1 strip Q6HR 04/29/24 12:00 05/02/24 17:51 1 STRIP Insulin Human Regular Q6HR SC 04/29/24 12:00 05/02/24 11:44 4 UNITS Dextrose 50 ml UD PRN IV 04/29/24 12:00 Acetaminophen/ Hydrocodone Bitart 1 tab Q6HPRN PRN PO 04/29/24 17:45 05/02/24 14:48 1 TAB objective General Appearance: Awake alert ambulatory extubated Head Exam: Normal inspection; on 5 L nasal cannula Pulmonary/Respiratory: Chest non-tender. Crackles right lung zones. No wheezing. Cardiovascular/Chest: Regular rate and rhythm. No murmurs. No JVD. Abdominal Exam: Normal bowel sounds. Soft. normal abdomen, no visible veins, Nontender. No hepatospenomegaly. No masses Lower extremities: Negative lower extremity edema laboratory and microbiology Laboratory Tests 05/02/24 05:55 05/01/24 05:53 Test 05/01/24 05:53 Range/Units Serum Glucose 166 H 74-106 mg/dL Problems(with codes): (1) Diabetes mellitus with hyperglycemia (2) Upper GI bleed (3) Hypoxia (4) Electrolyte imbalance (5) Respiratory distress (6) Multifocal pneumonia (7) Respiratory failure (8) Cardiopulmonary arrest Prognosis Plan Continue supportive care Advance diet as tolerated Taper down the oxygen supply after possible Continue physical therapy Supportive care Protonix 40 mg IV daily I will follow up patient with you Outpatient follow up with GI Services for elective panendoscopy once medically stabilized Dietary Evaluation Review Comments: 1. TF Vital High Protein@45ml/hr providing 94 gPro, 1080 kcal in 24 hrs, adj goal rate as tolerated. If on Porpofol, add additional 110 fat kcal in 24 hrs. this two combined feeding will offer pt's needs for pro at 110%, and kcal at 83.8 %. May switch to Glucern@ 45ml/hr after pt is off vent without pressors, 2. TPN per pharmacy if pt has no GI access or no EN feeding option.. 3. If off vent, advance to Diet: 2 gNa CCHO-60, Cardiac, texture as tolerate after passing a speech eval. Expected Outcomes/Goals: improved nutrition status after Drug rehab. Plan discussed with: Patient, Other DURGA VALLE MD May 02, 2024 22:25
[2024-05-03] VITALS (10 sets, daily range): BP systolic 119–149; BP diastolic 62–84; PULSE 67–85; RESP 18–20; TEMP 97.6–98.3; O2SAT 91–100
--- NOTE | 2024-05-03 12:02 | DVHPNRES ---
Progress Note Date Seen: May 03, 2024 Resident Creating Document: DALIA HERRERA RESIDENT Has the PT tested + for MRSA If YES, has PT been informed?: No Medical Necessity Reason Pt with a Central, PICC or Fol: Yes The following are medically ne: PICC Line, Stone Catheter Reason for stone catheter: Bladder Retention/Obstruc, Strict I&O, Total Immobi lization Subjective Review of Systems No new complaints Last bowel movement at 10:00 a.m., loose but no blood Some nausea but no vomiting Currently breathing comfortably on room air Patient underwent physical therapy and is able to ambulate Patient is tolerating a diet There was no further GI bleeding; hemoglobin stable at 9.9 Objective vital signs Vital Sign Date Time Temp Pulse Resp B/P (MAP) Pulse Ox O2 Delivery O2 Flow Rate FiO2 05/03/24 09:27 127/70 05/03/24 09:00 98.3 85 20 91 98.3 05/03/24 08:15 Room Air* 0 21 Total Intake and Output 05/02/24 05/02/24 05/03/24 15:00 23:00 07:00 Intake Total 400 ml 650 ml 650 ml Output Total 400 ml 850 ml Balance 400 ml 250 ml -200 ml medications Current Medications Medications Dose Ordered Sig/Darryl Route Start Time Stop Time Status Last Admin Dose Admin Enoxaparin Sodium 40 mg DAILY SC 04/23/24 10:00 UNV Pantoprazole Sodium 40 mg BID IV 04/25/24 22:00 05/03/24 09:26 40 MG Hydralazine HCl 10 mg Q6HP PRN IV 04/26/24 13:30 04/30/24 01:21 10 MG Furosemide 40 mg DAILY IV 04/27/24 10:00 05/03/24 09:27 40 MG Polyethylene Glycol 17 gm DAILY PO 04/28/24 10:00 05/03/24 09:26 17 GM Acetaminophen 650 mg Q8HPRN PRN GT 04/27/24 13:30 Sodium Chloride 10 ml QSHIFT@10,22 IV 04/27/24 22:00 05/03/24 09:52 10 ML Fluconazole 100 ml @ 100 mls/hr DAILY IV 04/28/24 10:00 05/03/24 11:07 100 MLS/HR Vancomycin HCl 0 ml @ 0 mls/hr UD IV 04/28/24 15:45 Meropenem 50 ml @ 17 mls/hr Q8HR IV 04/28/24 22:00 05/03/24 05:22 17 MLS/HR Vancomycin HCl 250 ml @ 250 mls/hr Q14H IV 04/28/24 20:00 05/02/24 21:14 250 MLS/HR Diagnostic Test (Pha) 1 strip Q6HR 04/29/24 12:00 05/03/24 11:48 1 STRIP Insulin Human Regular Q6HR SC 04/29/24 12:00 05/03/24 11:48 3 UNITS Dextrose 50 ml UD PRN IV 04/29/24 12:00 Acetaminophen/ Hydrocodone Bitart 1 tab Q6HPRN PRN PO 04/29/24 17:45 05/03/24 05:22 1 TAB Examination General Appearance: Cooperative. Well developed. Well nourished. NAD Head Exam: Normal inspection Neck Exam: Normal inspection. Non-tender. Normal alignment Pulmonary/Respiratory: Chest non-tender. Crackles heard. Currently on room air Cardiovascular/Chest: Regular rate and rhythm. No murmurs. Abdominal Exam: Normal bowel sounds. Soft. Nontender. No hepatospenomegaly. No masses Ankle Exam: Negative ankle edema Lower extremities: Negative lower extremity edema Neuro/Mental Status: A&O x4. Coherent Thoughts/Psych: Normal thought pattern. Appropriate mood and affect. Good judgement and insight Appearance: In no acute distress Skin Exam: Normal inspection. Normal color. Warm. Dry laboratory and microbiology Test 05/03/24 11:00 Range/Units Serum Glucose Pending Microbiology Date/Time Source Procedure Growth Status 04/23/24 13:55 Bronchial Washings Gram Stain - Final Complete 04/23/24 13:55 Body Fluid Culture - Final Presumptive Mabel albicans Complete 04/22/24 03:32 Nose MRSA Screen - Final Complete 04/22/24 01:40 Voided Urine Urine Culture - Final Complete 04/21/24 22:25 Blood Blood Culture - Final NO GROWTH AFTER 5 DAYS OF INCUBATION. Complete Problem List/Assessment/Plan Problem List/Assessment/Plan Upper GI bleed Respiratory failure Multifocal pneumonia S/p cardiopulmonary arrest Hypoxia Electrolyte imbalance Type 2 diabetes Plan Converted MiraLax scheduled to p.r.n. due to patient having diarrhea Continue supportive care Advance diet as tolerated Currently on room air Continue physical therapy Supportive care Protonix 40 mg IV daily We will continue to follow the patient Outpatient follow up with GI Services for elective panendoscopy once medically stabilized Plan discussed with: Patient, Other (MITA No) Dietary Evaluation Review Comments: 1. TF Vital High Protein@45ml/hr providing 94 gPro, 1080 kcal in 24 hrs, adj goal rate as tolerated. If on Porpofol, add additional 110 fat kcal in 24 hrs. this two combined feeding will offer pt's needs for pro at 110%, and kcal at 83.8 %. May switch to Glucern@ 45ml/hr after pt is off vent without pressors, 2. TPN per pharmacy if pt has no GI access or no EN feeding option.. 3. If off vent, advance to Diet: 2 gNa CCHO-60, Cardiac, texture as tolerate after passing a speech eval. Expected Outcomes/Goals: improved nutrition status after Drug rehab. DALIA HERRERA RESIDENT May 03, 2024 12:02
[2024-05-03 12:52] LABS: Basophils # (auto) 0.1 10 ^3/uL (0-0.2); Basophils % (auto) 1.3 % (0.0-2.0); Eosinophils # (auto) 0.2 10 ^3/uL (0-0.8); Hematocrit 32.1 % (41.0-53.0); Hemoglobin 10.6 g/dL (13.5-17.5); Lymphocytes # (auto) 2.1 10 ^3/uL (0.4-5.4); Lymphocytes % (auto) 37.8 % (10.0-50.0); Mean Corpuscular Hemoglobin 29.3 pg (28.0-32.0); Monocytes # (auto) 0.5 10 ^3/uL (0-1.3); Monocytes % (auto) 8.5 % (0.0-12.0); Neutrophils # (auto) 2.7 10 ^3/uL (1.6-8.6); Neutrophils % (auto) 49.4 % (37.0-80.0); Nucleated Red Blood Cells % 0.2 %; Platelet Count (auto) 412 10^3/uL (140-450); Red Cell Distribution Width 15.3 % (11.8-14.3); White Blood Cell 5.4 10^3/uL (4.4-10.8)
[2024-05-03 13:16] LABS: Chloride 99 mmol/L (98-107); Sodium 138 mmol/L (136-145)
[2024-05-03 13:17] LABS: Anion Gap 6 (5-15)
[2024-05-03 13:25] LABS: Blood Urea Nitrogen 6 mg/dL (9-23); Calcium 8.4 mg/dL (8.7-10.4); Carbon Dioxide 33 mmol/L (20-31); Glucose 195 mg/dL (74-106); Potassium 3.2 mmol/L (3.5-5.1)
[2024-05-03] MEDS ORDERED: POLYETHYLENE GLYCOL 17 GM PWDR PO PRN (13:30)
[2024-05-03] MEDS: POTASSIUM CHL 20 Meq TABLET PO ONE (14:51)
--- NOTE | 2024-05-03 17:19 | DVHPNRES ---
Progress Note Date Seen: May 03, 2024 Resident Creating Document: STEFAN LARA RESIDENT Has the PT tested + for MRSA If YES, has PT been informed?: No Medical Necessity Reason Pt with a Central, PICC or Fol: Yes The following are medically ne: PICC Line Reason for stone catheter: Bladder Retention/Obstruc, Strict I&O, Total Immobilization Subjective Review of Systems HPI patient is 63-year-old male , with past medical history of hypertension, type 2 diabetes mellitus, drug abuse (per son , unknown which drugs). The patient presented one week ago toward facility for multifocal pneumonia which was treated and discharged. The patient came back two days ago with similar symptoms complaining of shortness of breath, fatigue and generalized weakness. The patient denied at that time any chest pain, palpitations or any associated symptoms. On previous admission bilateral pleural effusions and scattered areas of partial consolidations and ground-glass opacities likely consistent with multifocal pneumonia were found on CT chest. on 04/20 at night he left AMA. The patient was brought to our ED today after a possible syncopal episode in which he ended up in the ground and found without pulse. Per witness, the patient was found in the ground and was brought immediately to the ED, CPR was started at at 22:08 and ROSC at 22:14. Patient was intubated and started on antibiotics ( Meropenem and vancomycin), normal saline, sedation ( fentanyl, propofol and versed) RASS -3, levophed titrated down until 1mcg , with 2 mcg bp raise until 140's. 04/21/2024 ETT in satisfactory position. Extensive infiltrates in both lungs with considerable disease progression in the left lung compared to the prior chest x-ray from a day earlier. CT chest/abdomen/pelvis revealed-Severe multifocal pneumonia 2. Mediastinal lymphadenopathy, likely reactive. 3. Trace bilateral pleural effusions 4. Concentric wall thickening throughout the colon suspicious for infectious/inflammatory colitis. CT head negative for acute intracranial abnormality. Patient tested negative for flu A and B and COVID-19. Doppler test negative for DVT on 04/29/2024. Patient was extubated on 07/30/2024. Respiratory Culture on 04/21/2024 revealed presumptive Mabel albicans. Bronchial washing on 04/23/2024 revealed presumptive Mabel albicans. Blood culture no growth, urine culture no growth. MRSA screening negative x2. Patient was extubated on 07/30/2024. 05/03/2024- Patient was seen today for clinical evaluation. Labs and chart review. Patient's WBC trending with a normal limit, hemoglobin stable with 9.9 today., mild hypokalemia with potassium 3.2, replenished. Patient was seen by Physical therapy, recommended for front wheeled walker. As patient was ambulating well Stone's catheter was removed without any complication. Patient voiding well post Stone's removal. Changed pantoprazole and fluconazole from IV to oral form. Discontinued Lasix as heart failure clinically improved Ordered x-ray AP and lateral view for tomorrow morning for further evaluation and care Patient had bowel movement today. Plan is to take patient off oxygen as patient reported breathing well when ambulating. On auscultation lung crackles especially on the right side> left. Ordered CBC, BNP, magnesium for tomorrow morning Provider called and spoke to patient's son [phone], discussed patient's current medical condition, plan of care and answered his questions. Objective vital signs Vital Sign Date Time Temp Pulse Resp B/P (MAP) Pulse Ox O2 Delivery O2 Flow Rate FiO2 05/03/24 09:27 127/70 05/03/24 09:00 98.3 85 20 91 98.3 05/03/24 08:15 Room Air* 0 21 Total Intake and Output 05/02/24 05/02/24 05/03/24 15:00 23:00 07:00 Intake Total 400 ml 650 ml 650 ml Output Total 400 ml 850 ml Balance 400 ml 250 ml -200 ml medications Current Medications Medications Dose Ordered Sig/Darryl Route Start Time Stop Time Status Last Admin Dose Admin Enoxaparin Sodium 40 mg DAILY SC 04/23/24 10:00 UNV Hydralazine HCl 10 mg Q6HP PRN IV 04/26/24 13:30 04/30/24 01:21 10 MG Acetaminophen 650 mg Q8HPRN PRN GT 04/27/24 13:30 Sodium Chloride 10 ml QSHIFT@10,22 IV 04/27/24 22:00 05/03/24 09:52 10 ML Vancomycin HCl 0 ml @ 0 mls/hr UD IV 04/28/24 15:45 Meropenem 50 ml @ 17 mls/hr Q8HR IV 04/28/24 22:00 05/03/24 14:50 17 MLS/HR Vancomycin HCl 250 ml @ 250 mls/hr Q14H IV 04/28/24 20:00 05/03/24 12:25 250 MLS/HR Diagnostic Test (Pha) 1 strip Q6HR 04/29/24 12:00 05/03/24 11:48 1 STRIP Insulin Human Regular Q6HR SC 04/29/24 12:00 05/03/24 11:48 3 UNITS Dextrose 50 ml UD PRN IV 04/29/24 12:00 Acetaminophen/ Hydrocodone Bitart 1 tab Q6HPRN PRN PO 04/29/24 17:45 05/03/24 12:36 1 TAB Polyethylene Glycol 17 gm DAILY PRN PO 05/03/24 13:30 Fluconazole 200 mg DAILY PO 05/04/24 10:00 UNV Pantoprazole Sodium 40 mg BID@0600,1700 PO 05/04/24 06:00 UNV Examination General Appearance: Patient post extubated, AO X3, able to follow commands. Respiratory: Crackles on the lung right >left Cardiovascular: Regular rate, Normal S1, Normal S2 Abdominal: hypoactive, distended, non tenderness,guarding or rebound on palpation Extremities: Leg edema improved, PICC line on the left upper arm Skin: Right eyebrow laceration, small ( 3) blisters in the inner tights Neuro: pupils, reactive to light, able to move all extremities, strength +1 lower extremities, +2 upper extremities laboratory and microbiology Laboratory Tests 05/03/24 11:00 Test 05/03/24 11:00 Range/Units Serum Glucose 195 H 74-106 mg/dL Microbiology Date/Time Source Procedure Growth Status 04/23/24 13:55 Bronchial Washings Gram Stain - Final Complete 04/23/24 13:55 Body Fluid Culture - Final Presumptive Mabel albicans Complete 04/22/24 03:32 Nose MRSA Screen - Final Complete 04/22/24 01:40 Voided Urine Urine Culture - Final Complete 04/21/24 22:25 Blood Blood Culture - Final NO GROWTH AFTER 5 DAYS OF INCUBATION. Complete Problem List/Assessment/Plan Problem List/Assessment/Plan Assessment and plan Neurology: #Acute metabolic/toxic encephalopathy like due to septic shock #Acute hypoxic encefalopathy likely due to hypoxic brain injury due to cardiad arrest ,PEA #ROSC after 6 minutes # status post extubation - patient is awake, alert and oriented -physical therapy recommended for front wheel walker, social service consult in place Cardiovascular: #Septic shock likely due to gram+/gram- Multifocal pneumonia, clinically improved # PEA #Hypertension #NSTEMI type 2 #acute diastolic heart failure, -ECHO on 04/22/2024 LVEF 60%, concentric left ventricular hypertrophy, left atrial enlargement - 05/03/2024 Discontinued Lasix as patient's symptoms clinically improved for heart failure Respiratory: #Acute hypoxic respiratory failure likely due to multifocal pneumonia gram +/ - /anaerobes bacterial pneumonia #Septic shock likely due to above #Mediastinal lymphadenopathy, likely reactive. #Trace bilateral pleural effusions -05/03/2024-discontinued IV Lasix - IV ABX (vancomycin ) -switched fluconazole IV to oral form 05/03/2024-ordered x-ray chest PA and lateral view 05/04/24 Gastrointestinal infectious/inflammatory colitis. - continue IV antibiotics /renal #Hypoalbuminemia #Hypokalemia-replenished # status post Stone catheter-removed on 08/03/2024 #Hyperammonemia, resolved - strict I%O - electrolytes were replaced Infectious disease: #Septic shock likely due to g+/=/anaerobes multifocal pneumonia #Lactic acidosis in the setting of septic shock-resolved - vancomycin IV - meropenem IV Hematology: #Severe anemia due to lower GI hemorrhage s/p 1 unit transfusion - 05/03/24 changed Protonix from IV to oral form - No EGD at this time per patient hemodynamic status Endocrine: Uncontrolled type 2 diabetes HBa1c> 9.3 - Insulin protocol PUD prophylaxis - Protonix 40 mg p.o. b.i.d. DVT prophylaxis - SCD Line: PICC line left arm since 04/2805/03/2024- Stone's catheter removed Goals of care/advance care planning; FULL CODE; discussed with the patient >15 minutes PUD prophylaxis: Patient ambulating SCD DVT prophylaxis: Pantoprazole, Plan discussed with Dr. Barahona , nursing staff, patient Advance care planning Total time spent on patient evaluation, chart review, assessment and plan, discussion discussion >35 minutes Plan discussed with: Patient Plan discussed with: Patient, Son, Other (RN) My Orders My Orders Orders - STEFAN LARA Procedure Category Date Status Time D/C Stone TREY 05/03/24 In Process 14:26 Chest Two Views XY 05/04/24 Logged Routine 06:00 * Cctv Technician CONS 05/03/24 Transmitted Consult Dietary Evaluation Review Comments: 1. TF Vital High Protein@45ml/hr providing 94 gPro, 1080 kcal in 24 hrs, adj goal rate as tolerated. If on Porpofol, add additional 110 fat kcal in 24 hrs. this two combined feeding will offer pt's needs for pro at 110%, and kcal at 83.8 %. May switch to Glucern@ 45ml/hr after pt is off vent without pressors, 2. TPN per pharmacy if pt has no GI access or no EN feeding option.. 3. If off vent, advance to Diet: 2 gNa CCHO-60, Cardiac, texture as tolerate after passing a speech eval. Expected Outcomes/Goals: improved nutrition status after Drug rehab. Date of Service: May 03, 2024 Billing Provider: JENNIFFER BARAHONA MD Common Visit Codes: 83356-[id number] INP/OBS CARE(HIGH) Secondary Visit Codes: 80463-[id number] CARE PLAN 30 MINUTES STEFAN LARA RESIDENT May 03, 2024 17:19 JENNIFFER BARAHONA MD May 04, 2024 15:55
[2024-05-03] MEDS: PANTOPRAZOLE 40 MG TAB PO SCH (18:33)
[2024-05-04] VITALS (9 sets, daily range): BP systolic 97–158; BP diastolic 50–77; PULSE 18–97; RESP 18–20; TEMP 97.7–98; O2SAT 90–99
[2024-05-04 07:21] LABS: Basophils # (auto) 0.1 10 ^3/uL (0-0.2); Basophils % (auto) 2.3 % (0.0-2.0); Eosinophils # (auto) 0.2 10 ^3/uL (0-0.8); Eosinophils % (auto) 3.6 % (0.0-7.0); Hematocrit 27.1 % (41.0-53.0); Hemoglobin 9.3 g/dL (13.5-17.5); Lymphocytes # (auto) 2.4 10 ^3/uL (0.4-5.4); Lymphocytes % (auto) 38.1 % (10.0-50.0); Mean Corpuscular Hemoglobin 30.4 pg (28.0-32.0); Mean Corpuscular Hgb Conc. 34.3 g/dL (32.0-36.0); Mean Corpuscular Volume 88.6 fL (80.0-100.0); Monocytes # (auto) 0.6 10 ^3/uL (0-1.3); Monocytes % (auto) 9.2 % (0.0-12.0); Neutrophils # (auto) 2.9 10 ^3/uL (1.6-8.6); Neutrophils % (auto) 46.8 % (37.0-80.0); Platelet Count (auto) 376 10^3/uL (140-450); Red Blood Cells 3.06 10^6/uL (4.5-5.90); Red Cell Distribution Width 15.8 % (11.8-14.3); White Blood Cell 6.3 10^3/uL (4.4-10.8)
[2024-05-04 07:26] LABS: Anion Gap 5 (5-15); Chloride 100 mmol/L (98-107); Potassium 4.5 mmol/L (3.5-5.1); Sodium 140 mmol/L (136-145)
[2024-05-04 07:30] LABS: Calcium 8.4 mg/dL (8.7-10.4); Carbon Dioxide 35 mmol/L (20-31)
[2024-05-04 07:32] LABS: BUN/Creatinine Ratio 9.7 (10.0-20.0)
[2024-05-04 07:35] LABS: Blood Urea Nitrogen 7 mg/dL (9-23); Glucose 117 mg/dL (74-106)
--- NOTE | 2024-05-04 08:24 | DVH ---
CLINICAL INFORMATION: Pneumonia, atelectasis, collapse. TECHNIQUE: Frontal and lateral chest radiographs were obtained. COMPARISON: None FINDINGS: Airspace consolidation in the right upper lobe slightly improved compared to the prior exam, although differences may be due to differences in technique. Ill-defined airspace opacities in the lung bases bilaterally, also appear slightly improved. No pneumothorax. Stable satisfactory positioning of the left PICC. IMPRESSION: 1. Airspace consolidations appear slightly improved, although may be partly due to differences in hellen hnique. 2. Stable positioning of the left PICC.
[2024-05-04] MEDS: FLUCONAZOLE 100 MG TAB PO SCH (09:22)
--- NOTE | 2024-05-04 11:42 | DVHPN2 ---
Progress Note Date Seen: May 04, 2024 Resident Creating Document: DALIA HERRERA RESIDENT Has the PT tested + for MRSA If YES, has PT been informed?: No Medical Necessity Reason Pt with a Central, PICC or Fol: Yes The following are medically ne: PICC Line Reason for stone catheter: Bladder Retention/Obstruc, Strict I&O, Total Immobilization Subjective Review of Systems No new complaints Last bowel movement at 9:00 a.m., soft but not watery without any blood Some nausea but no vomiting Currently breathing comfortably on room air Patient underwent physical therapy and is able to ambulate Patient is tolerating a diet There was no further GI bleeding; hemoglobin stable at 9.3 Objective vital signs Vital Sign Date Time Temp Pulse Resp B/P (MAP) Pulse Ox O2 Delivery O2 Flow Rate FiO2 05/04/24 09:00 98.0 97 19 97/66 (76) 98 98.0 05/04/24 08:20 Nasal Cannula* 2 28 Total Intake and Output 05/03/24 05/03/24 05/04/24 15:00 23:00 07:00 Intake Total 1700 ml 530 ml Output Total 1500 ml 1200 ml Balance 200 ml -670 ml medications Current Medications Medications Dose Ordered Sig/Darryl Route Start Time Stop Time Status Last Admin Dose Admin Enoxaparin Sodium 40 mg DAILY SC 04/23/24 10:00 UNV Hydralazine HCl 10 mg Q6HP PRN IV 04/26/24 13:30 04/30/24 01:21 10 MG Acetaminophen 650 mg Q8HPRN PRN GT 04/27/24 13:30 Sodium Chloride 10 ml QSHIFT@10,22 IV 04/27/24 22:00 05/04/24 09:23 10 ML Vancomycin HCl 0 ml @ 0 mls/hr UD IV 04/28/24 15:45 Meropenem 50 ml @ 17 mls/hr Q8HR IV 04/28/24 22:00 05/04/24 05:46 17 MLS/HR Vancomycin HCl 250 ml @ 250 mls/hr Q14H IV 04/28/24 20:00 05/04/24 03:00 250 MLS/HR Diagnostic Test (Pha) 1 strip Q6HR 04/29/24 12:00 05/04/24 05:46 1 STRIP Insulin Human Regular Q6HR SC 04/29/24 12:00 05/03/24 11:48 3 UNITS Dextrose 50 ml UD PRN IV 04/29/24 12:00 Acetaminophen/ Hydrocodone Bitart 1 tab Q6HPRN PRN PO 04/29/24 17:45 05/04/24 06:26 1 TAB Polyethylene Glycol 17 gm DAILY PRN PO 05/03/24 13:30 Fluconazole 200 mg DAILY PO 05/04/24 10:00 05/04/24 09:22 200 MG Pantoprazole Sodium 40 mg BID@0600,1700 PO 05/03/24 17:46 05/04/24 05:46 40 MG Examination General Appearance: Cooperative. Well developed. Well nourished. NAD Head Exam: Normal inspection Neck Exam: Normal inspection. Non-tender. Normal alignment Pulmonary/Respiratory: Chest non-tender. Crackles heard. Currently on room air Cardiovascular/Chest: Regular rate and rhythm. No murmurs. Abdominal Exam: Normal bowel sounds. Soft. Nontender. No hepatospenomegaly. No masses Ankle Exam: Negative ankle edema Lower extremities: Negative lower extremity edema Neuro/Mental Status: A&O x4. Coherent Thoughts/Psych: Normal thought pattern. Appropriate mood and affect. Good judgement and insight Appearance: In no acute distress Skin Exam: Normal inspection. Normal color. Warm. Dry laboratory and microbiology Laboratory Tests 05/04/24 06:43 Test 05/04/24 06:43 Range/Units Serum Glucose 117 H 74-106 mg/dL Microbiology Date/Time Source Procedure Growth Status 04/23/24 13:55 Bronchial Washings Gram Stain - Final Complete 04/23/24 13:55 Body Fluid Culture - Final Presumptive Mabel albicans Complete 04/22/24 03:32 Nose MRSA Screen - Final Complete 04/22/24 01:40 Voided Urine Urine Culture - Final Complete 04/21/24 22:25 Blood Blood Culture - Final NO GROWTH AFTER 5 DAYS OF INCUBATION. Complete Labs and/or images reviewed: Labs reviewed by me, Image(s) reviewed by me Problem List/Assessment/Plan Problem List/Assessment/Plan Upper GI bleed Respiratory failure Multifocal pneumonia S/p cardiopulmonary arrest Hypoxia Electrolyte imbalance Type 2 diabetes Plan Converted MiraLax scheduled to p.r.n. due to patient having diarrhea Continue supportive care Advance diet as tolerated Currently on room air Continue physical therapy Supportive care Protonix 40 mg IV daily We will continue to follow the patient Outpatient follow up with GI Services for elective panendoscopy once medically stabilized Plan discussed with: Patient, Other (RN) My Orders My Orders Orders - DALIA HERRERA RESIDENT Procedure Category Date Status Time Polyethylene Glycol PHA 05/03/24 In Process 17g Powder (Miralax 13:30 Dietary Evaluation Review Comments: 1. TF Vital High Protein@45ml/hr providing 94 gPro, 1080 kcal in 24 hrs, adj goal rate as tolerated. If on Porpofol, add additional 110 fat kcal in 24 hrs. this two combined feeding will offer pt's needs for pro at 110%, and kcal at 83.8 %. May switch to Glucern@ 45ml/hr after pt is off vent without pressors, 2. TPN per pharmacy if pt has no GI access or no EN feeding option.. 3. If off vent, advance to Diet: 2 gNa CCHO-60, Cardiac, texture as tolerate after passing a speech eval. Expected Outcomes/Goals: improved nutrition status after Drug rehab. DALIA HERRERA RESIDENT May 04, 2024 11:42
--- NOTE | 2024-05-04 12:38 | DVHDSRES ---
Discharge Summary Date of Admission Resident Creating Document: STEFAN LARA RESIDENT Apr 22, 2024 at 00:48 Admitting Diagnosis Acute hypoxic respiratory failure, metabolic encephalopathy following cardiac arrest Labs/Diagnostic Data: Laboratory Results Test 05/04/24 11:33 05/04/24 06:43 05/03/24 11:00 05/01/24 05:53 POC Glucose 220 mg/dl (70-106) White Blood Count 6.3 10^3/uL (4.4-10.8) Red Blood Count 3.06 10^6/uL (4.5-5.90) Hemoglobin 9.3 g/dL (13.5-17.5) Hematocrit 27.1 % (41.0-53.0) Mean Corpuscular Volume 88.6 fL (80.0-100.0) Mean Corpuscular Hemoglobin 30.4 pg (28.0-32.0) Mean Corpuscular Hemoglobin Concent 34.3 g/dL (32.0-36.0) Red Cell Distribution Width 15.8 % (11.8-14.3) Platelet Count 376 10^3/uL (140-450) Mean Platelet Volume 6.5 fL (6.9-10.8) Neutrophils (%) (Auto) 46.8 % (37.0-80.0) Lymphocytes (%) (Auto) 38.1 % (10.0-50.0) Monocytes (%) (Auto) 9.2 % (0.0-12.0) Eosinophils (%) (Auto) 3.6 % (0.0-7.0) Basophils (%) (Auto) 2.3 % (0.0-2.0) Neutrophils # (Auto) 2.9 10 ^3/uL (1.6-8.6) Lymphocytes # (Auto) 2.4 10 ^3/uL (0.4-5.4) Monocytes # (Auto) 0.6 10 ^3/uL (0-1.3) Eosinophils # (Auto) 0.2 10 ^3/uL (0-0.8) Basophils # (Auto) 0.1 10 ^3/uL (0-0.2) Nucleated Red Blood Cells 0.0 % Sodium Level 140 mmol/L (136-145) Potassium Level 4.5 mmol/L (3.5-5.1) Chloride Level 100 mmol/L (98-107) Carbon Dioxide Level 35 mmol/L (20-31) Anion Gap 5 (5-15) Blood Urea Nitrogen 7 mg/dL (9-23) Creatinine 0.72 mg/dL (0.700-1.30) Glomerular Filtration Rate Calc 102 mL/min (>90) BUN/Creatinine Ratio 9.7 (10.0-20.0) Serum Glucose 117 mg/dL (74-106) Calcium Level 8.4 mg/dL (8.7-10.4) Magnesium Level 2.0 mg/dL (1.6-2.6) Vancomycin Level Trough 15.3 ug/mL (5-10) Total Bilirubin 0.3 mg/dL (0.2-1.0) Aspartate Amino Transferase (AST) 32 U/L (13-40) Alanine Aminotransferase (ALT) 11 U/L (7-40) Alkaline Phosphatase 123 U/L (46-116) Total Protein 5.8 g/dL (5.7-8.2) Albumin 2.8 g/dL (3.2-4.8) Test 04/30/24 07:01 04/29/24 21:56 04/29/24 09:26 04/29/24 07:37 Blood Gas Specimen Type Arterial Blood Gas Sample Site Right radial Blood Gas Patient Temperature 37.0 Arterial Blood Date Drawn [id number] Arterial Blood pH 7.502 (7.350-7.450) Arterial Blood Partial Pressure CO2 34.4 mmHg (35.0-48.0) Arterial Blood Partial Pressure O2 53.1 mmHg (83.0-108.0) Arterial Blood HCO3 26.3 mmol/L (21.0-28.0) Arterial Blood Oxygen Saturation 88.1 % (94.0-98.0) Arterial Blood Base Excess 3.2 mmol/L (-2.0-3.0) Arterial Blood Oxyhemoglobin 87.3 % (94.0-98.0) Arterial Blood Carboxyhemoglobin 0.3 % (0.5-1.5) Arterial Blood Methemoglobin 0.6 % (0.0-1.5) Ganesh Test Yes Blood Gas Total Hemoglobin 9.30 g/dL (13.5-17.5) Blood Gas Liter Flow 4.00 Blood Gas Modality Nasal cannula FiO2 % 36.0 Blood Gas Critical Value Read Back Yes Blood Gas Notified Whom zuly Harris md Blood Gas Notified Time [id number] Blood Gas Notified By ning Bobo Stool Occult Blood Negative (Negative) Stool Occult Blood Sample #3 (Negative) Blood Gas Pressure Support 8 Blood Gas PEEP or CPAP 5.0 Blood Gas Set Respiration Rate 18.0 Blood Gas Tidal Volume 450.0 Test 04/27/24 09:33 04/27/24 08:04 04/27/24 04:52 04/26/24 14:43 Iron Level 23 ug/dL (65-175) Total Iron Binding Capacity 187 ug/dL (250-425) Percent Iron Saturation 12.3 % (20-55) Blood Gas Spontaneous Rate 26 Blood Gas Spontaneous Tidal Volume 450 Ammonia < 10 umol/L (11-32) Random Vancomycin Level 17.2 ug/mL (5-10) Test 04/26/24 06:51 04/23/24 13:55 04/22/24 14:35 04/22/24 08:00 Phosphorus Level 4.0 mg/dL (2.4-5.1) Body Fluid Source Bronchial aspirate Body Fluid WBC (Manual) 460 CUMM (0-200) Body Fluid RBC (Manual) 0 CUMM (0-2000) Body Fluid Mononuclear Cells 5 % Body Fluid Polymorphonuclear Cells 95 % (0-25) Lactic Acid Level 1.6 mmol/L (0.4-2.0) Platelet Estimate Increased Troponin I High Sensitivity 84 ng/L (</=54) Thyroid Stimulating Hormone (TSH) 0.69 uIU/mL (0.55-4.78) Test 04/22/24 01:40 04/22/24 00:39 04/21/24 22:40 04/21/24 22:25 Urine Color Light-yellow (Yellow) Urine Clarity Clear (Clear) Urine pH 5.5 (5.0-9.0) Urine Specific [place] 1.027 (1.001-1.035) Urine Protein 1+ (Negative) Urine Ketones Trace (Negative) Urine Blood 1+ /uL (Negative) Urine Nitrite Negative (Negative) Urine Bilirubin Negative (Negative) Urine Urobilinogen Normal mg/dL (Negative) Urine Leukocyte Esterase Negative /uL (Negative) Urine RBC 12 /hpf (0 - 3) Urine Microscopic WBC 4 /HPF (0-3) Urine Squamous Epithelial Cells Few /hpf (<5) Urine Bacteria None seen /hpf (None Seen) Urine Glucose 2+ mg/dL (Normal) Urine Opiates Screen Pos (NEGATIVE) Urine Fentanyl Screen Neg (NEGATIVE) Urine Barbiturates Screen Neg (NEGATIVE) Urine Phencyclidine Screen Neg (NEGATIVE) Urine Amphetamines Screen Neg (NEGATIVE) Urine Benzodiazepines Screen Pos (NEGATIVE) Urine Cocaine Screen Neg (NEGATIVE) Urine Cannabinoids Screen Neg (NEGATIVE) Influenza Type A Antigen Negative (Negative) Influenza Type B Antigen Negative (Negative) SARS-CoV-2 Antigen (Rapid) Negative (NEGATIVE) Triglycerides Level 109 mg/dL (< 150) Cholesterol Level 88 mg/dL (< 200) LDL Cholesterol 48 mg/dL (< 100) HDL Cholesterol 24 mg/dL (40-59) Urine Hyaline Casts Few /lpf (0 - 2) Prothrombin Time 13.9 sec (9.3-11.8) Prothrombin Time INR 1.35 (0.9-1.15) Activated Partial Thromboplast Time 32.1 SEC (24.5-34.5) B-Type Natriuretic Peptide 359.89 pg/mL (0-100) Lipase 15 U/L (12-53) Salicylates Level < 3.0 mg/dL (-30) Acetaminophen Level < 2.0 UG/ML (10.0-20.0) Plasma/Serum Blood Alcohol < 3.0 mg/dL (<10) Other Laboratory Tests 05/04/24 06:43 Brief Hx & Hospital Course: HPI patient is 63-year-old male , with past medical history of hypertension, type 2 diabetes mellitus, drug abuse (per son , unknown which drugs). The patient presented one week ago toward facility for multifocal pneumonia which was treated and discharged. The patient came back two days ago with similar symptoms complaining of shortness of breath, fatigue and generalized weakness. The patient denied at that time any chest pain, palpitations or any associated symptoms. On previous admission bilateral pleural effusions and scattered areas of partial consolidations and ground-glass opacities likely consistent with multifocal pneumonia were found on CT chest. on 04/20 at night he left AMA. The patient was brought to our ED today after a possible syncopal episode in which he ended up in the ground and found without pulse. Per witness, the patient was found in the ground and was brought immediately to the ED, CPR was started at at 22:08 and ROSC at 22:14. Patient was intubated and started on antibiotics ( Meropenem and vancomycin), normal saline, sedation ( fentanyl, propofol and versed) RASS -3, levophed titrated down until 1mcg , with 2 mcg bp raise until 140's. 04/21/2024 ETT in satisfactory position. Extensive infiltrates in both lungs with considerable disease progression in the left lung compared to the prior chest x-ray from a day earlier. CT chest/abdomen/pelvis revealed-Severe multifocal pneumonia 2. Mediastinal lymphadenopathy, likely reactive. 3. Trace bilateral pleural effusions 4. Concentric wall thickening throughout the colon suspicious for infectious/inflammatory colitis. CT head negative for acute intracranial abnormality. Patient tested negative for flu A and B and COVID-19. Doppler test negative for DVT on 04/29/2024. Patient was extubated on 07/30/2024. Respiratory Culture on 04/21/2024 revealed presumptive Mabel albicans. Bronchial washing on 04/23/2024 revealed presumptive Mabel albicans. Blood culture no growth, urine culture no growth. MRSA screening negative x2. Patient was extubated on 07/30/2024. Hospital course-patient was brought to the hospital after patient coded in the parking lot. Patient was found to have cardiac arrest, status post CPR, patient was put on mechanical ventilator and patient was admitted to the hospital due to acute hypoxic brain injury, metabolic encephalopathy, acute hypoxic respiratory failure. The patient was brought to our ED today after a possible syncopal episode in which he ended up in the ground and found without pulse. Per witness, the patient was found in the ground and was brought immediately to the ED, CPR was started at at 22:08 and ROSC at 22:14. Patient was intubated and started on antibiotics ( Meropenem and vancomycin), normal saline, sedation ( fentanyl, propofol and versed) RASS -3, levophed titrated down until 1mcg , with 2 mcg bp raise until 140's. 04/21/2024 ETT in satisfactory position. Extensive infiltrates in both lungs with considerable disease progression in the left lung compared to the prior chest x-ray from a day earlier. CT chest/abdomen/pelvis revealed-Severe multifocal pneumonia 2. Mediastinal lymphadenopathy, likely reactive. 3. Trace bilateral pleural effusions 4. Concentric wall thickening throughout the colon suspicious for infectious/inflammatory colitis. CT head negative for acute intracranial abnormality. Patient tested negative for flu A and B and COVID-19. Doppler test negative for DVT on 04/29/2024. Patient was extubated on 07/30/2024. Respiratory Culture on 04/21/2024 revealed presumptive Mabel albicans. Bronchial washing on 04/23/2024 revealed presumptive Mabel albicans. Blood culture no growth, urine culture no growth. MRSA screening negative x2. Patient was extubated on 07/30/2024. Patient's symptom improved with the conservative treatment IV antibiotic physical therapy became formed wheel walker. Patient was taken off oxygen and was breathing well in room air. Patient is being discharged home in a hemodynamically stable condition. Patient was advised to follow up with the primary care physician in 1 week, follow up with the logistics clerk in 1-2 weeks. Patient's meds were sent to the pharmacy electronically. Operations or Procedures [place] [address] Ph: [phone] DIAGNOSTIC IMAGING Diagnostic Imaging Report : [id number] Signed PATIENT: JAN PROCTOR ACCT: [id number] UNIT: [id number] : 1960 LOC: ER ROOM / BED: / AGE / SEX: 63 / M ADM STATUS: REG ER SERVICE 38 ORDERING PHYSICIAN: JENNIFFER WOODRUFF PROCEDURE(s): CS2 - CERVICAL WITHOUT CONTRAST REASON: s/p cpr/ syncope ORDER NUMBER(s): [id number], ACCESSION NUMBER(s): [id number] EXAM: CT CERVICAL WITHOUT CONTRAST HISTORY: s/p cpr/ syncope COMPARISON: None CTDIvol mGy, DLP mGy*cm. TECHNIQUE: Multiple axial CT images of the spine were obtained using bone algorithm. Axial and coronal reformatting was done. Bone and soft tissue windows were reviewed. FINDINGS: Study is mildly degraded by motion artifact. Mild straightening of the normal cervical lordosis; the alignment is otherwise unremarkable with no listhesis. No definite evidence of fracture or dislocation in the cervical spine. No significant spinal canal stenosis. IMPRESSION: No evidence of cervical spine fracture or dislocation. ATED BY: JESUS LATHAM MD DICTATED DATE/TIME: 04/21/242342 SIGNED BY: JESUS LATHAM MD SIGNED DATE/TIME: 04/21/242342 CC: [place] [address] Ph: [phone] DIAGNOSTIC IMAGING Diagnostic Imaging Report : [id number] Signed PATIENT: JAN PROCTOR ACCT: [id number] UNIT: [id number] : 1960 LOC: ER ROOM / BED: / AGE / SEX: 63 / M ADM STATUS: REG ER SERVICE 38 ORDERING PHYSICIAN: DEVENDRA CHEEMA MD PROCEDURE(s): CXRP - CHEST PORTABLE REASON: SOB, intubated ORDER NUMBER(s): [id number], ACCESSION NUMBER(s): [id number] CHEST RADIOGRAPH Indication: SOB, intubated Technique: Single frontal view of the chest was obtained COMPARISON: XY CHEST XRAY 1 VIEW on DOS: 04/20/24 FINDINGS: Lines and Tubes: Interval insertion of ETT in satisfactory position approximately 2.5 cm above the anny. Lungs: There are extensive infiltrates in both lungs with considerable disease progression in the left lung compared to the prior chest x-ray from a day earlier. Pleura: No effusion. No pneumothorax. Cardiomediastinal contours: Unremarkable IMPRESSION: ETT in satisfactory position. Extensive infiltrates in both lungs with considerable disease progression in the left lung compared to the prior chest x- ray from a day earlier. ATED BY: JESUS LATHAM MD DICTATED DATE/TIME: 04/21/242301 SIGNED BY: JESUS LATHAM MD SIGNED DATE/TIME: 04/21/242301 CC: [address] [id number] Ph: [phone] DIAGNOSTIC IMAGING Diagnostic Imaging Report : [id number] Signed PATIENT: JAN PROCTOR ACCT: [id number] UNIT: [id number] : 1960 LOC: ER ROOM / BED: / AGE / SEX: 63 / M ADM STATUS: REG ER SERVICE 38 ORDERING PHYSICIAN: JENNIFFER WOODRUFFCNP PROCEDURE(s): CTCAP - CHST AB PEL WO CON-NO IV/ORAL REASON: sp cpr ORDER NUMBER(s): [id number], ACCESSION NUMBER(s): [id number] Exam: CT CHST AB PEL WO CON-NO IV/ORAL History: sp cpr Comparison Study: CT CT AB PEL WO CON-NO ORAL OR IV on DOS: 04/12/24, CT CT AB PEL WO CON-NO ORAL OR IV on DOS: 11/25/22 Technique: Multidetector spiral CT of the chest, abdomen was performed from lung bases to pubic symphysis. Imaging was performed without IV contrast. Axial, coronal and sagittal multiplanar reformats were obtained from the axial data set by the technologist. Radiation Dose : 1. Abdomen/Pelvis: CTDIvol 12.7 mGy, DLP 927 mGy*cm. Findings: Evaluation of solid organs is limited due to lack of intravenous contrast use. Lungs : Severe multifocal pneumonia throughout both lungs, most prominent in the right upper lobe. COPD. Trace bilateral pleural effusions. No pneumothorax Mild cardiomegaly. Mediastinal lymphadenopathy, likely reactive. Endotracheal tube terminates above the anny. Enteric tube terminates in the gastric lumen. Liver: The liver is normal in size. No focal lesions. Gallbladder and Biliary Tree: Unremarkable Spleen: Unremarkable Pancreas: The pancreas is grossly normal in appearance. Adrenal Glands: Unremarkable Kidneys: Kidneys are grossly normal without calculi or hydronephrosis. Bladder: Collapsed around a Teresa catheter. Bowel: The stomach is grossly normal in appearance. Concentric wall thickening throughout the colon suspicious for infectious/inflammatory colitis. The appendix is not visualized; however, no secondary findings of acute appendicitis identified. Ascites: Absent Lymphadenopathy: No mesenteric, retroperitoneal or periportal lymphadenopathy. Abdominal Wall and Mesentery: Unremarkable. Vasculature: The visualized abdominal aorta is normal in size and caliber. Evaluation of abdominal and pelvic vessels is limited due to lack of intravenous contrast. Pelvic Organs: Unremarkable Musculoskeletal: No aggressive focal bony lesions, acute fractures or dislocation. IMPRESSION: 1. Severe multifocal pneumonia 2. Mediastinal lymphadenopathy, likely reactive. 3. Trace bilateral pleural effusions 4. Concentric wall thickening throughout the colon suspicious for infectious/inflammatory colitis. Radiation optimization: All CT scans at this facility use at least one of these dose optimization techniques: automated exposure control mA and/or kV adjustment per patient size (includes targeted exams where dose is matched to clinical indication) or iterative reconstruction. ATED BY: ZURI WALTON MD DICTATED DATE/TIME: 04/21/242351 SIGNED BY: ZURI WALTON MD SIGNED DATE/TIME: 04/21/242351 CC: [place] [address] Ph: [phone] DIAGNOSTIC IMAGING Diagnostic Imaging Report : [id number] Signed PATIENT: JAN PROCTOR ACCT: [id number] UNIT: [id number] : 1960 LOC: ER ROOM / BED: / AGE / SEX: 63 / M ADM STATUS: REG ER SERVICE 38 ORDERING PHYSICIAN: DEVENDRA CHEEMA MD PROCEDURE(s): HWOCT - HEAD WITHOUT CONTRAST REASON: ALOC ORDER NUMBER(s): [id number], ACCESSION NUMBER(s): [id number] EXAM: CT HEAD WITHOUT CONTRAST INDICATION: ALOC TECHNIQUE: CT of the head without intravenous contrast. Radiation Dose : 1. Head: CT Dose: CTDI volume is 58.5 mGy. Dose-length product is 1152 mGy*cm The dose indicators for CT are the volume Computed Tomography (CT) Dose Index (CTDIvol) and the Dose Length Product (DLP), and are measured in units of mGy and mGy-cm, respectively. These indicators are not patient dose, but values generated from the CT scanner acquisition factors. The report includes radiation exposure data for exposures received during this examination. COMPARISON: CT HEAD WITHOUT CONTRAST on DOS: 08/29/22 FINDINGS: There is no evidence of acute intracranial hemorrhage, extra-axial collection, mass effect, midline shift, herniation or hydrocephalus. The ventricles, sulci and cisterns are age appropriate. The zuniga-white differentiation is intact. Patchy periventricular and subcortical white matter hypoattenuation is nonspecific but may be related to small vessel ischemic disease. The visualized paranasal sinuses and mastoid air cells are clear. The surrounding soft tissues and osseous structures are unremarkable. IMPRESSION: 1. No acute intracranial abnormality. Radiation optimization: All CT scans at this facility use at least one of these dose optimization techniques: automated exposure control mA and/or kV adjustment per patient size (includes targeted exams where dose is matched to clinical indication) or iterative reconstruction. ATED BY: ZURI WALTON MD DICTATED DATE/TIME: 04/21/242339 SIGNED BY: ZURI WALTON MD SIGNED DATE/TIME: 04/21/242339 CC: [place] [address] Ph: [phone] DIAGNOSTIC IMAGING Diagnostic Imaging Report : [id number] Signed PATIENT: JAN PROCTOR ACCT: [id number] UNIT: [id number] : 1960 LOC: OVERFLOW ROOM / BED: [address] [place] [address] / AGE / SEX: 63 / M ADM STATUS: ADM IN SERVICE ORDERING PHYSICIAN: OSVALDO BULL PROCEDURE(s): CXRP - CHEST PORTABLE REASON: CENTRAL LINE INSERTION ORDER NUMBER(s): [id number], ACCESSION NUMBER(s): [id number] CHEST RADIOGRAPH Indication: CENTRAL LINE INSERTION Technique: Single frontal view of the chest was obtained COMPARISON: XY CHEST PORTABLE on DOS: 04/21/24, XY CHEST XRAY 1 VIEW on DOS: 04/20/24 FINDINGS / IMPRESSION: Lines and Tubes: Interval insertion of right IJ central venous catheter with its tip projecting over cavoatrial junction and enteric tube which extends below the diaphragm with his tip likely in the gastric fundus. ETT remains in place in satisfactory position. Lungs: Again noted are extensive infiltrates in both lungs, greater on the right side, not significantly changed compared to the most recent chest x-ray from approximately 3 hours earlier Pleura : No effusion. No pneumothorax. Cardiomediastinal contours: Unremarkable. Considerable gaseous distention of the stomach noted. ATED BY: JESUS LATHAM MD DICTATED DATE/TIME: 04/22/24141 SIGNED BY: JESUS LATHAM MD SIGNED DATE/TIME: 04/22/24141 CC: [place] [address] Ph: [phone] DIAGNOSTIC IMAGING Diagnostic Imaging Report : [id number] Signed PATIENT: JAN PROCTOR ACCT: [id number] UNIT: [id number] : 1960 LOC: ICU CENTRL ROOM / BED: [facility] A AGE / SEX: 63 / M ADM STATUS: ADM IN SERVICE 0400 ORDERING PHYSICIAN: SAUL BARRON PROCEDURE(s): CXRP - CHEST PORTABLE REASON: intubated ORDER NUMBER(s): [id number], ACCESSION NUMBER(s): [id number] EXAM: XR Chest, 1 View CLINICAL INDICATION: intubated TECHNIQUE: Frontal view of the chest. COMPARISON: XY CHEST PORTABLE on DOS: 04/22/24, XY CHEST PORTABLE on DOS: 04/21/24, XY CHEST XRAY 1 VIEW on DOS: 04/20/24 FINDINGS: LUNGS AND PLEURAL SPACES: Pulmonary congestion and edema, greater on the right. Pneumonia can not be excluded. No pneumothorax. HEART: Unremarkable. No cardiomegaly. MEDIASTINUM: Unremarkable. Normal mediastinal contour. BONES/JOINTS: Unremarkable. No acute fracture. TUBES, LINES AND DEVICES: Right internal jugular central venous catheter tip in the superior vena cava. The endotracheal tube (ETT) is in satisfactory position. Enteric tube tip in the stomach. OTHER FINDINGS: . IMPRESSION: Pulmonary congestion and edema, greater on the right. Pneumonia can not be excluded. ATED BY: SIVAN CARPIO MD DICTATED DATE/TIME: 04/23/24545 SIGNED BY: SIVAN CARPIO MD SIGNED DATE/TIME: 04/23/24545 CC: [place] [address] Ph: [phone] DIAGNOSTIC IMAGING Diagnostic Imaging Report : [id number] Signed PATIENT: JAN PROCTOR ACCT: [id number] UNIT: [id number] : 1960 LOC: ICU CENTRL ROOM / BED: [facility] / A AGE / SEX: 63 / M ADM STATUS: ADM IN SERVICE 0800 ORDERING PHYSICIAN: KELY DIANA MD PROCEDURE(s): HWOCT - HEAD WITHOUT CONTRAST REASON: ALOC ORDER NUMBER(s): [id number], ACCESSION NUMBER(s): [id number] EXAM: CT HEAD WITHOUT CONTRAST HISTORY: ALOC COMPARISON: CT HEAD WITHOUT CONTRAST on DOS: 04/21/24, CT HEAD WITHOUT CONTRAST on DOS: 08/29/22 TECHNIQUE: Axial images of the head were obtained and reformatted in coronal and sagittal planes. All CT scans at this medical facility are performed using dose modulation techniques as appropriate to a performed exam including the following: Automated exposure control was utilized; adjustment of the MA and/or KV according to patient size; and use of iterative reconstruction technique. CT Dose: CTDI volume is 57.04 mGy. Dose-length product is 1010.0 mGy*cm FINDINGS: There is no evidence of acute intracranial hemorrhage, mass, mass effect midline shift. There is no hydrocephalus or extra-axial fluid collection. Zuniga-white matter differentiation is maintained. There is opacification of the bilateral mastoid air cells. Paranasal sinuses are clear. The calvarium is intact. IMPRESSION: 1. No acute intracranial process. HS:Y ATED BY: KENZIE PETERS MD DICTATED DATE/TIME: 04/23/24 1230 SIGNED BY: KENZIE PETERS MD SIGNED DATE/TIME: 04/23/24 123 CC: [place] [address] Ph: [phone] DIAGNOSTIC IMAGING Diagnostic Imaging Report : [id number] Signed PATIENT: JAN PROCTOR ACCT: [id number] UNIT: [id number] : 1960 LOC: ICU CENTR ROOM / BED: [address] [place] [address] AGE / SEX: 63 / M ADM STATUS: ADM IN SERVICE 0606 ORDERING PHYSICIAN: SAUL BARRON PROCEDURE(s): CXRP - CHEST PORTABLE REASON: intubated ORDER NUMBER(s): [id number], ACCESSION NUMBER(s): [id number] CHEST RADIOGRAPH Indication: intubated Technique: Single frontal view of the chest was obtained COMPARISON: XY CHEST PORTABLE on DOS: 04/23/24, XY CHEST PORTABLE on DOS: 04/22/24, XY CHEST PORTABLE on DOS: 04/21/24, XY CHEST XRAY 1 VIEW on DOS: 04/20/24 FINDINGS: Lines and Tubes: Endotracheal tube, enteric catheter and right central venous catheter in satisfactory position. Lungs: Multifocal airspace disease. Pleura: No effusion. No pneumothorax. Cardiomediastinal contours: Unremarkable Bones: Unremarkable IMPRESSION: Lines and tubes in satisfactory position. No significant interval change. ATED BY: VIKTOR GERMAN MD DICTATED DATE/TIME: 04/24/24539 SIGNED BY: VIKTOR GERMAN MD SIGNED DATE/TIME: 04/24/24539 CC: [place] [address] Ph: [phone] DIAGNOSTIC IMAGING Diagnostic Imaging Report : [id number] Signed PATIENT: JAN PROCTOR ACCT: [id number] UNIT: [id number] : 1960 LOC: ICU CENTRL ROOM / BED: [address] [place] [address] AGE / SEX: 63 / M ADM STATUS: ADM IN SERVICE 0700 ORDERING PHYSICIAN: ARIANNE HARRIS RESIDENT PROCEDURE(s): CXR1 - CHEST XRAY 1 VIEW REASON: ET Tube Placement Confirmation ORDER NUMBER(s): [id number], ACCESSION NUMBER(s): [id number] CLINICAL INFORMATION: Endotracheal Tube Placement Confirmation. TECHNIQUE: Single AP portable chest radiograph was obtained. COMPARISON: XY CHEST PORTABLE on DOS: 04/24/24, XY CHEST PORTABLE on DOS: 04/23/24, XY CHEST PORTABLE on DOS: 04/22/24 FINDINGS: Distal tip of the endotracheal tube is approximately 4.9 cm above the level of the anny, minimally changed. Enteric tube is poorly visualized at its distal aspect due to overlying soft tissue density. Appears to reach the stomach and descend below the [id number] of the exam. Stable satisfactory positioning of the right internal jugular central venous catheter. Bilateral airspace opacities, right greater than left, minimally changed no pneumothorax. No other significant interval change IMPRESSION: 1. No significant interval change as detailed above. 2. Stable satisfactory positioning of the endotracheal tube, enteric tube, and right internal jugular central venous catheter. ATED BY: NATASHA WALLIS DO DICTATED DATE/TIME: 04/26/24722 SIGNED BY: NATASHA WALLIS DO SIGNED DATE/TIME: 04/26/24722 CC: [place] [address] Ph: [phone] DIAGNOSTIC IMAGING Diagnostic Imaging Report : [id number] Signed PATIENT: JAN PROCTOR ACCT: [id number] UNIT: [id number] : 1960 LOC: ICU CENTRL ROOM / BED: [facility] / A AGE / SEX: 63 / M ADM STATUS: ADM IN SERVICE 9 ORDERING PHYSICIAN: SAUL BARRON PROCEDURE(s): CXRP - CHEST PORTABLE REASON: intubated ORDER NUMBER(s): [id number], ACCESSION NUMBER(s): [id number] EXAM: XR Chest, 1 View CLINICAL INDICATION: intubated TECHNIQUE: Frontal view of the chest. COMPARISON: XY CHEST XRAY 1 VIEW on DOS: 04/26/24, XY CHEST PORTABLE on DOS: 04/24/24, XY CHEST PORTABLE on DOS: 04/23/24, XY CHEST PORTABLE on DOS: 04/22/24, XY CHEST PORTABLE on DOS: 04/21/24 FINDINGS: LUNGS AND PLEURAL SPACES: Patchy airspace disease of the right lung field, likely pneumonia. No pneumothorax. HEART: Unremarkable. No cardiomegaly. MEDIASTINUM: Unremarkable. Normal mediastinal contour. BONES/JOINTS: Unremarkable. No acute fracture. TUBES, LINES AND DEVICES: Right internal jugular central venous catheter tip in the superior vena cava. The endotracheal tube (ETT) is in satisfactory position. OTHER FINDINGS: . IMPRESSION: Patchy airspace disease of the right lung field, likely pneumonia. ATED BY: SIVAN CARPIO MD DICTATED DATE/TIME: 04/27/24510 SIGNED BY: SIVAN CARPIO MD SIGNED DATE/TIME: 04/27/24510 CC: [place] [address] Ph: [phone] DIAGNOSTIC IMAGING Diagnostic Imaging Report : [id number] Signed PATIENT: JAN PROCTOR ACCT: [id number] UNIT: [id number] : 1960 LOC: ICU CENTRL ROOM / BED: [facility] / A AGE / SEX: 63 / M ADM STATUS: ADM IN SERVICE 1524 ORDERING PHYSICIAN: JENNIFFER BARAHONA MD PROCEDURE(s): USGUIVASAC - US Guided Vascular Access REASON: For PICC Line Insertion ORDER NUMBER(s): [id number], ACCESSION NUMBER(s): [id number] Exam: US US GUIDED VASCULAR ACCESS Clinical History: For PICC Line Insertion Comparison: None Findings: Targeted sonographic evaluation of the upper extremity vein was obtained utilizing grayscale and color Doppler imaging. IMPRESSION: Sonographic assistance for central line placement. Please refer to procedural report for detailed findings. ATED BY: VIKTOR GERMAN MD DICTATED DATE/TIME: 04/28/24527 SIGNED BY: VIKTOR GERMAN MD SIGNED DATE/TIME: 04/28/24527 CC: [place] [address] Ph: [phone] DIAGNOSTIC IMAGING Diagnostic Imaging Report : [id number] Signed PATIENT: JAN PROCTOR ACCT: [id number] UNIT: [id number] : 1960 LOC: ICU CENTRL ROOM / BED: [facility] / A AGE / SEX: 63 / M ADM STATUS: ADM IN SERVICE 0400 ORDERING PHYSICIAN: ARIANNE HARRIS PROCEDURE(s): CXRP - CHEST PORTABLE REASON: intubated ORDER NUMBER(s): [id number], ACCESSION NUMBER(s): [id number] EXAM: XR Chest, 1 View CLINICAL INDICATION: intubated TECHNIQUE: Frontal view of the chest. COMPARISON: XY CHEST PORTABLE on DOS: 04/27/24, XY CHEST XRAY 1 VIEW on DOS: 04/26/24, XY CHEST PORTABLE on DOS: 04/24/24, XY CHEST PORTABLE on DOS: 04/23/24, XY CHEST PORTABLE on DOS: 04/22/24 FINDINGS: LUNGS AND PLEURAL SPACES: Patchy airspace disease in the right lung field, likely pneumonia. No pneumothorax. HEART: Unremarkable. No cardiomegaly. MEDIASTINUM: Unremarkable. Normal mediastinal contour. BONES/JOINTS: Unremarkable. No acute fracture. TUBES, LINES AND DEVICES: Left peripherally inserted central catheter (PICC) tip in the superior vena cava. ETT is in proper position. UPPER ABDOMEN: Enteric stomach. OTHER FINDINGS: . IMPRESSION: Patchy airspace disease in the right lung field, likely pneumonia. ATED BY: SIVAN CARPIO MD DICTATED DATE/TIME: 04/28/24510 SIGNED BY: SIVAN CARPIO MD SIGNED DATE/TIME: 04/28/24510 CC: [place] [address] Ph: [phone] DIAGNOSTIC IMAGING Diagnostic Imaging Report : [id number] Signed PATIENT: JAN PROCTOR ACCT: [id number] UNIT: [id number] : 1960 LOC: ICU CENTR ROOM / BED: [address] [place] [address] AGE / SEX: 63 / M ADM STATUS: ADM IN SERVICE 040 ORDERING PHYSICIAN: SAUL BARRON RESIDENT PROCEDURE(s): CXRP - CHEST PORTABLE REASON: intubated ORDER NUMBER(s): [id number], ACCESSION NUMBER(s): [id number] EXAM: XR Chest, 1 View CLINICAL INDICATION: intubated TECHNIQUE: Frontal view of the chest. COMPARISON: XY CHEST PORTABLE on DOS: 04/28/24, XY CHEST PORTABLE on DOS: 04/27/24, XY CHEST XRAY 1 VIEW on DOS: 04/26/24, XY CHEST PORTABLE on DOS: 04/24/24, XY CHEST PORTABLE on DOS: 04/23/24 FINDINGS: LUNGS AND PLEURAL SPACES: Patchy airspace disease of the right lung field could be pneumonia. No pneumothorax. HEART: Unremarkable. No cardiomegaly. MEDIASTINUM: Unremarkable. Normal mediastinal contour. BONES/JOINTS: Unremarkable. No acute fracture. TUBES, LINES AND DEVICES: Left peripherally inserted central catheter (PICC) tip in the superior vena cava. The endotracheal tube (ETT) is in satisfactory position. Enteric tube tip in the stomach. OTHER FINDINGS: . IMPRESSION: Patchy airspace disease of the right lung field could be pneumonia. ATED BY: SIVAN CARPIO MD DICTATED DATE/TIME: 04/29/24543 SIGNED BY: SIVAN CARPIO MD SIGNED DATE/TIME: 04/29/24543 CC: [place] [address] Ph: [phone] DIAGNOSTIC IMAGING Diagnostic Imaging Report : [id number] Signed PATIENT: JAN PROCTOR ACCT: [id number] UNIT: [id number] : 1960 LOC: ICU CENTR ROOM / BED: [address] [place] [address] AGE / SEX: 63 / M ADM STATUS: ADM IN SERVICE 1149 ORDERING PHYSICIAN: SAUL BARRON RESIDENT PROCEDURE(s): BLDVT - BiLat Lower DVT REASON: ro dvt ORDER NUMBER(s): [id number], ACCESSION NUMBER(s): [id number] US BiLat Lower DVT HISTORY: ro dvt COMPARISON: None TECHNIQUE: Duplex Doppler evaluation of the deep venous system of the lower extremity from the common femoral veins, superficial femoral vein, great saphenous vein, deep femoral vein, popliteal vein, and calf veins, including color Doppler and spectral/pulsed waveform analysis, was performed. FINDINGS: Right: - Common femoral vein: Compressible - Deep femoral vein: Compressible - Femoral vein: Compressible - Popliteal vein: Compressible - Posterior tibial vein: Waveforms present - Other: Nothing Left: - Common femoral vein: Compressible - Deep femoral vein: Compressible - Femoral vein: Compressible - Popliteal vein: Compressible - Posterior tibial vein: Waveforms present - Other: Nothing IMPRESSION: No right or left lower extremity deep venous thrombosis. ATED BY: LUIS DIANA MD DICTATED DATE/TIME: 04/29/241321 SIGNED BY: LUIS DIANA MD SIGNED DATE/TIME: 04/29/241321 CC: [address] [id number] Ph: [phone] DIAGNOSTIC IMAGING Diagnostic Imaging Report : [id number] Signed PATIENT: JAN PROCTOR ACCT: [id number] UNIT: [id number] : 1960 LOC: ICU CENTRL ROOM / BED: [facility] / A AGE / SEX: 63 / M ADM STATUS: ADM IN SERVICE 1149 ORDERING PHYSICIAN: SAUL BARRON PROCEDURE(s): LUDVT - LT Upper DVT REASON: pain ORDER NUMBER(s): [id number], ACCESSION NUMBER(s): [id number] LEFT Upper Extremity Venous Duplex Clinical History: pain Comparison: None Findings: Duplex Doppler evaluation of the venous system of the LEFT lower neck and upper extremity including color Doppler and spectral/pulsed waveform analysis was performed. The internal jugular vein demonstrates appropriate compressibility and waveform variability. The subclavian vein is patent on color Doppler evaluation without intraluminal thrombus and demonstrates waveform variability. The visualized portion of the brachiocephalic vein is patent on color Doppler evaluation without intraluminal thrombus and demonstrates waveform variability. The axillary vein demonstrates appropriate compressibility and waveform variability. The brachial veins demonstrate appropriate compressibility and patency on Doppler evaluation. The basilic vein demonstrates appropriate compressibility and patency on Doppler evaluation. The cephalic vein demonstrates appropriate compressibility and patency on Doppler evaluation. Impression: No venous thrombus identified in the LEFT upper extremity vessels evaluated above. If clinical concern/symptoms persist or worsen, short-interval follow-up study is suggested. ATED BY: JEB FRITZ MD DICTATED DATE/TIME: 04/29/24 140 SIGNED BY: JEB FRITZ MD SIGNED DATE/TIME: 04/29/241405 CC: [place] [address] Ph: [phone] DIAGNOSTIC IMAGING Diagnostic Imaging Report : [id number] Signed PATIENT: JAN PROCTOR ACCT: [id number] UNIT: [id number] : 1960 LOC: ICU CENTRL ROOM / BED: [facility] / A AGE / SEX: 63 / M ADM STATUS: ADM IN SERVICE 0400 ORDERING PHYSICIAN: SAUL BARRON PROCEDURE(s): CXRP - CHEST PORTABLE REASON: pneumonia ORDER NUMBER(s): [id number], ACCESSION NUMBER(s): [id number] EXAM: XR Chest, 1 View CLINICAL INDICATION: pneumonia TECHNIQUE: Frontal view of the chest. COMPARISON: XY CHEST PORTABLE on DOS: 04/29/24, XY CHEST PORTABLE on DOS: 04/28/24, XY CHEST PORTABLE on DOS: 04/27/24, XY CHEST XRAY 1 VIEW on DOS: 04/26/24, XY CHEST PORTABLE on DOS: 04/24/24 FINDINGS: LUNGS AND PLEURAL SPACES: Patchy airspace disease at the right lung field, likely pneumonia. No pneumothorax. HEART: Unremarkable. No cardiomegaly. MEDIASTINUM: Unremarkable. Normal mediastinal contour. BONES/JOINTS: Unremarkable. No acute fracture. OTHER FINDINGS: No significant change from the prior exam. . IMPRESSION: No significant change from the prior exam. ATED BY: SIVAN CARPIO MD DICTATED DATE/TIME: 04/30/24535 SIGNED BY: SIVAN CARPIO MD SIGNED DATE/TIME: 04/30/24535 CC: [place] [address] Ph: [phone] DIAGNOSTIC IMAGING Diagnostic Imaging Report : [id number] Signed PATIENT: JAN PROCTOR ACCT: [id number] UNIT: [id number] : 1960 LOC: [facility] ROOM / BED: [facility] / A AGE / SEX: 63 / M ADM STATUS: ADM IN SERVICE 0400 ORDERING PHYSICIAN: SAUL BARRON RESIDENT PROCEDURE(s): CXRP - CHEST PORTABLE REASON: PNA ORDER NUMBER(s): [id number], ACCESSION NUMBER(s): [id number] CHEST RADIOGRAPH Indication: PNA Technique: Single frontal view of the chest was obtained COMPARISON: XY CHEST PORTABLE on DOS: 04/30/24, XY CHEST PORTABLE on DOS: 04/29/24, XY CHEST PORTABLE on DOS: 04/28/24, XY CHEST PORTABLE on DOS: 04/27/24, XY CHEST XRAY 1 VIEW on DOS: 04/26/24 FINDINGS: Lines and Tubes: Left PICC in satisfactory position. Lungs: Multifocal airspace disease, amrzl-[id number]-qwyd-left. Pleura: No effusion. No pneumothorax. Cardiomediastinal contours: Unremarkable Bones: Unremarkable IMPRESSION: No significant interval change. ATED BY: VIKTOR GERMAN MD DICTATED DATE/TIME: 05/01/24546 SIGNED BY: VIKTOR GERMAN MD SIGNED DATE/TIME: 05/01/24546 CC: [place] [address] Ph: [phone] DIAGNOSTIC IMAGING Diagnostic Imaging Report : [id number] Signed PATIENT: JAN PROCTOR ACCT: [id number] UNIT: [id number] : 1960 LOC: [facility] ROOM / BED: 028T / A AGE / SEX: 63 / M ADM STATUS: ADM IN SERVICE 06 ORDERING PHYSICIAN: STEFAN LARA RESIDENT PROCEDURE(s): CXR2 - CHEST TWO VIEWS ROUTINE REASON: PNA/ATELACTATSIS /COLLAPSE ORDER NUMBER(s): [id number], ACCESSION NUMBER(s): [id number] CLINICAL INFORMATION: Pneumonia, atelectasis, collapse. TECHNIQUE: Frontal and lateral chest radiographs were obtained. COMPARISON: None FINDINGS: Airspace consolidation in the right upper lobe slightly improved compared to the prior exam, although differences may be due to differences in technique. Ill- defined airspace opacities in the lung bases bilaterally, also appear slightly improved. No pneumothorax. Stable satisfactory positioning of the left PICC. IMPRESSION: 1. Airspace consolidations appear slightly improved, although may be partly due to differences in technique. 2. Stable positioning of the left PICC. ATED BY: NATASHA WALLIS DO DICTATED DATE/TIME: 05/04/24820 SIGNED BY: NATASHA WALLIS DO SIGNED DATE/TIME: 05/04/24820 CC: Condition at Discharge: Stable Final Diagnosis/Problems List #Septic shock likely due to gram+/gram- Multifocal pneumonia, clinically improved #Acute metabolic/toxic encephalopathy like due to septic shock #Acute hypoxic encefalopathy likely due to hypoxic brain injury due to cardiad arrest ,PEA #ROSC after 6 minutes # status post extubation #acute diastolic heart failure,: #Acute hypoxic respiratory failure likely due to multifocal pneumonia gram +/ - /anaerobes bacterial pneumonia #Septic shock likely due to above # PEA #Hypertension #NSTEMI type 2 #Mediastinal lymphadenopathy, likely reactive. #Trace bilateral pleural effusions infectious/inflammatory colitis. #Hypoalbuminemia #Hypokalemia-replenished #Hyperammonemia, resolved #Septic shock likely due to g+/=/anaerobes multifocal pneumonia #Lactic acidosis in the setting of septic shock-resolved #Severe anemia due to lower GI hemorrhage s/p 1 unit transfusion Uncontrolled type 2 diabetes HBa1c> 9.3 Discharge Disposition: Home Discharge Instruct/Medications Diet: Consistent carbohydrate, Cardiac 2g Na,low cholest Follow Up/Referral: Follow up with the primary care physician in 1 week Please follow up with a logistics clerk in 1-2 weeks Please be compliant with medication Discharge Statement: "Patient was advised to return to the ER or call 911 if any headaches, dizziness, shortness of breath, chest pain, abdominal pain, bleeding, fevers, or worsening of medical condition. Patient was counseled about treatment plan, medications, possible side effects, patientverbalized understanding. All questions were answered to the best of my ability. This discharge took greater then 30 minutes in planning, reviewing documentation, counseling the patient, and discussing with other team members." ASSESSMENT ASSESSMENT Assessment STEFAN LARA RESIDENT May 04, 2024 12:38
--- NOTE | 2024-05-04 16:45 | DVHPNRES ---
Progress Note Date Seen: May 04, 2024 Resident Creating Document: STEFAN LARA RESIDENT Has the PT tested + for MRSA If YES, has PT been informed?: No Medical Necessity Reason Pt with a Central, PICC or Fol: Yes The following are medically ne: PICC Line Reason for stone catheter: Bladder Retention/Obstruc, Strict I&O, Total Immobilization Subjective Review of Systems HPI patient is 63-year-old male , with past medical history of hypertension, type 2 diabetes mellitus, drug abuse (per son , unknown which drugs). The patient presented one week ago toward facility for multifocal pneumonia which was treated and discharged. The patient came back two days ago with similar symptoms complaining of shortness of breath, fatigue and generalized weakness. The patient denied at that time any chest pain, palpitations or any associated symptoms. On previous admission bilateral pleural effusions and scattered areas of partial consolidations and ground-glass opacities likely consistent with multifocal pneumonia were found on CT chest. on 04/20 at night he left AMA. The patient was brought to our ED today after a possible syncopal episode in which he ended up in the ground and found without pulse. Per witness, the patient was found in the ground and was brought immediately to the ED, CPR was started at at 22:08 and ROSC at 22:14. Patient was intubated and started on antibiotics ( Meropenem and vancomycin), normal saline, sedation ( fentanyl, propofol and versed) RASS -3, levophed titrated down until 1mcg , with 2 mcg bp raise until 140's. 04/21/2024 ETT in satisfactory position. Extensive infiltrates in both lungs with considerable disease progression in the left lung compared to the prior chest x-ray from a day earlier. CT chest/abdomen/pelvis revealed-Severe multifocal pneumonia 2. Mediastinal lymphadenopathy, likely reactive. 3. Trace bilateral pleural effusions 4. Concentric wall thickening throughout the colon suspicious for infectious/inflammatory colitis. CT head negative for acute intracranial abnormality. Patient tested negative for flu A and B and COVID-19. Doppler test negative for DVT on 04/29/2024. Patient was extubated on 07/30/2024. Respiratory Culture on 04/21/2024 revealed presumptive Mabel albicans. Bronchial washing on 04/23/2024 revealed presumptive Mabel albicans. Blood culture no growth, urine culture no growth. MRSA screening negative x2. Patient was extubated on 07/30/2024. 05/03/2024- Patient was seen today for clinical evaluation. Labs and chart review. Patient's WBC trending with a normal limit, hemoglobin remaining stable, potassium with a normal limit today, Chest x-ray shows some clearing of the lung curry especially on the right side Patient was taken off oxygen, breathing well in room air with a any respiratory distress Patient's is front wheel walker was provided bedside Discontinued IV antibiotic meropenem and vancomycin Started Augmentin 875 mg p.o. b.i.d. today Provider called and spoke to patient's son [phone], discussed patient's current medical condition, plan of care and answered his questions. Objective vital signs Vital Sign Date Time Temp Pulse Resp B/P (MAP) Pulse Ox O2 Delivery O2 Flow Rate FiO2 05/04/24 12:30 97.7 18 18 158/77 (104) 92 97.7 05/04/24 08:20 Nasal Cannula* 2 28 Total Intake and Output 05/03/24 05/03/24 05/04/24 15:00 23:00 07:00 Intake Total 1700 ml 530 ml Output Total 1500 ml 1200 ml Balance 200 ml -670 ml medications Current Medications Medications Dose Ordered Sig/Darryl Route Start Time Stop Time Status Last Admin Dose Admin Enoxaparin Sodium 40 mg DAILY SC 04/23/24 10:00 UNV Hydralazine HCl 10 mg Q6HP PRN IV 04/26/24 13:30 04/30/24 01:21 10 MG Acetaminophen 650 mg Q8HPRN PRN GT 04/27/24 13:30 Sodium Chloride 10 ml QSHIFT@10,22 IV 04/27/24 22:00 05/04/24 09:23 10 ML Diagnostic Test (Pha) 1 strip Q6HR 04/29/24 12:00 05/04/24 11:43 1 STRIP Insulin Human Regular Q6HR SC 04/29/24 12:00 05/04/24 11:43 4 UNITS Dextrose 50 ml UD PRN IV 04/29/24 12:00 Acetaminophen/ Hydrocodone Bitart 1 tab Q6HPRN PRN PO 04/29/24 17:45 05/04/24 13:18 1 TAB Polyethylene Glycol 17 gm DAILY PRN PO 05/03/24 13:30 Fluconazole 200 mg DAILY PO 05/04/24 10:00 05/04/24 09:22 200 MG Pantoprazole Sodium 40 mg BID@0600,1700 PO 05/03/24 17:46 05/04/24 16:12 40 MG Amoxicillin/ Clavulanate Potassium 875 mg Q12HR PO 05/04/24 22:00 UNV Examination General Appearance: Patient post extubated, AO X3, able to follow commands. Respiratory: Crackles on the lung right >left, improving Cardiovascular: Regular rate, Normal S1, Normal S2 Abdominal: hypoactive, distended, non tenderness,guarding or rebound on palpation Extremities: Leg edema improved, PICC line on the left upper arm Skin: Right eyebrow laceration, small ( 3) blisters in the inner tights Neuro: pupils, reactive to light, able to move all extremities, strength +1 lower extremities, +2 upper extremities laboratory and microbiology Laboratory Tests 05/04/24 06:43 Test 05/04/24 06:43 Range/Units Serum Glucose 117 H 74-106 mg/dL Microbiology Date/Time Source Procedure Growth Status 04/23/24 13:55 Bronchial Washings Gram Stain - Final Complete 04/23/24 13:55 Body Fluid Culture - Final Presumptive Mabel albicans Complete 04/22/24 03:32 Nose MRSA Screen - Final Complete 04/22/24 01:40 Voided Urine Urine Culture - Final Complete 04/21/24 22:25 Blood Blood Culture - Final NO GROWTH AFTER 5 DAYS OF INCUBATION. Complete Problem List/Assessment/Plan Problem List/Assessment/Plan Assessment and plan Neurology: #Acute metabolic/toxic encephalopathy like due to septic shock #Acute hypoxic encefalopathy likely due to hypoxic brain injury due to cardiad arrest ,PEA #ROSC after 6 minutes # status post extubation - patient is awake, alert and oriented -physical therapy recommended for front wheel walker, status post social service consult, front wheel walker provided at bedside Cardiovascular: #Septic shock likely due to gram+/gram- Multifocal pneumonia, clinically improved # PEA #Hypertension #NSTEMI type 2 #acute diastolic heart failure, -ECHO on 04/22/2024 LVEF 60%, concentric left ventricular hypertrophy, left atrial enlargement - 05/03/2024 Discontinued Lasix as patient's symptoms clinically improved for heart failure Respiratory: #Acute hypoxic respiratory failure likely due to multifocal pneumonia gram +/ - /anaerobes bacterial pneumonia #Septic shock likely due to above #Mediastinal lymphadenopathy, likely reactive. #Trace bilateral pleural effusions -05/03/2024-discontinued IV Lasix -continue with meropenem and vancomycin -continue oral fluconazole 200 mg p.o. daily Gastrointestinal infectious/inflammatory colitis. -monitor clinically /renal #Hypoalbuminemia #Hypokalemia-replenished # status post Stone catheter-removed on 08/03/2024 #Hyperammonemia, resolved - strict I%O - electrolytes were replaced Infectious disease: #Septic shock likely due to g+/=/anaerobes multifocal pneumonia #Lactic acidosis in the setting of septic shock-resolved -on 05/04/2024 discontinued IV antibiotic meropenem and vancomycin -ordered Augmentin 875 mg p.o. b.i.d. Hematology: #Severe anemia due to lower GI hemorrhage s/p 1 unit transfusion - 05/03/24 changed Protonix from IV to oral form - No EGD at this time per patient hemodynamic status Endocrine: Uncontrolled type 2 diabetes HBa1c> 9.3 - Insulin protocol PUD prophylaxis - Protonix 40 mg p.o. b.i.d. DVT prophylaxis - SCD Line: PICC line left arm since 04/2805/03/2024- Stone's catheter removed Goals of care/advance care planning; FULL CODE; discussed with the patient >15 minutes PUD prophylaxis: Patient ambulating SCD DVT prophylaxis: Pantoprazole, Plan discussed with Dr. Young , nursing staff, patient Advance care planning Total time spent on patient evaluation, chart review, assessment and plan, discussion discussion >35 minutes Plan discussed with: Patient Plan discussed with: Patient, Son, Other (RN) My Orders My Orders Orders - STEFAN LARA RESIDENT Procedure Category Date Status Time Chest Two Views XY 05/04/24 Resulted Routine 06:00 * Dry Mill Operator CONS 05/03/24 Transmitted Consult Incentive Spirometry ORDERS 05/04/24 Transmitted 11:30 Dietary Evaluation Review Comments: 1. TF Vital High Protein@45ml/hr providing 94 gPro, 1080 kcal in 24 hrs, adj goal rate as tolerated. If on Porpofol, add additional 110 fat kcal in 24 hrs. this two combined feeding will offer pt's needs for pro at 110%, and kcal at 83.8 %. May switch to Glucern@ 45ml/hr after pt is off vent without pressors, 2. TPN per pharmacy if pt has no GI access or no EN feeding option.. 3. If off vent, advance to Diet: 2 gNa CCHO-60, Cardiac, texture as tolerate after passing a speech eval. Expected Outcomes/Goals: improved nutrition status after Drug rehab. STEFAN LARA RESIDENT May 04, 2024 16:45
--- NOTE | 2024-05-04 20:45 | DVHPN2 ---
Progress Note - Dictate Date Seen: May 04, 2024 Has the PT tested + for MRSA If YES, has PT been informed?: No Medical Necessity Reason Pt with a Central, PICC or Fol: Yes The following are medically ne: PICC Line Reason for stone catheter: Bladder Retention/Obstruc, Strict I&O, Total Immobilization Subjective Mr. Kwon is a 63 years old gentleman with a history of hypertension, diabetes, the patient was seen in the emergency room on 04/20/2024 with a chief complaint of shortness breath, soon after the patient was decided to leave the hospital AMA, he collapsed to the ground and was immediately brought back to the emergency room, patient was found to be pulseless. He was resuscitated in 6 minutes (Code blue called out 04/21/24: 9, ROSC: 2214) I have seen and examined the patient, discussed with his nurse, he was doing fine, alert and oriented x3, good social skills, UDS, 04/21/2024: Opiates Urinalysis, 04/21/2024: WBC: 2, urine leukocyte esterase: Negative ABG, 04/21/2024: Metabolic acidosis ABG, 04/23/2024: Respiratory acidosis WBC/HB/PLT/MCV, 04/21/2024: 27.9/8.4/548/8.4. : 17/6.6/465/90.1 04/23/2024: 12.2/8.9/531/90.7 CMP, 04/22/2024: Unremarkable NH3, 04/22/2024: 38 PT/INR/PTT, 04/21/2024: 13.9/1.35/22.1 Troponin one high sensitivity, 04/22/2024: 84 TG/HDL/LDL/HDL, 04/22/2024: 109/88/48/24 Chest x-ray, 04/27/2024: Patchy airspace disease of the right lung field, likely pneumonia CT head, 04/21/2024: No acute intracranial abnormality CT head, : No acute intracranial process. vital signs Vital Sign Date Time Temp Pulse Resp B/P (MAP) Pulse Ox O2 Delivery O2 Flow Rate FiO2 05/04/24 17:00 98.0 85 19 109/76 (87) 92 98.0 05/04/24 08:20 Nasal Cannula* 2 28 Total Intake and Output 05/03/24 05/03/24 05/04/24 15:00 23:00 07:00 Intake Total 1700 ml 530 ml Output Total 1500 ml 1200 ml Balance 200 ml -670 ml medications Current Medications Medications Dose Ordered Sig/Adrryl Route Start Time Stop Time Status Last Admin Dose Admin Enoxaparin Sodium 40 mg DAILY SC 04/23/24 10:00 UNV Hydralazine HCl 10 mg Q6HP PRN IV 04/26/24 13:30 04/30/24 01:21 10 MG Acetaminophen 650 mg Q8HPRN PRN GT 04/27/24 13:30 Sodium Chloride 10 ml QSHIFT@10,22 IV 04/27/24 22:00 05/04/24 09:23 10 ML Diagnostic Test (Pha) 1 strip Q6HR 04/29/24 12:00 05/04/24 17:44 1 STRIP Insulin Human Regular Q6HR SC 04/29/24 12:00 05/04/24 17:44 2 UNITS Dextrose 50 ml UD PRN IV 04/29/24 12:00 Acetaminophen/ Hydrocodone Bitart 1 tab Q6HPRN PRN PO 04/29/24 17:45 05/04/24 13:18 1 TAB Polyethylene Glycol 17 gm DAILY PRN PO 05/03/24 13:30 Fluconazole 200 mg DAILY PO 05/04/24 10:00 05/04/24 09:22 200 MG Pantoprazole Sodium 40 mg BID@0600,1700 PO 05/03/24 17:46 05/04/24 16:12 40 MG Amoxicillin/ Clavulanate Potassium 875 mg Q12HR PO 05/04/24 22:00 objective The patient is well-nourished and well-developed with no distress. MENTAL STATUS: Subjective CRANIAL NERVES: Pupils are equal, round and reactive. There is conjugated eye movement. No signs of facial weakness. Motor sensory examination in bilateral trigeminal distribution is normal SENSATION: Okay to pinprick and light touch MOTOR: Normal tone in the upper and lower extremity. Normal muscle bulk. No fasciculations. Moves the arms and legs REFLEXES: Deep tendon reflexes are symmetrical. No pathological reflexes. CEREBELLAR/COORDINATION: No ataxia GAIT/STATION: deferred laboratory and microbiology Laboratory Tests 05/04/24 06:43 Test 05/04/24 06:43 Range/Units Serum Glucose 117 H 74-106 mg/dL Problem List Coma, resolved Hypoxic encephalopathy Metabolic encephalopathy Toxic encephalopathy Cardiopulmonary arrest Respiratory failure, improving Sepsis/septic shock, improving Assessment/Plan Monitoring Supportive treatment Telemetry IV antibiotics GI prophylaxis/pantoprazole Up to chair Physical therapy More recommendation per clinical course This medical document was created using an electronic medical record system with [employer] dictation system. Although this document has been carefully reviewed, there may still be some phonetic and typographical errors. These areas are purely typographical due to imperfections of the software programs, and do not reflect any compromise in the patient's medical care Prognosis poor Dietary Evaluation Review Comments: 1. TF Vital High Protein@45ml/hr providing 94 gPro, 1080 kcal in 24 hrs, adj goal rate as tolerated. If on Porpofol, add additional 110 fat kcal in 24 hrs. this two combined feeding will offer pt's needs for pro at 110%, and kcal at 83.8 %. May switch to Glucern@ 45ml/hr after pt is off vent without pressors, 2. TPN per pharmacy if pt has no GI access or no EN feeding option.. 3. If off vent, advance to Diet: 2 gNa CCHO-60, Cardiac, texture as tolerate after passing a speech eval. Expected Outcomes/Goals: improved nutrition status after Drug rehab. Plan discussed with: Other KELY FARMER MD May 04, 2024 20:45
[2024-05-04] MEDS: AMOXICILLIN/CLAVUL 875 MG TAB PO SCH (21:19)
[2024-05-05 01:00] VITALS: BP 140/67; PULSE 84; RESP 18; TEMP 97.2; O2SAT 92
[2024-05-05 06:40] LABS: Chloride 100 mmol/L (98-107); Potassium 3.8 mmol/L (3.5-5.1); Sodium 138 mmol/L (136-145)
[2024-05-05 06:41] LABS: Anion Gap 8 (5-15); Calcium 8.5 mg/dL (8.7-10.4); Carbon Dioxide 30 mmol/L (20-31)
[2024-05-05 06:46] LABS: BUN/Creatinine Ratio 8.8 (10.0-20.0)
[2024-05-05 06:50] LABS: Blood Urea Nitrogen 6 mg/dL (9-23); Glucose 137 mg/dL (74-106)
[2024-05-05 08:00] VITALS: PULSE 89; RESP 17; O2SAT 95
[2024-05-05] MEDS ORDERED: PANT40T PO (08:10)
[2024-05-05] MEDS ORDERED: AMOX500T86 PO (08:10)
[2024-05-05 09:00] VITALS: BP 154/75; PULSE 89; RESP 17; TEMP 98.1; O2SAT 90
[2024-05-05 13:00] VITALS: BP 148/90; PULSE 89; RESP 18; TEMP 98.1; O2SAT 97
--- NOTE | 2024-05-05 17:48 | DVHDSRES ---
Discharge Summary Date of Admission Resident Creating Document: STEFAN LARA RESIDENT Apr 22, 2024 at 00:48 Date of Discharge: May 05, 2024 Labs/Diagnostic Data: Laboratory Results Test 05/05/24 05:48 05/05/24 05:08 05/04/24 06:43 05/03/24 11:00 Sodium Level 138 mmol/L (136-145) Potassium Level 3.8 mmol/L (3.5-5.1) Chloride Level 100 mmol/L (98-107) Carbon Dioxide Level 30 mmol/L (20-31) Anion Gap 8 (5-15) Blood Urea Nitrogen 6 mg/dL (9-23) Creatinine 0.68 mg/dL (0.700-1.30) Glomerular Filtration Rate Calc 104 mL/min (>90) BUN/Creatinine Ratio 8.8 (10.0-20.0) Serum Glucose 137 mg/dL (74-106) Calcium Level 8.5 mg/dL (8.7-10.4) POC Glucose 128 mg/dl (70-106) White Blood Count 6.3 10^3/uL (4.4-10.8) Red Blood Count 3.06 10^6/uL (4.5-5.90) Hemoglobin 9.3 g/dL (13.5-17.5) Hematocrit 27.1 % (41.0-53.0) Mean Corpuscular Volume 88.6 fL (80.0-100.0) Mean Corpuscular Hemoglobin 30.4 pg (28.0-32.0) Mean Corpuscular Hemoglobin Concent 34.3 g/dL (32.0-36.0) Red Cell Distribution Width 15.8 % (11.8-14.3) Platelet Count 376 10^3/uL (140-450) Mean Platelet Volume 6.5 fL (6.9-10.8) Neutrophils (%) (Auto) 46.8 % (37.0-80.0) Lymphocytes (%) (Auto) 38.1 % (10.0-50.0) Monocytes (%) (Auto) 9.2 % (0.0-12.0) Eosinophils (%) (Auto) 3.6 % (0.0-7.0) Basophils (%) (Auto) 2.3 % (0.0-2.0) Neutrophils # (Auto) 2.9 10 ^3/uL (1.6-8.6) Lymphocytes # (Auto) 2.4 10 ^3/uL (0.4-5.4) Monocytes # (Auto) 0.6 10 ^3/uL (0-1.3) Eosinophils # (Auto) 0.2 10 ^3/uL (0-0.8) Basophils # (Auto) 0.1 10 ^3/uL (0-0.2) Nucleated Red Blood Cells 0.0 % Magnesium Level 2.0 mg/dL (1.6-2.6) Vancomycin Level Trough 15.3 ug/mL (5-10) Test 05/01/24 05:53 04/30/24 07:01 04/29/24 21:56 04/29/24 09:26 Total Bilirubin 0.3 mg/dL (0.2-1.0) Aspartate Amino Transferase (AST) 32 U/L (13-40) Alanine Aminotransferase (ALT) 11 U/L (7-40) Alkaline Phosphatase 123 U/L (46-116) Total Protein 5.8 g/dL (5.7-8.2) Albumin 2.8 g/dL (3.2-4.8) Blood Gas Specimen Type Arterial Blood Gas Sample Site Right radial Blood Gas Patient Temperature 37.0 Arterial Blood Date Drawn [id number] Arterial Blood pH 7.502 (7.350-7.450) Arterial Blood Partial Pressure CO2 34.4 mmHg (35.0-48.0) Arterial Blood Partial Pressure O2 53.1 mmHg (83.0-108.0) Arterial Blood HCO3 26.3 mmol/L (21.0-28.0) Arterial Blood Oxygen Saturation 88.1 % (94.0-98.0) Arterial Blood Base Excess 3.2 mmol/L (-2.0-3.0) Arterial Blood Oxyhemoglobin 87.3 % (94.0-98.0) Arterial Blood Carboxyhemoglobin 0.3 % (0.5-1.5) Arterial Blood Methemoglobin 0.6 % (0.0-1.5) Ganesh Test Yes Blood Gas Total Hemoglobin 9.30 g/dL (13.5-17.5) Blood Gas Liter Flow 4.00 Blood Gas Modality Nasal cannula FiO2 % 36.0 Blood Gas Critical Value Read Back Yes Blood Gas Notified Whom zuly Harris md Blood Gas Notified Time [id number] Blood Gas Notified By ning Bobo Stool Occult Blood Negative (Negative) Stool Occult Blood Sample #3 (Negative) Blood Gas Pressure Support 8 Blood Gas PEEP or CPAP 5.0 Test 04/29/24 07:37 04/27/24 09:33 04/27/24 08:04 04/27/24 04:52 Blood Gas Set Respiration Rate 18.0 Blood Gas Tidal Volume 450.0 Iron Level 23 ug/dL (65-175) Total Iron Binding Capacity 187 ug/dL (250-425) Percent Iron Saturation 12.3 % (20-55) Blood Gas Spontaneous Rate 26 Blood Gas Spontaneous Tidal Volume 450 Ammonia < 10 umol/L (11-32) Test 04/26/24 14:43 04/26/24 06:51 04/23/24 13:55 04/22/24 14:35 Random Vancomycin Level 17.2 ug/mL (5-10) Phosphorus Level 4.0 mg/dL (2.4-5.1) Body Fluid Source Bronchial aspirate Body Fluid WBC (Manual) 460 CUMM (0-200) Body Fluid RBC (Manual) 0 CUMM (0-2000) Body Fluid Mononuclear Cells 5 % Body Fluid Polymorphonuclear Cells 95 % (0-25) Lactic Acid Level 1.6 mmol/L (0.4-2.0) Test 04/22/24 08:00 04/22/24 01:40 04/22/24 00:39 04/21/24 22:40 Platelet Estimate Increased Troponin I High Sensitivity 84 ng/L (</=54) Thyroid Stimulating Hormone (TSH) 0.69 uIU/mL (0.55-4.78) Urine Color Light-yellow (Yellow) Urine Clarity Clear (Clear) Urine pH 5.5 (5.0-9.0) Urine Specific [place] 1.027 (1.001-1.035) Urine Protein 1+ (Negative) Urine Ketones Trace (Negative) Urine Blood 1+ /uL (Negative) Urine Nitrite Negative (Negative) Urine Bilirubin Negative (Negative) Urine Urobilinogen Normal mg/dL (Negative) Urine Leukocyte Esterase Negative /uL (Negative) Urine RBC 12 /hpf (0 - 3) Urine Microscopic WBC 4 /HPF (0-3) Urine Squamous Epithelial Cells Few /hpf (<5) Urine Bacteria None seen /hpf (None Seen) Urine Glucose 2+ mg/dL (Normal) Urine Opiates Screen Pos (NEGATIVE) Urine Fentanyl Screen Neg (NEGATIVE) Urine Barbiturates Screen Neg (NEGATIVE) Urine Phencyclidine Screen Neg (NEGATIVE) Urine Amphetamines Screen Neg (NEGATIVE) Urine Benzodiazepines Screen Pos (NEGATIVE) Urine Cocaine Screen Neg (NEGATIVE) Urine Cannabinoids Screen Neg (NEGATIVE) Influenza Type A Antigen Negative (Negative) Influenza Type B Antigen Negative (Negative) SARS-CoV-2 Antigen (Rapid) Negative (NEGATIVE) Triglycerides Level 109 mg/dL (< 150) Cholesterol Level 88 mg/dL (< 200) LDL Cholesterol 48 mg/dL (< 100) HDL Cholesterol 24 mg/dL (40-59) Urine Hyaline Casts Few /lpf (0 - 2) Test 04/21/24 22:25 Prothrombin Time 13.9 sec (9.3-11.8) Prothrombin Time INR 1.35 (0.9-1.15) Activated Partial Thromboplast Time 32.1 SEC (24.5-34.5) B-Type Natriuretic Peptide 359.89 pg/mL (0-100) Lipase 15 U/L (12-53) Salicylates Level < 3.0 mg/dL (-30) Acetaminophen Level < 2.0 UG/ML (10.0-20.0) Plasma/Serum Blood Alcohol < 3.0 mg/dL (<10) Other Laboratory Tests 05/05/24 05:48 05/04/24 06:43 Brief Hx & Hospital Course: HPI patient is 63-year-old male , with past medical history of hypertension, type 2 diabetes mellitus, drug abuse (per son , unknown which drugs). The patient presented one week ago toward facility for multifocal pneumonia which was treated and discharged. The patient came back two days ago with similar symptoms complaining of shortness of breath, fatigue and generalized weakness. The patient denied at that time any chest pain, palpitations or any associated symptoms. On previous admission bilateral pleural effusions and scattered areas of partial consolidations and ground-glass opacities likely consistent with multifocal pneumonia were found on CT chest. on 04/20 at night he left AMA. The patient was brought to our ED today after a possible syncopal episode in which he ended up in the ground and found without pulse. Per witness, the patient was found in the ground and was brought immediately to the ED, CPR was started at at 22:08 and ROSC at 22:14. Patient was intubated and started on antibiotics ( Meropenem and vancomycin), normal saline, sedation ( fentanyl, propofol and versed) RASS -3, levophed titrated down until 1mcg , with 2 mcg bp raise until 140's. 04/21/2024 ETT in satisfactory position. Extensive infiltrates in both lungs with considerable disease progression in the left lung compared to the prior chest x-ray from a day earlier. CT chest/abdomen/pelvis revealed-Severe multifocal pneumonia 2. Mediastinal lymphadenopathy, likely reactive. 3. Trace bilateral pleural effusions 4. Concentric wall thickening throughout the colon suspicious for infectious/inflammatory colitis. CT head negative for acute intracranial abnormality. Patient tested negative for flu A and B and COVID-19. Doppler test negative for DVT on 04/29/2024. Patient was extubated on 07/30/2024. Respiratory Culture on 04/21/2024 revealed presumptive Mabel albicans. Bronchial washing on 04/23/2024 revealed presumptive Mabel albicans. Blood culture no growth, urine culture no growth. MRSA screening negative x2. Patient was extubated on 07/30/2024. Hospital course-patient was brought to the hospital after patient coded in the parking lot. Patient was found to have cardiac arrest, status post CPR, patient was put on mechanical ventilator and patient was admitted to the hospital due to acute hypoxic brain injury, metabolic encephalopathy, acute hypoxic respiratory failure. The patient was brought to our ED today after a possible syncopal episode in which he ended up in the ground and found without pulse. Per witness, the patient was found in the ground and was brought immediately to the ED, CPR was started at at 22:08 and ROSC at 22:14. Patient was intubated and started on antibiotics ( Meropenem and vancomycin), normal saline, sedation ( fentanyl, propofol and versed) RASS -3, levophed titrated down until 1mcg , with 2 mcg bp raise until 140's. 04/21/2024 ETT in satisfactory position. Extensive infiltrates in both lungs with considerable disease progression in the left lung compared to the prior chest x-ray from a day earlier. CT chest/abdomen/pelvis revealed-Severe multifocal pneumonia 2. Mediastinal lymphadenopathy, likely reactive. 3. Trace bilateral pleural effusions 4. Concentric wall thickening throughout the colon suspicious for infectious/inflammatory colitis. CT head negative for acute intracranial abnormality. Patient tested negative for flu A and B and COVID-19. Doppler test negative for DVT on 04/29/2024. Patient was extubated on 07/30/2024. Respiratory Culture on 04/21/2024 revealed presumptive Mabel albicans. Bronchial washing on 04/23/2024 revealed presumptive Mabel albicans. Blood culture no growth, urine culture no growth. MRSA screening negative x2. Patient was extubated on 07/30/2024. Patient's symptom improved with the conservative treatment IV antibiotic physical therapy became formed wheel walker. Patient was taken off oxygen and was breathing well in room air. Patient is being discharged home in a hemodynamically stable condition. Patient was discharged with Augmentin 875 mg p.o. b.i.d. for 7 days. Patient was advised to follow up in the discharge clinic in 1 week. 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 Patient's meds were sent to the pharmacy electronically. Operations or Procedures [place] [address] Ph: [phone] DIAGNOSTIC IMAGING Diagnostic Imaging Report : [id number] Signed PATIENT: JAN PROCTOR ACCT: [id number] UNIT: [id number] : 1960 LOC: ER ROOM / BED: / AGE / SEX: 63 / M ADM STATUS: REG ER SERVICE 38 ORDERING PHYSICIAN: JENNIFFER WOODRUFF PROCEDURE(s): CS2 - CERVICAL WITHOUT CONTRAST REASON: s/p cpr/ syncope ORDER NUMBER(s): [id number], ACCESSION NUMBER(s): [id number] EXAM: CT CERVICAL WITHOUT CONTRAST HISTORY: s/p cpr/ syncope COMPARISON: None CTDIvol mGy, DLP mGy*cm. TECHNIQUE: Multiple axial CT images of the spine were obtained using bone algorithm. Axial and coronal reformatting was done. Bone and soft tissue windows were reviewed. FINDINGS: Study is mildly degraded by motion artifact. Mild straightening of the normal cervical lordosis; the alignment is otherwise unremarkable with no listhesis. No definite evidence of fracture or dislocation in the cervical spine. No significant spinal canal stenosis. IMPRESSION: No evidence of cervical spine fracture or dislocation. ATED BY: JESUS LATHAM MD DICTATED DATE/TIME: 04/21/242342 SIGNED BY: JESUS LATHAM MD SIGNED DATE/TIME: 04/21/242342 CC: [place] [id number] Ph: [phone] DIAGNOSTIC IMAGING Diagnostic Imaging Report : [id number] Signed PATIENT: JAN PROCTOR ACCT: [id number] UNIT: [id number] : 1960 LOC: ER ROOM / BED: / AGE / SEX: 63 / M ADM STATUS: REG ER SERVICE 38 ORDERING PHYSICIAN: DEVENDRA CHEEMA MD PROCEDURE(s): CXRP - CHEST PORTABLE REASON: SOB, intubated ORDER NUMBER(s): [id number], ACCESSION NUMBER(s): [id number] CHEST RADIOGRAPH Indication: SOB, intubated Technique: Single frontal view of the chest was obtained COMPARISON: XY CHEST XRAY 1 VIEW on DOS: 04/20/24 FINDINGS: Lines and Tubes: Interval insertion of ETT in satisfactory position approximately 2.5 cm above the anny. Lungs: There are extensive infiltrates in both lungs with considerable disease progression in the left lung compared to the prior chest x-ray from a day earlier. Pleura: No effusion. No pneumothorax. Cardiomediastinal contours: Unremarkable IMPRESSION: ETT in satisfactory position. Extensive infiltrates in both lungs with considerable disease progression in the left lung compared to the prior chest x- ray from a day earlier. ATED BY: JESUS LATHAM MD DICTATED DATE/TIME: 04/21/242301 SIGNED BY: JESUS LATHAM MD SIGNED DATE/TIME: 04/21/242301 CC: [place] [id number] Ph: [phone] DIAGNOSTIC IMAGING Diagnostic Imaging Report : [id number] Signed PATIENT: JAN PROCTOR ACCT: [id number] UNIT: [id number] : 1960 LOC: ER ROOM / BED: / AGE / SEX: 63 / M ADM STATUS: REG ER SERVICE 2239 ORDERING PHYSICIAN: JENNIFFER WOODRUFF PROCEDURE(s): CTCAP - CHST AB PEL WO CON-NO IV/ORAL REASON: sp cpr ORDER NUMBER(s): [id number], ACCESSION NUMBER(s): [id number] Exam: CT CHST AB PEL WO CON-NO IV/ORAL History: sp cpr Comparison Study: CT CT AB PEL WO CON-NO ORAL OR IV on DOS: 04/12/24, CT CT AB PEL WO CON-NO ORAL OR IV on DOS: 11/25/22 Technique: Multidetector spiral CT of the chest, abdomen was performed from lung bases to pubic symphysis. Imaging was performed without IV contrast. Axial, coronal and sagittal multiplanar reformats were obtained from the axial data set by the technologist. Radiation Dose : 1. Abdomen/Pelvis: CTDIvol 12.7 mGy, DLP 927 mGy*cm. Findings: Evaluation of solid organs is limited due to lack of intravenous contrast use. Lungs : Severe multifocal pneumonia throughout both lungs, most prominent in the right upper lobe. COPD. Trace bilateral pleural effusions. No pneumothorax Mild cardiomegaly. Mediastinal lymphadenopathy, likely reactive. Endotracheal tube terminates above the anny. Enteric tube terminates in the gastric lumen. Liver: The liver is normal in size. No focal lesions. Gallbladder and Biliary Tree: Unremarkable Spleen: Unremarkable Pancreas: The pancreas is grossly normal in appearance. Adrenal Glands: Unremarkable Kidneys: Kidneys are grossly normal without calculi or hydronephrosis. Bladder: Collapsed around a Teresa catheter. Bowel: The stomach is grossly normal in appearance. Concentric wall thickening throughout the colon suspicious for infectious/inflammatory colitis. The appendix is not visualized; however, no secondary findings of acute appendicitis identified. Ascites: Absent Lymphadenopathy: No mesenteric, retroperitoneal or periportal lymphadenopathy. Abdominal Wall and Mesentery: Unremarkable. Vasculature: The visualized abdominal aorta is normal in size and caliber. Evaluation of abdominal and pelvic vessels is limited due to lack of intravenous contrast. Pelvic Organs: Unremarkable Musculoskeletal: No aggressive focal bony lesions, acute fractures or dislocation. IMPRESSION: 1. Severe multifocal pneumonia 2. Mediastinal lymphadenopathy, likely reactive. 3. Trace bilateral pleural effusions 4. Concentric wall thickening throughout the colon suspicious for infectious/inflammatory colitis. Radiation optimization: All CT scans at this facility use at least one of these dose optimization techniques: automated exposure control mA and/or kV adjustment per patient size (includes targeted exams where dose is matched to clinical indication) or iterative reconstruction. ATED BY: ZURI WALTON MD DICTATED DATE/TIME: 04/21/242351 SIGNED BY: ZURI WALTON MD SIGNED DATE/TIME: 04/21/242351 CC: [place] [id number] Ph: [phone] DIAGNOSTIC IMAGING Diagnostic Imaging Report : [id number] Signed PATIENT: JAN PROCTOR ACCT: [id number] UNIT: [id number] : 1960 LOC: ER ROOM / BED: / AGE / SEX: 63 / M ADM STATUS: REG ER SERVICE 38 ORDERING PHYSICIAN: DEVENDRA CHEEMA MD PROCEDURE(s): HWOCT - HEAD WITHOUT CONTRAST REASON: ALOC ORDER NUMBER(s): [id number], ACCESSION NUMBER(s): [id number] EXAM: CT HEAD WITHOUT CONTRAST INDICATION: ALOC TECHNIQUE: CT of the head without intravenous contrast. Radiation Dose : 1. Head: CT Dose: CTDI volume is 58.5 mGy. Dose-length product is 1152 mGy*cm The dose indicators for CT are the volume Computed Tomography (CT) Dose Index (CTDIvol) and the Dose Length Product (DLP), and are measured in units of mGy and mGy-cm, respectively. These indicators are not patient dose, but values generated from the CT scanner acquisition factors. The report includes radiation exposure data for exposures received during this examination. COMPARISON: CT HEAD WITHOUT CONTRAST on DOS: 08/29/22 FINDINGS: There is no evidence of acute intracranial hemorrhage, extra-axial collection, mass effect, midline shift, herniation or hydrocephalus. The ventricles, sulci and cisterns are age appropriate. The zuniga-white differentiation is intact. Patchy periventricular and subcortical white matter hypoattenuation is nonspecific but may be related to small vessel ischemic disease. The visualized paranasal sinuses and mastoid air cells are clear. The surrounding soft tissues and osseous structures are unremarkable. IMPRESSION: 1. No acute intracranial abnormality. Radiation optimization: All CT scans at this facility use at least one of these dose optimization techniques: automated exposure control mA and/or kV adjustment per patient size (includes targeted exams where dose is matched to clinical indication) or iterative reconstruction. ATED BY: ZURI WALTON MD DICTATED DATE/TIME: 04/21/242339 SIGNED BY: ZURI WALTON MD SIGNED DATE/TIME: 04/21/242339 CC: [place] [id number] Ph: [phone] DIAGNOSTIC IMAGING Diagnostic Imaging Report : [id number] Signed PATIENT: JAN PROCTOR ACCT: [id number] UNIT: [id number] : 1960 LOC: OVERFLOW ROOM / BED: [address] [place] [address] / AGE / SEX: 63 / M ADM STATUS: ADM IN SERVICE ORDERING PHYSICIAN: OSVALDO BULL RESIDENT PROCEDURE(s): CXRP - CHEST PORTABLE REASON: CENTRAL LINE INSERTION ORDER NUMBER(s): [id number], ACCESSION NUMBER(s): [id number] CHEST RADIOGRAPH Indication: CENTRAL LINE INSERTION Technique: Single frontal view of the chest was obtained COMPARISON: XY CHEST PORTABLE on DOS: 04/21/24, XY CHEST XRAY 1 VIEW on DOS: 04/20/24 FINDINGS / IMPRESSION: Lines and Tubes: Interval insertion of right IJ central venous catheter with its tip projecting over cavoatrial junction and enteric tube which extends below the diaphragm with his tip likely in the gastric fundus. ETT remains in place in satisfactory position. Lungs: Again noted are extensive infiltrates in both lungs, greater on the right side, not significantly changed compared to the most recent chest x-ray from approximately 3 hours earlier Pleura : No effusion. No pneumothorax. Cardiomediastinal contours: Unremarkable. Considerable gaseous distention of the stomach noted. ATED BY: JESUS LATHAM MD DICTATED DATE/TIME: 04/22/24141 SIGNED BY: JESUS LATHAM MD SIGNED DATE/TIME: 04/22/24141 CC: [address] [id number] Ph: [phone] DIAGNOSTIC IMAGING Diagnostic Imaging Report : [id number] Signed PATIENT: JAN PROCTOR ACCT: [id number] UNIT: [id number] : 1960 LOC: ICU CENTRL ROOM / BED: [address] [place] [address] AGE / SEX: 63 / M ADM STATUS: ADM IN SERVICE 9 ORDERING PHYSICIAN: SAUL BARRON PROCEDURE(s): CXRP - CHEST PORTABLE REASON: intubated ORDER NUMBER(s): [id number], ACCESSION NUMBER(s): [id number] EXAM: XR Chest, 1 View CLINICAL INDICATION: intubated TECHNIQUE: Frontal view of the chest. COMPARISON: XY CHEST PORTABLE on DOS: 04/22/24, XY CHEST PORTABLE on DOS: 04/21/24, XY CHEST XRAY 1 VIEW on DOS: 04/20/24 FINDINGS: LUNGS AND PLEURAL SPACES: Pulmonary congestion and edema, greater on the right. Pneumonia can not be excluded. No pneumothorax. HEART: Unremarkable. No cardiomegaly. MEDIASTINUM: Unremarkable. Normal mediastinal contour. BONES/JOINTS: Unremarkable. No acute fracture. TUBES, LINES AND DEVICES: Right internal jugular central venous catheter tip in the superior vena cava. The endotracheal tube (ETT) is in satisfactory position. Enteric tube tip in the stomach. OTHER FINDINGS: . IMPRESSION: Pulmonary congestion and edema, greater on the right. Pneumonia can not be excluded. ATED BY: SIVAN CARPIO MD DICTATED DATE/TIME: 04/23/24545 SIGNED BY: SIVAN CARPIO MD SIGNED DATE/TIME: 04/23/24545 CC: [address] [address] Ph: [phone] DIAGNOSTIC IMAGING Diagnostic Imaging Report : [id number] Signed PATIENT: JAN PROCTOR ACCT: [id number] UNIT: [id number] : 1960 LOC: ICU CENTRL ROOM / BED: [facility] / A AGE / SEX: 63 / M ADM STATUS: ADM IN SERVICE 0800 ORDERING PHYSICIAN: KELY DIANA MD PROCEDURE(s): HWOCT - HEAD WITHOUT CONTRAST REASON: ALOC ORDER NUMBER(s): [id number], ACCESSION NUMBER(s): [id number] EXAM: CT HEAD WITHOUT CONTRAST HISTORY: ALOC COMPARISON: CT HEAD WITHOUT CONTRAST on DOS: 04/21/24, CT HEAD WITHOUT CONTRAST on DOS: 08/29/22 TECHNIQUE: Axial images of the head were obtained and reformatted in coronal and sagittal planes. All CT scans at this medical facility are performed using dose modulation techniques as appropriate to a performed exam including the following: Automated exposure control was utilized; adjustment of the MA and/or KV according to patient size; and use of iterative reconstruction technique. CT Dose: CTDI volume is 57.04 mGy. Dose-length product is 1010.0 mGy*cm FINDINGS: There is no evidence of acute intracranial hemorrhage, mass, mass effect midline shift. There is no hydrocephalus or extra-axial fluid collection. Zuniga-white matter differentiation is maintained. There is opacification of the bilateral mastoid air cells. Paranasal sinuses are clear. The calvarium is intact. IMPRESSION: 1. No acute intracranial process. HS:Y ATED BY: KENZIE PETERS MD DICTATED DATE/TIME: 04/23/24 1230 SIGNED BY: KENZIE PETERS MD SIGNED DATE/TIME: 04/23/24 1230 CC: [place] [id number] Ph: [phone] DIAGNOSTIC IMAGING Diagnostic Imaging Report : [id number] Signed PATIENT: JAN PROCTOR ACCT: [id number] UNIT: [id number] : 1960 LOC: ICU CENTRL ROOM / BED: [facility] / A AGE / SEX: 63 / M ADM STATUS: ADM IN SERVICE 0606 ORDERING PHYSICIAN: SAUL BARRON PROCEDURE(s): CXRP - CHEST PORTABLE REASON: intubated ORDER NUMBER(s): [id number], ACCESSION NUMBER(s): [id number] CHEST RADIOGRAPH Indication: intubated Technique: Single frontal view of the chest was obtained COMPARISON: XY CHEST PORTABLE on DOS: 04/23/24, XY CHEST PORTABLE on DOS: 04/22/24, XY CHEST PORTABLE on DOS: 04/21/24, XY CHEST XRAY 1 VIEW on DOS: 04/20/24 FINDINGS: Lines and Tubes: Endotracheal tube, enteric catheter and right central venous catheter in satisfactory position. Lungs: Multifocal airspace disease. Pleura: No effusion. No pneumothorax. Cardiomediastinal contours: Unremarkable Bones: Unremarkable IMPRESSION: Lines and tubes in satisfactory position. No significant interval change. ATED BY: VIKTOR GERMAN MD DICTATED DATE/TIME: 04/24/24539 SIGNED BY: VIKTOR GERMAN MD SIGNED DATE/TIME: 04/24/24539 CC: [place] [id number] Ph: [phone] DIAGNOSTIC IMAGING Diagnostic Imaging Report : [id number] Signed PATIENT: JAN PROCTOR ACCT: [id number] UNIT: [id number] : 1960 LOC: ICU CENTRL ROOM / BED: [facility] A AGE / SEX: 63 / M ADM STATUS: ADM IN SERVICE 0700 ORDERING PHYSICIAN: ARIANNE HARRIS RESIDENT PROCEDURE(s): CXR1 - CHEST XRAY 1 VIEW REASON: ET Tube Placement Confirmation ORDER NUMBER(s): [id number], ACCESSION NUMBER(s): [id number] CLINICAL INFORMATION: Endotracheal Tube Placement Confirmation. TECHNIQUE: Single AP portable chest radiograph was obtained. COMPARISON: XY CHEST PORTABLE on DOS: 04/24/24, XY CHEST PORTABLE on DOS: 04/23/24, XY CHEST PORTABLE on DOS: 04/22/24 FINDINGS: Distal tip of the endotracheal tube is approximately 4.9 cm above the level of the anny, minimally changed. Enteric tube is poorly visualized at its distal aspect due to overlying soft tissue density. Appears to reach the stomach and descend below the [id number] of the exam. Stable satisfactory positioning of the right internal jugular central venous catheter. Bilateral airspace opacities, right greater than left, minimally changed no pneumothorax. No other significant interval change IMPRESSION: 1. No significant interval change as detailed above. 2. Stable satisfactory positioning of the endotracheal tube, enteric tube, and right internal jugular central venous catheter. ATED BY: NATASHA WALLIS DO DICTATED DATE/TIME: 04/26/24722 SIGNED BY: NATASHA WALLIS DO SIGNED DATE/TIME: 04/26/24722 CC: [place] [id number] Ph: [phone] DIAGNOSTIC IMAGING Diagnostic Imaging Report : [id number] Signed PATIENT: JAN PROCTOR ACCT: [id number] UNIT: [id number] : 1960 LOC: ICU CENTRL ROOM / BED: [address] [place] [address] AGE / SEX: 63 / M ADM STATUS: ADM IN SERVICE 9 ORDERING PHYSICIAN: SAUL BARRON RESIDENT PROCEDURE(s): CXRP - CHEST PORTABLE REASON: intubated ORDER NUMBER(s): [id number], ACCESSION NUMBER(s): [id number] EXAM: XR Chest, 1 View CLINICAL INDICATION: intubated TECHNIQUE: Frontal view of the chest. COMPARISON: XY CHEST XRAY 1 VIEW on DOS: 04/26/24, XY CHEST PORTABLE on DOS: 04/24/24, XY CHEST PORTABLE on DOS: 04/23/24, XY CHEST PORTABLE on DOS: 04/22/24, XY CHEST PORTABLE on DOS: 04/21/24 FINDINGS: LUNGS AND PLEURAL SPACES: Patchy airspace disease of the right lung field, likely pneumonia. No pneumothorax. HEART: Unremarkable. No cardiomegaly. MEDIASTINUM: Unremarkable. Normal mediastinal contour. BONES/JOINTS: Unremarkable. No acute fracture. TUBES, LINES AND DEVICES: Right internal jugular central venous catheter tip in the superior vena cava. The endotracheal tube (ETT) is in satisfactory position. OTHER FINDINGS: . IMPRESSION: Patchy airspace disease of the right lung field, likely pneumonia. ATED BY: SIVAN CARPIO MD DICTATED DATE/TIME: 04/27/24510 SIGNED BY: SIVAN CARPIO MD SIGNED DATE/TIME: 04/27/24510 CC: [place] [address] Ph: [phone] DIAGNOSTIC IMAGING Diagnostic Imaging Report : [id number] Signed PATIENT: JAN PROCTOR ACCT: [id number] UNIT: [id number] : 1960 LOC: ICU CENTRL ROOM / BED: [address] [place] [address] AGE / SEX: 63 / M ADM STATUS: ADM IN SERVICE 1524 ORDERING PHYSICIAN: JENNIFFER BARAHONA MD PROCEDURE(s): USGUIVASAC - US Guided Vascular Access REASON: For PICC Line Insertion ORDER NUMBER(s): [id number], ACCESSION NUMBER(s): [id number] Exam: US US GUIDED VASCULAR ACCESS Clinical History: For PICC Line Insertion Comparison: None Findings: Targeted sonographic evaluation of the upper extremity vein was obtained utilizing grayscale and color Doppler imaging. IMPRESSION: Sonographic assistance for central line placement. Please refer to procedural report for detailed findings. ATED BY: VIKTOR GERMAN MD DICTATED DATE/TIME: 04/28/24527 SIGNED BY: VIKTOR GERMAN MD SIGNED DATE/TIME: 04/28/24527 CC: [place] [address] Ph: [phone] DIAGNOSTIC IMAGING Diagnostic Imaging Report : [id number] Signed PATIENT: JAN PROCTOR ACCT: [id number] UNIT: [id number] : 1960 LOC: ICU CENTRL ROOM / BED: [address] [place] [address] AGE / SEX: 63 / M ADM STATUS: ADM IN SERVICE 0400 ORDERING PHYSICIAN: ARIANNE HARRIS PROCEDURE(s): CXRP - CHEST PORTABLE REASON: intubated ORDER NUMBER(s): [id number], ACCESSION NUMBER(s): [id number] EXAM: XR Chest, 1 View CLINICAL INDICATION: intubated TECHNIQUE: Frontal view of the chest. COMPARISON: XY CHEST PORTABLE on DOS: 3/25, XY CHEST XRAY 1 VIEW on DOS: 04/26/24, XY CHEST PORTABLE on DOS: 04/24/24, XY CHEST PORTABLE on DOS: 04/23/24, XY CHEST PORTABLE on DOS: 04/22/24 FINDINGS: LUNGS AND PLEURAL SPACES: Patchy airspace disease in the right lung field, likely pneumonia. No pneumothorax. HEART: Unremarkable. No cardiomegaly. MEDIASTINUM: Unremarkable. Normal mediastinal contour. BONES/JOINTS: Unremarkable. No acute fracture. TUBES, LINES AND DEVICES: Left peripherally inserted central catheter (PICC) tip in the superior vena cava. ETT is in proper position. UPPER ABDOMEN: Enteric stomach. OTHER FINDINGS: . IMPRESSION: Patchy airspace disease in the right lung field, likely pneumonia. ATED BY: SIVAN CARPIO MD DICTATED DATE/TIME: 04/28/24510 SIGNED BY: SIVAN CARPIO MD SIGNED DATE/TIME: 04/28/24510 CC: [place] [id number] Ph: [phone] DIAGNOSTIC IMAGING Diagnostic Imaging Report : [id number] Signed PATIENT: JAN PROCTOR ACCT: [id number] UNIT: [id number] : 1960 LOC: ICU CENTR ROOM / BED: [facility] / A AGE / SEX: 63 / M ADM STATUS: ADM IN SERVICE 0400 ORDERING PHYSICIAN: SAUL BARRON RESIDENT PROCEDURE(s): CXRP - CHEST PORTABLE REASON: intubated ORDER NUMBER(s): [id number], ACCESSION NUMBER(s): [id number] EXAM: XR Chest, 1 View CLINICAL INDICATION: intubated TECHNIQUE: Frontal view of the chest. COMPARISON: XY CHEST PORTABLE on DOS: 04/28/24, XY CHEST PORTABLE on DOS: 04/27/24, XY CHEST XRAY 1 VIEW on DOS: 04/26/24, XY CHEST PORTABLE on DOS: 04/24/24, XY CHEST PORTABLE on DOS: 04/23/24 FINDINGS: LUNGS AND PLEURAL SPACES: Patchy airspace disease of the right lung field could be pneumonia. No pneumothorax. HEART: Unremarkable. No cardiomegaly. MEDIASTINUM: Unremarkable. Normal mediastinal contour. BONES/JOINTS: Unremarkable. No acute fracture. TUBES, LINES AND DEVICES: Left peripherally inserted central catheter (PICC) tip in the superior vena cava. The endotracheal tube (ETT) is in satisfactory position. Enteric tube tip in the stomach. OTHER FINDINGS: . IMPRESSION: Patchy airspace disease of the right lung field could be pneumonia. ATED BY: SIVAN CARPIO MD DICTATED DATE/TIME: 04/29/24543 SIGNED BY: SIVAN CARPIO MD SIGNED DATE/TIME: 04/29/24543 CC: [place] [address] Ph: [phone] DIAGNOSTIC IMAGING Diagnostic Imaging Report : [id number] Signed PATIENT: JAN PROCTOR ACCT: [id number] UNIT: [id number] : 1960 LOC: ICU CENTRL ROOM / BED: [address] [place] [address] AGE / SEX: 63 / M ADM STATUS: ADM IN SERVICE 1149 ORDERING PHYSICIAN: SAUL BARRON RESIDENT PROCEDURE(s): BLDVT - BiLat Lower DVT REASON: ro dvt ORDER NUMBER(s): [id number], ACCESSION NUMBER(s): [id number] US BiLat Lower DVT HISTORY: ro dvt COMPARISON: None TECHNIQUE: Duplex Doppler evaluation of the deep venous system of the lower extremity from the common femoral veins, superficial femoral vein, great saphenous vein, deep femoral vein, popliteal vein, and calf veins, including color Doppler and spectral/pulsed waveform analysis, was performed. FINDINGS: Right: - Common femoral vein: Compressible - Deep femoral vein: Compressible - Femoral vein: Compressible - Popliteal vein: Compressible - Posterior tibial vein: Waveforms present - Other: Nothing Left: - Common femoral vein: Compressible - Deep femoral vein: Compressible - Femoral vein: Compressible - Popliteal vein: Compressible - Posterior tibial vein: Waveforms present - Other: Nothing IMPRESSION: No right or left lower extremity deep venous thrombosis. ATED BY: LUIS DIANA MD DICTATED DATE/TIME: 04/29/24 1322 SIGNED BY: LUIS DIANA MD SIGNED DATE/TIME: 04/29/24 1322 CC: [place] [id number] Ph: [phone] DIAGNOSTIC IMAGING Diagnostic Imaging Report : [id number] Signed PATIENT: JAN PROCTOR ACCT: [id number] UNIT: [id number] : 1960 LOC: ICU CENTR ROOM / BED: [facility] / AGE / SEX: 63 / M ADM STATUS: ADM IN SERVICE 1149 ORDERING PHYSICIAN: SAUL BARRON RESIDENT PROCEDURE(s): LUDVT - LT Upper DVT REASON: pain ORDER NUMBER(s): [id number], ACCESSION NUMBER(s): [id number] LEFT Upper Extremity Venous Duplex Clinical History: pain Comparison: None Findings: Duplex Doppler evaluation of the venous system of the LEFT lower neck and upper extremity including color Doppler and spectral/pulsed waveform analysis was performed. The internal jugular vein demonstrates appropriate compressibility and waveform variability. The subclavian vein is patent on color Doppler evaluation without intraluminal thrombus and demonstrates waveform variability. The visualized portion of the brachiocephalic vein is patent on color Doppler evaluation without intraluminal thrombus and demonstrates waveform variability. The axillary vein demonstrates appropriate compressibility and waveform variability. The brachial veins demonstrate appropriate compressibility and patency on Doppler evaluation. The basilic vein demonstrates appropriate compressibility and patency on Doppler evaluation. The cephalic vein demonstrates appropriate compressibility and patency on Doppler evaluation. Impression: No venous thrombus identified in the LEFT upper extremity vessels evaluated above. If clinical concern/symptoms persist or worsen, short-interval follow-up study is suggested. ATED BY: JEB FRITZ MD DICTATED DATE/TIME: 04/29/24 140 SIGNED BY: JEB FRITZ MD SIGNED DATE/TIME: 04/29/24 140 CC: [address] [id number] Ph: [phone] DIAGNOSTIC IMAGING Diagnostic Imaging Report : [id number] Signed PATIENT: JAN PROCTOR ACCT: [id number] UNIT: [id number] : 1960 LOC: ICU CENTR ROOM / BED: 0265 / A AGE / SEX: 63 / M ADM STATUS: ADM IN SERVICE 9 ORDERING PHYSICIAN: SAUL BARRON PROCEDURE(s): CXRP - CHEST PORTABLE REASON: pneumonia ORDER NUMBER(s): [id number], ACCESSION NUMBER(s): [id number] EXAM: XR Chest, 1 View CLINICAL INDICATION: pneumonia TECHNIQUE: Frontal view of the chest. COMPARISON: XY CHEST PORTABLE on DOS: 04/29/24, XY CHEST PORTABLE on DOS: 04/28/24, XY CHEST PORTABLE on DOS: 04/27/24, XY CHEST XRAY 1 VIEW on DOS: 04/26/24, XY CHEST PORTABLE on DOS: 04/24/24 FINDINGS: LUNGS AND PLEURAL SPACES: Patchy airspace disease at the right lung field, likely pneumonia. No pneumothorax. HEART: Unremarkable. No cardiomegaly. MEDIASTINUM: Unremarkable. Normal mediastinal contour. BONES/JOINTS: Unremarkable. No acute fracture. OTHER FINDINGS: No significant change from the prior exam. . IMPRESSION: No significant change from the prior exam. ATED BY: SIVAN CARPIO MD DICTATED DATE/TIME: 04/30/24535 SIGNED BY: SIVAN CARPIO MD SIGNED DATE/TIME: 04/30/24535 CC: [place] [address] Ph: [phone] DIAGNOSTIC IMAGING Diagnostic Imaging Report : [id number] Signed PATIENT: AJN PROCTOR ACCT: [id number] UNIT: [id number] : 1960 LOC: [facility] ROOM / BED: [address] / A AGE / SEX: 63 / M ADM STATUS: ADM IN SERVICE 9 ORDERING PHYSICIAN: SAUL BARRON PROCEDURE(s): CXRP - CHEST PORTABLE REASON: PNA ORDER NUMBER(s): [id number], ACCESSION NUMBER(s): [id number] CHEST RADIOGRAPH Indication: PNA Technique: Single frontal view of the chest was obtained COMPARISON: XY CHEST PORTABLE on DOS: 04/30/24, XY CHEST PORTABLE on DOS: 04/29/24, XY CHEST PORTABLE on DOS: 04/28/24, XY CHEST PORTABLE on DOS: 04/27/24, XY CHEST XRAY 1 VIEW on DOS: 04/26/24 FINDINGS: Lines and Tubes: Left PICC in satisfactory position. Lungs: Multifocal airspace disease, [id number]-[id number]-pbmf-left. Pleura: No effusion. No pneumothorax. Cardiomediastinal contours: Unremarkable Bones: Unremarkable IMPRESSION: No significant interval change. ATED BY: VIKTOR GERMAN MD DICTATED DATE/TIME: 05/01/24546 SIGNED BY: VIKTOR GERMAN MD SIGNED DATE/TIME: 05/01/24546 CC: [place] [address] Ph: [phone] DIAGNOSTIC IMAGING Diagnostic Imaging Report : [id number] Signed PATIENT: JAN PROCTOR ACCT: [id number] UNIT: [id number] : 1960 LOC: [facility] ROOM / BED: [facility] / A AGE / SEX: 63 / M ADM STATUS: ADM IN SERVICE 0600 ORDERING PHYSICIAN: STEFAN LARA RESIDENT PROCEDURE(s): CXR2 - CHEST TWO VIEWS ROUTINE REASON: PNA/ATELACTATSIS /COLLAPSE ORDER NUMBER(s): [id number], ACCESSION NUMBER(s): [id number] CLINICAL INFORMATION: Pneumonia, atelectasis, collapse. TECHNIQUE: Frontal and lateral chest radiographs were obtained. COMPARISON: None FINDINGS: Airspace consolidation in the right upper lobe slightly improved compared to the prior exam, although differences may be due to differences in technique. Ill- defined airspace opacities in the lung bases bilaterally, also appear slightly improved. No pneumothorax. Stable satisfactory positioning of the left PICC. IMPRESSION: 1. Airspace consolidations appear slightly improved, although may be partly due to differences in technique. 2. Stable positioning of the left PICC. ATED BY: NATASHA WALLIS DO DICTATED DATE/TIME: 05/04/24820 SIGNED BY: NATASHA WALLIS DO SIGNED DATE/TIME: 05/04/2421 CC: Condition at Discharge: Stable Final Diagnosis/Problems List #Septic shock likely due to gram+/gram- Multifocal pneumonia, #Acute metabolic/toxic encephalopathy like due to septic shock #Acute hypoxic encefalopathy likely due to hypoxic brain injury due tocardiad arrest ,PEA#ROSC after 6 minutes# status post extubation#acute diastolic heart failure,: #Acute hypoxic respiratory failure likely due to multifocal pneumonia gram+/ - /anaerobes bacterial pneumonia#Septic shock likely due to above# PEA #Hypertension #NSTEMI type 2 #Mediastinal lymphadenopathy, likely reactive. #Trace bilateral pleural effusionsinfectious/inflammatory colitis. 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 daily for 2 weeks Discharge Statement: "Patient was advised to return to the ER or call 911 if any headaches, dizziness, shortness of breath, chest pain, abdominal pain, bleeding, fevers, or worsening of medical condition. Patient was counseled about treatment plan, medications, possible side effects, patientverbalized understanding. All questions were answered to the best of my ability. This discharge took greater then 30 minutes in planning, reviewing documentation, counseling the patient, and discussing with other team members." ASSESSMENT ASSESSMENT Assessment #Septic shock likely due to gram+/gram- Multifocal pneumonia, clinicallyimproved#Acute metabolic/toxic encephalopathy like due to septic shock#Acute hypoxic encefalopathy likely due to hypoxic brain injury due tocardiad arrest ,PEA#ROSC after 6 minutes# status post extubation#acute diastolic heart failure,:#Acute hypoxic respiratory failure likely due to multifocal pneumonia gram+/ - /anaerobes bacterial pneumonia#Septic shock likely due to above# PEA#Hypertension#NSTEMI type 2 #Mediastinal lymphadenopathy, likely reactive.#Trace bilateral pleural effusionsinfectious/inflammatory colitis.#Hypoalbuminemia#Hypokalemia-replenished#Hyperammonemia, resolved#Septic shock likely due to g+/=/anaerobes multifocal pneumonia#Lactic acidosis in the setting of septic shock-resolved#Severe anemia due to lower GI hemorrhage s/p 1 unit transfusionUncontrolled type 2 diabetes HBa1c> 9.3 STEFAN LAAR RESIDENT May 05, 2024 17:48
== END 2024-05-05 14:15 | disposition home or self-care (01) | DRG 720 ==
LOC: ER 22:20 → OVERFLOW 04-22 00:48 → ICU CENTRL 04-22 00:53 → OVERFLOW 04-22 00:53 → ICU CENTRL 04-22 05:05 → TELE-WESTW 04-30 12:19 → WEST WING 05-05 05:17
PROVIDERS: ADMIT Internal Medicine; ATTEND Emergency Medicine
PROC: 5A12012 Performance of Cardiac Output, Single, Manual (ICD-10-PCS; principal; 2024-04-22)
PROC: 5A1955Z Respiratory Ventilation, Greater than 96 Consecutive Hours (ICD-10-PCS; 2024-04-22)
PROC: 0BH17EZ Insertion of Endotracheal Airway into Trachea, Via Natural or Artificial Opening (ICD-10-PCS; 2024-04-22)
PROC: 30233N1 Transfusion of Nonautologous Red Blood Cells into Peripheral Vein, Percutaneous Approach (ICD-10-PCS; 2024-04-22)
PROC: 02HV33Z Insertion of Infusion Device into Superior Vena Cava, Percutaneous Approach (ICD-10-PCS; 2024-04-22)
PROC: 3E0A3GC Introduction of Other Therapeutic Substance into Bone Marrow, Percutaneous Approach (ICD-10-PCS; 2024-04-22)
PROC: 0BJ08ZZ Inspection of Tracheobronchial Tree, Via Natural or Artificial Opening Endoscopic (ICD-10-PCS; 2024-04-23)
PROC: 02HV33Z Insertion of Infusion Device into Superior Vena Cava, Percutaneous Approach (ICD-10-PCS; 2024-04-27)
PROC: B548ZZA Ultrasonography of Superior Vena Cava, Guidance (ICD-10-PCS; 2024-04-27)
DX: A41.50 Gram-negative sepsis, unspecified (principal); J96.01 Acute respiratory failure with hypoxia; I46.9 Cardiac arrest, cause unspecified; G92.8 Other toxic encephalopathy; R65.21 Severe sepsis with septic shock; I50.31 Acute diastolic (congestive) heart failure; J15.69 Pneumonia due to other Gram-negative bacteria; J15.9 Unspecified bacterial pneumonia; E72.20 Disorder of urea cycle metabolism, unspecified; E88.09 Other disorders of plasma-protein metabolism, not elsewhere classified; I11.0 Hypertensive heart disease with heart failure; E87.20 Acidosis, unspecified; G93.1 Anoxic brain damage, not elsewhere classified; Z20.822 Contact with and (suspected) exposure to COVID-19; I21.A1 Myocardial infarction type 2; F12.10 Cannabis abuse, uncomplicated; K52.9 Noninfective gastroenteritis and colitis, unspecified; E87.6 Hypokalemia; F14.10 Cocaine abuse, uncomplicated; R59.0 Localized enlarged lymph nodes; Z79.84 Long term (current) use of oral hypoglycemic drugs; Z79.899 Other long term (current) drug therapy; Z79.4 Long term (current) use of insulin; D50.0 Iron deficiency anemia secondary to blood loss (chronic)
CPT/HCPCS: 31500; 36415; 36556; 36569; 36600; 70450; 71045; 71046; 71250; 72125; 74176; 76937; 80048; 80053; 80061; 80202; 80307; 80320; 80329; 81001; 82140; 82270; 82565; 82805; 82962; 83540; 83550; 83605; 83690; 83735; 83880; 84100; 84132; 84443; 84484; 85014; 85018; 85025; 85610; 85730; 86850; 86900; 86901; 86920; 87040; 87070; 87077; 87081; 87086; 87205; 87426; 87804; 89051; 92610; 92950; 93005; 93306; 93970; 93971; 94002; 94003; 96360; 97110; 97116; 97163; 99291; G0378; J1450; J1815; J2003; J2185; J2470; J2704; J3480

== ENCOUNTER 2024-06-27 10:38 | Emergency (ER) | payer MEDICAID ==
[~2024-06-27] VITALS: Ht 162.6 cm; Wt 66.2 kg
[~2024-06-27 10:38] MED LIST changes: +AMOX500T86 PO; +PANT40T PO
[2024-06-27 11:10] VITALS: BP 169/100; PULSE 94; RESP 18; TEMP 97.8; O2SAT 96
[2024-06-27] MEDS: methylPREDNISolone SOD SUCC 125 MG/2 ML VL IM ONE (11:48)
[2024-06-27] MEDS: HYDROcodone-ACET 5/325MG TAB PO ONE (11:48)
[2024-06-27] MEDS ORDERED: CYCL-837 PO (11:53)
[2024-06-27] MEDS ORDERED: IBUP1TAB5 PO (11:53)
[2024-06-27] MEDS ORDERED: LIDO5DIS21 TOP (11:53)
--- NOTE | 2024-06-27 11:54 | ED.PDOC ---
Back pain HPI HPI Comments 63 year old with hx chronic back pain presents for medication refill on oxycodone. No trauma or injury. Denies history of chronic steroid use or history of osteoporosis Denies any history of cancer Denies fevers chills night sweats nausea vomiting unintentional weight loss Denies IV drug use history of HIV/TB Denies abdominal "tearing" pain Denies syncope Denies urinary incontinence or urinary changes Denies numbness tingling of the groin or inner thigh Denies previous back procedure or surgery Chief Complaint: Lower Extremity Time Seen by MD: 10:51 Primary Care Provider: TOREY Reviewed Notes: Nurses Notes, Medications, Allergies Allergies: Coded Allergies: NO KNOWN ALLERGIES (Unverified , 08/29/22) Home Meds Active Scripts Pantoprazole Sodium Sesquihydr (Pantoprazole Sodium) 40 Mg Tab, 40 MG PO DAILY for 14 Days, #14 TAB Prov:STEFAN LARA RESIDENT 05/05/24 Amoxicillin & Pot Clavulanate (Augmentin) 500 Mg Tab, 875 MG PO BID for 7 Days, #14 TAB Prov:STEFAN LAAR RESIDENT 05/05/24 Ondansetron Odt 4MG Tab (ZOFRAN PO) 4 Mg Tb, 4 MG PO Q8HP PRN for 5 Days, #15 TAB ODT TAB-DISSOLVE IN MOUTH, THEN SWALLOW Prov:MARYCARMEN LEDBETTER MD 11/25/22 Reported Medications Simvastatin (Simvastatin) 40 Mg Tab, 1 04/14/24 Loratadine (CLARITIN TABLET) 10 Mg Tb, 1 DAILY 04/14/24 Sucralfate (Sucralfate) 1 Gm Tab, 1 DAILY 04/14/24 Metformin Hydrochloride (Metformin Hcl) 1,000 Mg Tab, 1 04/14/24 Information Source: Patient Mode of Arrival: Ambulatory Past Medical History PAST MEDICAL HISTORY: DM, HTN Surgical History: Denies all surgeries Family History Family History: Reviewed,noncontributory to illness Social History Smoker: Non-Smoker Alcohol: Denies ETOH Use Drugs: Denies Drug Use Lives In: Home All Other Systems: Reviewed and Negative (Per HPI) Physical Exam General Appearance: No Apparent Distress, Normal HEENT: Normal ENT Inspection, Pharynx Normal, TMs Normal Neck: Full Range of Motion, Non-Tender, Normal, Normal Inspection Respiratory: Chest Non-Tender, Lungs Clear, No Accessory Muscle Use, No Respiratory Distress, Normal Breath Sounds Cardiovascular: No Murmur, No Gallop, Regular Rate/Rhythm Breast Exam: Deferred Gastrointestinal: No Organomegaly, Non Tender, No Pulsatile Mass, Normal Bowel Sounds, Soft Genitalia: Deferred Pelvic: Deferred Rectal: Deferred Extremities: No calf tenderness, Normal capillary refill, Normal inspection, Normal range of motion, Non-tender, No pedal edema Musculoskeletal : Extremity Location: Back (No gross abnormality on inspection. No step-offs. Distal sensation intact) Apperance: Normal Neurologic: Alert, solar energy advisor II-XII nml as Tested, No Motor Deficits, Normal Affect, Normal Mood, No Sensory Deficits Cerebellar Function: Normal Reflexes: Normal Skin: Dry, Normal Color, Warm Lymphatic: No Adenopathy Was a procedure done? Was a procedure done?: No Back Pain Differential Dx Differential Diagnosis: Musculoskeletal Pain X-Ray, Labs, Meds, VS Vital Signs Date Time Temp Pulse Resp B/P (MAP) Pulse Ox O2 Delivery O2 Flow Rate FiO2 06/27/24 10:47 97.8 94 18 169/100 (123) 96 97.8 X-Ray, Labs, Meds, VS Comment I considered cauda equina, spinal cord compression, vertebral malignancy/mets, acute spinal fracture, vertebral osteomyelitis, epidural abscess, infected or obstructed kidney stone, however this is less likely as the patient does not present with lower back pain red flags symptoms such as bowel or bladder dysfunction, saddle anesthesia, paresthesia, and without any history of m alignancy or recent back trauma or spinal interventions. Presentation most consistent with nonemergent musculoskeletal etiology ED workup: Defer imaging and lab work for outpatient follow up at this time Disposition: Discharge. Strict return precautions discussed with the patient with full understanding. Supportive care advised (rest, ice, heat, NSAIDs, stretching exercises) Massage muscles with cold pack or ice for 20 minutes 4 times per day. Usually most useful if there is swelling during the first 48 hours Heating pad on the most painful area for 20 minutes to relieve muscle spasm Sleep and the most comfortable sleeping position (usually on the side with knees bent) Light stretching, no strenuous activity, avoid frequent bending, avoid carrying heavy objects Discussed possible benefits of yoga and acupuncture Return precautions discussed including Inability to walk/bear weight Paresthesia/weakness/leg pain Fecal/urinary incontinence Any worsening symptoms Time of 1ST Reevaluation: 11:51 Reevaluation 1ST: Improved Patient Education/Counseling: Diagnosis, Treatment Family Education/Counseling: Diagnosis, Treatment Departure 1 Departure Time of Disposition: 11:52 Impression: Primary Impression: Back pain Qualified Codes: M54.50 - Low back pain, unspecified Disposition: 01 HOME / SELF CARE / HOMELESS Condition: Stable e-Prescriptions Lidocaine (LIDODERM 5% TOPICAL PATCH) 1 Patch Ph 1 PATCH TOP DAILY for 30 Days, #30 PATCH 0 Refills Prov: ANIYAH GRIFFIN NP 06/27/24 Ibuprofen Micronized (Ibuprofen) 600 Mg Tab 600 MG PO TIDWM for 10 Days, #30 TAB 0 Refills Prov: ANIYAH GRIFFIN NP 06/27/24 Cyclobenzaprine Hcl (Cyclobenzaprine Hcl) 5 Mg Tab 1 TAB PO QPM for 14 Days, #14 TAB 0 Refills Prov: ANIYAH GRIFFIN NP 06/27/24 Discharged With: Self Critical Care Note Critical Care Time?: No Stability Stability form required: No Heart Score Heart Score: Heart Score Response (Comments) Value History N/A 0 EKG N/A 0 Age N/A 0 Risk Factors N/A 0 Troponin N/A 0 Total 0 ANIYAH GRIFFIN NP June 27, 2024 11:54
== END 2024-06-27 12:08 | disposition home or self-care (01) ==
LOC: ER 10:38
DX: G89.29 Other chronic pain (principal); M54.9 Dorsalgia, unspecified; I10 Essential (primary) hypertension; E11.9 Type 2 diabetes mellitus without complications; Z76.0 Encounter for issue of repeat prescription; Z79.899 Other long term (current) drug therapy
CPT/HCPCS: 96372; 99283; J2919